=== PATIENT | female | born 1945 | race Caucasian/White ===

== ENCOUNTER 2018-09-12 13:03 | Outpatient (REF) | payer MEDICARE, OTHER, SELFPAY ==
[2018-09-12 14:24] LABS: Iron 21 ug/dL (50-175); Total Iron Binding Capacity 442 ug/dL (250-450); Transferrin Sat 5 % (15-50)
[2018-09-12 14:34] LABS: HCT 27.3 % (36.0-46.0); HGB 8.1 g/dL (12.0-15.5); Mean Corp. HGB Concentration 29.7 g/dL (32.0-36.0); Mean Corpuscular Hemoglobin 23.9 pg (27.0-33.0); Mean Corpuscular Volume 80.5 fL (80-95); Mean Platelet Volume 11.9 fL (8.0-11.0); Platelet Count 363 x1000/uL (130-400); RBC 3.39 m/cumm (4.00-5.20); RBC Distribution Width 16.3 % (11.7-14.6); White Blood Cell Count 7.46 k/cumm (4.4-10.8)
[2018-09-12 14:47] LABS: Ferritin 20 ng/mL (8-388); TSH (W/Ref FT4) 1.66 uIU/mL (0.358-3.74)
[2018-09-13 10:52] LABS: Hepatitis C Ab w Rflx HCV PCR Negative (NEGAT)
== END 2018-09-12 13:23 ==
LOC: NCHCN 13:03
PROVIDERS: PCP Family Medicine; Visit Provider Family Medicine
DX: D50.9 Iron deficiency anemia, unspecified (principal); Z13.818 Encounter for screening for other digestive system disorders; E03.9 Hypothyroidism, unspecified
CPT/HCPCS: 85027; 86803; 82728; 83540; 83550; 84443

== ENCOUNTER → 2018-11-16 11:28 | Outpatient (BNVA) | payer MEDICARE, OTHER, SELFPAY | PROVIDERS: PCP Family Medicine; Referring Provider Family Medicine; Visit Provider Physical Therapy Assistant | DX: R07.89 Other chest pain (principal); R01.1 Cardiac murmur, unspecified; K21.9 Gastro-esophageal reflux disease without esophagitis; K22.70 Barrett's esophagus without dysplasia | CPT/HCPCS: 99212 ==

== ENCOUNTER 2018-11-20 14:06 | Observation (INO) | payer MEDICARE, OTHER, SELFPAY ==
[2018-11-20] VITALS (91 sets, daily range): BP systolic 90–190; BP diastolic 11–80; PULSE 63–92; RESP 13–34; TEMP 36.2–37.2; O2SAT 95–100
--- NOTE | 2018-11-20 14:14 | ED.GENADUL_ITS ---
Discharge Plan Disposition Patient Disposition: [facility] INPATIENT Condition: Serious Discharge Details Chief Complaint: Chest Pain Clinical Impression: Angina pectoris, unstable Reason For Visit: UNSTABLE ANGINA Admit Date/Time: 11/20/18 17:39 Admit Provider: Kayden Damian Attending Provider: Kayden Damian Primary Care Provider: Rafa Aguayo ED Provider: Harvey Wilks Discharge Data Discharge Date/Time-TO BE ENTERED AT DEPARTURE: 11/20/18 19:05 Medical Decision Making 73-year-old female smoker with a history of peripheral vascular occlusive disease and abnormal stress test in the past presents from Dr. ramirez's office with complaints of weeks of intermittent episodes of primarily exertional chest pain is begun to occur at rest over the past 2 days time. She arrives slightly hypertensive, complaining of 3 out of 10 chest pain. Her EKG reveals new ST segment depressions in the lateral leads. Reviewed records including stress test from July 2014: 1) [address] elevation in III and [address] elevation in II and AVF. 2) Peaked T-waves in II, III, aVF 3) 0.[address] depression and T-wave inversion in AVL, V1 and V2 compared to baseline. At that time the recommendation was referral for cardiac catheterization which the patient states she has not had. IV placed, labs obtained, patient placed on a ekg monitor. Given aspirin and placed on NTG & heparin gtt. Patient now pain-free and repeat EKG obtained at 15:29h reveals normal sinus rhythm, no narrow QRS, no ST segment elevation and resolution of previous depressions. She has a microcytic anemia with hematocrit of 24, states to me that she has not been taking her iron supplementation for approximately 1 year. I did perform a rectal exam which showed brown stool that was guaiac negative. Given the drop of her hematocrit I do feel that she is at risk for demand ischemia due to lack of oxygen carrying capacity. Case discussed with on-call cardiology at [facility] who recommend transfusion, hold heparin at this time, re-evaluate in the AM as they are unable to accept. Case also then discussed with [facility], Dr. Mcdaniel who also cannot accept in transfer, but has placed the patient on urgent transfer list to [place] [id number]. They agree with transfusion, holding of heparin, call the service back if the patient should become clinically unstable or for any other acute concerns otherwise discuss transfer in the morning. Discussed with Dr Damian who is to admit to [facility] given lack of available tertiary care bed at this time. Lab Data Lab results reviewed: Yes I reviewed the patient's lab results. Laboratory Results - last 24 hr 11/20/18 11/20/18 11/20/18 15:01 15:01 15:01 WBC 8.12 RBC 3.13 L Hgb 7.4 L Hct 24.9 L MCV 79.6 L MCH 23.6 L MCHC 29.7 L RDW 18.4 H Plt Count 457 H MPV 10.3 Immature Gran % 0.4 Neutrophils % 62.4 Lymphocytes % 24.0 Monocytes % 11.3 Eosinophils % 1.8 Basophils % 0.1 Absolute Neutrophils 5.06 Absolute Lymphocytes 1.95 Absolute Monocytes 0.92 H Absolute Eosinophils 0.15 Absolute Basophils 0.01 Differential Comment Rbc morph reviewed RBC Morphology See below Hypochromasia 2+ Poikilocytosis 2+ Anisocytosis 2+ Microcytosis 1+ PT 9.4 INR 0.9 APTT 21.4 Sodium 141 Potassium 4.8 Chloride 103 Carbon Dioxide 26.4 Anion Gap 11.6 H BUN 20 H Creatinine 1.06 H Estimated GFR/1.73 m2 51.10 Glucose 115 H Calcium 10.5 H Total Bilirubin 0.2 AST 12 L ALT 14 Alkaline Phosphatase 104 Troponin I < 0.02 Total Protein 9.2 H Albumin 4.3 ECG Data Attestation: I personally reviewed and interpreted this ECG (s) as follows: Interpretation: Normal sinus rhythm, rate of 65, the QRS is narrow, there is ST segment depressions present in lateral leads V4 through V6 as well as T wave inversions in leads I and aVL EKG #2 at 1529 hrs. reveals normal sinus rhythm, narrow QRS, no ST segment elevation nor depression HPI General Mode of arrival: ambulatory . Date/Time Provider Initiated Documentation: 11/20/18 14:07 . Limitations to Documentation: no limitations . Information obtained by: patient and family . History of Present Illness 73 year old F presents to the emergency department with the chief complaint of Chest pain over 2 weeks time with exertion, referred from Dr Aguayo, with intensity rated at 3. Quality is described as dull, and is localized to the chest. Patient reports radiation to back. Patient started experiencing this week(s) and it has been intermittent. Rest improves symptom(s), Movement worsens symptoms . Patient notes no other symptoms.. Patient did receive the following treatments prior to arrival, none Related Data Home Medications Medication Instructions Recorded Confirmed clopidogrel [Plavix] 75 mg PO HS 06/21/14 11/20/18 ferrous gluconate 324 mg PO DAILY 08/01/14 11/20/18 aspirin 325 mg PO DAILY tab-cap 01/09/15 11/20/18 cholecalciferol (vitamin D3) 2,000 unit PO DAILY 06/06/17 11/16/18 [Vitamin D3] nitroglycerin 0.4 mg SUBLINGUAL DIRECTED #25 09/03/17 11/20/18 tab.subl valsartan-hydrochlorothiazide 1 ea PO DAILY 09/13/17 11/20/18 isosorbide mononitrate 60 mg PO HS 09/14/17 11/20/18 ranitidine HCl 300 mg PO HS 09/14/17 11/20/18 verapamil 180 mg PO .AFTERNOON 09/14/17 11/20/18 levothyroxine 150 mcg PO QAM 11/20/18 11/20/18 Previous Rx's Medication Instructions Recorded nitroglycerin 0.4 mg SUBLINGUAL DIRECTED #25 09/03/17 tab.subl Allergies Allergy/AdvReac Type Severity Reaction Status Date / Time cilostazol Allergy Severe Unverified 11/20/18 14:16 Kuyqexf-Pia-Bto Reductase AdvReac Intermediate Headache Unverified 11/20/18 14:16 Inhibitor atenolol AdvReac Mild palpitation Unverified 11/20/18 14:16 s losartan potassium AdvReac Mild palpitation Unverified 11/20/18 14:16 [From Cozaar] s rosuvastatin [From Crestor] AdvReac Mild Unverified 11/20/18 14:16 levothyroxine sodium AdvReac Unverified 11/20/18 14:16 Review of Systems Review of Systems Chest pain that worsens with exertion, improves with rest. She denies any rece nt illness. She continues to smoke. 8 systems reviewed and otherwise no [facility] Medical History Hx of Helicobacter infection (Inactive) Tobacco dependence (Acute) Diverticulosis large intestine w/o perforation or abscess w/o bleeding (Chronic) Degenerative disc disease, lumbar (Chronic) Intermittent claudication (Chronic) Depression (Chronic) Carotid stenosis (Chronic) Hyperlipidemia (Chronic) Hypothyroid (Chronic) Peripheral vascular disease (Chronic) Iron deficiency anemia (Chronic) Brittle nails (Chronic) Chronic anxiety (Chronic) Gastric ulcer (Chronic) Hypertension (Chronic) Vitamin D deficiency (Chronic) Obesity (Chronic) Cerebrovascular accident (CVA) (Chronic) Asthma (Chronic) Prediabetes (Chronic) Ischemic optic neuropathy (Chronic) GERD (gastroesophageal reflux disease) (Acute 09/05/16) 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 1/2 pack/day smoker. No active alcohol or substance use. Exam Narrative Exam Narrative: GEN: awake, alert, oriented 3. Pleasant, well groomed, interactive. HEAD: Normocephalic, atraumatic ENT: Mucous membranes moist, oropharynx unremarkable, External ear exam unremarkable EYES: PERRL, EOMI NECK: Full ROM, no MADISON, no menigismus CHEST/RESP: Nontender, clear to auscultation bilateral, no wheeze/rhonchi/rales CARDIOVASCULAR: RRR, no murmur, rub bonnie. 2+ Rad pulse bilateral ABDOMEN: Soft, nontender, no mass. +Bowel sounds EXT: Full ROM, no edema, no rash Neuro: Grossly normal neurologic exam, conversant, interactive. Psych: Speech fluent, thoughts congruent, affect normal
[2018-11-20] MEDS: Aspirin 325 MG TAB PO (14:59)
[2018-11-20 15:10] LABS: Abs Immature Grans 0.03 k/cumm (0.0-0.09); Absolute Basophil Count 0.01 k/cumm (0.0-0.2); Absolute Eosinophil Count 0.15 k/cumm (0.0-0.7); Absolute Lymphocyte Count 1.95 k/cumm (1.2-3.4); Absolute Monocyte Count 0.92 k/cumm (0.11-0.7); Absolute Neutrophil Count 5.06 k/cumm (1.2-6.7); Basophils % 0.1; Eosinophils % 1.8; HCT 24.9 % (36.0-46.0); HGB 7.4 g/dL (12.0-15.5); Immature Grans % 0.4; Mean Corp. HGB Concentration 29.7 g/dL (32.0-36.0); Mean Corpuscular Hemoglobin 23.6 pg (27.0-33.0); Mean Corpuscular Volume 79.6 fL (80-95); Mean Platelet Volume 10.3 fL (8.0-11.0); Monocytes % 11.3; Neutrophils % 62.4; Platelet Count 457 x1000/uL (130-400); RBC 3.13 m/cumm (4.00-5.20); RBC Distribution Width 18.4 % (11.7-14.6); White Blood Cell Count 8.12 k/cumm (4.4-10.8)
[2018-11-20] MEDS: Aspirin 81 MG CHEW (15:23)
[2018-11-20 15:35] LABS: ALT 14 U/L (12-78); AST 12 U/L (15-37); Albumin 4.3 g/dL (3.4-5.0); Alkaline Phosphatase 104 U/L (46-116); Anion Gap 11.6 mmol/L (3-11); Anisocytosis 2+; BUN 20 mg/dL (7-18); Bilirubin, Total 0.2 mg/dL (0.2-1.0); CO2 26.4 mmol/L (21.0-32.0); CREATININE 1.06 mg/dL (0.55-1.02); Calcium 10.5 mg/dL (8.5-10.1); Chloride 103 mmol/L (98-107); Diff Comment RBC Morph Reviewed; Glucose 115 mg/dL (70-100); INR 0.9 (0.9-1.1); Microcytosis 1+; PTT Activated 21.4 sec (21.0-31.4); Potassium 4.8 mmol/L (3.5-5.1); Prothrombin Time 9.4 sec (9.3-11.0); Sodium 141 mmol/L (136-145); Total Protein 9.2 g/dL (6.4-8.2)
[2018-11-20 15:36] LABS: Hypochromasia 2+; Poikilocytes 2+
[2018-11-20 15:37] LABS: Troponin I < 0.02 ng/mL (0.00-0.06)
--- NOTE | 2018-11-20 15:40 | DI.RAD_ITS ---
SYMPTOM/DIAGNOSIS: CHEST PAIN PORTABLE AP CHEST: Comparison is made with 09/01/17. Heart size and pulmonary vasculature are within normal limits. The lungs are free of infiltrates, effusions or pneumothoraces. IMPRESSION: No acute pulmonary process.
[2018-11-20 15:41] LABS: Magnesium 2.3 mg/dL (1.8-2.4); NT-proBNP 318 pg/mL
--- NOTE | 2018-11-20 17:36 | NUR.NOTE ---
PT SITTING UP EATING DINNER AT THIS TIME. PT LUNGS CLEAR AND PT HAS BSWx 4 ON EDEMA Nursing Note:
[2018-11-20 18:09] LABS: Troponin I 0.03 ng/mL (0.00-0.06)
--- NOTE | 2018-11-20 19:58 | W.PM.HP.N ---
Date of service: 11/20/18 Time of Service: 19:58 Assessment and Plan (1) Atypical chest pain: Current visit: Yes Status: Acute Patient presents with intermittent chest pressure that appears to be exercise-induced but also relieved by burping. She has a history of abnormal stress testing in 2013 without apparent follow-up. There is some concern that she did not follow-up for a recommended cardiac catheterization. She is admitted to observation status with plans for tertiary care follow-up for cardiac cath. We are limited in our ability to continue platelet inhibition or use of heparin because of her profound anemia. She does not display evidence of acute GI bleeding and is indeed guaiac negative from below. Plan at this point is to continue a nitro infusion currently at 40 mcg/min, titrate to keep her pain-free. Limit her activity. Transfer to tertiary care when next bed available. Discussions with [facility] [place] have taken place. (2) Abnormal EKG: Current visit: Yes Status: Acute Evidence of lateral ischemic changes on initial EKG. These have since resolved with resolution of her chest pressure and with the institution of the nitro drip. (3) Elevated troponin: Current visit: Yes Status: Acute Initial troponins have been low. Previous admission in 2017 peak troponin was 0.07. (4) Tobacco dependence: Current visit: Yes Status: Acute Ongoing tobacco use of 1/2 pack/day. Will provide nicotine replacement (5) Carotid stenosis: Current visit: No Status: Chronic History of carotid endarterectomy. She denies ever having had neurologic deficits. Exam today shows no obvious neurologic deficits. Her problem list/history suggests she has had a CVA in the past. She is usually on aspirin 325 mg daily. We are holding that because of the anemia. She has been taking this regularly so there should be adequate antiplatelet activity on board. (6) Hyperlipidemia: Current visit: Yes Status: Chronic She is intolerant of statins. On no treatment at this time. (7) Hypothyroid: Current visit: Yes Status: Chronic Patient states she takes 150 mcg of levothyroxine daily will provide her that in the a.m. (Med list had her at 250 mcg daily, this was corrected) (8) Chronic anxiety: Current visit: Yes Status: Chronic PRN lorazepam 0.5 mg every 6 hours for anxiety (9) Gastric ulcer: Current visit: Yes Status: Chronic History of prior gastric ulcer on maintenance ranitidine. Will switch her to IV Protonix 40 mg daily with a stat dose tonight. No evidence of active GI bleeding, I do not think she warrants a Protonix infusion. (10) Prediabetes: Current visit: Yes Status: Chronic Admission blood sugar in the normal range. She is not actively treated for diabetes. We will keep her on a low carbohydrate diet as a precaution. History of Present Illness Narrative: This is a 73-year-old woman with a history of stable angina diagnosed in 2013 at the time she had an abnormal stress test. There are conflicting stories as to whether she was recommended for cardiac catheter not. She never went on to have a cardiac cath, she has had intermittent chest pain off and on for several years now. 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 During that visit on 11/16/2018 she was having chest pain and was referred back to her PCP. Dr. ramirez referred her to the emergency room today. In the emergency room she was having chest discomfort with EKG changes in the lateral leads. She was started on a nitro drip. She did receive a full dose aspirin. Further labs came back showing a hemoglobin of 7.4 down from 12.0. With the newly discovered anemia no further anticoagulation was given. [facility] cardiology was consulted and felt she needed to be transfused and stabilized and they could see her there in transfer tomorrow. She is admitted to the ICU on a nitro drip and is receiving 1 unit of packed red cells. Review of Systems Constitutional Denies excessive sweating, Denies frequent falls and Denies headache(s) Comments: Denies any prior CVA or neurologic problems. Eyes Reports spots in vision (She described a flash or floater in her right eye vision while in the emerg) ENT Denies dizziness, Denies headache(s) and Denies throat swelling Cardiovascular Reports chest pain (Chest pain or pressure with any movement including moving off the stretcher), Denies edema, Denies dyspnea, Reports dyspnea on exertion and Reports orthopnea Comments: Some of her chest pain gets better after she burps. Respiratory Denies change in phlegm color, Denies cough, Denies excessive phlegm production, Denies dyspnea and Reports dyspnea on exertion Gastrointestinal Denies melena, Denies hematochezia, Denies change in bowel habits, Denies change in stool character, Denies coffee ground emesis, Denies diarrhea, Denies nausea and Denies vomiting Genitourinary Denies urinary frequency and Denies urinary incontinence Musculoskeletal Denies back pain and Denies deformity Integumentary/Breasts Denies rash, Denies sores and Denies wounds Neurologic Denies confusion, Denies dizziness, Denies frequent falls, Denies headache(s), Denies focal weakness and Denies sensory deficit Psychiatric Denies confusion, Denies depression and Denies suicidal ideation Endocrine Denies cold intolerance and Denies excessive sweating Hematologic/Lymphatic Denies easy bleeding and Denies easy bruising Allergic/Immunologic Denies urticaria and Denies throat swelling [facility] Medical History Hx of Helicobacter infection (Inactive) Tobacco dependence (Acute) Diverticulosis large intestine w/o perforation or abscess w/o bleeding (Chronic) Degenerative disc disease, lumbar (Chronic) Intermittent claudication (Chronic) Depression (Chronic) Carotid stenosis (Chronic) Hyperlipidemia (Chronic) Hypothyroid (Chronic) Peripheral vascular disease (Chronic) Iron deficiency anemia (Chronic) Brittle nails (Chronic) Chronic anxiety (Chronic) Gastric ulcer (Chronic) Hypertension (Chronic) Vitamin D deficiency (Chronic) Obesity (Chronic) Cerebrovascular accident (CVA) (Chronic) Asthma (Chronic) Prediabetes (Chronic) Ischemic optic neuropathy (Chronic) GERD (gastroesophageal reflux disease) (Acute 09/05/16) 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 1/2 pack/day smoker. No active alcohol or substance use. Meds Home Medications Medication Instructions Recorded Confirmed Type clopidogrel [Plavix] 75 mg PO HS 06/21/14 11/20/18 History ferrous gluconate 324 mg PO DAILY 08/01/14 11/20/18 History aspirin 325 mg PO DAILY tab-cap 01/09/15 11/20/18 History cholecalciferol (vitamin D3) 2,000 unit PO DAILY 06/06/17 11/16/18 History [Vitamin D3] nitroglycerin 0.4 mg SUBLINGUAL DIRECTED #25 09/03/17 11/20/18 Rx tab.subl valsartan-hydrochlorothiazide 1 ea PO DAILY 09/13/17 11/20/18 History isosorbide mononitrate 60 mg PO HS 09/14/17 11/20/18 History ranitidine HCl 300 mg PO HS 09/14/17 11/20/18 History verapamil 180 mg PO .AFTERNOON 09/14/17 11/20/18 History levothyroxine 150 mcg PO QAM 11/20/18 11/20/18 History Allergies Allergy/AdvReac Type Severity Reaction Status Date / Time cilostazol Allergy Severe Unverified 11/20/18 14:16 [id number]-Mtj Reductase AdvReac Intermediate Headache Unverified 11/20/18 14:16 Inhibitor atenolol AdvReac Mild palpitation Unverified 11/20/18 14:16 s losartan potassium AdvReac Mild palpitation Unverified 11/20/18 14:16 [From Cozaar] s rosuvastatin [From Crestor] AdvReac Mild Unverified 11/20/18 14:16 levothyroxine sodium AdvReac Unverified 11/20/18 14:16 Exam Narrative Exam Narrative: Comfortable no apparent distress. Const General: cooperative, comfortable and no acute distress Orientation: alert, awake and oriented x3 HENMT Head: normal to inspection Ears: hearing grossly normal bilaterally General nose exam: external nose normal Face and sinus: face symmetric Mouth: oropharynx normal Eyes General: appearance normal, both eyes and all related structures Neck Neck: normal visual inspection Thyroid: symmetrical Carotids: normal carotid upstroke (Right-sided carotid endarterectomy scar stable) Lymphatic: no lymphadenopathy noted Chest Chest: normal inspection of the chest Resp Effort & Inspection: normal respiratory effort Auscultation: clear to auscultation bilaterally Cardio Jugular venous pressure: no JVD Rate: regular rate Rhythm: regular rhythm Heart Sounds: S1 normal, S2 normal and murmur (2/6 systolic blowing murmur) GI Inspection: normal to inspection Palpation: soft, no hepatosplenomegaly and nontender External Female Exam: external appearance normal Back/Spine/Pelvis Back: no CVA tenderness Cervical Spine: normal cervical lordosis Thoracic/Lumbar Spine: thoracic and lumbar spine normal to inspection Skin General skin exam: no rashes or lesions noted Wounds: no wounds Neuro General: alert, awake, oriented x3, moves all extremities and no focal motor deficits Cranial Nerves: CN's II-XI intact bilaterally Cognition: normal cognition Speech: speech normal Extrem General: normal to inspection and no clubbing, cyanosis or edema Psych Appearance: grossly normal Mental Status: mental status grossly normal Speech and Movement: speech and movement normal Mood: congruent mood Affect: normal affect Attitude: cooperative Thought Process: normal Thought Content: normal Insight: insight good Results Imaging Chest x-ray: report reviewed (No acute abnormality) EKG: report reviewed (Initial EKG showed T wave inversion in 1 and aVL consistent with lateral ischemia, second EKG showed normalization) Labs : 11/20/18 15:01 11/20/18 15:01 Laboratory Results - last 24 hr 11/20/18 11/20/18 11/20/18 15:01 15:01 15:01 WBC RBC Hgb Hct MCV MCH MCHC RDW Plt Count MPV Immature Gran % Neutrophils % Lymphocytes % Monocytes % Eosinophils % Basophils % Absolute Neutrophils Absolute Lymphocytes Absolute Monocytes Absolute Eosinophils Absolute Basophils Differential Comment RBC Morphology Hypochromasia Poikilocytosis Anisocytosis Microcytosis PT 9.4 INR 0.9 APTT 21.4 Sodium 141 Potassium 4.8 Chloride 103 Carbon Dioxide 26.4 Anion Gap 11.6 H BUN 20 H Creatinine 1.06 H Estimated GFR/1.73 m2 51.10 Glucose 115 H Calcium 10.5 H Magnesium 2.3 Total Bilirubin 0.2 AST 12 L ALT 14 Alkaline Phosphatase 104 Troponin I < 0.02 NT-Pro-B Natriuret Pep 318 H Total Protein 9.2 H Albumin 4.3 Patient ABO/Rh Antibody Screen Crossmatch 11/20/18 11/20/18 11/20/18 15:01 16:05 17:46 WBC 8.12 RBC 3.13 L Hgb 7.4 L Hct 24.9 L MCV 79.6 L MCH 23.6 L MCHC 29.7 L RDW 18.4 H Plt Count 457 H MPV 10.3 Immature Gran % 0.4 Neutrophils % 62.4 Lymphocytes % 24.0 Monocytes % 11.3 Eosinophils % 1.8 Basophils % 0.1 Absolute Neutrophils 5.06 Absolute Lymphocytes 1.95 Absolute Monocytes 0.92 H Absolute Eosinophils 0.15 Absolute Basophils 0.01 Differential Comment Rbc morph reviewed RBC Morphology See below Hypochromasia 2+ Poikilocytosis 2+ Anisocytosis 2+ Microcytosis 1+ PT INR APTT Sodium Potassium Chloride Carbon Dioxide Anion Gap BUN Creatinine Estimated GFR/1.73 m2 Glucose Calcium Magnesium Total Bilirubin AST ALT Alkaline Phosphatase Troponin I 0.03 NT-Pro-B Natriuret Pep Total Protein Albumin Patient ABO/Rh O Negative Antibody Screen Negative Crossmatch See Detail Last Vital Signs Temp 36.6 C 11/20/18 19:00 Pulse 75 11/20/18 19:00 Resp 18 11/20/18 19:00 BP 138/48 L 11/20/18 19:00 Pulse Ox 100 11/20/18 19:00
[2018-11-20] MEDS: Pantoprazole 40 MG VIAL IVP (21:05)
[2018-11-20] MEDS: Normal Saline Flush 10 ML SYR IVP (21:06)
[2018-11-20 22:38] LABS: Troponin I 0.14 ng/mL (0.00-0.06)
[2018-11-21] VITALS (92 sets, daily range): BP systolic 70–168; BP diastolic 25–86; PULSE 56–75; RESP 10–29; TEMP 36.3–37.8; O2SAT 86–100
[2018-11-21] MEDS: Docusate Sodium 100 MG CAP PO (00:23)
[2018-11-21 05:42] LABS: Abs Immature Grans 0.02 k/cumm (0.0-0.09); Absolute Basophil Count 0.02 k/cumm (0.0-0.2); Absolute Eosinophil Count 0.19 k/cumm (0.0-0.7); Absolute Lymphocyte Count 1.99 k/cumm (1.2-3.4); Absolute Monocyte Count 1.27 k/cumm (0.11-0.7); Absolute Neutrophil Count 4.62 k/cumm (1.2-6.7); Basophils % 0.2; Eosinophils % 2.3; Immature Grans % 0.2; Lymphocytes % 24.5; Mean Corp. HGB Concentration 31.1 g/dL (32.0-36.0); Mean Corpuscular Volume 80.4 fL (80-95); Mean Platelet Volume 9.7 fL (8.0-11.0); Monocytes % 15.7; Neutrophils % 57.1; Platelet Count 337 x1000/uL (130-400); RBC Distribution Width 17.5 % (11.7-14.6); White Blood Cell Count 8.11 k/cumm (4.4-10.8)
[2018-11-21 05:55] LABS: ALT 11 U/L (12-78); AST 11 U/L (15-37); Albumin 3.2 g/dL (3.4-5.0); Alkaline Phosphatase 75 U/L (46-116); Anion Gap 8.7 mmol/L (3-11); BUN 16 mg/dL (7-18); Bilirubin, Total 0.3 mg/dL (0.2-1.0); CO2 26.3 mmol/L (21.0-32.0); CREATININE 0.98 mg/dL (0.55-1.02); Calcium 8.7 mg/dL (8.5-10.1); Chloride 104 mmol/L (98-107); Estimated GFR 55.95 (mL/min/1.73m2); Glucose 104 mg/dL (70-100); Potassium 4.3 mmol/L (3.5-5.1); Sodium 139 mmol/L (136-145); Total Protein 6.6 g/dL (6.4-8.2)
[2018-11-21 05:57] LABS: HGB 6.5 g/dL (12.0-15.5)
[2018-11-21 05:58] LABS: HCT 20.9 % (36.0-46.0)
[2018-11-21 06:00] LABS: Troponin I 0.36 ng/mL (0.00-0.06)
[2018-11-21 06:02] LABS: Anisocytosis 1+; Basophilic Stippling Present; Hypochromasia 2+
[2018-11-21 06:03] LABS: Macrocytosis 1+; Polychromasia Present
[2018-11-21] MEDS: PANTOPRAZOLE 80 MG in Normal Saline 100 ML IV (09:38)
[2018-11-21 10:48] LABS: Troponin I 0.33 ng/mL (0.00-0.06)
[2018-11-21] MEDS: PANTOPRAZOLE 80 MG in Normal Saline 100 ML 10 MG IV (12:30)
--- NOTE | 2018-11-21 13:14 | W.PM.DS.N ---
Date of service: 11/21/18 Time of Service: 13:14 DS: Diagnosis Discharge Diagnosis (1) Atypical chest pain: Status: Acute (2) Abnormal EKG: Status: Acute (3) Elevated troponin: Status: Acute (4) Tobacco dependence: Status: Acute (5) Carotid stenosis: Status: Chronic (6) Hyperlipidemia: Status: Chronic (7) Gastric ulcer: Status: Chronic (8) Prediabetes: Status: Chronic Discharge Plan Disposition Patient Disposition: STEPHENIE JOHNSON ([facility]) Condition: Serious Discharge Details Reason For Visit: UNSTABLE ANGINA Admit Date/Time: 11/20/18 17:39 Admit Provider: Kayden Damian Attending Provider: Kayden Damian Primary Care Provider: Rafa Aguayo [facility] Hospital Course: CC: Chest Pain HPI: 73-year-old woman with a past medical history of stable angina, GERD, and apparent peptic ulcer disease, admitted from [facility] emergency department on 11/20 with a diagnosis of anemia, abnormal EKG, and elevated troponin. Mrs. Rick has a prior history noted of GERD and apparent peptic ulcer disease. She and her also verbally report a previous diagnosis of Baker's esophagus. She also has a history of what appeared to be stable angina that was first diagnosed in approximately 2013 based on symptoms as well as an abnormal stress test. There appears to be conflicting stories regarding further recommendation for a left heart catheterization at that time, but certainly she did not have this done at the time. She has had apparent intermittent chest pain since that time. The patient was undergoing a preoperative evaluation for an upper endoscopy and surveillance of her Baker's esophagus. During her visit she was having chest pain, and was referred back to her PCP for further evaluation. At that time she was referred to the ED for further workup and treatment. In the emergency department the patient was found to have chest discomfort, and EKG changes across the lateral leads. She was also noted to have a hemoglobin of 7.4, down from a value of 8.1 in September, and 10.4 in December 2017. In fact, review of her H/H reveals normal values in 2015, with a steady drop since that time. She was also noted to be heme negative by exam in the ED. She was also noted to have a minimal elevated troponin. Discussion with cardiology decision was made to admit the patient and transfuse her, with symptoms likely based on demand ischemia in the setting of worsening anemia. She was admitted and initiated on a nitro drip, and received 1 unit of packed red blood cells. By this morning Mrs. Rick had worsening value of her hemoglobin at 6.5 despite completion of her transfusion. Repeat check of her stool continue to be heme negative. She also continued to have symptoms of chest discomfort intermittently. Her troponin had elevated from an initial value of 0.03 to 0.14, then 0.36 this morning. However on repeat check later in the morning this value was stabilized and started to decrease at 0.33. She is currently in the midst of receiving her second unit of packed red blood cells and has not had a repeat H&H drawn. She is not received antiplatelet therapy or active anticoagulation in the setting of her anemia, and refused high potency statin due to significant intolerance in the past. She was also limited on the use of beta-noy use due to borderline heart rates, ranging in value from 57-67. She has remained on a nitro drip, and a Protonix drip was initiated as well. She is being transferred to a tertiary center for further evaluation to potentially include an EGD in patient with ongoing worsening anemia with a prior history of GERD, Baker's esophagus, and peptic ulcer disease per review of her history, as well as an ischemic workup following. Listed below is the list of her home medications. Currently she is on a protonix and nitro infusion, as well as her home levothyroxine dose. She is currently NPO. Home Meds and New Rx's Prescriptions: Continued ferrous gluconate 324 MG tablet 324 mg PO DAILY RF: 0 aspirin 325 MG tablet 325 mg PO DAILY RF: 0 clopidogrel [Plavix] 75 MG tablet 75 mg PO HS RF: 0 valsartan-hydrochlorothiazide 1 EACH tablet 1 ea PO DAILY RF: 0 verapamil 180 MG tablet extended release 180 mg PO .AFTERNOON RF: 0 ranitidine HCl 300 MG tablet 300 mg PO HS RF: 0 isosorbide mononitrate 60 MG tablet extended release 24 hr 60 mg PO HS RF: 0 cholecalciferol (vitamin D3) [Vitamin D3] 2,000 UNIT capsule 2,000 unit PO DAILY RF: 0 nitroglycerin 0.4 MG tablet, sublingual 0.4 mg Sublingual DIRECTED Qty: 25 RF: 0 levothyroxine 150 mcg Tablet 150 mcg PO QAM RF: 0 Discharge Instructions Activity:: OOB to chair Equipment/Supplies:: No Equipment Needed Diet:: Currently NPO Discharge Orders Discharge Orders: Discharge Order (Routine); Ordered 11/21/18 Ordered By: Geoff Butterfield DS: Data Vitals/I&O Vitals and I&O: Vital Signs Temperature 37.2 C 11/21/18 11:44 Temperature Source Tympanic 11/20/18 19:10 Pulse 67 11/21/18 11:44 Pulse 60 11/21/18 05:10 Respiratory Rate 14 11/21/18 11:44 Respiratory Effort 11/21/18 03:56 Respiratory Depth Normal 11/21/18 03:56 Respiratory Pattern Normal 11/21/18 03:56 Blood Pressure 133/54 L 11/21/18 11:44 Blood Pressure Mean 64 11/21/18 05:01 Blood Pressure Position Supine 11/20/18 19:10 Pulse Oximetry 96 11/21/18 11:44 Oxygen Delivery Method Room Air 11/21/18 11:44 Oxygen Flow Rate 0 11/21/18 11:44 Pain Level 0 11/21/18 03:56 Intake & Output 11/20/18 11/21/18 11/21/18 23:59 11:59 23:59 Intake Total 843.350 / 1198.559 4478.042 / 1134.042 0 / 1134.042 Output Total 1100 / 1100 1350 / 1350 Balance -256.650 / -16.650 -215.958 / -215.958 0 / -215.958 Weight 80.286 kg 83.2 kg Intake: IV 63.350 / 63.350 74.042 / 74.042 0 / 74.042 Oral 480 / 720 760 / 760 Blood Product 300 / 300 250 / 250 Rbc Leuko Reduced Unit 250 / 250 [id number] Rbc Leuko Reduced Unit 300 / 300 [id number] Other 50 / 50 Rbc Leuko Reduced Unit 50 / 50 [id number] Output: Urine 1100 / 1100 1350 / 1350 Other: Urine Color Pale Yellow Yellow Urine Appearance Clear Clear Urine Odor None None Comment mixed with stool in commode Stool Size Moderate Stool Characteristics Formed Voiding Methods Bedside Commode Bedside Commode Labs on day of discharge: Labs from last 24 hours 11/21/18 11/21/18 11/21/18 14:00 10:18 10:00 WBC RBC Hgb Pending Hct Pending MCV MCH MCHC RDW Plt Count MPV Immature Gran % Neutrophils % Lymphocytes % Monocytes % Eosinophils % Basophils % Absolute Neutrophils Absolute Lymphocytes Absolute Monocytes Absolute Eosinophils Absolute Basophils Differential Comment RBC Morphology Polychromasia Hypochromasia Poikilocytosis Basophilic Stippling Anisocytosis Microcytosis Macrocytosis PT INR APTT Sodium Potassium Chloride Carbon Dioxide Anion Gap BUN Creatinine Estimated GFR/1.73 m2 Glucose Calcium Magnesium Total Bilirubin AST ALT Alkaline Phosphatase Troponin I Pending 0.33 H* NT-Pro-B Natriuret Pep Total Protein Albumin Patient ABO/Rh Antibody Screen Crossmatch 11/21/18 11/21/18 11/21/18 05:35 05:35 05:35 WBC 8.11 RBC 2.60 L Hgb 6.5 L* Hct 20.9 L* MCV 80.4 MCH 25.0 L MCHC 31.1 L RDW 17.5 H Plt Count 337 D MPV 9.7 Immature Gran % 0.2 Neutrophils % 57.1 Lymphocytes % 24.5 Monocytes % 15.7 Eosinophils % 2.3 Basophils % 0.2 Absolute Neutrophils 4.62 Absolute Lymphocytes 1.99 Absolute Monocytes 1.27 H Absolute Eosinophils 0.19 Absolute Basophils 0.02 Differential Comment RBC Morphology See below Polychromasia Present Hypochromasia 2+ Poikilocytosis Basophilic Stippling Present Anisocytosis 1+ Microcytosis Macrocytosis 1+ PT INR APTT Sodium 139 Potassium 4.3 Chloride 104 Carbon Dioxide 26.3 Anion Gap 8.7 BUN 16 Creatinine 0.98 Estimated GFR/1.73 m2 55.95 Glucose 104 H Calcium 8.7 Magnesium Total Bilirubin 0.3 AST 11 L ALT 11 L Alkaline Phosphatase 75 Troponin I 0.36 H* NT-Pro-B Natriuret Pep Total Protein 6.6 Albumin 3.2 L Patient ABO/Rh Antibody Screen Crossmatch 11/20/18 11/20/18 11/20/18 22:15 17:46 16:05 WBC RBC Hgb Hct MCV MCH MCHC RDW Plt Count MPV Immature Gran % Neutrophils % Lymphocytes % Monocytes % Eosinophils % Basophils % Absolute Neutrophils Absolute Lymphocytes Absolute Monocytes Absolute Eosinophils Absolute Basophils Differential Comment RBC Morphology Polychromasia Hypochromasia Poikilocytosis Basophilic Stippling Anisocytosis Microcytosis Macrocytosis PT INR APTT Sodium Potassium Chloride Carbon Dioxide Anion Gap BUN Creatinine Estimated GFR/1.73 m2 Glucose Calcium Magnesium Total Bilirubin AST ALT Alkaline Phosphatase Troponin I 0.14 H* 0.03 NT-Pro-B Natriuret Pep Total Protein Albumin Patient ABO/Rh O Negative Antibody Screen Negative Crossmatch See Detail 11/20/18 11/20/18 11/20/18 15:01 15:01 15:01 WBC 8.12 RBC 3.13 L Hgb 7.4 L Hct 24.9 L MCV 79.6 L MCH 23.6 L MCHC 29.7 L RDW 18.4 H Plt Count 457 H MPV 10.3 Immature Gran % 0.4 Neutrophils % 62.4 Lymphocytes % 24.0 Monocytes % 11.3 Eosinophils % 1.8 Basophils % 0.1 Absolute Neutrophils 5.06 Absolute Lymphocytes 1.95 Absolute Monocytes 0.92 H Absolute Eosinophils 0.15 Absolute Basophils 0.01 Differential Comment Rbc morph reviewed RBC Morphology See below Polychromasia Hypochromasia 2+ Poikilocytosis 2+ Basophilic Stippling Anisocytosis 2+ Microcytosis 1+ Macrocytosis PT 9.4 INR 0.9 APTT 21.4 Sodium 141 Potassium 4.8 Chloride 103 Carbon Dioxide 26.4 Anion Gap 11.6 H BUN 20 H Creatinine 1.06 H Estimated GFR/1.73 m2 51.10 Glucose 115 H Calcium 10.5 H Magnesium Total Bilirubin 0.2 AST 12 L ALT 14 Alkaline Phosphatase 104 Troponin I < 0.02 NT-Pro-B Natriuret Pep Total Protein 9.2 H Albumin 4.3 Patient ABO/Rh Antibody Screen Crossmatch 11/20/18 15:01 WBC RBC Hgb Hct MCV MCH MCHC RDW Plt Count MPV Immature Gran % Neutrophils % Lymphocytes % Monocytes % Eosinophils % Basophils % Absolute Neutrophils Absolute Lymphocytes Absolute Monocytes Absolute Eosinophils Absolute Basophils Differential Comment RBC Morphology Polychromasia Hypochromasia Poikilocytosis Basophilic Stippling Anisocytosis Microcytosis Macrocytosis PT INR APTT Sodium Potassium Chloride Carbon Dioxide Anion Gap BUN Creatinine Estimated GFR/1.73 m2 Glucose Calcium Magnesium 2.3 Total Bilirubin AST ALT Alkaline Phosphatase Troponin I NT-Pro-B Natriuret Pep 318 H Total Protein Albumin Patient ABO/Rh Antibody Screen Crossmatch [facility] Medical History Hx of Helicobacter infection (Inactive) Tobacco dependence (Acute) Diverticulosis large intestine w/o perforation or abscess w/o bleeding (Chronic) Degenerative disc disease, lumbar (Chronic) Intermittent claudication (Chronic) Depression (Chronic) Carotid stenosis (Chronic) Hyperlipidemia (Chronic) Hypothyroid (Chronic) Peripheral vascular disease (Chronic) Iron deficiency anemia (Chronic) Brittle nails (Chronic) Chronic anxiety (Chronic) Gastric ulcer (Chronic) Hypertension (Chronic) Vitamin D deficiency (Chronic) Obesity (Chronic) Cerebrovascular accident (CVA) (Chronic) Asthma (Chronic) Prediabetes (Chronic) Ischemic optic neuropathy (Chronic) GERD (gastroesophageal reflux disease) (Acute 09/05/16) 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 1/2 pack/day smoker. No active alcohol or substance use.
[2018-11-21 14:49] LABS: Troponin I 0.28 ng/mL (0.00-0.06)
--- NOTE | 2018-11-21 16:41 | CHAPLAIN ---
Julee was in her bed when I visited. Jessika, RN, was working on getting an IV placed. Julee shared some personal history, telling me about her kids (who live in [facility], [place], [place] and [place]). She was waiting for a bed to open up at [facility] would be transferred there. Julee has been in [facility] before and she said a nephew spent 88 days there, so she and her family are familiar with the hospital. She expected her to travel down to visit her. Her son in [place] was already at [facility] with his girlfriend's mother. As the nurse had difficult finding a good vein for Julee's IV, Julee said that's what I get for smoking. She appreciated the prayer shawl I gave her.
== END 2018-11-21 14:50 | disposition short-term general hospital (02) ==
LOC: ER 18:18 → ICU 18:38
PROVIDERS: Admitting Provider Family Medicine; Emergency Provider Emergency Medicine; PCP Family Medicine; Visit Provider Internal Medicine
DX: D64.9 Anemia, unspecified (principal); I20.0 Unstable angina; R94.31 Abnormal electrocardiogram [ECG] [EKG]; R77.8 Other specified abnormalities of plasma proteins; K21.9 Gastro-esophageal reflux disease without esophagitis; E03.9 Hypothyroidism, unspecified; E78.5 Hyperlipidemia, unspecified; R73.03 Prediabetes; K22.70 Barrett's esophagus without dysplasia; I65.21 Occlusion and stenosis of right carotid artery; Z98.62 Peripheral vascular angioplasty status; K57.90 Diverticulosis of intestine, part unspecified, without perforation or abscess without bleeding; K25.7 Chronic gastric ulcer without hemorrhage or perforation; F17.210 Nicotine dependence, cigarettes, uncomplicated; F41.9 Anxiety disorder, unspecified; Z75.1 Person awaiting admission to adequate facility elsewhere
CPT/HCPCS: 36415; 36430; 80053; 86850; 86900; 86901; 86920; 93005; 96365; 96366; 99220; 99239; 99285; 71045; 83735; 83880; 84484; 85014; 85018; 85025; 85610; 85730; 93010; 99217; P9016

== ENCOUNTER 2018-12-25 13:39 | Outpatient (REF) | payer MEDICARE, OTHER, SELFPAY ==
[2018-12-25 18:45] LABS: HGB 7.3 g/dL (12.0-15.5); Mean Corp. HGB Concentration 30.4 g/dL (32.0-36.0); Mean Corpuscular Hemoglobin 25.8 pg (27.0-33.0); Mean Corpuscular Volume 84.8 fL (80-95); Mean Platelet Volume 11.3 fL (8.0-11.0); Platelet Count 371 x1000/uL (130-400); RBC 2.83 m/cumm (4.00-5.20); RBC Distribution Width 17.1 % (11.7-14.6); White Blood Cell Count 8.13 k/cumm (4.4-10.8)
[2018-12-25 19:07] LABS: Iron 25 ug/dL (50-175); Total Iron Binding Capacity 376 ug/dL (250-450); Transferrin Sat 7 % (15-50)
[2018-12-25 19:13] LABS: Anion Gap 10.4 mmol/L (3-11); BUN 18 mg/dL (7-18); CO2 26.6 mmol/L (21.0-32.0); CREATININE 0.97 mg/dL (0.55-1.02); Calcium 9.5 mg/dL (8.5-10.1); Chloride 103 mmol/L (98-107); Estimated GFR 56.61 (mL/min/1.73m2); Glucose 106 mg/dL (70-100); Magnesium 2.2 mg/dL (1.8-2.4); Potassium 4.9 mmol/L (3.5-5.1); Sodium 140 mmol/L (136-145)
[2018-12-25 20:02] LABS: FREE T4 1.08 ng/dL (0.76-1.46)
== END 2018-12-25 13:59 ==
LOC: NCHCN 13:39
PROVIDERS: PCP Family Medicine; Visit Provider Family Medicine
DX: I25.810 Atherosclerosis of coronary artery bypass graft(s) without angina pectoris (principal); E03.9 Hypothyroidism, unspecified; D50.9 Iron deficiency anemia, unspecified
CPT/HCPCS: 80048; 85027; 83540; 83550; 83735; 84439; 84443

== ENCOUNTER 2019-01-28 09:43 | Outpatient (RCR) | payer MEDICARE, OTHER, SELFPAY | END 2019-02-05 23:59 | disposition home or self-care (01) | LOC: CR 09:43 | PROVIDERS: PCP Family Medicine; Visit Provider Family Medicine | DX: Z51.89 Encounter for other specified aftercare (principal) ==

== ENCOUNTER 2019-02-08 09:20 | Outpatient (CLI) | payer MEDICARE, OTHER, SELFPAY ==
[2019-02-08 11:31] LABS: HCT 26.2 % (36.0-46.0); HGB 7.8 g/dL (12.0-15.5); Mean Corp. HGB Concentration 29.8 g/dL (32.0-36.0); Mean Corpuscular Hemoglobin 26.1 pg (27.0-33.0); Mean Corpuscular Volume 87.6 fL (80-95); Mean Platelet Volume 10.5 fL (8.0-11.0); Platelet Count 337 x1000/uL (130-400); RBC 2.99 m/cumm (4.00-5.20); RBC Distribution Width 16.6 % (11.7-14.6); White Blood Cell Count 6.54 k/cumm (4.4-10.8)
[2019-02-08 12:38] LABS: Anion Gap 8.8 mmol/L (3-11); BUN 19 mg/dL (7-18); CO2 27.2 mmol/L (21.0-32.0); Calcium 9.4 mg/dL (8.5-10.1); Chloride 102 mmol/L (98-107); Estimated GFR 54.66 (mL/min/1.73m2); Glucose 105 mg/dL (70-100); Potassium 4.8 mmol/L (3.5-5.1); Sodium 138 mmol/L (136-145); TSH (W/Ref FT4) 1.55 uIU/mL (0.358-3.74)
== END 2019-02-08 09:40 ==
PROVIDERS: PCP Family Medicine; Visit Provider Family Medicine
DX: E03.9 Hypothyroidism, unspecified (principal); D50.9 Iron deficiency anemia, unspecified; I10 Essential (primary) hypertension
CPT/HCPCS: 36415; 80048; 85027; 84443

== ENCOUNTER 2019-03-01 00:51 | Outpatient (RCR) | payer MEDICARE, OTHER, SELFPAY ==
[2019-02-15] MEDS: Normal Saline Flush 10 ML SYR IVP (10:49)
[2019-03-01] MEDS: Normal Saline Flush 10 ML SYR IVP (11:21)
== END 2019-03-08 23:59 | disposition home or self-care (01) ==
LOC: INF 00:51
PROVIDERS: PCP Family Medicine; Visit Provider Internal Medicine
DX: D50.9 Iron deficiency anemia, unspecified (principal)
CPT/HCPCS: 96365; 96366; J1756

== ENCOUNTER 2019-03-08 11:53 | Outpatient (RCR) | payer MEDICARE, OTHER, SELFPAY | END 2019-03-08 23:59 | disposition home or self-care (01) | LOC: CR 11:53 | PROVIDERS: PCP Family Medicine; Visit Provider Family Medicine | DX: Z51.89 Encounter for other specified aftercare (principal); I25.2 Old myocardial infarction; Z95.1 Presence of aortocoronary bypass graft | CPT/HCPCS: S9472 ==

== ENCOUNTER 2019-03-14 01:40 | Outpatient (RCR) | payer MEDICARE, OTHER, SELFPAY ==
[2019-03-14] MEDS: Normal Saline Flush 10 ML SYR IVP (10:35)
== END 2019-04-07 23:59 | disposition home or self-care (01) ==
LOC: INF 01:40
PROVIDERS: PCP Family Medicine; Visit Provider Internal Medicine
DX: D50.9 Iron deficiency anemia, unspecified (principal)
CPT/HCPCS: 96365; J1756

== ENCOUNTER 2019-03-15 09:17 | Outpatient (CLI) | payer MEDICARE, OTHER, SELFPAY | END 2019-03-15 09:37 | PROVIDERS: PCP Family Medicine; Visit Provider Internal Medicine Cardiovascular Disease | DX: I25.10 Atherosclerotic heart disease of native coronary artery without angina pectoris (principal); E78.2 Mixed hyperlipidemia; I73.9 Peripheral vascular disease, unspecified; I10 Essential (primary) hypertension | CPT/HCPCS: 99204; 99215; 93005; 93010 ==

== ENCOUNTER 2019-04-05 11:22 | Outpatient (RCR) | payer MEDICARE, OTHER, SELFPAY | END 2019-04-07 23:59 | disposition home or self-care (01) | LOC: CR 11:22 | PROVIDERS: PCP Family Medicine; Visit Provider Family Medicine | DX: Z51.89 Encounter for other specified aftercare (principal) | CPT/HCPCS: S9472 ==

== ENCOUNTER 2019-04-17 01:35 | Outpatient (CLI) | payer MEDICARE, OTHER, SELFPAY ==
[2019-04-17 11:16] LABS: HCT 26.7 % (36.0-46.0); HGB 8.6 g/dL (12.0-15.5); Mean Corp. HGB Concentration 32.2 g/dL (32.0-36.0); Mean Corpuscular Hemoglobin 26.2 pg (27.0-33.0); Mean Corpuscular Volume 81.4 fL (80-95); Mean Platelet Volume 10.1 fL (8.0-11.0); Platelet Count 305 x1000/uL (130-400); RBC 3.28 m/cumm (4.00-5.20); RBC Distribution Width 14.5 % (11.7-14.6); White Blood Cell Count 6.76 k/cumm (4.4-10.8)
[2019-04-17 12:12] LABS: Iron 43 ug/dL (50-175); Total Iron Binding Capacity 336 ug/dL (250-450); Transferrin Sat 13 % (15-50)
[2019-04-17 12:26] LABS: Ferritin 69 ng/mL (8-388)
== END 2019-04-17 01:55 ==
PROVIDERS: PCP Family Medicine; Visit Provider Family Medicine
DX: D50.9 Iron deficiency anemia, unspecified (principal)
CPT/HCPCS: 36415; 85027; 82728; 83540; 83550

== ENCOUNTER 2019-05-08 13:40 | Outpatient (RCR) | payer MEDICARE, OTHER, SELFPAY | END 2019-05-08 23:59 | disposition home or self-care (01) | LOC: CR 13:40 | PROVIDERS: PCP Family Medicine; Visit Provider Family Medicine | DX: Z51.89 Encounter for other specified aftercare (principal); Z95.1 Presence of aortocoronary bypass graft; I25.2 Old myocardial infarction | CPT/HCPCS: S9472 ==

== ENCOUNTER → 2019-05-09 13:21 | Outpatient (BNVA) | payer MEDICARE, OTHER, SELFPAY | PROVIDERS: PCP Family Medicine; Referring Provider Family Medicine; Visit Provider Physical Therapy Assistant | DX: D46.9 Myelodysplastic syndrome, unspecified (principal); I10 Essential (primary) hypertension; Z95.1 Presence of aortocoronary bypass graft; Z79.82 Long term (current) use of aspirin | CPT/HCPCS: 99213 ==

== ENCOUNTER → 2019-05-17 10:26 | Outpatient (BNVA) | payer MEDICARE, OTHER, SELFPAY | PROVIDERS: PCP Family Medicine; Visit Provider Internal Medicine Cardiovascular Disease | DX: I25.10 Atherosclerotic heart disease of native coronary artery without angina pectoris (principal); I10 Essential (primary) hypertension; E78.2 Mixed hyperlipidemia; I73.9 Peripheral vascular disease, unspecified | CPT/HCPCS: 99214 ==

== ENCOUNTER 2019-05-21 09:44 | Day surgery (SDC) | payer MEDICARE, OTHER, SELFPAY ==
[2019-05-21 10:04] VITALS: BP 189/77; PULSE 66; RESP 19; TEMP 36.6; O2SAT 100
[2019-05-21] MEDS: Lactated Ringers 1,000 ML 80 ML IV (10:35)
--- NOTE | 2019-05-21 11:48 | W.PM.DSUDISC ---
Discharge Plan Disposition Patient Disposition: HOME Condition: Good Discharge Details Attending Provider: Leann Juarez Primary Care Provider: Rafa Aguayo Home Meds and New Rx's Prescriptions: Continued lisinopril 20 mg tablet 20 mg PO DAILY RF: 0 pantoprazole 20 mg tablet,delayed release (DR/EC) 20 mg PO DAILY RF: 0 aspirin 81 mg tablet,delayed release (DR/EC) 81 mg PO DAILY RF: 0 rosuvastatin 10 mg tablet 10 mg PO DAILY RF: 0 latanoprost 0.005 % drops 1 drp OP QPM RF: 0 multivitamin tablet 1 tab PO DAILY RF: 0 metoprolol succinate 25 mg tablet extended release 24 hr 12.5 mg PO BID RF: 0 hydrochlorothiazide 12.5 mg tablet 25 mg PO DAILY RF: 0 ferrous sulfate [Feosol] 325 mg (65 mg iron) tablet 325 mg PO DAILY RF: 0 furosemide 20 mg tablet 20 mg PO DAILY PRNRF: 0 ranitidine HCl 300 MG tablet 300 mg PO HS RF: 0 cholecalciferol (vitamin D3) [Vitamin D3] 2,000 UNIT capsule 2,000 unit PO DAILY RF: 0 levothyroxine 150 mcg tablet 150 mcg PO QAM RF: 0 Discharge Instructions Additional Instructions: Findings: Your EGD showed mild inflammation of the stomach (gastritis). No Barretts esophagus was found. Your colonoscopy showed diverticulosis. Follow up: No follow up EGD is needed unless new symptoms arise. A colonoscopy can be considered in 10 years depending on your overall health. Please call if you develop: fevers >101.5 Nausea or Vomiting Abdominal pain that is not transient DAY SURGERY UNIT POST COLONOSCOPY INSTRUCTIONS 1. Because there will be medication in your system for the next 24 hours, you may feel a little sleepy. Your coordination will be affected. Therefore: a. Do not drive or operate dangerous equipment for 24 hours. b. Do not drink alcohol beverages for 24 hours (not even beer). c. Plan to go home and rest for the day. 2. Generally there are no restrictions on your activity after a day or so has gone by, but you may feel a bit fatigued for a few days. 3 After you arrive home you may have a light meal and return to a normal diet as you can tolerate it without feeling sick to your stomach. 4. After surgery, you may feel pain or discomfort. This should be only transient, but if it persists please contact your doctor. 5. If there are any questions regarding the findings of your procedure, please feel free to contact your doctor. 6. If you are unable to contact your doctor with a problem, contact the hospital at [phone]. 7. Continue all your regular medications unless directed otherwise. I understand the above instructions and have no questions. Signature of Patient or Responsible Adult Escort Date/Time Name of Responsible Adult Escort Signature of Nurse Date/Time Activity:: Activity as Tolerated Diet:: As Tolerated Discharge Orders Discharge Orders: Discharge Order (Routine); Ordered 05/21/19 Ordered By: Leann Juarez DS: Diagnosis Discharge Diagnosis (1) Diverticulosis large intestine w/o perforation or abscess w/o bleeding: Status: Chronic (2) Mild chronic gastritis: Status: Acute
--- NOTE | 2019-05-21 13:20 | STOM_PTH ---
PATIENT: Julee Rick LOC: [facility] U#:[id number] AGE/SX: 74/F ROOM: RE05/21/[address]: Leann Juarez MD : [id number] BED: DIS: 05/21/2019 SPEC #: [id number] RECD: 05/21/19 17:10 STATUS: DARREL RE #: [id number] LINCOLN: 05/21/19 13:[address]: Leann Juarez DEPT: Surgical Specimen RECD BY: Cathy Gonsalez ENTERED: 05/21/19 17:11 SP TYPE: STOMACH OTHR DR: Rafa Aguayo Tissues: 1 - STOMACH BIOPSY Procedures: GROSS AND MICRO LEVEL 4 Comments: [id number]
[2019-05-21 14:40] VITALS: BP 164/62; PULSE 55; RESP 17; TEMP 36.5; O2SAT 97
--- NOTE | 2019-05-21 15:04 | ENDO_ITS ---
DATE OF PROCEDURE: May 21, 2019 PREOPERATIVE DIAGNOSIS: Anemia. POSTOPERATIVE DIAGNOSIS: 1. Mild gastritis. 2. Mild diverticulosis. PROCEDURE: 1. Esophagogastroduodenoscopy with antral biopsy. 2. Colonoscopy. SURGEON: Leann Juarez M.D. ANESTHESIA: Monitored Anesthesia Care. INDICATIONS: This is a 74-year-old woman with a hemoglobin of 8.6. This is microcytic anemia. She had an EGD in 2017 that also showed gastritis. She has been H. pylori positive in the past. There is a possibility of Baker's esophagus, although I cannot find a pathology report indicating this. Her last colonoscopy was in 2014. PROCEDURE: She was placed in the left Gonzalez position. Propofol was titrated to sedation. The scope was advanced into her esophagus under direct visualization and down into the stomach and duodenum. There is no duodenitis or ulcers noted. There had been a small amount of old-appearing blood in her stomach, although no definitive source of bleeding was identified. She did exhibit mild generalized gastritis. Biopsies were taken from the gastric antrum. Retroflex view of the fundus and lesser curvature showed no abnormalities with the exception of a very small hiatal hernia. The GE junction was carefully inspected and showed a minimal benign stricture, but no evidence of Baker's. The air was suctioned from the stomach and the scope withdrawn with no other esophageal lesions found. Digital rectal examination revealed no abnormalities. The scope was advanced to the cecum without difficulty. The ileocecal valve and appendiceal orifice were clearly identified. Her prep was good. The scope was slowly withdrawn with no abnormalities seen within the ascending, transverse or descending colon. The sigmoid region showed mild scattered diverticulosis. The rectum was normal, including on retroflex view. She tolerated the procedure well and was stable to recovery. I do not think a follow-up EGD is necessary. She can consider a screening colonoscopy again in ten years depending on her overall health. cc: Rafa Aguayo M.D.
== END 2019-05-21 14:59 | disposition home or self-care (01) ==
PROVIDERS: PCP Family Medicine; Visit Provider Surgery
PROC: (CPT 43239; principal; 2019-05-21 11:15)
DX: D50.9 Iron deficiency anemia, unspecified (principal); K29.50 Unspecified chronic gastritis without bleeding; K57.30 Diverticulosis of large intestine without perforation or abscess without bleeding; K21.9 Gastro-esophageal reflux disease without esophagitis; I10 Essential (primary) hypertension; F17.210 Nicotine dependence, cigarettes, uncomplicated
CPT/HCPCS: 43239; 45378; 88305

== ENCOUNTER 2019-06-06 11:00 | Outpatient (RCR) | payer SELFPAY ==
--- NOTE | 2020-05-14 10:00 | PR3E_ITS ---
is a 74 year old female who completed the Phase 2 program s/p NSTEMI w/ subsequent CABG x2. Julee then decided to join our maintenance program and will be coming to exercise on Tuesdays and at 10am. PMH: CAD, asthma, anxiety, degenerative disc disease, depression, diverticulosis, ischemic optic neuropathy, PVD, hypothyroid, reflux, PUD, anemia, multiple carotid endarterectomies and stents, HTN, HLD, cerebral artery occlusion w/ cerebral infarction First day of maintenance program was 05/14/19- Julee exercised and performed her usual regimen that included approximately 30+ minutes of exercise on the traedmill, NuStep, UBE, and stationary bike. Her resting blood pressures are quite varied (systolic measures anywhere from 120-180's) at times and on this day it was 173/61 (asymptomatic) and resting HR was 63 bpm. Her HR range with exercise was 60-70's and BOR RPE ratings were in the appropriate range of 11-13. We will continue to monitor, guide and progress Julee with her exercise regimen as tolerated.
== END 2019-06-08 23:59 | disposition home or self-care (01) ==
LOC: CR 11:00
PROVIDERS: PCP Family Medicine; Visit Provider Family Medicine
DX: Z95.1 Presence of aortocoronary bypass graft (principal); I25.2 Old myocardial infarction; Z51.89 Encounter for other specified aftercare

== ENCOUNTER 2019-06-20 10:51 | Outpatient (CLI) | payer MEDICARE, OTHER, SELFPAY ==
[2019-06-20 11:18] LABS: HCT 30.1 % (36.0-46.0); HGB 9.7 g/dL (12.0-15.5); Mean Corp. HGB Concentration 32.2 g/dL (32.0-36.0); Mean Corpuscular Hemoglobin 26.6 pg (27.0-33.0); Mean Corpuscular Volume 82.7 fL (80-95); Mean Platelet Volume 10.7 fL (8.0-11.0); Platelet Count 310 x1000/uL (130-400); RBC 3.64 m/cumm (4.00-5.20); RBC Distribution Width 15.2 % (11.7-14.6); White Blood Cell Count 7.16 k/cumm (4.4-10.8)
[2019-06-20 12:08] LABS: Iron 37 ug/dL (50-175); Total Iron Binding Capacity 338 ug/dL (250-450); Transferrin Sat 11 % (15-50)
[2019-06-20 12:21] LABS: Anion Gap 7.9 mmol/L (3-11); BUN 23 mg/dL (7-18); CO2 27.1 mmol/L (21.0-32.0); CREATININE 0.98 mg/dL (0.55-1.02); Calcium 9.6 mg/dL (8.5-10.1); Chloride 101 mmol/L (98-107); Estimated GFR 55.79 (mL/min/1.73m2); Ferritin 42 ng/mL (8-388); Glucose 121 mg/dL (70-100); Potassium 4.6 mmol/L (3.5-5.1); Sodium 136 mmol/L (136-145); TSH (W/Ref FT4) 0.03 uIU/mL (0.36-3.74)
== END 2019-06-20 11:11 ==
PROVIDERS: PCP Family Medicine; Visit Provider Family Medicine
DX: E03.9 Hypothyroidism, unspecified (principal); I10 Essential (primary) hypertension; D50.9 Iron deficiency anemia, unspecified
CPT/HCPCS: 36415; 80048; 85027; 82728; 83540; 83550; 84439; 84443

== ENCOUNTER 2019-07-02 01:56 | Outpatient (RCR) | payer MEDICARE, OTHER, SELFPAY ==
[2019-07-02] MEDS: Normal Saline Flush 10 ML SYR IVP (12:59)
== END 2019-07-08 23:59 | disposition home or self-care (01) ==
LOC: INF 01:56
PROVIDERS: PCP Family Medicine; Visit Provider Family Medicine
DX: D50.9 Iron deficiency anemia, unspecified (principal)
CPT/HCPCS: 96365; 96366; J1756

== ENCOUNTER 2019-07-04 11:58 | Outpatient (RCR) | payer SELFPAY | END 2019-07-08 23:59 | disposition home or self-care (01) | LOC: CR 11:58 | PROVIDERS: PCP Family Medicine; Visit Provider Family Medicine | DX: Z95.1 Presence of aortocoronary bypass graft (principal); I25.2 Old myocardial infarction; Z51.89 Encounter for other specified aftercare ==

== ENCOUNTER 2019-07-30 01:50 | Outpatient (RCR) | payer MEDICARE, OTHER, SELFPAY ==
[2019-07-16] MEDS: Normal Saline Flush 10 ML SYR IVP (11:00)
[2019-07-30] MEDS: IRON SUCROSE COMPLEX 300 MG in Normal Saline 250 ML 265 MG IVPB (11:23)
[2019-07-30] MEDS: Normal Saline Flush 10 ML SYR IVP (11:24)
== END 2019-08-08 23:59 | disposition home or self-care (01) ==
LOC: INF 01:50
PROVIDERS: PCP Family Medicine; Visit Provider Family Medicine
DX: D50.9 Iron deficiency anemia, unspecified (principal)
CPT/HCPCS: 96365; 96366; J1756

== ENCOUNTER → 2019-08-02 11:37 | Outpatient (BNVA) | payer MEDICARE, OTHER, SELFPAY | PROVIDERS: PCP Family Medicine; Referring Provider Family Medicine; Visit Provider Internal Medicine Cardiovascular Disease | DX: I25.10 Atherosclerotic heart disease of native coronary artery without angina pectoris (principal); I65.29 Occlusion and stenosis of unspecified carotid artery; I10 Essential (primary) hypertension; Z95.1 Presence of aortocoronary bypass graft | CPT/HCPCS: 99204; 99215 ==

== ENCOUNTER 2019-08-08 12:01 | Outpatient (RCR) | payer SELFPAY | END 2019-08-08 23:59 | disposition home or self-care (01) | LOC: CR 12:01 | PROVIDERS: PCP Family Medicine; Visit Provider Family Medicine | DX: Z95.1 Presence of aortocoronary bypass graft (principal); I25.2 Old myocardial infarction; Z51.89 Encounter for other specified aftercare ==

== ENCOUNTER 2019-08-23 00:54 | Outpatient (CLI) | payer MEDICARE, OTHER, SELFPAY ==
--- NOTE | 2019-08-23 13:15 | DI.US_ITS ---
APPROVED REPORT EXAM: Comprehensive 2D, Doppler, and color-flow Echocardiogram Patient Location: Out-Patient Store Director: UMA Matos (AE) Indications: CAD Conclusion Left Ventricle : The left ventricle is normal. The posterior wall thickness is increased. The septum is normal. Left ventricular systolic function is normal. There is normal LV segmental wall motion. LV EF is 55-59%. The left ventricular diastolic function is normal. Right Ventricle : The right ventricle is normal size. The right ventricular systolic function is norm al. Atria : The left atrium is mildly dilated. The right atrium size is normal. Aortic Valve : Aortic valve is trileaflet. No hemodynamically significant valvular aortic stenosis. N o aortic regurgitation is present. Mitral Valve : The mitral valve is normal in structure. There is no mitral valve regurgitation noted. No evidence of mitral valve stenosis. Tricuspid Valve : The tricuspid valve is normal in structure. Mild tricuspid regurgitation. Great Vessels : IVC is normal in size and collapses >50% with inspiration. RVSP is estimated to be b etween 22-25 mmHg. There is no prior echocardiogram available for comparison. Wall motion Left Ventricle The left ventricle is normal. Left ventricular systolic function is normal. The posterior wall thickn ess is increased. The septum is normal. There is normal LV segmental wall motion. The left ventricula r diastolic function is normal. LVEF is 55-59%. Right Ventricle The right ventricle is normal size. The right ventricular systolic function is normal. Atria The left atrium is mildly dilated. The right atrium size is normal. Aortic Valve Aortic valve is trileaflet. No hemodynamically significant valvular aortic stenosis. No aortic regurg itation is present. Mitral Valve The mitral valve is normal in structure. No evidence of mitral valve stenosis. There is no mitral lana ve regurgitation noted. Tricuspid Valve The tricuspid valve is normal in structure. Mild tricuspid regurgitation. Pulmonic Valve Pulmonic valve is not well visualized. Great Vessels The aortic root size is normal. IVC is normal in size and collapses >50% with inspiration. RVSP is es timated to be between 22-25 mmHg. Pericardium The pericardium appears normal. 2D Dimensions IVSd 0.95 cm F: 0.6-1.0 LV EDV A2C 93.73 mL PWd 0.95 cm F: 0.6 - 1.0 LV EDV A4C 111.41 mL LVDd 4.75 cm F: 3.8 - 5.2 LA Volume Index A2C 40.58 mL/m2 LVDs 3.35 cm F: 2.2 - 3.5 LA Volume Index A4C 42.56 mL/m2 Aortic Root 3.15 cm F: 2.7 - 3.3 LA Volume Index Biplane 42.34 mL/m2 Left Atrium 4.05 cm F: 2.7 - 3.8 LA Area A4C 21.24 cm2 RA Area A4C 17.15 cm2 LA Area A2C 21.14 cm2 LVOT 1.75 cm (M/F) 1.5-2.5 EF AP4 50.86 % LVEF (Teich) 55.77 % EF AP2 60.76 % LVEF (Marmolejo's) 55.28 % F: 54 - 74 EF BP 55.28 % LV Volume 79.18 mL F: 46 - 106 LV Volume Index 43.50 mL/m2 F: 29 - 61 FS 29.05 % LV Diastology E Decel Time 228.00 (160-240 msec) E/A Ratio 1.1 MED E' 0.06 (>0.07 m/s) LV E/e MED 12.00 (<14) LAT E' 0.10 (>0.1 m/s) LV E/e LAT 7.60 (<14) Aortic Valve LVOT Area 2.52 cm2 LVOT Peak Ruslan. 1.30 m/s LVOT Mean Ruslan. 0.80 m/s LVOT Peak Gr. 6.95 mmHg KRISTYN Vmax Index 1.07 cm2/m2 LVOT Mean Gr. 3.10 mmHg LVOT VTI 0.30 m KRISTYN Mean Ruslan. Index 1.01 cm2/m2 AoV Peak Ruslan. 1.69 (0.5-1.3 m/s) AoV Mean Ruslan. 1.10 m/s AO Peak GR. 11.49 mmHg AO Mean GR. 5.58 (<5 mmHg) AO VTI 0.37 (0.18-0.25 m) KRISTYN (VTI) 2.20 (2.5-4.5 cm2) KRISTYN (VTI) Index 1.21 cm/m2 Mitral Valve MV E Max Ruslan. 0.77 (0.4-1.3 m/s) MV A Velocity 0.70 (0.4-1.3 m/s) E/A Ratio 1.03 MV Decel. Time 227.90 (160-240 msec) MV PHT 66.09 msec MVA PHT 3.30 cm2 Tricuspid Valve TR P. Velocity 2.35 m/s TV Regurg Vmax 2.35 m/s RAP Estimate 3.00 mmHg RVSP 25.00 mmHg TR P. Gradient 22.00 mmHg
== END 2019-08-23 01:14 ==
PROVIDERS: PCP Family Medicine; Visit Provider Internal Medicine Cardiovascular Disease
DX: I25.10 Atherosclerotic heart disease of native coronary artery without angina pectoris (principal); I25.2 Old myocardial infarction; Z95.1 Presence of aortocoronary bypass graft; I10 Essential (primary) hypertension
CPT/HCPCS: 93306

== ENCOUNTER 2019-09-03 15:16 | Outpatient (RCR) | payer SELFPAY | END 2019-09-07 23:59 | disposition home or self-care (01) | LOC: CR 15:16 | PROVIDERS: PCP Family Medicine; Visit Provider Family Medicine | DX: Z95.1 Presence of aortocoronary bypass graft (principal); I25.2 Old myocardial infarction; Z51.89 Encounter for other specified aftercare ==

== ENCOUNTER 2019-09-26 11:00 | Outpatient (RCR) | payer SELFPAY | END 2019-10-08 23:59 | disposition home or self-care (01) | LOC: CR 11:00 | PROVIDERS: PCP Family Medicine; Visit Provider Family Medicine | DX: Z95.1 Presence of aortocoronary bypass graft (principal); I25.2 Old myocardial infarction; Z51.89 Encounter for other specified aftercare ==

== ENCOUNTER 2019-11-07 10:00 | Outpatient (RCR) | payer SELFPAY | END 2019-11-08 23:59 | disposition home or self-care (01) | LOC: CR 10:00 | PROVIDERS: PCP Family Medicine; Visit Provider Family Medicine | DX: Z95.1 Presence of aortocoronary bypass graft (principal); I25.2 Old myocardial infarction; Z51.89 Encounter for other specified aftercare ==

== ENCOUNTER → 2019-11-07 11:08 | Outpatient (BNVA) | payer MEDICARE, OTHER, SELFPAY | PROVIDERS: PCP Family Medicine; Referring Provider Family Medicine; Visit Provider Internal Medicine Cardiovascular Disease | DX: I25.10 Atherosclerotic heart disease of native coronary artery without angina pectoris (principal); E78.2 Mixed hyperlipidemia; I10 Essential (primary) hypertension; Z95.1 Presence of aortocoronary bypass graft; F17.210 Nicotine dependence, cigarettes, uncomplicated; I73.9 Peripheral vascular disease, unspecified | CPT/HCPCS: 99214 ==

== ENCOUNTER 2019-11-25 12:52 | Outpatient (REF) | payer MEDICARE, OTHER, SELFPAY ==
[2019-11-25 19:28] LABS: HCT 32.9 % (36.0-46.0); HGB 10.7 g/dL (12.0-15.5); Mean Corp. HGB Concentration 32.5 g/dL (32.0-36.0); Mean Corpuscular Hemoglobin 28.8 pg (27.0-33.0); Mean Corpuscular Volume 88.4 fL (80-95); Mean Platelet Volume 11.8 fL (8.0-11.0); Platelet Count 311 x1000/uL (130-400); RBC 3.72 m/cumm (4.00-5.20); RBC Distribution Width 13.3 % (11.7-14.6); White Blood Cell Count 7.31 k/cumm (4.4-10.8)
[2019-11-25 19:40] LABS: Iron 49 ug/dL (50-170); Total Iron Binding Capacity 346 ug/dL (250-450); Transferrin Sat 14 % (15-50)
[2019-11-25 19:50] LABS: TSH (W/Ref FT4) 0.16 uIU/mL (0.36-3.74)
[2019-11-25 22:19] LABS: FREE T4 1.24 ng/dL (0.76-1.46)
== END 2019-11-25 13:12 ==
LOC: NCHCN 12:52
PROVIDERS: PCP Family Medicine; Visit Provider Family Medicine
DX: E03.9 Hypothyroidism, unspecified (principal); D50.9 Iron deficiency anemia, unspecified
CPT/HCPCS: 85027; 83540; 83550; 84439; 84443

== ENCOUNTER 2019-12-05 09:00 | Outpatient (RCR) | payer SELFPAY | END 2019-12-07 23:59 | disposition home or self-care (01) | LOC: CR 09:00 | PROVIDERS: PCP Family Medicine; Visit Provider Family Medicine | DX: Z95.1 Presence of aortocoronary bypass graft (principal); I25.2 Old myocardial infarction; Z51.89 Encounter for other specified aftercare ==

== ENCOUNTER 2019-12-17 10:00 | Outpatient (RCR) | payer SELFPAY | END 2020-01-07 23:59 | disposition home or self-care (01) | LOC: CR 10:00 | PROVIDERS: PCP Family Medicine; Visit Provider Family Medicine | DX: Z95.1 Presence of aortocoronary bypass graft (principal); I25.2 Old myocardial infarction; Z51.89 Encounter for other specified aftercare ==

== ENCOUNTER 2020-03-05 18:25 | Outpatient (REF) | payer MEDICARE, OTHER, SELFPAY ==
[2020-03-05 19:02] LABS: HCT 31.2 % (36.0-46.0); HGB 10.4 g/dL (12.0-15.5); Mean Corp. HGB Concentration 33.3 g/dL (32.0-36.0); Mean Corpuscular Hemoglobin 29.1 pg (27.0-33.0); Mean Corpuscular Volume 87.4 fL (80-95); Mean Platelet Volume 12.4 fL (8.0-11.0); Platelet Count 287 x1000/uL (130-400); RBC 3.57 m/cumm (4.00-5.20); RBC Distribution Width 13.4 % (11.7-14.6); White Blood Cell Count 6.81 k/cumm (4.4-10.8)
[2020-03-05 19:37] LABS: Hemoglobin A1C 6.8 % (3.8-5.6)
== END 2020-03-05 18:45 ==
LOC: NCHCN 18:25
PROVIDERS: PCP Family Medicine; Visit Provider Family Medicine
DX: R73.03 Prediabetes (principal); E03.9 Hypothyroidism, unspecified; D50.9 Iron deficiency anemia, unspecified
CPT/HCPCS: 85027; 83036; 84439; 84443

== ENCOUNTER 2020-03-24 02:07 | Outpatient (CLI) | payer MEDICARE, OTHER, SELFPAY ==
--- NOTE | 2020-03-24 14:32 | NS.NUTBLAN_ITS ---
Pt referred for Medical Nutrition Therapy for Diabetic Education as with A1C>6.5%(03/05/20). PMH: hyperlipidemia, HTN, obesity, CABG x 2 2017. Julee would like to try lifestyle modification instead of going on metformin. Weight today 192 lbs, BMI 34. Meds include:carvedilol, FeS04,, levothyroxine, lisinopril, MVI. Unable to tolerate rosuvastatin. Pertinent Labs (03/05/20) A1C: 6.8%, Chol: 217, LDL: 156, HDL:30, tri. Diet recall indicates mostly home made meals, high in simple carbohydrates. No formal exercise and with chronic back pain. Stopped smoking last week (1pck daily), using patch with success. Estimated Needs: [id number] kcal, 60-65 g protein. Intervention: Provided education on DM/hyperlipidemia in context of overall health and ways to avoid CAD, Dm with life style changes. Definition and types of CHO with examples, CHO counting, DASH diet materials, DM meal planning and label reading literature. Provided materials to reiterate CHO counting techniques. Reviewed desirable BG levels with patient with food choices and portions for optimal outcomes. Provided contact information for this RD and encouraged her to call with any f/u questions r/t to DM self management. Created meal plan for her to follow from her own meal preferences. Encouraged Julee to walk 10 min daily and to follow up with MD re: back pain. PLAN 1. [id number] kcal diabetic meal plan 2. exercise 150 min weekly 3. lose 5 lbs per month- goal weight: 175 lbs 4. ollow up labs with MD as ordered. 5. follow up on 04/23/@2 pm.
== END 2020-03-24 02:27 ==
PROVIDERS: PCP Family Medicine; Visit Provider Family Medicine
DX: E11.9 Type 2 diabetes mellitus without complications (principal); E78.5 Hyperlipidemia, unspecified; Z71.3 Dietary counseling and surveillance
CPT/HCPCS: 97802

== ENCOUNTER 2020-04-22 10:39 | Outpatient (REF) | payer MEDICARE, OTHER, SELFPAY ==
[2020-04-22 19:29] LABS: HCT 31.6 % (36.0-46.0); HGB 10.4 g/dL (12.0-15.5); Mean Corp. HGB Concentration 32.9 g/dL (32.0-36.0); Mean Corpuscular Hemoglobin 28.5 pg (27.0-33.0); Mean Corpuscular Volume 86.6 fL (80-95); Mean Platelet Volume 12.1 fL (8.0-11.0); Platelet Count 309 x1000/uL (130-400); RBC 3.65 m/cumm (4.00-5.20); RBC Distribution Width 13.3 % (11.7-14.6); White Blood Cell Count 7.29 k/cumm (4.4-10.8)
[2020-04-22 19:47] LABS: Hemoglobin A1C 6.8 % (3.8-5.6); TSH (W/Ref FT4) 1.46 uIU/mL (0.36-3.74)
== END 2020-04-22 10:59 ==
LOC: NCHCN 10:39
PROVIDERS: PCP Family Medicine; Visit Provider Family Medicine
DX: E03.9 Hypothyroidism, unspecified (principal); R73.03 Prediabetes; D50.9 Iron deficiency anemia, unspecified
CPT/HCPCS: 85027; 83036; 84443

== ENCOUNTER 2020-04-23 03:09 | Outpatient (CLI) | payer MEDICARE, OTHER, SELFPAY ==
--- NOTE | 2020-04-23 14:00 | NS.NUTBLAN_ITS ---
Julee returns for follow up visit for Medical Nutrition Therapy for Diabetic Education and weight management. Wt: 196 lbs, up 4 lbs in last 4 weeks. Diet recall indicates she has reduced intake of desserts and simple sugars, eats 3 times daily however includes excessive amounts of simple carbs in form of potatoes, crackers, pasta and corn. Weight gain most likely due to increase intake of starchy foods. She has not smoked for 5 weeks, using patch with success. She report blood sugars wnl, no change in medications since last visit. Intervention: reviewed diet changes and encouraged continued adherence to low sugar intake for diabetes and weight management. Provided a 1500 kcal Weight Loss Diet plan with meal suggestions. Julee is to start gym next weeks, encouraged her to look for facilities with pool access as with back pain other exercises will be painful for her. Reviewed adjustments to typical meal that will help reduce intake of excess excess calories/carbohydrates. Plan: follow lower carb, higher protein 1500 kcal meal plan as outlined start exercise program that provides 150 min exercise weekly follow up scheduled 05/26/20 at 2 pm.
== END 2020-04-23 03:29 ==
PROVIDERS: PCP Family Medicine; Visit Provider Family Medicine
DX: E11.9 Type 2 diabetes mellitus without complications (principal); Z71.3 Dietary counseling and surveillance
CPT/HCPCS: 97803

== ENCOUNTER → 2020-05-28 11:10 | Outpatient (BNVA) | payer MEDICARE, OTHER, SELFPAY | PROVIDERS: PCP Family Medicine; Referring Provider Family Medicine; Visit Provider Internal Medicine Cardiovascular Disease | DX: I25.10 Atherosclerotic heart disease of native coronary artery without angina pectoris (principal); I73.9 Peripheral vascular disease, unspecified; F17.200 Nicotine dependence, unspecified, uncomplicated; F17.210 Nicotine dependence, cigarettes, uncomplicated; I10 Essential (primary) hypertension; Z95.5 Presence of coronary angioplasty implant and graft | CPT/HCPCS: 99214 ==

== ENCOUNTER 2020-07-06 03:07 | Outpatient (CLI) | payer MEDICARE, OTHER, SELFPAY ==
[2020-07-06 09:52] LABS: HCT 29.3 % (36.0-46.0); HGB 9.5 g/dL (11.2-15.7); MCH 28.3 pg (27.0-33.0); MCHC 32.4 % (32.0-36.0); MCV 87.2 fL (80-95); MPV 11.2 fL (8.0-11.0); Platelet Count 261 10^3/uL (130-400); RBC 3.36 10^6/uL (3.93-5.22); RDW 13.4 % (11.7-14.6); RDW-SD 42.8 fL; WBC 6.77 10^3/uL (4.4-10.8)
[2020-07-06 10:17] LABS: Prothrombin Time 10.1 sec (9.3-11.0)
[2020-07-06 11:31] LABS: ALT 19 U/L (14-59); AST 10 U/L (15-37); Albumin 3.8 g/dL (3.4-5.0); Alkaline Phosphatase 79 U/L (46-116); Anion Gap 7.5 mmol/L (3-11); BUN 24 mg/dL (7-18); Bilirubin, Total 0.3 mg/dL (0.2-1.0); CO2 26.5 mmol/L (21.0-32.0); CREATININE 1.24 mg/dL (0.55-1.02); Calcium 9.7 mg/dL (8.5-10.1); Chloride 104 mmol/L (98-107); Glucose 120 mg/dL (74-106); Potassium 4.7 mmol/L (3.5-5.1); Sodium 138 mmol/L (136-145); Total Protein 7.1 g/dL (6.4-8.2)
== END 2020-07-06 03:27 ==
PROVIDERS: PCP Family Medicine; Visit Provider Internal Medicine Cardiovascular Disease
DX: I25.10 Atherosclerotic heart disease of native coronary artery without angina pectoris (principal)
CPT/HCPCS: 36415; 80053; 85027; 85610

== ENCOUNTER 2020-07-06 03:34 | Outpatient (CLI) | payer MEDICARE, OTHER, SELFPAY ==
--- NOTE | 2020-07-06 10:00 | RT.EKG_ITS ---
APPROVED REPORT Exam: Resting ECG Patient Location: O HR:53 bpm ECG Measurements Heart Rate 53 AXIS ID 222 P 23 QRSd 99 QRS 82 QT 455 T 73 QTc 427 Conclusion Sinus bradycardia...rate< 60 Prolonged ID interval...ID >220, V-rate 50- 90
== END 2020-07-06 03:54 ==
PROVIDERS: PCP Family Medicine; Visit Provider Internal Medicine Cardiovascular Disease
DX: I25.10 Atherosclerotic heart disease of native coronary artery without angina pectoris (principal); R00.1 Bradycardia, unspecified
CPT/HCPCS: 36415; 80053; 85027; 85610; 93005; 93010

== ENCOUNTER 2020-08-17 16:07 | Outpatient (REF) | payer MEDICARE, OTHER, SELFPAY ==
[2020-08-17 19:16] LABS: HCT 31.1 % (36.0-46.0); HGB 9.8 g/dL (11.2-15.7); MCH 27.4 pg (27.0-33.0); MCHC 31.5 % (32.0-36.0); MCV 86.9 fL (80-95); MPV 11.7 fL (8.0-11.0); Platelet Count 298 10^3/uL (130-400); RBC 3.58 10^6/uL (3.93-5.22); RDW 13.2 % (11.7-14.6); RDW-SD 41.5 fL; WBC 7.76 10^3/uL (4.4-10.8)
[2020-08-17 19:25] LABS: Anion Gap 9.6 mmol/L (3-11); BUN 34 mg/dL (7-18); CO2 26.4 mmol/L (21.0-32.0); CREATININE 1.33 mg/dL (0.55-1.02); Calcium 9.8 mg/dL (8.5-10.1); Chloride 102 mmol/L (98-107); Estimated GFR 39.11 (mL/min/1.73m2); Glucose 136 mg/dL (74-106); Potassium 4.9 mmol/L (3.5-5.1); Sodium 138 mmol/L (136-145)
== END 2020-08-17 16:27 ==
LOC: NCHCN 16:07
PROVIDERS: PCP Family Medicine; Visit Provider Family Medicine
DX: N28.9 Disorder of kidney and ureter, unspecified (principal); D50.9 Iron deficiency anemia, unspecified
CPT/HCPCS: 80048; 85027

== ENCOUNTER → 2020-11-26 10:35 | Outpatient (BNVA) | payer MEDICARE, OTHER, SELFPAY | PROVIDERS: PCP Family Medicine; Referring Provider Family Medicine; Visit Provider Internal Medicine Cardiovascular Disease | DX: I25.10 Atherosclerotic heart disease of native coronary artery without angina pectoris (principal); E78.2 Mixed hyperlipidemia; F17.210 Nicotine dependence, cigarettes, uncomplicated; I73.9 Peripheral vascular disease, unspecified; I65.21 Occlusion and stenosis of right carotid artery | CPT/HCPCS: 99214; 99213 ==

== ENCOUNTER 2020-12-01 18:11 | Observation (INO) | payer MEDICARE, OTHER, SELFPAY ==
[2020-12-01] VITALS (7 sets, daily range): BP systolic 144–166; BP diastolic 55–74; PULSE 50–56; RESP 14–21; TEMP 36.5–36.8; O2SAT 98–99
--- NOTE | 2020-12-01 18:15 | RT.EKG_ITS ---
APPROVED REPORT Exam: Resting ECG Patient Location: E HR:53 bpm ECG Measurements Heart Rate 53 AXIS AR 213 P 41 QRSd 98 QRS 60 QT 459 T 60 QTc 432 Conclusion Sinus bradycardia...rate< 60 Borderline prolonged AR interval...AR >212, V-rate 50- 90. No STEMI. No acute change from previous. I have reviewed and interpreted ECG and agree with software generated interpretation.
--- NOTE | 2020-12-01 18:20 | ED.GENADUL_ITS ---
Discharge Plan Disposition Patient Disposition: [facility] INPATIENT Condition: Stable Discharge Details Clinical Impression: Chest pain, rule out acute myocardial infarction, Hx of CABG Admit Date/Time: 12/01/20 19:30 Admit Provider: Jeremy Correia Attending Provider: Jeremy Correia Primary Care Provider: Rafa Aguayo ED Provider: Kayden Lnad Discharge Data Discharge Date/Time-TO BE ENTERED AT DEPARTURE: 12/01/20 20:41 Medical Decision Making <Urmila Rizzo DO - Last Filed: 12/02/20 08:18> 1830 -- 75-year-old female with a history of hypertension, hyperlipidemia, CVA, obesity, peripheral vascular disease, coronary artery disease, CABG presents for substernal chest pain with radiation to her back that started while sitting at home today and was improved with 2 nitro. EKG notes a rate of 53, sinus, no STEMI, nondiagnostic. Patient endorsed a mild pain at 6/10 knee. Nitro sublingual ordered but she declined a similar stating that her pain was currently 1/10. Patient declined nitro. Considering patient's age and history, concern for possible ACS or dissection. History and presentation not consistent with PE. Will place an IV, bolus IV fluids, screening labs, CT chest. Considering patient's history, will plan for admission for serial troponins and EKGs. Patient is agreeable with plan. Plan discussed with patient's over the phone. 1930 --labs reviewed. Hemoglobin 9.5, which is close to her baseline recently. Coagulation studies normal. Troponin negative. Case discussed with hospitalist who accepts patient for admission. Case endorsed to Dr. Land to follow-up on CT chest and report to hospitalist regarding results. Medical Records Medical records reviewed: Yes I reviewed the patient's medical records. Lab Data Lab results reviewed: Yes I reviewed the patient's lab results. Labs: Laboratory Tests Range/Units 12/01/20 12/01/20 12/01/20 18:30 18:30 18:30 WBC (4.4-10.8) 10^3/uL 7.58 RBC (3.93-5.22) 10^6/uL 3.37 L Hgb (11.2-15.7) g/dL 9.5 L Hct (36.0-46.0) % 28.8 L MCV (80-95) fL 85.5 MCH (27.0-33.0) pg 28.2 MCHC (32.0-36.0) % 33.0 RDW (11.7-14.6) % 13.5 Plt Count (130-400) 10^3/uL 273 MPV (8.0-11.0) fL 11.2 H Immature Gran % 0.4 Neutrophils % 59.9 Lymphocytes % 21.8 Monocytes % 13.6 Eosinophils % 3.8 Basophils % 0.5 Nucleated RBC % % 0 Absolute Neutrophils (1.2-6.7) 10^3/uL 4.54 Absolute Lymphocytes (1.2-3.4) 10^3/uL 1.65 Absolute Monocytes (0.1-0.8) 10^3/uL 1.03 H Absolute Eosinophils (0.0-0.7) 10^3/uL 0.29 Absolute Basophils (0.0-0.2) 10^3/uL 0.04 PT (9.3-11.0) sec 10.2 INR (0.9-1.1) 1.0 APTT (21.0-27.5) sec 23.4 Sodium (136-145) mmol/L 137 Potassium (3.5-5.1) mmol/L 4.3 Chloride (98-107) mmol/L 103 Carbon Dioxide (21.0-32.0) mmol/L 25.3 Anion Gap (3-11) mmol/L 8.7 BUN (7-18) mg/dL 32 H Creatinine (0.55-1.02) mg/dL 1.2 H Estimated GFR/1.73 m2 (mL/min/1.73m2) 44.04 Glucose (74-106) mg/dL 116 H Calcium (8.5-10.1) mg/dL 9.6 Magnesium (1.8-2.4) mg/dL 2.4 Total Bilirubin (0.2-1.0) mg/dL 0.2 AST (15-37) U/L 8 L ALT (14-59) U/L 18 Alkaline Phosphatase (46-116) U/L 90 Troponin I (<0.06) ng/mL < 0.05 Total Protein (6.4-8.2) g/dL 8.1 Albumin (3.4-5.0) g/dL 3.9 ECG Data Attestation: I personally reviewed and interpreted this ECG (s) as follows: Interpretation: Rate of 53, sinus, no acute ST elevation or depression. DE 213. QRS 90. QTc 432. No acute change from previous EKG. <Kayden Land MD - Last Filed: 12/01/20 20:20> cta negative for acute pathology, relayed to Dr. Correia pt to be admitted for further monitoring Imaging Data Radiologic Study: Attestation: I personally reviewed and interpreted this imaging study as follows: Imaging: CT Scan Radiologist's impression: IMPRESSION: 1. Atherosclerotic aortic calcium. No aneurysm. No dissection. 2. Cardiomegaly. Coronary artery atherosclerosis. Previous open-heart surgery. 3. Small to moderate hiatal hernia. 4. No pulmonary arterial embolism evident. 5. Nonspecific subpleural 5 mm nodule in the apical right lower lobe. For patients at low risk (minimal or absent history of smoking and of other known risk factors), no routine follow-up is indicated. For patients at high risk (history of smoking or of other known risk factors), consider optional CT Chest at 12 months. (Reference: Radha) 6. Suggestion of right renal hydronephrosis. Benign-appearing left renal cyst. Further imaging evaluation of the kidneys may be warranted. HPI <Urmila Rizzo DO - Last Filed: 12/02/20 08:18> General Mode of arrival: wheelchair . Date/Time Provider Initiated Documentation: 12/01/20 18:17 . Limitations to Documentation: no limitations . Information obtained by: patient . HPI Narrative: Patient is a 75-year-old female with a history of hypertension, hyperlipidemia, obesity, peripheral vascular disease, coronary artery disease, CABG who presents to the ED with a complaint of chest pain that started while sitting at home today. Patient describes the pain as constant, pressure-like, substernal with radiation to the right side of her back. She denies any aggravating factors. Patient states she took 2 nitro at home with relief of her pain from an 8 down to a 6. She stated to the nurse that her pain today is currently 3/10. She described to me that pa in is currently 6/10. She denies fever, cough, shortness of breath, nausea, vomiting, dizziness, recent travel or recent injury. Related Data Home Medications Medication Instructions Recorded Confirmed cholecalciferol (vitamin D3) 2,000 unit PO DAILY 06/06/17 12/01/20 [Vitamin D3] aspirin 81 mg tablet,delayed 81 mg PO DAILY 03/15/19 12/01/20 release latanoprost 0.005 % eye drops 1 drp OP QPM 03/15/19 12/01/20 multivitamin 1 tab PO DAILY 03/15/19 12/01/20 rosuvastatin 10 mg tablet 10 mg PO DAILY 03/15/19 12/01/20 famotidine 20 mg tablet 20 mg PO DAILY 08/02/19 12/01/20 lisinopril 20 1 tab PO DAILY 08/02/19 12/01/20 mg-hydrochlorothiazide 25 mg tablet furosemide 20 mg tablet 20 mg PO DAILY PRN #60 tab 05/28/20 12/01/20 carvedilol 12.5 mg tablet 12.5 mg PO BID #180 tab 10/01/20 12/01/20 amlodipine 10 mg tablet 10 mg PO DAILY #90 tab 11/27/20 12/01/20 clopidogrel 75 mg PO DAILY 12/01/20 12/01/20 ferrous gluconate 324 mg PO DAILY 12/01/20 12/01/20 levothyroxine 137 mcg PO DAILY 12/01/20 12/01/20 Previous Rx's Medication Instructions Recorded furosemide 20 mg tablet 20 mg PO DAILY PRN #60 tab 05/28/20 carvedilol 12.5 mg tablet 12.5 mg PO BID #180 tab 10/01/20 amlodipine 10 mg tablet 10 mg PO DAILY #90 tab 11/27/20 Allergies Allergy/AdvReac Type Severity Reaction Status Date / Time cilostazol Allergy Severe Verified 12/01/20 18:26 Ishfjyg-Qhx-Sau Reductase AdvReac Intermediate Headache Verified 12/01/20 18:26 Inhibitor atenolol AdvReac Mild palpitation Verified 12/01/20 18:26 s losartan potassium AdvReac Mild palpitation Verified 12/01/20 18:26 [From Cozaar] s rosuvastatin [From Crestor] AdvReac Mild Verified 12/01/20 18:26 levothyroxine sodium AdvReac Verified 12/01/20 18:26 General KEVIN: 2 Review of Systems <Urmila J Bugbee, DO - Last Filed: 12/02/20 08:18> All systems reviewed & are unremarkable except as noted in HPI and below Constitutional Constitutional: Reports as per HPI, Denies chills and Denies fever(s) Eyes Eyes: Denies blurry vision ENT Ears, Nose, Mouth, and Throat: Denies dizziness, Denies sore throat and Denies throat swelling Cardiovascular Cardiovascular: Reports chest pain and Denies dyspnea Respiratory Respiratory: Denies cough and Denies dyspnea Gastrointestinal Gastrointestinal: Denies abdominal pain, Denies diarrhea and Denies vomiting Genitourinary Genitourinary: Denies hematuria and Denies dysuria Musculoskeletal Musculoskeletal: Reports back pain and Denies numbness Integumentary/Breasts Skin/Breast: Denies lesions and Denies rash Neurologic Neurologic: Denies dizziness, Denies localized weakness and Denies numbness Allergic/Immunologic Allergic/Immunologic: Denies throat swelling PFSH <Urmila Rizzo, DO - Last Filed: 12/02/20 08:18> Medical History (Updated 12/02/20 @ 04:29 by Jeremy Correia) Abnormal EKG Asthma Pt denies Asthma Atypical chest pain Brittle nails Carotid stenosis Cerebrovascular accident (CVA) Chronic anxiety Degenerative disc disease, lumbar Depression Diverticulosis large intestine w/o perforation or abscess w/o bleeding Elevated troponin Gastric ulcer 2013 GERD (gastroesophageal reflux disease) (09/05/16) Hx of Helicobacter infection 2014 Hyperlipidemia Hypertension Hypothyroid Impaired glucose regulation Intermittent claudication Iron deficiency anemia 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) Obesity Optic neuritis Peripheral vascular disease Prediabetes Tobacco dependence Vitamin D deficiency Surgical History Biopsy, Temporal Artery (09/15/17) right Colonoscopy - MAC 2014 EGD - IV Sedation 2013 EGD - MAC (06/13/17) Ligation of fallopian tube right carotid endarterectomy x2 S/P CABG x 2 Family History Other Heart disease Social History Smoking/Tobacco Use Status: Current every day Tobacco Type: cigarettes Tobacco: How many years used: 46 Counseling given: patient declined Smoking risk assessment performed?: Yes Alcohol Intake: never Drug use: Never Substance use type: does not use Do you feel safe at home: Yes Do you feel safe in your relationship?: Yes Exam <Urmila Rizzo DO - Last Filed: 12/02/20 08:18> Const General: cooperative and no acute distress Orientation: alert, awake and oriented x3 HENMT Head: normal to inspection Face and sinus: normal facial exam Eyes General: appearance normal, both eyes and all related structures EOM: EOM intact bilaterally Neck Neck: normal visual inspection and No submandibular swelling Lymphatic: no lymphadenopathy noted Chest Chest: normal inspection of the chest and no tenderness Chest/axillae images: 1. Well healed incisional scar. No cellulitis or tenderness. Resp Effort & Inspection: normal respiratory effort and able to speak in complete sentences Auscultation: clear to auscultation bilaterally Cardio Rate: regular rate Rhythm: regular rhythm GI Inspection: normal to inspection Palpation: soft, not firm, not rigid and nontender Auscultation: normal bowel sounds Back/Spine/Pelvis Thoracic/Lumbar Spine: thoracic and lumbar spine normal to inspection Skin General skin exam: no rashes or lesions noted Neuro General: patient alert, patient awake and patient oriented x3 Cognition: normal cognition Speech: speech normal Motor: muscle tone normal throughout Sensory Exam: no sensory deficits noted Extrem General: normal to inspection, full ROM, capillary refill normal, no calf tenderness bilaterally and no edema Psych Appearance: grossly normal Mental Status: mental status grossly normal Speech and Movement: speech and movement normal Affect: normal affect Sign Out <Urmila Rizzo DO - Last Filed: 12/02/20 08:18> Sign Out Data: Sign Out Comment: Pt admitted pending CT result. Update hospitalist with CT result. Last updated by Urmila Rizzo DO at 12/01/20 20:00
[2020-12-01 18:41] LABS: Abs Immature Grans 0.03 10^3/uL (0.0-0.06); Absolute Basophil Count 0.04 10^3/uL (0.0-0.2); Absolute Eosinophil Count 0.29 10^3/uL (0.0-0.7); Absolute Lymphocyte Count 1.65 10^3/uL (1.2-3.4); Absolute Monocyte Count 1.03 10^3/uL (0.1-0.8); Absolute Neutrophil Count 4.54 10^3/uL (1.2-6.7); Basophils % 0.5; Eosinophils % 3.8; HCT 28.8 % (36.0-46.0); HGB 9.5 g/dL (11.2-15.7); Immature Grans % 0.4; Lymphocytes % 21.8; MCH 28.2 pg (27.0-33.0); MCV 85.5 fL (80-95); MPV 11.2 fL (8.0-11.0); Monocytes % 13.6; Neutrophils % 59.9; Nucleated RBC 0 %; Platelet Count 273 10^3/uL (130-400); RBC 3.37 10^6/uL (3.93-5.22); RDW 13.5 % (11.7-14.6); RDW-SD 42.4 fL; WBC 7.58 10^3/uL (4.4-10.8)
--- NOTE | 2020-12-01 18:45 | DI.CT_ITS ---
EXAM: CT THORAX CTA CLINICAL HISTORY: chest pain radiating to back. TECHNIQUE: Imaging Protocol: CT angiography of the chest was performed using pulmonary embolus marlon col. Multi planar reconstructions were performed. CONTRAST MATERIAL: Intravenous: Omnipaque 350 Contrast volume: 100 cc COMPARISON: CT CTA BRAIN AND NECK from 10/05/2016 FINDINGS: CHEST: PULMONARY ARTERIES: There are no intraluminal filling defects to suggest acute pulmonary emboli. LUNGS: There is a noncalcified slightly spiculated infiltrate measuring 6 millimeters in the superior segment of the right lower lobe which will require close follow-up. No other significant focal righ t lung findings nor pleural effusion.. In the opposite-left lung there is a 2 millimeters subpleural infiltrate in the anterior aspect of the left upper lobe. Mild benign-appearing increased markings are noted towards the lung base. No pleural effusions there are no pleural effusions. MEDIASTINUM: There is no hilar nor mediastinal adenopathy. CARDIAC: There are sternotomy wires. Mild cardiomegaly.The thoracic aorta is atherosclerotic but not enlarged. No evidence of dissection. Coronary artery calcification is noted. There is no evidence of shift of the interventricular septum. PARTIALLY VISUALIZED UPPERMOST ABDOMEN: There is a 2 centimeters cyst in the left kidney noted. Ther e is suggestion of hydronephrosis in the partially visualized right kidney. No significant adrenal m asses. OSSEOUS: No significant osseous lesions.. IMPRESSION: 1. No evidence of acute pulmonary emboli. No evidence of pulmonary infarction.No pleural effusions. 2. There is a 6 millimeter nodular infiltrate in the superior segment of the right lower lobe. This requires appropriate follow-up to rule out small neoplasm. Recommend repeat CT scan in a few months time. There is no intrathoracic adenopathy. 3. Suggestion of hydronephrosis in the partially included right kidney. Benign cyst in the partially included left kidney. RADIATION DOSE DELIVERED: LINK-TO-SR Total DLP DATA REPOSITORY: All CT scans at this facility are submitted to the National Radiology Data Registry (NRDR) Dose Index Registry (DIR) with the [employer] (ACR). RADIATION OPTIMIZATION: All CT scans at this facility use at least one of these dose optimization te chniques: automated exposure control; mA and/or kV adjustment per patient size (includes targeted exa ms where dose is matched to clinical indication); or iterative reconstruction.
[2020-12-01 18:59] LABS: PTT Activated 23.4 sec (21.0-27.5); Prothrombin Time 10.2 sec (9.3-11.0)
[2020-12-01] MEDS: Aspirin 325 MG TAB PO (19:06)
[2020-12-01] MEDS: Normal Saline 500 ML IV (19:07)
[2020-12-01 19:09] LABS: ALT 18 U/L (14-59); AST 8 U/L (15-37); Albumin 3.9 g/dL (3.4-5.0); Alkaline Phosphatase 90 U/L (46-116); Anion Gap 8.7 mmol/L (3-11); BUN 32 mg/dL (7-18); Bilirubin, Total 0.2 mg/dL (0.2-1.0); CO2 25.3 mmol/L (21.0-32.0); CREATININE 1.2 mg/dL (0.55-1.02); Calcium 9.6 mg/dL (8.5-10.1); Chloride 103 mmol/L (98-107); Estimated GFR 44.04 (mL/min/1.73m2); Glucose 116 mg/dL (74-106); Magnesium 2.4 mg/dL (1.8-2.4); Potassium 4.3 mmol/L (3.5-5.1); Sodium 137 mmol/L (136-145); Total Protein 8.1 g/dL (6.4-8.2)
[2020-12-01 19:20] LABS: Troponin I < 0.05 ng/mL (<0.06)
[2020-12-01] MEDS: Omnipaque 350 MG/ML 100 ML BTL IV (19:36)
[2020-12-01] MEDS: Normal Saline Flush 10 ML SYR IVP (19:45)
[2020-12-01] MEDS: Normal Saline - Diluent 50 ML VIAL IV (19:45)
--- NOTE | 2020-12-01 20:16 | DI.VRAD_ITS ---
PROCEDURE INFORMATION: Exam: CT Angiography Chest With Contrast Exam date and time: 12/01/2020 6:46 PM Age: 75 years old Clinical indication: Prior surgery; Surgery date: 6+ months; Surgery type: 2 cabg, R carotid endarterectomy; Patient HX: Chest pain radiating to back TECHNIQUE: Imaging protocol: Computed tomographic angiography of the chest with contrast. 3D rendering (Not supervised by radiologist): MIP and/or 3D reconstructed images were created by the technologist. Radiation optimization: All CT scans at this facility use at least one of these dose optimization techniques: automated exposure control; mA and/or kV adjustment per patient size (includes targeted exams where dose is matched to clinical indication); or iterative reconstruction. Contrast material: OMNIPAQUE 350; Contrast volume: 100 ml; Contrast route: INTRAVENOUS (IV); COMPARISON: CR XR PORTABLE CHEST AP 11/20/2018 3:32 PM FINDINGS: Pulmonary arteries: Pulmonary arteries well opacified. No embolism evident. Aorta: Atherosclerotic thoracic aortic calcium. No aneurysm. Lungs: Lungs are clear of infiltrates. No edema. Mild emphysematous changes. There is a nonspecific subpleural nodular focus in the superior segment of the right lower lobe. See series 6, image 23 with lung window. Pleural spaces: Unremarkable. No pneumothorax. No pleural effusion. Heart: [id number] cardiac enlargement. Coronary artery atherosclerosis. Previous open-heart surgery. No pericardial effusion. Mediastinal space: Small to moderate size hiatal hernia. This is nonspecific. Lymph nodes: Unremarkable. No enlarged lymph nodes. Kidneys and ureters: Bilateral renal disease. Posterior left renal cyst with benign appearance measuring 20 mm. Right kidney suggesting moderate hydronephrosis. The kidney is only partially visualized. No previous imaging of this region available for comparison. Bones/joints: Degenerative thoracic spine disease. No compression fracture. No acute fracture. Soft tissues: Unremarkable. IMPRESSION: 1. Atherosclerotic aortic calcium. No aneurysm. No dissection. 2. Cardiomegaly. Coronary artery atherosclerosis. Previous open-heart surgery. 3. Small to moderate hiatal hernia. 4. No pulmonary arterial embolism evident. 5. Nonspecific subpleural 5 mm nodule in the apical right lower lobe. For patients at low risk (minimal or absent history of smoking and of other known risk factors), no routine follow-up is indicated. For patients at high risk (history of smoking or of other known risk factors), consider optional CT Chest at 12 months. (Reference: Radha) 6. Suggestion of right renal hydronephrosis. Benign-appearing left renal cyst. Further imaging evaluation of the kidneys may be warranted. REFERENCES: Radha Mendiola, et al. Guidelines for Management of Incidental Pulmonary Nodules Detected on CT Images: From the Fleischner Society 2017. Radiology. 2017;284(1):228-243. Dictated and Authenticated by: Jayme Bray MD. Ordering:GURMEET Kearns MD
[2020-12-01 21:21] LABS: Influenza A PCR Negative (Negative); Influenza B PCR Negative (Negative); RSV PCR Negative (Negative)
[2020-12-01 21:38] LABS: COVID-19 PCR Negative (Negative)
[2020-12-01 22:06] LABS: Troponin I < 0.05 ng/mL (<0.06)
--- NOTE | 2020-12-01 22:29 | HPE_ITS ---
Date of service: 12/01/20 Time of Service: 22:29 Assessment and Plan Assessment and plan (1) Atypical chest pain: Status: Acute Assessment and plan: Nature of her chest pain was atypical and that it occ urs with rest not with activity it was associated with a feeling of bloating and epigastric discomfort. This very well may have been her hiatal hernia and GERD acting up however the fact it was relieved by couple of nitroglycerin is somewhat concerning. However it is possible that she could have had esophageal spasm relieved by nitroglycerin. Nevertheless given her history of cerebrovascular disease as well as previous coronary bypass surgery she needs to be ruled out for progressive coronary artery disease. At present time she is declined to have a stress test. She will think about it and I told her that if she does not have a stress test tomorrow she can always have this done as an ou tpatient in the the near future. As her CT scan showed hydronephrosis I will get an ultrasound of her kidneys as her right flank pain may have been related to the hydronephrosis although she denies any dysuria or gross hematuria. Furthermore her epigastric discomfort and right flank pain may have been community relations representative of gallbladder disease. Currently she remains pain-free and denies any dyspnea denies any nausea. Second set of troponin I level was less than 0.05. (2) CAD (coronary artery disease): Status: Chronic Assessment and plan: As above. Continue aspirin and Plavix and beta- blockers as well as rosuvastatin. Patient needs to cease further smoking or other tobacco consumption. Qualifiers: Coronary Disease-Associated Artery/Lesion type: solomon artery [place] vs . transplanted heart: solomon heart Associated angina: without angina Qualified Code(s): I25.10 - Atherosclerotic heart disease of solomon coronary artery without angina pectoris (3) GERD (gastroesophageal reflux disease): Status: Acute Assessment and plan: Continue Pepcid 20 mg daily. Cardiac work-up is negative I would recommend outpatient EGD. She seems to be totally unaware that she has a hiatal hernia. Qualifiers: Esophagitis presence: esophagitis presence not specified Qualified Code(s): K21.9 - Gastro-esophageal reflux disease without esophagitis (4) Iron deficiency anemia: Status: Chronic Assessment and plan: No reported melena or hematochezia. Anemia appears to be stable. Qualifiers: Iron deficiency anemia type: unspecified iron deficiency Qualified Code(s): D50.9 - Iron deficiency anemia, unspecified (5) Tobacco dependence: Status: Acute Assessment and plan: Patient reportedly is down to a couple cigarettes per day. She has been using nicotine patch. (6) Hydronephrosis: Status: Acute Assessment and plan: No dysuria or gross hematuria. We will get an ultrasound of her kidneys in the morning. Qualifiers: Hydronephrosis type: unspecified Qualified Code(s): N13.30 - Unspecified hydronephrosis History of Present Illness History of Present Illness Chief Complaint: chest pain Narrative: 75-year-old female smoker with history of hypertension, hyperlipidemia, coronary artery disease status post two-vessel coronary bypass graft in November 2018, status post left carotid revascularization July 2020 with subsequent complication of CVA who now presents to the emergency department with new onset of chest discomfort beginning around 3 PM. Patient states that she was doing jigsaw puzzle and having a snack when she developed a feeling of epigastric abdominal discomfort like bloating and a feeling like she had to belch and the discomfort radiating up into the substernal area of her chest and into the right side of her back. When the pain did not let up she took a couple of her 's nitroglycerin tablets which improved her chest discomfort but did not totally alleviate it. At that point she came to the emergency department couple hours later. Said the pain was almost but not completely gone. Dr. Rizzo, emergency room physician, states that the patient endorsed that she had some continued pain rated a 6 out of 10 however patient told the nurse it was down to a 1 out of 10. In either case she refused any further nitroglycerin and her discomfort resolved on its own. Work-up in the emergency department included CTA of the chest with contrast that showed atherosclerotic aorta with no aneurysm or dissection. Patient has cardiomegaly and coronary artery atherosclerosis as well as evidence of previous bypass surgery. She has a small to moderate hiatal hernia. No pulmonary embolism was seen. There is a nonspecific subpleural 5 mm nodule in the right lower lobe. There is also evidence of right renal hydronephrosis and a benign- appearing left renal cyst. Laboratory studies showed a CBC with stable chronic anemia hemoglobin 9.5 g hematocrit 20%. Normal white count 7500 and normal platelet count 273,000. Coagulation studies were within normal limits. CMP showed elevated BUN and cre atinine of 32 and 1.2. Glucose 116. Troponin I level was less than 0.05 and subsequently repeat level has also come back normal. Urinalysis was clear yellow urine that was negative for protein or ketones or nitrites or bilirubin or crystals or casts but with moderate epithelial cells and rare renal cells. And a few bacteria. Patient was admitted for observation overnight and serial troponin levels. She has remained free of any chest pain or pressure or dyspnea. She denied any dyspnea with her episode this afternoon and had no diaphoresis or nausea or vomiting. Patient has a nasopharyngeal swab that came back negative for SARS-CoV-2. 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 Of note patient recently saw her food and beverage associate Dr. Coltne Villar on November 26, 2020 he felt that her hypertension was well controlled recommend continuation of her current aspirin and rosuvastatin and beta-noy for her coronary artery disease. At that time he recommended that she try to continue to quit smoking. Patient currently is down to just a couple cigarettes a day. Review of Systems All systems reviewed & are unremarkable except as noted in HPI and below PFSH Medical History (Updated 12/01/20 @ 23:41 by Jeremy Correia) Abnormal EKG Asthma Pt denies Asthma Atypical chest pain Brittle nails Carotid stenosis Cerebrovascular accident (CVA) Chronic anxiety Degenerative disc disease, lumbar Depression Diverticulosis large intestine w/o perforation or abscess w/o bleeding Elevated troponin Gastric ulcer 2013 GERD (gastroesophageal reflux disease) (09/05/16) Hx of Helicobacter infection 2014 Hyperlipidemia Hypertension Hypothyroid Impaired glucose regulation Intermittent claudication Iron deficiency anemia 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) Obesity Optic neuritis Peripheral vascular disease Prediabetes Tobacco dependence Vitamin D deficiency Surgical History Biopsy, Temporal Artery (09/15/17) right Colonoscopy - MAC 2014 EGD - IV Sedation 2013 EGD - MAC (06/13/17) Ligation of fallopian tube right carotid endarterectomy x2 S/P CABG x 2 Family History Other Heart disease Social History Smoking/Tobacco Use Status: Current every day Tobacco Type: cigarettes Tobacco: How many years used: 46 Counseling given: patient declined Smoking risk assessment performed?: Yes Alcohol Intake: never Drug use: Never Substance use type: does not use Do you feel safe at home: Yes Do you feel safe in your relationship?: Yes Meds Home Medications and Allergies Home Medications Medication Instructions Recorded Confirmed Type cholecalciferol (vitamin D3) 2,000 unit PO DAILY 06/06/17 12/01/20 History [Vitamin D3] aspirin 81 mg tablet,delayed 81 mg PO DAILY 03/15/19 12/01/20 History release latanoprost 0.005 % eye drops 1 drp OP QPM 03/15/19 12/01/20 History multivitamin 1 tab PO DAILY 03/15/19 12/01/20 History rosuvastatin 10 mg tablet 10 mg PO DAILY 03/15/19 12/01/20 History famotidine 20 mg tablet 20 mg PO DAILY 08/02/19 12/01/20 History lisinopril 20 1 tab PO DAILY 08/02/19 12/01/20 History mg-hydrochlorothiazide 25 mg tablet furosemide 20 mg tablet 20 mg PO DAILY PRN #60 tab 05/28/20 12/01/20 Rx carvedilol 12.5 mg tablet 12.5 mg PO BID #180 tab 10/01/20 12/01/20 Rx amlodipine 10 mg tablet 10 mg PO DAILY #90 tab 11/27/20 12/01/20 Rx clopidogrel 75 mg PO DAILY 12/01/20 12/01/20 History ferrous gluconate 324 mg PO DAILY 12/01/20 12/01/20 History levothyroxine 137 mcg PO DAILY 12/01/20 12/01/20 History Allergies Allergy/AdvReac Type Severity Reaction Status Date / Time cilostazol Allergy Severe Verified 12/01/20 18:26 Mhavtmk-Mch-Hlf Reductase AdvReac Intermediate Headache Verified 12/01/20 18:26 Inhibitor atenolol AdvReac Mild palpitation Verified 12/01/20 18:26 s losartan potassium AdvReac Mild palpitation Verified 12/01/20 18:26 [From Cozaar] s rosuvastatin [From Crestor] AdvReac Mild Verified 12/01/20 18:26 levothyroxine sodium AdvReac Verified 12/01/20 18:26 Exam Narrative Exam Narrative: Obese female sitting up in bed in no distress. She is alert and oriented person place time circumstance. HEENT is unremarkable Neck is supple nontender no JVD she has a well-healed scar over the right carotid area as well as a smaller scar over the left anterior base. She has bilateral carotid bruits but normal carotid pulse. Lungs are clear to auscultation Heart is regular rate and rhythm with a soft systolic murmur along the left upper sternal border. Abdomen is obese soft and nontender no scars no palpable masses no organomegaly. Lower extremities without peripheral cyanosis or edema. Neuro exam grossly intact no focal motor deficits. Results Labs Result diagrams: 12/01/20 18:30 12/01/20 18:30 Labs: Laboratory Results - last 24 hr 12/01/20 12/01/20 12/01/20 18:30 18:30 18:30 WBC 7.58 RBC 3.37 L Hgb 9.5 L Hct 28.8 L MCV 85.5 MCH 28.2 MCHC 33.0 RDW 13.5 Plt Count 273 MPV 11.2 H Immature Gran % 0.4 Neutrophils % 59.9 Lymphocytes % 21.8 Monocytes % 13.6 Eosinophils % 3.8 Basophils % 0.5 Nucleated RBC % 0 Absolute Neutrophils 4.54 Absolute Lymphocytes 1.65 Absolute Monocytes 1.03 H Absolute Eosinophils 0.29 Absolute Basophils 0.04 PT 10.2 INR 1.0 APTT 23.4 Sodium 137 Potassium 4.3 Chloride 103 Carbon Dioxide 25.3 Anion Gap 8.7 BUN 32 H Creatinine 1.2 H Estimated GFR/1.73 m2 44.04 Glucose 116 H Calcium 9.6 Magnesium 2.4 Total Bilirubin 0.2 AST 8 L ALT 18 Alkaline Phosphatase 90 Troponin I < 0.05 Total Protein 8.1 Albumin 3.9 COVID-19 Source SARS-CoV-2 (PCR) Influenza Type A (PCR) Influenza Type B (PCR) RSV (PCR) 12/01/20 12/01/20 12/01/20 19:24 20:20 21:44 WBC RBC Hgb Hct MCV MCH MCHC RDW Plt Count MPV Immature Gran % Neutrophils % Lymphocytes % Monocytes % Eosinophils % Basophils % Nucleated RBC % Absolute Neutrophils Absolute Lymphocytes Absolute Monocytes Absolute Eosinophils Absolute Basophils PT INR APTT Sodium Potassium Chloride Carbon Dioxide Anion Gap BUN Creatinine Estimated GFR/1.73 m2 Glucose Calcium Magnesium Total Bilirubin AST ALT Alkaline Phosphatase Troponin I Cancelled < 0.05 Total Protein Albumin COVID-19 Source Nasopharyx SARS-CoV-2 (PCR) Negative Influenza Type A (PCR) Negative Influenza Type B (PCR) Negative RSV (PCR) Negative Last Vital Signs Temp 36.8 C 12/01/20 20:52 Pulse 51 L 12/01/20 20:52 Resp 18 12/01/20 20:52 BP 156/55 H 12/01/20 20:52 Pulse Ox 98 12/01/20 20:52 COVID-19 Screening Have you, or household traveled for leisure in last 14 days?: No Had IN PERSON contact w/suspected or confirmed C-19 person: No
[2020-12-01] MEDS: Carvedilol 12.5 MG TAB PO (23:32)
[2020-12-01] MEDS: Rosuvastatin 10 MG TAB PO (23:33)
[2020-12-02 03:43] VITALS: BP 135/54; PULSE 48; RESP 17; TEMP 36.3; O2SAT 95
[2020-12-02] MEDS: Levothyroxine 25 MCG TAB PO (05:56)
[2020-12-02] MEDS: Levothyroxine 112 MCG TAB PO (05:56)
[2020-12-02 06:48] LABS: Hemoglobin A1C 7.1 % (<5.7)
[2020-12-02 07:00] LABS: Calculated LDL 75 mg/dL (<100); Cholesterol 139 mg/dL (<200); Ferritin 51 ng/mL (8-252); HDL Cholesterol 35 mg/dL (40-60); Triglyceride 147 mg/dL (<150)
--- NOTE | 2020-12-02 07:00 | DI.US_ITS ---
EXAM: US ABDOMEN RENAL CLINICAL HISTORY: epigastric abdominal pain, right flank pain TECHNIQUE: Ultrasound of complete upper abdomen performed using standard protocol. COMPARISON: US US ECHOCARDIOGRAM from 08/23/[address] THORAX CTA from 12/01/2020 FINDINGS: There is no ascites evident. LIVER: Liver appears hyperechoic indicating steatosis. No discrete focal hepatic lesions identified. GALLBLADDER/BILIARY: There are no gallstones. No gallbladder wall edema nor pericholecystic fluid. The common hepatic duct isnot dilated, measuring 4-5mm at the level of carloz hepatis. PANCREAS: There is no evidence of pancreatic mass nor dilatation of the pancreatic duct. SPLEEN: The spleen is not enlarged and there are no intrasplenic lesions evident. KIDNEYS:Left kidney appears unremarkable on these ultrasound images. There is mild-moderate hydronep hrosis of right kidney noted. ABDOMINAL AORTA: There is no evidence of abdominal aortic aneurysm. IVC: Normal diameter where visualized. IMPRESSION: 1. No evidence of cholelithiasis nor dilatation of the biliary tree. 2. There is mild-moderate hydronephrosis of the right kidney, corresponding to incidental finding on recent chest CT scan. Recommend CT scan of the abdomen pelvis to determine the etiology of this hyd ronephrosis. Although the left kidney appears unremarkable on the ultrasound, please note that the c hest CT scan did reveal a cyst in the left kidney (benign appearance). 3. There is no ascites. DATA REPOSITORY:
[2020-12-02 07:02] LABS: Iron 38 ug/dL (50-170); Total Iron Binding Capacity 302 ug/dL (250-450); Transferrin Sat 13 % (15-50); Troponin I < 0.05 ng/mL (<0.06)
[2020-12-02 07:19] VITALS: BP 154/61; PULSE 48; RESP 18; TEMP 36.7; O2SAT 98
[2020-12-02] MEDS: hydroCHLOROthiazide 25 MG TAB PO (09:37)
[2020-12-02] MEDS: Famotidine 20 MG TAB PO (09:37)
[2020-12-02] MEDS: Lisinopril 20 MG TAB PO (09:37)
[2020-12-02 11:21] VITALS: PULSE 54
--- NOTE | 2020-12-02 11:49 | DSE_ITS ---
Date of service: 12/02/20 Time of Service: 11:49 DS: Diagnosis Discharge Diagnosis (1) Atypical chest pain: Start date: 12/02/20 Start time: 11:50 Status: Ruled-out Asessment and Plan: Resolved, appears to epigastric in nature. Trops flat negative. She does not want a stress test but she is agreeable to an outpatient echo. She Would benefit from surgical referral for epigastric spasm and likely EGD. She has not had one in years she states. Will give her malox and lidocaine for spasms and GERD. 5 mm subpleural lung nodule superior aspect right lower lobe incidentally found on CTA of her chest. Results were discussed with the patient and she is advised to get a close follow-up repeat CT scan of the chest in 6 months time She was also advised to quit smoking Follow up with PCP in 1 week (2) Solitary lung nodule: Start date: 12/02/20 Start time: 12:11 Status: Acute Asessment and Plan: as above (3) CAD (coronary artery disease): Start date: 12/02/20 Start time: 11:52 Status: Chronic Asessment and Plan: Will obtain echo and continue home medications, this appears more epigastric in nature based on symptoms and history (4) GERD (gastroesophageal reflux disease): Start date: 12/02/20 Start time: 11:53 Status: Acute Asessment and Plan: continue medications of pepcid will also add omeprazole daily (5) Iron deficiency anemia: Start date: 12/02/20 Start time: 11:53 Status: Chronic Asessment and Plan: Takes a mulitvitamin (6) Tobacco dependence: Start date: 12/02/20 Start time: 11:54 Status: Acute Asessment and Plan: Patient reportedly is down to a couple cigarettes per day. She has been using nicotine patch (7) Hydronephrosis: Start date: 12/02/20 Start time: 11:55 Status: Acute Asessment and Plan: Found incidentally, U/S revealing IMPRESSION: 1. No evidence of cholelithiasis nor dilatation of the biliary tree. 2. There is mild-moderate hydronephrosis of the right kidney, corresponding to incidental finding on recent chest CT scan. Recommend CT scan of the abdomen pelvis to determine the etiology of this hydronephrosis. Although the left kidney appears unremarkable on the ultrasound, please note that the chest CT scan did reveal a cyst in the left kidney (benign appearance). 3. There is no ascites. Will obtain outpatient CT and follow up with Surgery Discharge Plan Disposition Patient Disposition: HOME Condition: Stable Discharge Details Reason For Visit: CHEST PAIN Admit Date/Time: 12/01/20 19:30 Admit Provider: Jeremy Correia Attending Provider: Jeremy Correia Primary Care Provider: [facility] Hospital Course Hospital Course: 75 y.o female with PMH HTN, HLD, CABG, Hypothyroid, FAINA, Tobacco dependence, GERD, CAD, PVD and CVA, admitted to m/s obs for atypical chest pain. She presented to ED with substernal CP with radiation to her back that started while sitting at home today and was improved iwth 2 nitro. EKG in ED was SR with no STEMI, nondiagnostic. Labs in ED unremarkable and at baseline for patient. She was asked to be admitted for obs. She declined stress test. CT scan revealed hydronephrosis, renal/abd u/s revealed mild-moderate hydronephrosis of right kidney with recommended CT scan. She denies any dysuria or hematuria, urine negative. She is agreeable to an outpatient CT scan with follow to urology. No CP since admission, CP appears to be more epigastric in nature, likely spasm or reflux. Will refer to GI, for possible EGD; patient states last EGD possible 2018. Will order malox with lidocaine for spasm and add omeprazole to daily regimen for reflux. I will also order an outpatient echo as last one was 2019. She denies CP, SOB, N/V/d. We will discharge her home. She will need follow up in 1 week with PCP. She was also found to have a 5 mm nodule on her lung and should have a repeat CT in 6 months. Smoking cessation was encouraged. Home Meds and New Rx's Prescriptions: New hydrochlorothiazide 25 mg Tablet 25 mg PO QAM Qty: 14 RF: 0 alum-mag hydroxide-simeth [Maalox Advanced] 200-200-20 mg/5 mL suspension 10 ml PO Q6H PRNQty: 300 RF: 0 Lidocaine Viscous 2 % solution 1 applic mucous membrane BID PRNQty: 100 RF: 0 omeprazole 40 mg capsule,delayed release(DR/EC) 40 mg PO DAILY Qty: 30 RF: 0 Continued aspirin 81 mg tablet,delayed release (DR/EC) 81 mg PO DAILY RF: 0 rosuvastatin 10 mg tablet 10 mg PO DAILY RF: 0 latanoprost 0.005 % drops 1 drp OP QPM RF: 0 multivitamin tablet 1 tab PO DAILY RF: 0 lisinopril-hydrochlorothiazide 20-25 mg tablet 1 tab PO DAILY RF: 0 famotidine 20 mg tablet 20 mg PO DAILY RF: 0 furosemide 20 mg tablet 20 mg PO DAILY PRN (Reason: edema) Qty: 60 RF: 3 carvedilol 12.5 mg tablet 12.5 mg PO BID Qty: 180 RF: 6 amlodipine 10 mg tablet 10 mg PO DAILY Qty: 90 RF: 6 clopidogrel 75 mg tablet 75 mg PO DAILY RF: 0 ferrous gluconate 324 mg (38 mg iron) tablet 324 mg PO DAILY RF: 0 levothyroxine 137 mcg Tablet 137 mcg PO DAILY RF: 0 No Action cholecalciferol (vitamin D3) [Vitamin D3] 2,000 UNIT capsule 2,000 unit PO DAILY RF: 0 Discharge Instructions Instructions: Chest Pain (DC), GERD (Gastroesophageal Reflux Disease) (DC), Hydronephrosis (DC), Noncardiac Chest Pain (DC) Additional Instructions: Follow up with surgery on 12/10 at 10:30 We will call you for a CT scan to schedule Follow up with Dr. Aguayo on 12/14 at 430 Follow up with urology in 2 weeks You will need an echo as an outpatient we will call you with a time Take omeprazole daily in addition to pepcid Take maalox with lidocaine as needed for epigastric pain QUIT SMOKING !!! Stand Alone Forms: Nursing Discharge Form Referrals: UROLOGY,[facility] [OTHER] - Rafa Aguayo [Primary Care Provider] - 12/14/20 4:30 pm Zelda Cardona DO [OSTEOPATHIC DOCTOR] - 12/10/20 10:30 am Activity:: Activity as Tolerated Equipment/Supplies:: No Equipment Needed Diet:: As Tolerated Discharge Orders Discharge Orders: Discharge Order (Routine); Ordered 12/02/20 Ordered By: Shilpa Du Ambulatory Orders: CT abdomen & pelvis wo (Routine) Location: None Selected Ordered By: Shilpa Ruelas US echocardiogram (Routine) Location: None Selected Ordered By: Shilpa Ruelas DS: Summary Time Spent with Patient providing and/or coordinating discharge services: Greater than 30 minutes (approx discharge time 45 mins) Status at Discharge Functional status at discharge: independent ambulation Overall status at discharge: patient is back to baseline Mental Status: mental status grossly normal Speech and Movement: speech and movement normal Mood: congruent mood Affect: normal affect Exam Narrative Exam Narrative: Obese female sitting up in bed in no distress. She is alert and oriented person place time circumstance. HEENT is unremarkable Neck is supple nontender no JVD she has a well-healed scar over the right carotid area as well as a smaller scar over the left anterior base. She has bilateral carotid bruits but normal carotid pulse. Lungs are clear to auscultation Heart is regular rate and rhythm with a soft systolic murmur along the left upper sternal border. Abdomen is obese soft and nontender no scars no palpable masses no organomegaly. Lower extremities without peripheral cyanosis or edema. Neuro exam grossly intact no focal motor deficits. Psych Mental Status: mental status grossly normal Speech and Movement: speech and movement normal Mood: congruent mood Affect: normal affect DS: Data Vitals/I&O Vitals and I&O: Vital Signs Temperature 36.7 C 12/02/20 07:19 Temperature Source Tympanic 12/02/20 07:19 Pulse 48 L 12/02/20 07:19 Pulse Rhythm Regular 12/02/20 07:57 Pulse 50 L 12/01/20 18:30 Respiratory Rate 18 12/02/20 07:19 Respiratory Effort Non-Labored 12/02/20 07:57 Respiratory Depth Normal 12/02/20 07:57 Respiratory Pattern Normal 12/02/20 07:57 Blood Pressure 154/61 H 12/02/20 07:19 Blood Pressure Mean 85 12/01/20 18:28 Blood Pressure Position Sitting 12/01/20 18:20 Pulse Oximetry 98 12/02/20 07:19 Oxygen Delivery Method Room Air 12/02/20 07:19 Oxygen Flow Rate 0 12/02/20 07:19 Pain Level 0 12/02/20 03:43 Comment 12/02/20 07:19 Intake & Output 12/01/20 12/01/20 12/02/20 11:59 23:59 11:59 Intake Total 740 / 740 Output Total 425 / 425 1200 / 1200 Balance 315 / 315 -1200 / -1200 Weight 87.8 kg 88.4 kg Intake: Oral 740 / 740 Output: Urine 425 / 425 1200 / 1200 Other: Urine Color Pale Pale Yellow Yellow Urine Appearance Clear Clear Urine Odor Normal Normal Voiding Methods Toilet Toilet Data Completed and Pending Pending studies at discharge: Exam(s) a CT:CT thorax CTA EXAM: CT THORAX CTA CLINICAL HISTORY: chest pain radiating to back. TECHNIQUE: Imaging Protocol: CT angiography of the chest was performed using pulmonary embolus protocol. Multi planar reconstructions were performed. CONTRAST MATERIAL: Intravenous: Omnipaque 350 Contrast volume: 100 cc COMPARISON: CT CTA BRAIN AND NECK from 10/05/2016 FINDINGS: CHEST: PULMONARY ARTERIES: There are no intraluminal filling defects to suggest acute pulmonary emboli. LUNGS: There is a noncalcified slightly spiculated infiltrate measuring 6 millimeters in the superior segment of the right lower lobe which will require close follow-up. No other significant focal right lung findings nor pleural effusion.. In the opposite-left lung there is a 2 millimeters subpleural infiltrate in the anterior aspect of the left upper lobe. Mild benign-appearing increased markings are noted towards the lung base. No pleural effusions there are no pleural effusions. MEDIASTINUM: There is no hilar nor mediastinal adenopathy. CARDIAC: There are sternotomy wires. Mild cardiomegaly.The thoracic aorta is atherosclerotic but not enlarged. No evidence of dissection. Coronary artery calcification is noted. There is no evidence of shift of the interventricular septum. PARTIALLY VISUALIZED UPPERMOST ABDOMEN: There is a 2 centimeters cyst in the left kidney noted. There is suggestion of hydronephrosis in the partially visualized right kidney. No significant adrenal masses. OSSEOUS: No significant osseous lesions.. IMPRESSION: 1. No evidence of acute pulmonary emboli. No evidence of pulmonary infarction.No pleural effusions. 2. There is a 6 millimeter nodular infiltrate in the superior segment of the right lower lobe. This requires appropriate follow-up to rule out small neoplasm. Recommend repeat CT scan in a few months time. There is no intrathoracic adenopathy. 3. Suggestion of hydronephrosis in the partially included right kidney. Benign Exam(s) PROCEDURE INFORMATION: Exam: CT Angiography Chest With Contrast Exam date and time: 12/01/2020 6:46 PM Age: 75 years old Clinical indication: Prior surgery; Surgery date: 6+ months; Surgery type: 2 cabg, R carotid endarterectomy; Patient HX: Chest pain radiating to back TECHNIQUE: Imaging protocol: Computed tomographic angiography of the chest with contrast. 3D rendering (Not supervised by radiologist): MIP and/or 3D reconstructed images were created by the technologist. Radiation optimization: All CT scans at this facility use at least one of these dose optimization techniques: automated exposure control; mA and/or kV adjustment per patient size (includes targeted exams where dose is matched to clinical indication); or iterative reconstruction. Contrast material: OMNIPAQUE 350; Contrast volume: 100 ml; Contrast route: INTRAVENOUS (IV); COMPARISON: CR XR PORTABLE CHEST AP 11/20/2018 3:32 PM FINDINGS: Pulmonary arteries: Pulmonary arteries well opacified. No embolism evident. Aorta: Atherosclerotic thoracic aortic calcium. No aneurysm. Lungs: Lungs are clear of infiltrates. No edema. Mild emphysematous changes. There is a nonspecific subpleural nodular focus in the superior segment of the right lower lobe. See series 6, image 23 with lung window. Pleural spaces: Unremarkable. No pneumothorax. No pleural effusion. Heart: [id number] cardiac enlargement. Coronary artery atherosclerosis. Previous open-heart surgery. No pericardial effusion. Mediastinal space: Small to moderate size hiatal hernia. This is nonspecific. Lymph nodes: Unremarkable. No enlarged lymph nodes. Kidneys and ureters: Bilateral renal disease. Posterior left renal cyst with benign appearance measuring 20 mm. Right kidney suggesting moderate hydronephrosis. The kidney is only partially visualized. No previous imaging of this region available for comparison. Bones/joints: Degenerative thoracic spine disease. No compression fracture. No acute fracture. Soft tissues: Unremarkable. IMPRESSION: 1. Atherosclerotic aortic calcium. No aneurysm. No dissection. 2. Cardiomegaly. Coronary artery atherosclerosis. Previous open-heart surgery. 3. Small to moderate hiatal hernia. 4. No pulmonary arterial embolism evident. 5. Nonspecific subpleural 5 mm nodule in the apical right lower lobe. For patients at low risk (minimal or absent history of smoking and of other known risk factors), no routine follow-up is indicated. For patients at high risk (history of smoking or of other known risk factors), consider optional CT Chest at 12 months. (Reference: Radha) 6. Suggestion of right renal hydronephrosis. Benign-appearing left renal cyst. Further imaging evaluation of the kidneys may be warranted. Exam(s) a US:US abdomen & renal EXAM: US ABDOMEN RENAL CLINICAL HISTORY: epigastric abdominal pain, right flank pain TECHNIQUE: Ultrasound of complete upper abdomen performed using standard protocol. COMPARISON: US US ECHOCARDIOGRAM from 08/23/[address] THORAX CTA from 12/01/2020 FINDINGS: There is no ascites evident. LIVER: Liver appears hyperechoic indicating steatosis. No discrete focal hepatic lesions identified. GALLBLADDER/BILIARY: There are no gallstones. No gallbladder wall edema nor pericholecystic fluid. The common hepatic duct isnot dilated, measuring 4-5mm at the level of carloz hepatis. PANCREAS: There is no evidence of pancreatic mass nor dilatation of the pancreatic duct. SPLEEN: The spleen is not enlarged and there are no intrasplenic lesions evident. KIDNEYS:Left kidney appears unremarkable on these ultrasound images. There is mild-moderate hydronephrosis of right kidney noted. ABDOMINAL AORTA: There is no evidence of abdominal aortic aneurysm. IVC: Normal diameter where visualized. IMPRESSION: 1. No evidence of cholelithiasis nor dilatation of the biliary tree. 2. There is mild-moderate hydronephrosis of the right kidney, corresponding to incidental finding on recent chest CT scan. Recommend CT scan of the abdomen pelvis to determine the etiology of this hydronephrosis. Although the left kidney appears unremarkable on the ultrasound, please note that the chest CT scan did reveal a cyst in the left kidney (benign appearance). 3. There is no ascites. DATA REPOSITORY: Labs on day of discharge: Labs from last 24 hours 12/02/20 12/02/20 12/02/20 06:21 06:21 06:21 WBC RBC Hgb Hct MCV MCH MCHC RDW Plt Count MPV Immature Gran % Neutrophils % Lymphocytes % Monocytes % Eosinophils % Basophils % Nucleated RBC % Absolute Neutrophils Absolute Lymphocytes Absolute Monocytes Absolute Eosinophils Absolute Basophils PT INR APTT Sodium Potassium Chloride Carbon Dioxide Anion Gap BUN Creatinine Estimated GFR/1.73 m2 Glucose Hemoglobin A1c 7.1 H Calcium Magnesium Iron 38 L TIBC 302 Transferrin % Sat 13 L Ferritin 51 Total Bilirubin AST ALT Alkaline Phosphatase Troponin I < 0.05 Total Protein Albumin Triglycerides 147 Total Cholesterol 139 LDL Cholesterol, Calc 75 HDL Cholesterol 35 L COVID-19 Source SARS-CoV-2 (PCR) Influenza Type A (PCR) Influenza Type B (PCR) RSV (PCR) 12/01/20 12/01/20 12/01/20 21:44 20:20 19:24 WBC RBC Hgb Hct MCV MCH MCHC RDW Plt Count MPV Immature Gran % Neutrophils % Lymphocytes % Monocytes % Eosinophils % Basophils % Nucleated RBC % Absolute Neutrophils Absolute Lymphocytes Absolute Monocytes Absolute Eosinophils Absolute Basophils PT INR APTT Sodium Potassium Chloride Carbon Dioxide Anion Gap BUN Creatinine Estimated GFR/1.73 m2 Glucose Hemoglobin A1c Calcium Magnesium Iron TIBC Transferrin % Sat Ferritin Total Bilirubin AST ALT Alkaline Phosphatase Troponin I < 0.05 Cancelled Total Protein Albumin Triglycerides Total Cholesterol LDL Cholesterol, Calc HDL Cholesterol COVID-19 Source Nasopharyx SARS-CoV-2 (PCR) Negative Influenza Type A (PCR) Negative Influenza Type B (PCR) Negative RSV (PCR) Negative 12/01/20 12/01/20 12/01/20 18:30 18:30 18:30 WBC 7.58 RBC 3.37 L Hgb 9.5 L Hct 28.8 L MCV 85.5 MCH 28.2 MCHC 33.0 RDW 13.5 Plt Count 273 MPV 11.2 H Immature Gran % 0.4 Neutrophils % 59.9 Lymphocytes % 21.8 Monocytes % 13.6 Eosinophils % 3.8 Basophils % 0.5 Nucleated RBC % 0 Absolute Neutrophils 4.54 Absolute Lymphocytes 1.65 Absolute Monocytes 1.03 H Absolute Eosinophils 0.29 Absolute Basophils 0.04 PT 10.2 INR 1.0 APTT 23.4 Sodium 137 Potassium 4.3 Chloride 103 Carbon Dioxide 25.3 Anion Gap 8.7 BUN 32 H Creatinine 1.2 H Estimated GFR/1.73 m2 44.04 Glucose 116 H Hemoglobin A1c Calcium 9.6 Magnesium 2.4 Iron TIBC Transferrin % Sat Ferritin Total Bilirubin 0.2 AST 8 L ALT 18 Alkaline Phosphatase 90 Troponin I < 0.05 Total Protein 8.1 Albumin 3.9 Triglycerides Total Cholesterol LDL Cholesterol, Calc HDL Cholesterol COVID-19 Source SARS-CoV-2 (PCR) Influenza Type A (PCR) Influenza Type B (PCR) RSV (PCR) [facility] Medical History Abnormal EKG Asthma Pt denies Asthma Atypical chest pain Brittle nails Carotid stenosis Cerebrovascular accident (CVA) Chronic anxiety Degenerative disc disease, lumbar Depression Diverticulosis large intestine w/o perforation or abscess w/o bleeding Elevated troponin Gastric ulcer 2013 GERD (gastroesophageal reflux disease) (09/05/16) Hx of Helicobacter infection 2013 Hyperlipidemia Hypertension Hypothyroid Impaired glucose regulation Intermittent claudication Iron deficiency anemia 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) Obesity Optic neuritis Peripheral vascular disease Prediabetes Tobacco dependence Vitamin D deficiency Surgical History Biopsy, Temporal Artery (09/15/17) right Colonoscopy - MAC 2014 EGD - IV Sedation 2013 EGD - MAC (06/13/17) Ligation of fallopian tube right carotid endarterectomy x2 S/P CABG x 2 Family History Other Heart disease Social History Smoking/Tobacco Use Status: Current every day Tobacco Type: cigarettes Tobacco: How many years used: 46 Counseling given: patient declined Smoking risk assessment performed?: Yes Alcohol Intake: never Drug use: Never Substance use type: does not use Do you feel safe at home: Yes Do you feel safe in your relationship?: Yes
--- NOTE | 2020-12-02 14:05 | NUR.NOTE ---
At 1154 pt walked to the nurses station saying that she is leaving for her 12:00 appointment and will be back to receive her discharge paperwork. Discussed with Shilpa Ruelas APRN that pt insist on leaving and coming back. Will prepare paperwork for pt return. Nursing Note:
--- NOTE | 2020-12-02 14:19 | CHAPLAIN ---
Julee was up and dress and waiting to be discharged when I met her. She was trying to get to an 12 p.m. appointment and was frustrated by having to wait to be discharged. I introduced myself and explained my role.
--- NOTE | 2020-12-02 17:43 | CMPROGNOTE_ITS ---
- If Service Date Differs Date of service: 12/02/20 Time of Service: 17:43 Care Management Progress Note S/O: Julee was admitted as an observation patient on 12/01/20 with chest pain. The pain was felt to be epigastric in nature and resolved shortly after admission. CM met with Julee as she was leaving the hospital around noon., She declined the need for services and will follow up wit her PCP. Julee declined having a stress test and will follow her discharge plan which will likely includ e further workup. P: Juan will be discharged home with no new services. She will follow up with her PCP and discharge plan of care. Julee will transport with her via private vehicle.
== END 2020-12-02 11:57 | disposition home or self-care (01) ==
LOC: ER 20:02 → MS 20:46
PROVIDERS: Physician Assistant; Admitting Provider Internal Medicine; Emergency Provider Emergency Medicine; PCP Family Medicine; Visit Provider Internal Medicine
DX: R07.89 Other chest pain (principal); I25.10 Atherosclerotic heart disease of native coronary artery without angina pectoris; F17.210 Nicotine dependence, cigarettes, uncomplicated; K21.9 Gastro-esophageal reflux disease without esophagitis; R91.1 Solitary pulmonary nodule; D50.9 Iron deficiency anemia, unspecified; N13.30 Unspecified hydronephrosis; I10 Essential (primary) hypertension; E78.5 Hyperlipidemia, unspecified; Z95.1 Presence of aortocoronary bypass graft; E03.9 Hypothyroidism, unspecified; Z86.73 Personal history of transient ischemic attack (TIA), and cerebral infarction without residual deficits; F41.9 Anxiety disorder, unspecified; M51.36 Other intervertebral disc degeneration, lumbar region; R73.03 Prediabetes; E55.9 Vitamin D deficiency, unspecified; E66.9 Obesity, unspecified; I70.219 Atherosclerosis of native arteries of extremities with intermittent claudication, unspecified extremity
CPT/HCPCS: 36415; 71275; 76770; 80053; 80061; 93005; 96360; 96361; 99217; 99220; 99285; 76700; 82728; 83036; 83540; 83550; 83735; 84484; 85025; 85610; 85730; 93010; G0378; J3490

== ENCOUNTER → 2020-12-10 10:14 | Outpatient (BNVA) | payer MEDICARE, OTHER, SELFPAY | PROVIDERS: PCP Family Medicine; Referring Provider Family Medicine; Visit Provider Surgery | DX: K21.9 Gastro-esophageal reflux disease without esophagitis (principal); D64.9 Anemia, unspecified; J44.9 Chronic obstructive pulmonary disease, unspecified; F17.210 Nicotine dependence, cigarettes, uncomplicated | CPT/HCPCS: 99213; 99215 ==

== ENCOUNTER → 2020-12-16 08:46 | Outpatient (BNVA) | payer MEDICARE, OTHER, SELFPAY | PROVIDERS: PCP Family Medicine; Referring Provider Family Medicine; Visit Provider Nurse Practitioner Gerontology | DX: N13.39 Other hydronephrosis (principal); K59.00 Constipation, unspecified; J44.9 Chronic obstructive pulmonary disease, unspecified | CPT/HCPCS: 81003; 99215; G2212 ==

== ENCOUNTER → 2020-12-31 09:52 | Outpatient (BNVA) | payer MEDICARE, OTHER, SELFPAY | PROVIDERS: PCP Family Medicine; Referring Provider Family Medicine; Visit Provider Surgery | DX: K59.00 Constipation, unspecified (principal); F17.210 Nicotine dependence, cigarettes, uncomplicated; Z79.899 Other long term (current) drug therapy; Z91.19 Patient's noncompliance with other medical treatment and regimen | CPT/HCPCS: 99212 ==

== ENCOUNTER 2021-01-07 01:57 | Outpatient (CLI) | payer MEDICARE, OTHER, SELFPAY ==
--- NOTE | 2021-01-07 | DI.US_ITS ---
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 The left ventricular systolic function is normal. The left ventricular ejection fraction is within the normal range. There is normal left ventricular wall thickness. There is normal LV segmental wall motion. The left ventricular diastolic function is normal. LVEF is 59%. Right Ventricle : The right ventricle is normal size. The right ventricular systolic function is norm al. The RVSP is 31.1 mmHg. Atria : Left atrium is mildly dilated. The right atrium size is normal. Mitral Valve : Mild mitral annular calcification. Mild mitral regurgitation. No evidence of mitral va lve stenosis. Great Vessels : The aortic root is normal in size. Ascending aorta is not well visualized. Aortic arc h is normal in caliber. IVC is normal in size and collapses >50% with inspiration. Compared to study from 08/23/2019, there is no significant change. Wall motion Left Ventricle The left ventricle is normal size. The left ventricular systolic function is normal. The left ventric ular ejection fraction is within the normal range. There is normal left ventricular wall thickness. T here is normal LV segmental wall motion. The left ventricular diastolic function is normal. There is no ventricular septal defect visualized. LVEF is 59%. Right Ventricle The right ventricle is normal size. The right ventricular systolic function is normal. The RVSP is 31 .1 mmHg. Atria Left atrium is mildly dilated. The right atrium size is normal. The interatrial septum is intact with no evidence for an atrial septal defect. Aortic Valve The aortic valve is normal in structure. Aortic valve is trileaflet. There is no aortic valvular sten osis. No aortic regurgitation is present. Mitral Valve Mild mitral annular calcification. No evidence of mitral valve stenosis. Mild mitral regurgitation. Tricuspid Valve The tricuspid valve is normal in structure. There is no tricuspid valve stenosis. Trace tricuspid reg urgitation. Pulmonic Valve Pulmonic valve is not well visualized. There is no pulmonic valvular stenosis. Trace pulmonic regurgi tation. Great Vessels The aortic root is normal in size. Ascending aorta is not well visualized. Aortic arch is normal in c aliber. IVC is normal in size and collapses >50% with inspiration. Pericardium There is no pericardial effusion. 2D Dimensions IVSD d PLAX 1.04 cm F: 0.6-1.0 LV Vol A2C d MOD 129.1 mL LVPW d PLAX 1.01 cm F: 0.6 - 1.0 LV Vol A4C d MOD 140.7 mL LVID d PLAX 4.56 cm F: 3.8 - 5.2 LA vol/ BSA A2C s A-L 39.7 mL/m2 LVDs 3.05 cm F: 2.2 - 3.5 LA vol/ BSA A4C s A-L 41.5 mL/m2 Ao Root d 2.97 cm F: 2.7 - 3.3 LA Vol/ BSA Biplane s A-L 43.3 mL/m2 RA Area A4C 18.02 cm2 LA Area A4C s MOD 23.02 cm2 RA Vol/ BSA A4C s A-L 29.2 mL/m2 LA Area A2C s MOD 21.11 cm2 LV EF Teichholz 61.6 % LV EF A4C MOD 59.9 % LVEF (Marmolejo's) 58.76 % F: 54 - 74 LV EF A2C MOD 57.8 % LV Volume 106.05 mL F: 46 - 106 LV EF Biplane MOD 58.8 % LV Volume Index 56.11 mL/m2 F: 29 - 61 SV 81.58 mL LV Vol Biplane MOD 138.8 mL SV Index 43.05 mL/m2 FS 33.00 % M-Mode TAPSE 1.90 cm (M/F) >1.7 LV Diastology MV E' medial 0.073 (>0.07 m/s) E/A Ratio 1.0 LV E/e MED 10.85 (<14) MV E Vmax 0.80 (0.4-1.3 m/s) MV E' lateral 0.097 (>0.1 m/s) MV A Vmax 0.80 (0.4-1.3 m/s) LV E/e LAT 8.20 (<14) MV E/A Ratio 0.95 MV E/E' medial 10.89 MV E/E' lateral 8.25 Aortic Valve LVOT Area 2.88 cm2 AoV Area Vmax 2.00 cm2 LVOT Vmax 1.30 m/s AoV Area/ BSA (Vmax) 1.06 cm2/m2 LVOT Mean Ruslan. 0.97 m/s KRISTYN Mean Ruslan. 1.99 cm2 LVOT Peak Grad 6.8 mmHg KRISTYN Mean Ruslan. Index 1.05 cm2/m2 LVOT Mean Grad 4.1 mmHg LVOT VTI 0.329 m LVOT Diam s 1.90 cm AoV Vmax 1.87 m/s Velocity Ratio 0.69 AoV Mean Ruslan. 1.40 m/s AoV Peak Grad 14.0 mmHg LVOT SV 94.82 mL AoV Mean Grad 8.6 mmHg AoV VTI 0.512 m AoV Area VTI 1.85 cm2 AoV Area/ BSA (VTI) 0.98 cm/m2 Mitral Valve MV DT 265 (160-240 msec) MV PHT 77 msec MV Area PHT 2.86 cm2 MV VTI 0.385 m MV VTI Annulus 0.373 m MV Area VTI 2.39 (4.0-6.0 cm2) Pulmonary Valve PV Vmax 1.15 (0.5-1.5 m/s) RVOT Peak Gr. 2.03 mmHg PV Peak Grad 5.3 mmHg RVOT Mean Gr. 1.05 mmHg PV Mean Grad 3.2 mmHg RVOT VTI 0.140 m PV VTI 0.287 m RVOT Vmax 0.71 m/s Tricuspid Valve TR Peak Grad 28.1 mmHg TR Vmax 2.65 m/s RA Pressure 3.00 mmHg RVSP (TR) 31.1 mmHg
== END 2021-01-07 02:17 ==
LOC: DI 01:58
PROVIDERS: PCP Family Medicine; Visit Provider Family Medicine
DX: R07.9 Chest pain, unspecified (principal); I25.810 Atherosclerosis of coronary artery bypass graft(s) without angina pectoris
CPT/HCPCS: 93306

== ENCOUNTER 2021-01-11 02:25 | Outpatient (CLI) | payer MEDICARE, OTHER, SELFPAY ==
--- NOTE | 2021-01-11 07:00 | DI.US_ITS ---
EXAM: US RENAL CLINICAL HISTORY: monitoring hydroNEPHROSIS,N13.30. TECHNIQUE: Ruiz scale, color and spectral Doppler were used. COMPARISON: US US ABDOMEN RENAL from 12/02/2020 FINDINGS: Renal size in cm: Right: 10.8. Left: 10.3. Echogenicity: Normal. Hydronephrosis: Persistent hydronephrosis of the right kidney. It is mild in degree and appears slig htly improved compared to 12/02/2020. Cyst or mass: No. Nephrolithiasis: No. Other findings: None. Bladder:Normal. Ureteral jets: Right: Visualized and unremarkable. Left: Visualized and unremarkable. Prevoid vol:278 cc Postvoid vol:15 cc Renal color flow: Symmetric and within normal limits. IMPRESSION: Persistent but slight improvement in the right hydronephrosis since 12/02/2020. DATA REPOSITORY:
[2021-01-11 07:50] LABS: HCT 24.6 % (36.0-46.0); MCH 28.3 pg (27.0-33.0); MCHC 32.5 % (32.0-36.0); MCV 86.9 fL (80-95); MPV 11.2 fL (8.0-11.0); Platelet Count 263 10^3/uL (130-400); RBC 2.83 10^6/uL (3.93-5.22); RDW 13.4 % (11.7-14.6); RDW-SD 42.7 fL; WBC 6.74 10^3/uL (4.4-10.8)
[2021-01-11 08:12] LABS: CREATININE 1.4 mg/dL (0.55-1.02); Estimated GFR 36.86 (mL/min/1.73m2); TSH (W/Ref FT4) 2.05 uIU/mL (0.36-3.74)
[2021-01-11 08:23] LABS: Hemoglobin A1C 6.4 % (<5.7)
== END 2021-01-11 02:45 ==
PROVIDERS: PCP Family Medicine; Visit Provider Family Medicine
DX: N13.30 Unspecified hydronephrosis (principal); N25.9 Disorder resulting from impaired renal tubular function, unspecified; E03.9 Hypothyroidism, unspecified; R73.03 Prediabetes; D50.9 Iron deficiency anemia, unspecified
CPT/HCPCS: 76770; 85027; 82565; 83036; 84443

== ENCOUNTER 2021-01-11 02:26 | Outpatient (CLI) | payer MEDICARE, OTHER, SELFPAY ==
--- NOTE | 2021-01-11 | DI.CT_ITS ---
EXAM: CT CHEST W CLINICAL HISTORY: F/U 5 MM NODULE TECHNIQUE: Imaging Protocol: Axial computed tomography images with coronal and sagittal reformatted images were created and reviewed CONTRAST MATERIAL: Intravenous: Omnipaque 350 Contrast volume:70 mL. COMPARISON: CT CT THORAX CTA from 12/01/2020 FINDINGS: The examination is limited due to patient motion artifact. Tracheobronchial tree: Patent where visualized. Mediastinum and Kelly: No dominant adenopathy or fluid collection. Small hiatal hernia. Pulmonary parenchyma: The 6 mm nodule in the superior segment of the right lower lobe is again seen a nd is unchanged. Mild centrilobular emphysematous changes. Pleura: No effusion or pneumothorax. Heart: Mild cardiomegaly. Coronary artery calcification and/or vascular stents. No pericardial effu rosemarie. Aorta: Thoracic aorta non-dilated. Moderate atherosclerosis. Upper abdomen: There is a again seen a 2.6 cm cyst in the left kidney. It is slightly of higher den sity than the renal pelvis. A small partially solid mass cannot be excluded. Lymph nodes: Within normal limits. Bones: Status post sternotomy. Degenerative changes in the thoracic spine which are within normal li mits given the patient's age. Soft tissues: Unremarkable. IMPRESSION: 1. Stable 6 mm nodule in the superior segment of the right lower lobe. A follow-up CT examination in 6-12 months is recommended for re-evaluation. 2. 2.6 cm complex left renal cyst.Further evaluation with renal ultrasound and or MRI of the kidney i s recommended to exclude neoplasm. 3. Mild centrilobular emphysema. RADIATION DOSE DELIVERED: 632.25mGy.cm Total DLP DATA REPOSITORY: All CT scans at this facility are submitted to the National Radiology Data Registry (NRDR) Dose Index Registry (DIR) with the [employer] (ACR). RADIATION OPTIMIZATION: All CT scans at this facility use at least one of these dose optimization te chniques: automated exposure control; mA and/or kV adjustment per patient size (includes targeted exa ms where dose is matched to clinical indication); or iterative reconstruction.
[2021-01-11] MEDS: Omnipaque 350 MG/ML 100 ML BTL IV (09:07)
== END 2021-01-11 02:46 ==
PROVIDERS: PCP Family Medicine; Visit Provider Family Medicine
DX: R91.1 Solitary pulmonary nodule (principal); N28.1 Cyst of kidney, acquired; J43.2 Centrilobular emphysema; N13.30 Unspecified hydronephrosis; N25.9 Disorder resulting from impaired renal tubular function, unspecified; E03.9 Hypothyroidism, unspecified; R73.03 Prediabetes; D50.9 Iron deficiency anemia, unspecified
CPT/HCPCS: 76770; 85027; 71260; 82565; 83036; 84443; J3490

== ENCOUNTER → 2021-02-03 15:24 | Outpatient (BNVA) | payer MEDICARE, OTHER, SELFPAY | PROVIDERS: PCP Family Medicine; Referring Provider Family Medicine; Visit Provider Nurse Practitioner Gerontology | DX: N13.30 Unspecified hydronephrosis (principal) | CPT/HCPCS: 99214 ==

== ENCOUNTER 2021-03-01 02:17 | Outpatient (CLI) | payer MEDICARE, OTHER, SELFPAY ==
[2021-03-01 11:45] LABS: Iron 37 ug/dL (50-170); Total Iron Binding Capacity 321 ug/dL (250-450); Transferrin Sat 12 % (15-50)
[2021-03-01 12:10] LABS: ALT 20 U/L (14-59); AST 11 U/L (15-37); Abs Immature Grans 0.03 10^3/uL (0.0-0.06); Absolute Basophil Count 0.02 10^3/uL (0.0-0.2); Absolute Eosinophil Count 0.17 10^3/uL (0.0-0.7); Absolute Lymphocyte Count 1.17 10^3/uL (1.2-3.4); Absolute Neutrophil Count 4.34 10^3/uL (1.2-6.7); Albumin 3.7 g/dL (3.4-5.0); Alkaline Phosphatase 84 U/L (46-116); Anion Gap 9.8 mmol/L (3-11); BUN 29 mg/dL (7-18); Basophils % 0.3; Bilirubin, Total 0.2 mg/dL (0.2-1.0); CO2 26.2 mmol/L (21.0-32.0); CREATININE 1.3 mg/dL (0.55-1.02); Calcium 9.2 mg/dL (8.5-10.1); Chloride 105 mmol/L (98-107); Eosinophils % 2.6; Estimated GFR 40.15 (mL/min/1.73m2); Ferritin 34 ng/mL (8-252); Glucose 132 mg/dL (74-106); HCT 26.9 % (36.0-46.0); HGB 8.8 g/dL (11.2-15.7); Immature Grans % 0.5; Lymphocytes % 17.9; MCHC 32.7 % (32.0-36.0); MCV 85.7 fL (80-95); MPV 11.9 fL (8.0-11.0); Monocytes % 12.3; Neutrophils % 66.4; Nucleated RBC 0 %; Platelet Count 267 10^3/uL (130-400); RBC 3.14 10^6/uL (3.93-5.22); RDW 13.5 % (11.7-14.6); RDW-SD 42.5 fL; Reticulocyte 1.3 % (0.5-2.4); Sodium 141 mmol/L (136-145); Total Protein 7.2 g/dL (6.4-8.2); Vitamin B12 919 pg/mL (193-986); WBC 6.53 10^3/uL (4.4-10.8)
[2021-03-02 10:17] LABS: Lambda Free Light Chain 3.33 mg/dL (0.57-2.63)
[2021-03-02 13:31] LABS: Albumin 57.5 % (55.8-66.1); Total Protein 6.9 g/dL (6.3-8.2)
[2021-03-02 15:08] LABS: Erythropoietin 17.6 mIU/mL (2.6 - 18.5)
== END 2021-03-01 02:18 | disposition home or self-care (01) ==
LOC: LBO 02:17
PROVIDERS: PCP Family Medicine; Visit Provider Internal Medicine Hematology & Oncology
DX: N18.31 Chronic kidney disease, stage 3a (principal); D63.1 Anemia in chronic kidney disease
CPT/HCPCS: 36415; 80053; 82668; 82607; 82728; 83540; 83550; 83883; 84165; 85025; 85045

== ENCOUNTER 2021-03-26 07:54 | Outpatient (CLI) | payer MEDICARE, OTHER, SELFPAY ==
[2021-03-26 08:08] LABS: Abs Immature Grans 0.02 10^3/uL (0.0-0.06); Absolute Basophil Count 0.02 10^3/uL (0.0-0.2); Absolute Eosinophil Count 0.17 10^3/uL (0.0-0.7); Absolute Lymphocyte Count 1.07 10^3/uL (1.2-3.4); Absolute Monocyte Count 0.86 10^3/uL (0.1-0.8); Absolute Neutrophil Count 3.71 10^3/uL (1.2-6.7); Basophils % 0.3; Eosinophils % 2.9; Immature Grans % 0.3; Lymphocytes % 18.3; MCH 27.4 pg (27.0-33.0); MCV 88.1 fL (80-95); MPV 10.5 fL (8.0-11.0); Monocytes % 14.7; Neutrophils % 63.5; Nucleated RBC 0 %; Platelet Count 285 10^3/uL (130-400); RBC 3.29 10^6/uL (3.93-5.22); RDW 14.6 % (11.7-14.6); RDW-SD 46.5 fL; WBC 5.85 10^3/uL (4.4-10.8)
== END 2021-03-26 07:55 | disposition home or self-care (01) ==
LOC: LBO 07:55
PROVIDERS: PCP Family Medicine; Visit Provider Internal Medicine Hematology & Oncology
DX: N18.31 Chronic kidney disease, stage 3a (principal); D63.1 Anemia in chronic kidney disease
CPT/HCPCS: 36415; 85025

== ENCOUNTER 2021-04-09 01:33 | Outpatient (CLI) | payer MEDICARE, OTHER, SELFPAY ==
[2021-04-09 08:14] LABS: Abs Immature Grans 0.03 10^3/uL (0.0-0.06); Absolute Basophil Count 0.02 10^3/uL (0.0-0.2); Absolute Eosinophil Count 0.21 10^3/uL (0.0-0.7); Absolute Lymphocyte Count 1.36 10^3/uL (1.2-3.4); Absolute Monocyte Count 0.78 10^3/uL (0.1-0.8); Absolute Neutrophil Count 3.75 10^3/uL (1.2-6.7); Basophils % 0.3; Eosinophils % 3.4; HCT 32.1 % (36.0-46.0); HGB 10.1 g/dL (11.2-15.7); Immature Grans % 0.5; Lymphocytes % 22.1; MCH 27.8 pg (27.0-33.0); MCHC 31.5 % (32.0-36.0); MCV 88.4 fL (80-95); MPV 10.9 fL (8.0-11.0); Monocytes % 12.7; Nucleated RBC 0 %; Platelet Count 264 10^3/uL (130-400); RBC 3.63 10^6/uL (3.93-5.22); RDW 14.6 % (11.7-14.6); RDW-SD 46.9 fL; Reticulocyte 1.6 % (0.5-2.4); WBC 6.15 10^3/uL (4.4-10.8)
[2021-04-09 08:38] LABS: Iron 41 ug/dL (50-170); Total Iron Binding Capacity 313 ug/dL (250-450); Transferrin Sat 13 % (15-50)
[2021-04-09 08:48] LABS: ALT 17 U/L (14-59); AST 8 U/L (15-37); Albumin 3.9 g/dL (3.4-5.0); Alkaline Phosphatase 85 U/L (46-116); Anion Gap 10.1 mmol/L (3-11); BUN 31 mg/dL (7-18); Bilirubin, Total 0.3 mg/dL (0.2-1.0); CO2 27.9 mmol/L (21.0-32.0); CREATININE 1.3 mg/dL (0.55-1.02); Calcium 9.6 mg/dL (8.5-10.1); Chloride 101 mmol/L (98-107); Estimated GFR 40.04 (mL/min/1.73m2); Ferritin 154 ng/mL (8-252); Glucose 150 mg/dL (74-106); Potassium 4.4 mmol/L (3.5-5.1); Sodium 139 mmol/L (136-145); Vitamin B12 730 pg/mL (193-986)
[2021-04-13 08:55] LABS: Lambda Free Light Chain 3.39 mg/dL (0.57-2.63)
[2021-04-13 14:29] LABS: Albumin 57.7 % (55.8-66.1); Total Protein 7.3 g/dL (6.3-8.2)
[2021-04-13 14:37] LABS: Erythropoietin 13.1 mIU/mL (2.6 - 18.5)
== END 2021-04-09 01:34 | disposition home or self-care (01) ==
LOC: LBO 01:33
PROVIDERS: PCP Family Medicine; Visit Provider Internal Medicine Hematology & Oncology
DX: N18.31 Chronic kidney disease, stage 3a (principal); D63.1 Anemia in chronic kidney disease; Z79.899 Other long term (current) drug therapy
CPT/HCPCS: 36415; 80053; 82668; 82607; 82728; 83540; 83550; 83883; 84165; 85025; 85045

== ENCOUNTER 2021-05-06 04:13 | Outpatient (CLI) | payer MEDICARE, OTHER, SELFPAY ==
[2021-05-06 09:21] LABS: Abs Immature Grans 0.03 10^3/uL (0.0-0.06); Absolute Basophil Count 0.03 10^3/uL (0.0-0.2); Absolute Eosinophil Count 0.22 10^3/uL (0.0-0.7); Absolute Lymphocyte Count 1.26 10^3/uL (1.2-3.4); Absolute Monocyte Count 0.81 10^3/uL (0.1-0.8); Basophils % 0.5; Eosinophils % 3.6; HCT 31.9 % (36.0-46.0); HGB 10.2 g/dL (11.2-15.7); Immature Grans % 0.5; Lymphocytes % 20.5; MCH 27.3 pg (27.0-33.0); MCV 85.3 fL (80-95); MPV 11.3 fL (8.0-11.0); Monocytes % 13.2; Neutrophils % 61.7; Nucleated RBC 0 %; Platelet Count 248 10^3/uL (130-400); RBC 3.74 10^6/uL (3.93-5.22); RDW 14.4 % (11.7-14.6); RDW-SD 45.3 fL; WBC 6.15 10^3/uL (4.4-10.8)
[2021-05-06 09:56] LABS: Ferritin 144 ng/mL (8-252)
== END 2021-05-06 04:14 | disposition home or self-care (01) ==
LOC: LBO 04:13
PROVIDERS: PCP Family Medicine; Visit Provider Internal Medicine Hematology & Oncology
DX: D50.9 Iron deficiency anemia, unspecified (principal); N18.31 Chronic kidney disease, stage 3a; D63.1 Anemia in chronic kidney disease
CPT/HCPCS: 36415; 82728; 85025

== ENCOUNTER 2021-05-20 04:25 | Outpatient (CLI) | payer MEDICARE, OTHER, SELFPAY ==
[2021-05-20 09:18] LABS: Abs Immature Grans 0.02 10^3/uL (0.0-0.06); Absolute Basophil Count 0.02 10^3/uL (0.0-0.2); Absolute Eosinophil Count 0.19 10^3/uL (0.0-0.7); Absolute Lymphocyte Count 1.08 10^3/uL (1.2-3.4); Absolute Monocyte Count 0.73 10^3/uL (0.1-0.8); Absolute Neutrophil Count 3.99 10^3/uL (1.2-6.7); Basophils % 0.3; Eosinophils % 3.2; HCT 32.1 % (36.0-46.0); HGB 10.5 g/dL (11.2-15.7); Immature Grans % 0.3; Lymphocytes % 17.9; MCH 27.9 pg (27.0-33.0); MCHC 32.7 % (32.0-36.0); MCV 85.1 fL (80-95); MPV 10.8 fL (8.0-11.0); Monocytes % 12.1; Neutrophils % 66.2; Nucleated RBC 0 %; Platelet Count 265 10^3/uL (130-400); RBC 3.77 10^6/uL (3.93-5.22); RDW 14.6 % (11.7-14.6); WBC 6.03 10^3/uL (4.4-10.8)
[2021-05-20 09:56] LABS: Ferritin 93 ng/mL (8-252)
== END 2021-05-20 04:26 | disposition home or self-care (01) ==
LOC: LBO 04:25
PROVIDERS: PCP Family Medicine; Visit Provider Internal Medicine Hematology & Oncology
DX: N18.31 Chronic kidney disease, stage 3a (principal); D63.1 Anemia in chronic kidney disease; D50.9 Iron deficiency anemia, unspecified
CPT/HCPCS: 36415; 82728; 85025

== ENCOUNTER 2021-06-03 03:40 | Outpatient (CLI) | payer MEDICARE, OTHER, SELFPAY ==
[2021-06-03 09:32] LABS: Abs Immature Grans 0.03 10^3/uL (0.0-0.06); Absolute Basophil Count 0.02 10^3/uL (0.0-0.2); Absolute Eosinophil Count 0.17 10^3/uL (0.0-0.7); Absolute Lymphocyte Count 1.11 10^3/uL (1.2-3.4); Absolute Neutrophil Count 4.45 10^3/uL (1.2-6.7); Basophils % 0.3; Eosinophils % 2.5; HCT 32.9 % (36.0-46.0); HGB 10.5 g/dL (11.2-15.7); Immature Grans % 0.4; Lymphocytes % 16.6; MCH 26.9 pg (27.0-33.0); MCHC 31.9 % (32.0-36.0); MCV 84.4 fL (80-95); MPV 11.1 fL (8.0-11.0); Monocytes % 13.5; Neutrophils % 66.7; Nucleated RBC 0 %; Platelet Count 264 10^3/uL (130-400); RDW 14.5 % (11.7-14.6); RDW-SD 44.4 fL; WBC 6.68 10^3/uL (4.4-10.8)
== END 2021-06-03 03:41 | disposition home or self-care (01) ==
LOC: LBO 03:40
PROVIDERS: PCP Family Medicine; Visit Provider Internal Medicine Hematology & Oncology
DX: N18.31 Chronic kidney disease, stage 3a (principal); D63.1 Anemia in chronic kidney disease
CPT/HCPCS: 36415; 85025

== ENCOUNTER 2021-06-17 02:49 | Outpatient (CLI) | payer MEDICARE, OTHER, SELFPAY ==
[2021-06-17 09:17] LABS: Abs Immature Grans 0.02 10^3/uL (0.0-0.06); Absolute Basophil Count 0.02 10^3/uL (0.0-0.2); Absolute Eosinophil Count 0.22 10^3/uL (0.0-0.7); Absolute Lymphocyte Count 1.15 10^3/uL (1.2-3.4); Absolute Monocyte Count 0.76 10^3/uL (0.1-0.8); Absolute Neutrophil Count 4.24 10^3/uL (1.2-6.7); Basophils % 0.3; Eosinophils % 3.4; HCT 33.1 % (36.0-46.0); HGB 10.7 g/dL (11.2-15.7); Immature Grans % 0.3; Lymphocytes % 17.9; MCH 27.6 pg (27.0-33.0); MCHC 32.3 % (32.0-36.0); MCV 85.5 fL (80-95); MPV 10.5 fL (8.0-11.0); Monocytes % 11.9; Neutrophils % 66.2; Nucleated RBC 0 %; Platelet Count 278 10^3/uL (130-400); RBC 3.87 10^6/uL (3.93-5.22); RDW 14.5 % (11.7-14.6); RDW-SD 45.3 fL; WBC 6.41 10^3/uL (4.4-10.8)
[2021-06-17 09:43] LABS: Ferritin 62 ng/mL (8-252)
== END 2021-06-17 02:50 | disposition home or self-care (01) ==
LOC: LBO 02:50
PROVIDERS: PCP Family Medicine; Visit Provider Internal Medicine Hematology & Oncology
DX: D50.9 Iron deficiency anemia, unspecified (principal); N18.31 Chronic kidney disease, stage 3a; D63.1 Anemia in chronic kidney disease
CPT/HCPCS: 36415; 82728; 85025

== ENCOUNTER 2021-07-01 01:52 | Outpatient (CLI) | payer MEDICARE, OTHER, SELFPAY ==
[2021-07-01 09:19] LABS: Abs Immature Grans 0.03 10^3/uL (0.0-0.06); Absolute Basophil Count 0.01 10^3/uL (0.0-0.2); Absolute Eosinophil Count 0.18 10^3/uL (0.0-0.7); Absolute Monocyte Count 0.85 10^3/uL (0.1-0.8); Absolute Neutrophil Count 4.58 10^3/uL (1.2-6.7); Basophils % 0.1; Eosinophils % 2.6; HCT 33.6 % (36.0-46.0); HGB 10.8 g/dL (11.2-15.7); Immature Grans % 0.4; Lymphocytes % 17.5; MCH 27.3 pg (27.0-33.0); MCHC 32.1 % (32.0-36.0); MCV 84.8 fL (80-95); MPV 10.7 fL (8.0-11.0); Monocytes % 12.4; Nucleated RBC 0 %; Platelet Count 272 10^3/uL (130-400); RBC 3.96 10^6/uL (3.93-5.22); RDW 14.4 % (11.7-14.6); RDW-SD 44.6 fL; WBC 6.85 10^3/uL (4.4-10.8)
== END 2021-07-01 01:53 | disposition home or self-care (01) ==
PROVIDERS: PCP Family Medicine; Visit Provider Internal Medicine Hematology & Oncology
DX: N18.31 Chronic kidney disease, stage 3a (principal); D63.1 Anemia in chronic kidney disease
CPT/HCPCS: 36415; 85025

== ENCOUNTER 2021-07-15 11:04 | Outpatient (CLI) | payer MEDICARE, OTHER, SELFPAY ==
[2021-07-15 09:19] LABS: Abs Immature Grans 0.03 10^3/uL (0.0-0.06); Absolute Basophil Count 0.03 10^3/uL (0.0-0.2); Absolute Eosinophil Count 0.18 10^3/uL (0.0-0.7); Absolute Monocyte Count 0.71 10^3/uL (0.1-0.8); Basophils % 0.5; HCT 35.8 % (36.0-46.0); HGB 11.3 g/dL (11.2-15.7); Immature Grans % 0.5; Lymphocytes % 18.5; MCH 27.4 pg (27.0-33.0); MCHC 31.6 % (32.0-36.0); MCV 86.9 fL (80-95); MPV 10.3 fL (8.0-11.0); Monocytes % 11.9; Neutrophils % 65.6; Nucleated RBC 0 %; Platelet Count 262 10^3/uL (130-400); RBC 4.12 10^6/uL (3.93-5.22); RDW 14.6 % (11.7-14.6); RDW-SD 46.7 fL; WBC 5.95 10^3/uL (4.4-10.8)
[2021-07-15 09:43] LABS: Ferritin 67 ng/mL (8-252)
== END 2021-07-15 11:05 | disposition home or self-care (01) ==
LOC: LBO 11:06
PROVIDERS: PCP Family Medicine; Visit Provider Internal Medicine Hematology & Oncology
DX: N18.31 Chronic kidney disease, stage 3a (principal); D63.1 Anemia in chronic kidney disease; D50.9 Iron deficiency anemia, unspecified
CPT/HCPCS: 36415; 82728; 85025

== ENCOUNTER 2021-07-29 02:37 | Outpatient (CLI) | payer MEDICARE, OTHER, SELFPAY ==
[2021-07-29 09:10] LABS: Abs Immature Grans 0.03 10^3/uL (0.0-0.06); Absolute Basophil Count 0.02 10^3/uL (0.0-0.2); Absolute Eosinophil Count 0.25 10^3/uL (0.0-0.7); Absolute Lymphocyte Count 1.27 10^3/uL (1.2-3.4); Absolute Monocyte Count 0.85 10^3/uL (0.1-0.8); Absolute Neutrophil Count 4.46 10^3/uL (1.2-6.7); Basophils % 0.3; Eosinophils % 3.6; HCT 36.1 % (36.0-46.0); HGB 11.6 g/dL (11.2-15.7); Immature Grans % 0.4; Lymphocytes % 18.5; MCH 27.6 pg (27.0-33.0); MCHC 32.1 % (32.0-36.0); MCV 85.7 fL (80-95); MPV 10.7 fL (8.0-11.0); Monocytes % 12.4; Neutrophils % 64.8; Nucleated RBC 0 %; Platelet Count 272 10^3/uL (130-400); RBC 4.21 10^6/uL (3.93-5.22); RDW 14.8 % (11.7-14.6); RDW-SD 46.4 fL; WBC 6.88 10^3/uL (4.4-10.8)
[2021-07-29 09:36] LABS: Ferritin 62 ng/mL (8-252)
== END 2021-07-29 02:38 | disposition home or self-care (01) ==
PROVIDERS: PCP Family Medicine; Visit Provider Internal Medicine Hematology & Oncology
DX: D63.1 Anemia in chronic kidney disease (principal); N18.31 Chronic kidney disease, stage 3a
CPT/HCPCS: 36415; 82728; 85025

== ENCOUNTER 2021-08-09 14:13 | Outpatient (CLI) | payer MEDICARE, OTHER, SELFPAY ==
--- NOTE | 2021-08-09 14:30 | RT.EKG_ITS ---
APPROVED REPORT Exam: Resting ECG Reason for Exam: chest pain Patient Location: O HR:49 bpm ECG Measurements Heart Rate 49 AXIS MT 220 P 28 QRSd 109 QRS 73 QT 445 T 50 QTc 402 Conclusion Sinus bradycardia...rate< 50 Low voltage, precordial leads...precordial leads <1.0mV
== END 2021-08-09 14:14 | disposition home or self-care (01) ==
LOC: DI.CARD 14:33
PROVIDERS: PCP Family Medicine; Referring Provider Family Medicine; Visit Provider Internal Medicine Cardiovascular Disease
DX: Z95.1 Presence of aortocoronary bypass graft (principal)
CPT/HCPCS: 93010

== ENCOUNTER → 2021-08-09 14:13 | Outpatient (BNVA) | payer MEDICARE, OTHER, SELFPAY | PROVIDERS: PCP Family Medicine; Referring Provider Family Medicine; Visit Provider Internal Medicine Cardiovascular Disease | DX: I25.10 Atherosclerotic heart disease of native coronary artery without angina pectoris (principal); Z95.1 Presence of aortocoronary bypass graft; I65.29 Occlusion and stenosis of unspecified carotid artery; R07.89 Other chest pain | CPT/HCPCS: 93005; 99214; 99213 ==

== ENCOUNTER 2021-08-19 01:20 | Outpatient (CLI) | payer MEDICARE, OTHER, SELFPAY ==
--- NOTE | 2021-08-19 07:45 | DI.US_ITS ---
Exam(s) US RENAL EXAM: US RENAL CLINICAL HISTORY: monitoring right hydronephrosis,N13.30. TECHNIQUE: Ruiz scale, color and spectral Doppler were used. COMPARISON: CT CT THORAX CTA from 12/01/[address] THORAX CTA from 12/01/[address] CHEST W from 01/11/2021 US US RENAL from 01/11/[address] CHEST W from 01/11/2021 FINDINGS: Renal size in cm: Right: 10.9 left: 10.4 Echogenicity: Normal Hydronephrosis: Stable mild right hydronephrosis. Cyst or mass: 2.6 centimeter cyst lower pole left kidney. Nephrolithiasis: No Bladder:Normal Prevoid vol:133 cc Postvoid vol:30 cc Both ureteral jets were seen. IMPRESSION: Stable mild right hydronephrosis. 2.6 centimeters cyst lower pole left kidney. DATA REPOSITORY:
== END 2021-08-19 01:40 ==
PROVIDERS: PCP Family Medicine; Visit Provider Nurse Practitioner Gerontology
DX: N13.30 Unspecified hydronephrosis (principal); N28.1 Cyst of kidney, acquired
CPT/HCPCS: 76770

== ENCOUNTER 2021-08-19 09:28 | Outpatient (CLI) | payer MEDICARE, OTHER, SELFPAY ==
[2021-08-19 09:14] LABS: Abs Immature Grans 0.03 10^3/uL (0.0-0.06); Absolute Basophil Count 0.03 10^3/uL (0.0-0.2); Absolute Eosinophil Count 0.32 10^3/uL (0.0-0.7); Absolute Lymphocyte Count 1.31 10^3/uL (1.2-3.4); Absolute Monocyte Count 0.84 10^3/uL (0.1-0.8); Basophils % 0.5; Eosinophils % 5.1; HCT 34.7 % (36.0-46.0); HGB 11.1 g/dL (11.2-15.7); Immature Grans % 0.5; Lymphocytes % 20.7; MCH 27.5 pg (27.0-33.0); MCV 86.1 fL (80-95); Monocytes % 13.3; Neutrophils % 59.9; Nucleated RBC 0 %; Platelet Count 257 10^3/uL (130-400); RBC 4.03 10^6/uL (3.93-5.22); RDW 14.2 % (11.7-14.6); WBC 6.33 10^3/uL (4.4-10.8)
[2021-08-19 09:33] LABS: Ferritin 99 ng/mL (8-252)
== END 2021-08-19 09:29 | disposition home or self-care (01) ==
LOC: LBO 09:29
PROVIDERS: PCP Family Medicine; Visit Provider Internal Medicine Hematology & Oncology
DX: N18.31 Chronic kidney disease, stage 3a (principal); D63.1 Anemia in chronic kidney disease; D50.9 Iron deficiency anemia, unspecified
CPT/HCPCS: 36415; 76770; 82728; 85025

== ENCOUNTER → 2021-08-24 10:29 | Outpatient (BNVA) | payer MEDICARE, OTHER, SELFPAY | PROVIDERS: PCP Family Medicine; Referring Provider Family Medicine; Visit Provider Nurse Practitioner Gerontology | DX: N13.39 Other hydronephrosis (principal); R91.1 Solitary pulmonary nodule | CPT/HCPCS: 99213 ==

== ENCOUNTER 2021-09-09 02:07 | Outpatient (CLI) | payer MEDICARE, OTHER, SELFPAY ==
[2021-09-09 10:18] LABS: Abs Immature Grans 0.02 10^3/uL (0.0-0.06); Absolute Basophil Count 0.02 10^3/uL (0.0-0.2); Absolute Eosinophil Count 0.22 10^3/uL (0.0-0.7); Absolute Lymphocyte Count 1.31 10^3/uL (1.2-3.4); Absolute Monocyte Count 0.76 10^3/uL (0.1-0.8); Absolute Neutrophil Count 4.08 10^3/uL (1.2-6.7); Basophils % 0.3; Eosinophils % 3.4; HCT 35.4 % (36.0-46.0); HGB 11.3 g/dL (11.2-15.7); Immature Grans % 0.3; Lymphocytes % 20.4; MCH 27.6 pg (27.0-33.0); MCHC 31.9 % (32.0-36.0); MCV 86.6 fL (80-95); MPV 11.3 fL (8.0-11.0); Monocytes % 11.9; Neutrophils % 63.7; Nucleated RBC 0 %; Platelet Count 247 10^3/uL (130-400); RBC 4.09 10^6/uL (3.93-5.22); RDW-SD 47.6 fL; WBC 6.41 10^3/uL (4.4-10.8)
[2021-09-09 10:46] LABS: Ferritin 86 ng/mL (8-252)
== END 2021-09-09 02:08 | disposition home or self-care (01) ==
LOC: LBO 02:08
PROVIDERS: PCP Family Medicine; Visit Provider Internal Medicine Hematology & Oncology
DX: D50.9 Iron deficiency anemia, unspecified (principal); N18.31 Chronic kidney disease, stage 3a; D63.1 Anemia in chronic kidney disease
CPT/HCPCS: 36415; 82728; 85025

== ENCOUNTER 2021-09-30 03:28 | Outpatient (CLI) | payer MEDICARE, OTHER, SELFPAY ==
[2021-09-30 10:14] LABS: Abs Immature Grans 0.02 10^3/uL (0.0-0.06); Absolute Basophil Count 0.02 10^3/uL (0.0-0.2); Absolute Eosinophil Count 0.19 10^3/uL (0.0-0.7); Absolute Lymphocyte Count 1.19 10^3/uL (1.2-3.4); Absolute Monocyte Count 0.78 10^3/uL (0.1-0.8); Absolute Neutrophil Count 4.59 10^3/uL (1.2-6.7); Basophils % 0.3; Eosinophils % 2.8; HCT 36.4 % (36.0-46.0); HGB 11.6 g/dL (11.2-15.7); Immature Grans % 0.3; Lymphocytes % 17.5; MCH 27.8 pg (27.0-33.0); MCHC 31.9 % (32.0-36.0); MCV 87.1 fL (80-95); MPV 10.8 fL (8.0-11.0); Monocytes % 11.5; Neutrophils % 67.6; Nucleated RBC 0 %; Platelet Count 253 10^3/uL (130-400); RBC 4.18 10^6/uL (3.93-5.22); RDW 15.1 % (11.7-14.6); RDW-SD 48.6 fL; WBC 6.79 10^3/uL (4.4-10.8)
[2021-09-30 10:38] LABS: Ferritin 82 ng/mL (8-252)
== END 2021-09-30 03:29 | disposition home or self-care (01) ==
LOC: LBO 03:28
PROVIDERS: PCP Family Medicine; Visit Provider Internal Medicine Hematology & Oncology
DX: D50.9 Iron deficiency anemia, unspecified (principal); N18.31 Chronic kidney disease, stage 3a; D63.1 Anemia in chronic kidney disease
CPT/HCPCS: 36415; 82728; 85025

== ENCOUNTER 2021-10-21 04:10 | Outpatient (CLI) | payer MEDICARE, OTHER, SELFPAY ==
[2021-10-21 10:01] LABS: Abs Immature Grans 0.02 10^3/uL (0.0-0.06); Absolute Basophil Count 0.02 10^3/uL (0.0-0.2); Absolute Lymphocyte Count 1.45 10^3/uL (1.2-3.4); Absolute Monocyte Count 0.86 10^3/uL (0.1-0.8); Absolute Neutrophil Count 4.33 10^3/uL (1.2-6.7); Basophils % 0.3; Eosinophils % 2.9; HCT 34.2 % (36.0-46.0); Immature Grans % 0.3; Lymphocytes % 21.1; MCH 27.6 pg (27.0-33.0); MCHC 32.2 % (32.0-36.0); MCV 85.9 fL (80-95); Monocytes % 12.5; Neutrophils % 62.9; Nucleated RBC 0 %; Platelet Count 252 10^3/uL (130-400); RBC 3.98 10^6/uL (3.93-5.22); RDW 14.1 % (11.7-14.6); RDW-SD 44.7 fL; WBC 6.88 10^3/uL (4.4-10.8)
[2021-10-21 10:25] LABS: Ferritin 104 ng/mL (8-252)
== END 2021-10-21 04:11 | disposition home or self-care (01) ==
LOC: LBO 04:10
PROVIDERS: PCP Family Medicine; Visit Provider Internal Medicine Hematology & Oncology
DX: D50.9 Iron deficiency anemia, unspecified (principal); N18.31 Chronic kidney disease, stage 3a; D63.1 Anemia in chronic kidney disease
CPT/HCPCS: 36415; 82728; 85025

== ENCOUNTER 2021-12-02 01:32 | Outpatient (CLI) | payer MEDICARE, OTHER, SELFPAY ==
[2021-12-02 14:51] LABS: Abs Immature Grans 0.03 10^3/uL (0.0-0.06); Absolute Basophil Count 0.02 10^3/uL (0.0-0.2); Absolute Eosinophil Count 0.19 10^3/uL (0.0-0.7); Absolute Lymphocyte Count 1.51 10^3/uL (1.2-3.4); Absolute Neutrophil Count 4.81 10^3/uL (1.2-6.7); Basophils % 0.3; Eosinophils % 2.5; HCT 34.4 % (36.0-46.0); HGB 11.2 g/dL (11.2-15.7); Immature Grans % 0.4; MCH 27.9 pg (27.0-33.0); MCHC 32.6 % (32.0-36.0); MCV 85.8 fL (80-95); MPV 11.4 fL (8.0-11.0); Monocytes % 13.2; Neutrophils % 63.6; Nucleated RBC 0 %; Platelet Count 256 10^3/uL (130-400); RBC 4.01 10^6/uL (3.93-5.22); RDW 13.1 % (11.7-14.6); RDW-SD 41.8 fL; WBC 7.56 10^3/uL (4.4-10.8)
[2021-12-02 15:20] LABS: Ferritin 124 ng/mL (8-252)
== END 2021-12-02 01:33 | disposition home or self-care (01) ==
LOC: LBO 01:32
PROVIDERS: PCP Family Medicine; Visit Provider Internal Medicine Hematology & Oncology
DX: D50.9 Iron deficiency anemia, unspecified (principal); N18.31 Chronic kidney disease, stage 3a; D63.1 Anemia in chronic kidney disease
CPT/HCPCS: 36415; 82728; 85025

== ENCOUNTER 2021-12-09 03:43 | Outpatient (CLI) | payer MEDICARE, OTHER, SELFPAY ==
--- NOTE | 2021-12-09 | DI.MAMMO_ITS ---
Exam(s) MAMMO SCREENING EXAM: MAMMO SCREENING CLINICAL HISTORY: SCREENING FOR BREAST CANCER Z12.89 TECHNIQUE: Mammograms were interpreted according to the usual protocol including computer analysis w [employer] CAD system, tomosynthesis and C-view imaging. COMPARISON: 2011 through 2014 FINDINGS: The breasts are composed of mainly fatty density , Breast Density category A. No suspicious masses or suspicious microcalcifications are seen. No skin thickening or abnormal axillary lymph nodes are seen. There has been no significant change from prior exams. IMPRESSION: BI-RADS Category 1, Negative mammogram Yearly screening mammography is recommended. Breast Density - Category A, fatty density. A negative radiographic report should not delay biopsy if a dominant or clinically suspicious mass is present. Up to ten percent of cancers are not identified on mammography. A negative report may reinforce clinical impression. Adenosis and dense breasts may obscure an underlying neoplasm. False positive reports average 6 to 10%. Patient will receive a letter notifying them of these results.
--- NOTE | 2021-12-09 10:00 | DI.CT_ITS ---
Exam(s) CT CHEST WO EXAM: CT CHEST WO CLINICAL HISTORY: LUNG NODULE R91.8. TECHNIQUE: Imaging protocol: Axial computed tomography images were obtained and coronal and sagittal reformatted images were created and reviewed. COMPARISON: CT CTA BRAIN AND NECK from 10/05/2016 CR XR PORTABLE CHEST AP from 11/20/[address] THORAX CTA from 12/01/[address] CHEST W from 01/11/2021 FINDINGS: Tracheobronchial tree: Patent where visualized. Mediastinum and Kelly: No dominant adenopathy or fluid collection. Pulmonary parenchyma: No consolidation . Mild emphysematous changes. No change 6 millimeter nodule s uperior segment right lower lobe. This could represent an area of scarring. Pleura: No effusion or pneumothorax. Heart: The heart is dilated, left ventricular prominence.. Severe coronary artery calcifications are seen. Aorta: Thoracic aorta non-dilated. Atherosclerotic changes Upper abdomen: Unremarkable. Lymph nodes: Within normal limits. Bones:Sternal wires. Degenerative disc changes. No compression fractures. IMPRESSION: Stable 6 millimeter nodule versus scarring in the superior segment right lower lobe.. The patient is at increased risk for lung cancer, a screening low-dose chest CT could be performed for further eval uation in 1 year. RADIATION DOSE DELIVERED: 684.32mGy.cm Total DLP 684.32mGy.cm Total DLP DATA REPOSITORY: All CT scans at this facility are submitted to the National Radiology Data Registry (NRDR) Dose Index Registry (DIR) with the [employer] (ACR). RADIATION OPTIMIZATION: All CT scans at this facility use at least one of these dose optimization te chniques: automated exposure control; mA and/or kV adjustment per patient size (includes targeted exa ms where dose is matched to clinical indication); or iterative reconstruction.
== END 2021-12-09 04:03 ==
PROVIDERS: PCP Family Medicine; Visit Provider Family Medicine
DX: Z12.31 Encounter for screening mammogram for malignant neoplasm of breast (principal); R91.8 Other nonspecific abnormal finding of lung field
CPT/HCPCS: 71250; 77063; 77067

== ENCOUNTER 2022-01-04 11:00 | Outpatient (RCR) | payer SELFPAY ==
[2021-12-07 11:34] VITALS: BP 153/58; PULSE 49
[2021-12-09 10:55] VITALS: BP 128/46; PULSE 55
[2021-12-14 10:58] VITALS: BP 151/56; PULSE 48; O2SAT 97
[2021-12-16 11:04] VITALS: BP 136/53; PULSE 57
[2021-12-21 11:47] VITALS: BP 144/52; PULSE 49; O2SAT 97
[2021-12-23 11:00] VITALS: BP 134/58; PULSE 48
[2021-12-28 10:56] VITALS: BP 133/49; PULSE 46; O2SAT 97
[2021-12-30 11:50] VITALS: BP 154/59; PULSE 49
[2022-01-04 13:07] VITALS: BP 139/52; PULSE 48
[2022-01-06 11:52] VITALS: BP 135/48; PULSE 48
== END 2022-01-06 23:59 | disposition home or self-care (01) ==
LOC: CR 11:00
PROVIDERS: PCP Family Medicine; Visit Provider Family Medicine
DX: R69 Illness, unspecified (principal)

== ENCOUNTER 2022-01-13 02:17 | Outpatient (CLI) | payer MEDICARE, OTHER, SELFPAY ==
[2022-01-13 11:20] LABS: Abs Immature Grans 0.03 10^3/uL (0.0-0.06); Absolute Basophil Count 0.03 10^3/uL (0.0-0.2); Absolute Eosinophil Count 0.28 10^3/uL (0.0-0.7); Absolute Lymphocyte Count 1.32 10^3/uL (1.2-3.4); Absolute Monocyte Count 0.91 10^3/uL (0.1-0.8); Absolute Neutrophil Count 5.16 10^3/uL (1.2-6.7); Basophils % 0.4; Eosinophils % 3.6; HCT 33.1 % (36.0-46.0); Immature Grans % 0.4; Lymphocytes % 17.1; MCH 28.9 pg (27.0-33.0); MCHC 33.2 % (32.0-36.0); MCV 86.9 fL (80-95); MPV 11.4 fL (8.0-11.0); Monocytes % 11.8; Neutrophils % 66.7; Nucleated RBC 0 %; Platelet Count 245 10^3/uL (130-400); RBC 3.81 10^6/uL (3.93-5.22); RDW 13.2 % (11.7-14.6); WBC 7.73 10^3/uL (4.4-10.8)
[2022-01-13 12:52] LABS: Ferritin 152 ng/mL (8-252)
== END 2022-01-13 02:18 | disposition home or self-care (01) ==
PROVIDERS: PCP Family Medicine; Visit Provider Internal Medicine Hematology & Oncology
DX: D63.1 Anemia in chronic kidney disease (principal); N18.31 Chronic kidney disease, stage 3a; D50.9 Iron deficiency anemia, unspecified
CPT/HCPCS: 36415; 82728; 85025

== ENCOUNTER 2022-02-03 11:00 | Outpatient (RCR) | payer SELFPAY ==
[2022-01-07 00:17] VITALS: BP 135/48; PULSE 48
[2022-01-11 10:58] VITALS: BP 135/50; PULSE 49
[2022-01-13 11:24] VITALS: BP 107/37; PULSE 53
[2022-01-18 11:15] VITALS: BP 131/47; PULSE 50
[2022-01-20 11:38] VITALS: BP 127/49; PULSE 49
[2022-01-25 13:15] VITALS: BP 147/48; PULSE 47
[2022-01-27 13:45] VITALS: BP 144/52; PULSE 50; O2SAT 98
[2022-02-01 11:18] VITALS: BP 151/59; PULSE 53
[2022-02-03 11:01] VITALS: BP 149/47; PULSE 47
== END 2022-02-05 23:59 | disposition home or self-care (01) ==
LOC: CR 11:00
PROVIDERS: PCP Family Medicine; Visit Provider Internal Medicine Cardiovascular Disease
DX: R69 Illness, unspecified (principal)

== ENCOUNTER → 2022-02-08 12:53 | Outpatient (BNVA) | payer MEDICARE, OTHER, SELFPAY | PROVIDERS: PCP Family Medicine; Referring Provider Family Medicine; Visit Provider Internal Medicine Cardiovascular Disease | DX: I25.10 Atherosclerotic heart disease of native coronary artery without angina pectoris (principal); I65.29 Occlusion and stenosis of unspecified carotid artery; Z95.1 Presence of aortocoronary bypass graft | CPT/HCPCS: 99214; 99213 ==

== ENCOUNTER 2022-02-10 02:35 | Outpatient (CLI) | payer MEDICARE, OTHER, SELFPAY ==
--- NOTE | 2022-02-10 07:30 | DI.US_ITS ---
Exam(s) US RENAL EXAM: US RENAL CLINICAL HISTORY: monitoring hydronephrosis, n13.30 TECHNIQUE: Ultrasound performed using standard protocol. COMPARISON: CT CT CHEST W from 01/11/2021 US US RENAL from 08/19/[address] CHEST WO from 12/09/2021 FINDINGS: Renal ultrasound was performed according to the usual protocol. The kidneys are normal in size and s hape. There is mild right hydronephrosis, as noted on prior examinations and essentially unchanged f rom most recent prior examination of August 2021. No right renal mass or nephrolithiasis. Left kidney is unremarkable in appearance with no hydronephrosis or nephrolithiasis. Urinary bladder is unremarkable in appearance, containing 163 cc. The patient did not void. Uretera l jets were nonvisualized. IMPRESSION: Stable mild right hydronephrosis since 08/19/2021. DATA REPOSITORY:
== END 2022-02-10 02:55 ==
PROVIDERS: PCP Family Medicine; Visit Provider Nurse Practitioner Gerontology
DX: N13.30 Unspecified hydronephrosis (principal)
CPT/HCPCS: 76770

== ENCOUNTER → 2022-02-17 10:21 | Outpatient (BNVA) | payer MEDICARE, OTHER, SELFPAY | PROVIDERS: PCP Family Medicine; Referring Provider Family Medicine; Visit Provider Nurse Practitioner Gerontology | DX: N13.30 Unspecified hydronephrosis (principal) | CPT/HCPCS: 99214 ==

== ENCOUNTER 2022-02-24 13:55 | Outpatient (CLI) | payer MEDICARE, OTHER, SELFPAY ==
[2022-02-24 11:50] LABS: Abs Immature Grans 0.03 10^3/uL (0.0-0.06); Absolute Basophil Count 0.02 10^3/uL (0.0-0.2); Absolute Lymphocyte Count 1.55 10^3/uL (1.2-3.4); Absolute Neutrophil Count 4.24 10^3/uL (1.2-6.7); Basophils % 0.3; Eosinophils % 2.9; HCT 34.7 % (36.0-46.0); HGB 11.3 g/dL (11.2-15.7); Immature Grans % 0.4; Lymphocytes % 22.3; MCH 28.5 pg (27.0-33.0); MCHC 32.6 % (32.0-36.0); MCV 88 fL (80-95); MPV 10.9 fL (8.0-11.0); Neutrophils % 61.1; Platelet Count 259 10^3/uL (130-400); RBC 3.96 10^6/uL (3.93-5.22); RDW 13.1 % (11.7-14.6); RDW-SD 41.7 fL; WBC 6.94 10^3/uL (4.4-10.8)
[2022-02-24 12:14] LABS: Ferritin 164 ng/mL (8-252)
== END 2022-02-24 13:56 | disposition home or self-care (01) ==
LOC: LBO 14:02
PROVIDERS: PCP Family Medicine; Visit Provider Internal Medicine Hematology & Oncology
DX: D50.9 Iron deficiency anemia, unspecified (principal); N18.31 Chronic kidney disease, stage 3a; D63.1 Anemia in chronic kidney disease
CPT/HCPCS: 36415; 82728; 85025

== ENCOUNTER 2022-03-08 10:58 | Outpatient (RCR) | payer SELFPAY ==
[2022-02-06 00:16] VITALS: BP 149/47; PULSE 47
[2022-02-08 13:19] VITALS: BP 132/59; PULSE 53
[2022-02-10 11:01] VITALS: BP 162/53; PULSE 53
[2022-02-15 10:56] VITALS: BP 136/49; PULSE 49
[2022-02-17 11:00] VITALS: BP 101/36; PULSE 49
[2022-02-22 11:27] VITALS: BP 114/42; PULSE 53
[2022-03-03 10:54] VITALS: BP 133/51; PULSE 46
[2022-03-08 10:58] VITALS: BP 134/43; PULSE 45
== END 2022-03-08 23:59 | disposition home or self-care (01) ==
LOC: CR 10:58
PROVIDERS: PCP Family Medicine; Visit Provider Internal Medicine Cardiovascular Disease
DX: R69 Illness, unspecified (principal)

== ENCOUNTER 2022-03-29 11:00 | Outpatient (RCR) | payer SELFPAY ==
[2022-03-09 00:15] VITALS: BP 134/43; PULSE 45
[2022-03-10 11:07] VITALS: BP 109/35; PULSE 49
[2022-03-15 11:16] VITALS: BP 140/51; PULSE 46
[2022-03-17 11:56] VITALS: BP 122/46; PULSE 47
[2022-03-22 11:01] VITALS: BP 103/36; PULSE 52
[2022-03-24 11:17] VITALS: BP 102/35; PULSE 47
[2022-03-29 10:58] VITALS: BP 120/38; PULSE 49; O2SAT 97
== END 2022-04-07 23:59 | disposition home or self-care (01) ==
LOC: CR 11:00
PROVIDERS: PCP Family Medicine; Visit Provider Internal Medicine Cardiovascular Disease
DX: R69 Illness, unspecified (principal)

== ENCOUNTER 2022-04-14 03:57 | Outpatient (CLI) | payer MEDICARE, OTHER, SELFPAY ==
[2022-04-14 10:49] LABS: Abs Immature Grans 0.05 10^3/uL (0.0-0.06); Absolute Basophil Count 0.02 10^3/uL (0.0-0.2); Absolute Eosinophil Count 0.19 10^3/uL (0.0-0.7); Absolute Lymphocyte Count 1.04 10^3/uL (1.2-3.4); Absolute Monocyte Count 0.98 10^3/uL (0.1-0.8); Absolute Neutrophil Count 5.45 10^3/uL (1.2-6.7); Basophils % 0.3; Eosinophils % 2.5; HCT 29.9 % (36.0-46.0); HGB 10.3 g/dL (11.2-15.7); Immature Grans % 0.6; Lymphocytes % 13.5; MCH 29.3 pg (27.0-33.0); MCHC 34.4 % (32.0-36.0); MCV 85 fL (80-95); MPV 10.6 fL (8.0-11.0); Monocytes % 12.7; Neutrophils % 70.4; Platelet Count 240 10^3/uL (130-400); RBC 3.52 10^6/uL (3.93-5.22); RDW 12.7 % (11.7-14.6); RDW-SD 38.8 fL; WBC 7.73 10^3/uL (4.4-10.8)
[2022-04-14 11:15] LABS: Ferritin 187 ng/mL (8-252)
== END 2022-04-14 03:58 | disposition home or self-care (01) ==
LOC: LBO 03:57
PROVIDERS: Nurse Practitioner Family; PCP Family Medicine; Visit Provider Internal Medicine Hematology & Oncology
DX: N18.31 Chronic kidney disease, stage 3a (principal); D63.1 Anemia in chronic kidney disease
CPT/HCPCS: 36415; 82728; 85025

== ENCOUNTER 2022-04-21 02:43 | Outpatient (CLI) | payer MEDICARE, OTHER, SELFPAY ==
[2022-04-21 11:10] LABS: Abs Immature Grans 0.04 10^3/uL (0.0-0.06); Absolute Basophil Count 0.01 10^3/uL (0.0-0.2); Absolute Eosinophil Count 0.26 10^3/uL (0.0-0.7); Absolute Lymphocyte Count 1.07 10^3/uL (1.2-3.4); Absolute Monocyte Count 0.98 10^3/uL (0.1-0.8); Basophils % 0.1; HCT 28.6 % (36.0-46.0); HGB 9.8 g/dL (11.2-15.7); Immature Grans % 0.5; Lymphocytes % 12.4; MCH 29.3 pg (27.0-33.0); MCHC 34.3 % (32.0-36.0); MCV 86 fL (80-95); MPV 10.8 fL (8.0-11.0); Monocytes % 11.3; Neutrophils % 72.7; Platelet Count 275 10^3/uL (130-400); RBC 3.34 10^6/uL (3.93-5.22); RDW 13.2 % (11.7-14.6); RDW-SD 39.8 fL; WBC 8.66 10^3/uL (4.4-10.8)
[2022-04-21 11:38] LABS: Ferritin 125 ng/mL (8-252)
== END 2022-04-21 02:44 | disposition home or self-care (01) ==
PROVIDERS: Internal Medicine Hematology & Oncology; PCP Family Medicine; Visit Provider Nurse Practitioner Family
DX: D63.1 Anemia in chronic kidney disease (principal); N18.31 Chronic kidney disease, stage 3a
CPT/HCPCS: 36415; 82728; 85025

== ENCOUNTER 2022-05-05 11:03 | Outpatient (RCR) | payer SELFPAY ==
[2022-04-12 14:21] VITALS: BP 107/45; PULSE 48
[2022-04-14 11:00] VITALS: BP 117/49; PULSE 47; O2SAT 98
[2022-04-19 11:01] VITALS: BP 95/37; PULSE 49
[2022-04-19 11:25] VITALS: BP 102/42
[2022-04-21 11:14] VITALS: BP 102/41; PULSE 50
[2022-04-26 10:55] VITALS: BP 132/48; PULSE 46; O2SAT 97
[2022-04-28 11:19] VITALS: BP 127/50; PULSE 47
[2022-05-05 10:56] VITALS: BP 133/47; PULSE 51; O2SAT 98
== END 2022-05-08 23:59 | disposition home or self-care (01) ==
LOC: CR 11:03
PROVIDERS: PCP Family Medicine; Visit Provider Internal Medicine Cardiovascular Disease
DX: R69 Illness, unspecified (principal)

== ENCOUNTER 2022-05-10 13:30 | Outpatient (REF) | payer MEDICARE, OTHER, SELFPAY ==
[2022-05-10 17:23] LABS: Anion Gap 9.3 mmol/L (3-11); BUN 23 mg/dL (7-18); CO2 26.7 mmol/L (21.0-32.0); CREATININE 1.3 mg/dL (0.55-1.02); Chloride 96 mmol/L (98-107); Estimated GFR 39.93 (mL/min/1.73m2); Glucose 169 mg/dL (74-106); Potassium 3.8 mmol/L (3.5-5.1); Sodium 132 mmol/L (136-145); TSH (W/Ref FT4) 0.16 uIU/mL (0.36-3.74)
[2022-05-10 17:43] LABS: FREE T4 1.39 ng/dL (0.76-1.46)
== END 2022-05-10 13:31 | disposition home or self-care (01) ==
LOC: NCHCN 13:30
PROVIDERS: PCP Family Medicine; Visit Provider Family Medicine
DX: E03.9 Hypothyroidism, unspecified (principal); N18.32 Chronic kidney disease, stage 3b
CPT/HCPCS: 80048; 84439; 84443

== ENCOUNTER 2022-05-26 09:25 | Outpatient (CLI) | payer MEDICARE, OTHER, SELFPAY ==
[2022-05-26 09:48] LABS: Abs Immature Grans 0.02 10^3/uL (0.0-0.06); Absolute Basophil Count 0.03 10^3/uL (0.0-0.2); Absolute Eosinophil Count 0.16 10^3/uL (0.0-0.7); Absolute Monocyte Count 0.85 10^3/uL (0.1-0.8); Absolute Neutrophil Count 4.68 10^3/uL (1.2-6.7); Basophils % 0.4; Eosinophils % 2.3; HGB 10.7 g/dL (11.2-15.7); Immature Grans % 0.3; Lymphocytes % 17.3; MCH 28.6 pg (27.0-33.0); MCHC 33.4 % (32.0-36.0); MCV 86 fL (80-95); MPV 10.8 fL (8.0-11.0); Monocytes % 12.2; Neutrophils % 67.5; Platelet Count 258 10^3/uL (130-400); RBC 3.74 10^6/uL (3.93-5.22); RDW 13.1 % (11.7-14.6); RDW-SD 40.3 fL; WBC 6.94 10^3/uL (4.4-10.8)
[2022-05-26 10:16] LABS: Ferritin 144 ng/mL (8-252)
== END 2022-05-26 09:26 | disposition home or self-care (01) ==
LOC: LBO 09:25
PROVIDERS: PCP Family Medicine; Visit Provider Internal Medicine Hematology & Oncology
DX: N18.31 Chronic kidney disease, stage 3a (principal); D63.1 Anemia in chronic kidney disease
CPT/HCPCS: 36415; 82728; 85025

== ENCOUNTER 2022-06-07 11:00 | Outpatient (RCR) | payer SELFPAY ==
[2022-05-09 00:16] VITALS: BP 133/47; PULSE 51
[2022-05-12 11:37] VITALS: BP 129/45; PULSE 48
[2022-05-17 11:36] VITALS: BP 108/58; PULSE 43
[2022-05-19 10:56] VITALS: BP 126/68; PULSE 50; O2SAT 98
[2022-05-24 11:05] VITALS: BP 116/37; PULSE 49; O2SAT 98
[2022-05-26 11:10] VITALS: BP 120/42; PULSE 53; O2SAT 97
[2022-05-31 10:59] VITALS: BP 111/41; PULSE 52; O2SAT 97
[2022-06-02 10:58] VITALS: BP 105/42; PULSE 46; O2SAT 96
[2022-06-07 10:59] VITALS: BP 113/44; PULSE 48
== END 2022-06-08 23:59 | disposition home or self-care (01) ==
LOC: CR 11:00
PROVIDERS: PCP Family Medicine; Visit Provider Internal Medicine Cardiovascular Disease
DX: R69 Illness, unspecified (principal)

== ENCOUNTER 2022-07-07 04:26 | Outpatient (CLI) | payer MEDICARE, OTHER, SELFPAY ==
[2022-07-07 08:19] LABS: HCT 33.7 % (36.0-46.0); HGB 11.1 g/dL (11.2-15.7); MCH 28.5 pg (27.0-33.0); MCHC 32.9 % (32.0-36.0); MCV 86 fL (80-95); MPV 10.9 fL (8.0-11.0); Neutrophils % 64.8; Platelet Count 256 10^3/uL (130-400); RDW 13.2 % (11.7-14.6); RDW-SD 41.1 fL; WBC 6.44 10^3/uL (4.4-10.8)
[2022-07-07 08:20] LABS: Abs Immature Grans 0.02 10^3/uL (0.0-0.06); Absolute Basophil Count 0.02 10^3/uL (0.0-0.2); Absolute Lymphocyte Count 1.21 10^3/uL (1.2-3.4); Absolute Monocyte Count 0.82 10^3/uL (0.1-0.8); Absolute Neutrophil Count 4.17 10^3/uL (1.2-6.7); Basophils % 0.3; Eosinophils % 3.1; Immature Grans % 0.3; Lymphocytes % 18.8; Monocytes % 12.7
[2022-07-07 08:48] LABS: Ferritin 126 ng/mL (8-252)
[2022-07-07 09:20] LABS: Anion Gap 7.4 mmol/L (3-11); BUN 20 mg/dL (7-18); CO2 28.6 mmol/L (21.0-32.0); CREATININE 1.1 mg/dL (0.55-1.02); Calcium 9.8 mg/dL (8.5-10.1); Chloride 101 mmol/L (98-107); Glucose 108 mg/dL (74-106); Potassium 4.2 mmol/L (3.5-5.1); Sodium 137 mmol/L (136-145); TSH (W/Ref FT4) 0.42 uIU/mL (0.36-3.74)
== END 2022-07-07 04:27 | disposition home or self-care (01) ==
PROVIDERS: PCP Family Medicine; Visit Provider Internal Medicine Hematology & Oncology
DX: D63.1 Anemia in chronic kidney disease (principal); N18.31 Chronic kidney disease, stage 3a; E03.9 Hypothyroidism, unspecified; R91.1 Solitary pulmonary nodule; R30.0 Dysuria; R32 Unspecified urinary incontinence
CPT/HCPCS: 36415; 80048; 82728; 84443; 85025

== ENCOUNTER 2022-07-07 10:54 | Outpatient (RCR) | payer SELFPAY ==
[2022-06-09 00:07] VITALS: BP 113/44; PULSE 48
[2022-06-09 13:06] VITALS: BP 111/43; PULSE 47; O2SAT 97
[2022-06-16 10:59] VITALS: BP 120/49; PULSE 45
[2022-06-21 10:57] VITALS: BP 135/45; PULSE 45
[2022-06-23 11:01] VITALS: BP 106/59; PULSE 47; O2SAT 97
[2022-06-28 11:03] VITALS: BP 117/55; PULSE 47
[2022-06-30 11:01] VITALS: BP 144/49; PULSE 48
[2022-07-05 11:01] VITALS: BP 130/47; PULSE 50
[2022-07-07 10:56] VITALS: BP 141/47; PULSE 52
== END 2022-07-08 23:59 | disposition home or self-care (01) ==
LOC: CR 10:54
PROVIDERS: PCP Family Medicine; Visit Provider Internal Medicine Cardiovascular Disease
DX: R69 Illness, unspecified (principal)

== ENCOUNTER → 2022-07-21 01:48 | Outpatient (CLI) | payer MEDICARE, OTHER, SELFPAY ==
--- NOTE | 2022-07-21 13:30 | DI.DEXA_ITS ---
Exam(s) XR DEXA BONE DENSITY W/WO BETTE EXAM: XR DEXA BONE DENSITY W/WO BETTE CLINICAL HISTORY: H/O NORMAL MENOPAUSE, Z78.0; PREVENTATIVE HEALTH CARE, Z00.00 TECHNIQUE: COMPARISON: Comparison examination is 07/10/2013. FINDINGS: Lateral Spine Image: Unremarkable. No compression deformities identified. Left hip: Total T-Score: 1.2. This compares to 1.4 on the prior examination. Total Z-Score: 3.0 T- and Z-scores: Within normal limits. Lumbar Spine: Total T-Score: 0.4. This compares to 0.3 on the prior examination. Total Z-Score: 2.9 T- and Z-scores: Within normal limits. IMPRESSION: No evidence of osteoporosis.
== END ==
PROVIDERS: PCP Family Medicine; Visit Provider Family Medicine
DX: Z78.0 Asymptomatic menopausal state (principal); Z13.820 Encounter for screening for osteoporosis
CPT/HCPCS: 77080

== ENCOUNTER → 2022-08-01 12:59 | Outpatient (CLI) | payer MEDICARE, OTHER, SELFPAY ==
--- NOTE | 2022-08-01 09:00 | DI.RAD_ITS ---
Exam(s) XR SHOULDER RT COMPLETE 2+V EXAM: XR SHOULDER RT COMPLETE 2+V CLINICAL HISTORY: fall, right shoulder pain,s49.91xa. TECHNIQUE: 2D digital imaging was performed. Five views. COMPARISON: CR XR CLAVICLE RT from 08/01/2022 FINDINGS: BONES: No acute fracture is present. No bony destructive lesion is seen. Sternal wires noted. JOINTS: No dislocation present. Spurring at AC joint and glenohumeral joint. Glenohumeral joint spa ce is maintained. SOFT TISSUE: Normal. IMPRESSION: Degenerative changes. No acute abnormality. DATA REPOSITORY: RADIATION DOSE DELIVERED:
--- NOTE | 2022-08-01 09:00 | DI.RAD_ITS ---
Exam(s) XR CLAVICLE RT EXAM: XR CLAVICLE RT CLINICAL HISTORY: fall, right clavicle pain,s49.91xa TECHNIQUE: 2D digital imaging was performed. Two views COMPARISON: No exams were available for comparison FINDINGS: BONES: No acute fracture is present. No bony destructive lesion is seen. JOINTS: No dislocation present. There is spurring at the AC joint and glenohumeral joint.. SOFT TISSUE: Normal IMPRESSION: Degenerative changes. DATA REPOSITORY: RADIATION DOSE DELIVERED:
== END ==
PROVIDERS: PCP Family Medicine; Visit Provider Physician Assistant
DX: M25.511 Pain in right shoulder; S49.81XA Other specified injuries of right shoulder and upper arm, initial encounter; M75.81 Other shoulder lesions, right shoulder
CPT/HCPCS: 73000; 73030

== ENCOUNTER 2022-08-04 11:11 | Outpatient (RCR) | payer SELFPAY ==
[2022-07-09 00:18] VITALS: BP 141/47; PULSE 52
[2022-07-12 10:56] VITALS: BP 132/48; PULSE 49; O2SAT 98
[2022-07-14 10:55] VITALS: BP 112/46; PULSE 52; O2SAT 98
[2022-07-19 11:01] VITALS: BP 142/50; PULSE 47
[2022-07-21 10:59] VITALS: BP 111/46; PULSE 47
[2022-08-02 11:00] VITALS: BP 112/43; PULSE 49
[2022-08-04 10:53] VITALS: BP 118/46; PULSE 50
== END 2022-08-08 23:59 | disposition home or self-care (01) ==
LOC: CR 11:11
PROVIDERS: PCP Family Medicine; Visit Provider Internal Medicine Cardiovascular Disease
DX: R69 Illness, unspecified (principal)
CPT/HCPCS: S9472

== ENCOUNTER → 2022-08-18 02:35 | Outpatient (CLI) | payer MEDICARE, OTHER, SELFPAY ==
--- NOTE | 2022-08-18 08:00 | DI.US_ITS ---
Exam(s) US RENAL EXAM: US RENAL CLINICAL HISTORY: monitoring right hydronephrosis, n13.30. TECHNIQUE: Ruiz scale, color and spectral Doppler were used. COMPARISON: US US RENAL from 02/10/2022 FINDINGS: Renal size in cm: Right: 10.8. Left: 10.4. Echogenicity: Normal. Hydronephrosis: There is stable dilatation of the right renal pelvis and calices. Cyst or mass: No. Nephrolithiasis: No. Other findings: None. Bladder:Normal. Ureteral jets: Right: Visualized and unremarkable. Left: Not visualized on this examination. Prevoid vol:73 cc Postvoid vol:10 cc Renal color flow: Symmetric and within normal limits. IMPRESSION: Persistent dilatation of the right renal pelvis and calices. This may represent persistent hydroneph rosis. A nuclear medicine examination may be considered to distinguish between an extrarenal pelvis and hydronephrosis if clinically indicated. DATA REPOSITORY:
== END ==
PROVIDERS: PCP Family Medicine; Visit Provider Nurse Practitioner Gerontology
DX: N13.30 Unspecified hydronephrosis (principal)
CPT/HCPCS: 76770

== ENCOUNTER → 2022-08-25 10:12 | Outpatient (BNVA) | payer MEDICARE, OTHER, SELFPAY | PROVIDERS: PCP Family Medicine; Referring Provider Family Medicine; Visit Provider Nurse Practitioner Gerontology | DX: N13.30 Unspecified hydronephrosis (principal) | CPT/HCPCS: 99214 ==

== ENCOUNTER 2022-09-02 01:15 | Outpatient (CLI) | payer MEDICARE, OTHER, SELFPAY ==
[2022-09-02 12:27] LABS: Abs Immature Grans 0.02 10^3/uL (0.0-0.06); Absolute Basophil Count 0.02 10^3/uL (0.0-0.2); Absolute Eosinophil Count 0.19 10^3/uL (0.0-0.7); Absolute Monocyte Count 0.82 10^3/uL (0.1-0.8); Absolute Neutrophil Count 4.67 10^3/uL (1.2-6.7); Basophils % 0.3; Eosinophils % 2.6; HCT 30.9 % (36.0-46.0); HGB 10.2 g/dL (11.2-15.7); Immature Grans % 0.3; Lymphocytes % 20.8; MCH 28.7 pg (27.0-33.0); MCV 87 fL (80-95); MPV 10.9 fL (8.0-11.0); Monocytes % 11.4; Neutrophils % 64.6; Platelet Count 242 10^3/uL (130-400); RBC 3.56 10^6/uL (3.93-5.22); RDW 13.3 % (11.7-14.6); RDW-SD 42.9 fL; WBC 7.22 10^3/uL (4.4-10.8)
[2022-09-02 12:57] LABS: Ferritin 142 ng/mL (8-252)
== END 2022-09-02 01:16 | disposition home or self-care (01) ==
LOC: LBO 01:15
PROVIDERS: PCP Family Medicine; Visit Provider Internal Medicine Hematology & Oncology
DX: D63.1 Anemia in chronic kidney disease (principal); N18.31 Chronic kidney disease, stage 3a
CPT/HCPCS: 36415; 82728; 85025

== ENCOUNTER 2022-09-06 10:59 | Outpatient (RCR) | payer SELFPAY ==
[2022-08-09 00:07] VITALS: BP 118/46; PULSE 50
[2022-08-09 11:44] VITALS: BP 134/53; PULSE 47
[2022-08-11 11:02] VITALS: BP 151/52; PULSE 45; O2SAT 98
[2022-08-16 11:08] VITALS: BP 150/52; PULSE 44
[2022-08-18 10:53] VITALS: BP 131/49; PULSE 49; O2SAT 97
[2022-08-25 11:09] VITALS: BP 137/53; PULSE 51
[2022-08-30 10:58] VITALS: BP 141/51; PULSE 53
[2022-09-06 11:09] VITALS: BP 139/51; PULSE 51
== END 2022-09-07 23:59 | disposition home or self-care (01) ==
LOC: CR 10:59
PROVIDERS: PCP Family Medicine; Visit Provider Internal Medicine Cardiovascular Disease
DX: R69 Illness, unspecified (principal)

== ENCOUNTER 2022-10-06 10:59 | Outpatient (RCR) | payer SELFPAY ==
[2022-09-08 00:06] VITALS: BP 139/51; PULSE 51
[2022-09-08 11:02] VITALS: BP 141/48; PULSE 46
[2022-09-13 11:16] VITALS: BP 133/51; PULSE 50
[2022-09-15 11:00] VITALS: BP 125/54; PULSE 51
[2022-09-27 10:59] VITALS: BP 144/49; PULSE 48
[2022-09-29 11:21] VITALS: BP 112/39; PULSE 53
[2022-10-04 10:59] VITALS: BP 135/50; PULSE 50
[2022-10-06 11:00] VITALS: BP 132/52; PULSE 49
== END 2022-10-08 23:59 | disposition home or self-care (01) ==
LOC: CR 10:59
PROVIDERS: PCP Family Medicine; Visit Provider Internal Medicine Cardiovascular Disease
DX: R69 Illness, unspecified (principal)

== ENCOUNTER 2022-10-28 01:21 | Outpatient (CLI) | payer MEDICARE, OTHER, SELFPAY ==
[2022-10-28 12:03] LABS: Abs Immature Grans 0.03 10^3/uL (0.0-0.06); Absolute Basophil Count 0.02 10^3/uL (0.0-0.2); Absolute Eosinophil Count 0.24 10^3/uL (0.0-0.7); Absolute Lymphocyte Count 1.54 10^3/uL (1.2-3.4); Absolute Monocyte Count 0.77 10^3/uL (0.1-0.8); Absolute Neutrophil Count 4.77 10^3/uL (1.2-6.7); Basophils % 0.3; Eosinophils % 3.3; HCT 31.8 % (36.0-46.0); HGB 10.5 g/dL (11.2-15.7); Immature Grans % 0.4; Lymphocytes % 20.9; MCH 28.8 pg (27.0-33.0); MCV 87 fL (80-95); MPV 11.2 fL (8.0-11.0); Monocytes % 10.4; Neutrophils % 64.7; Platelet Count 242 10^3/uL (130-400); RBC 3.64 10^6/uL (3.93-5.22); RDW 13.3 % (11.7-14.6); RDW-SD 42.7 fL; WBC 7.37 10^3/uL (4.4-10.8)
[2022-10-28 12:29] LABS: Ferritin 132 ng/mL (8-252)
== END 2022-10-28 01:22 | disposition home or self-care (01) ==
PROVIDERS: PCP Family Medicine; Visit Provider Nurse Practitioner Family
DX: D63.1 Anemia in chronic kidney disease (principal); N18.31 Chronic kidney disease, stage 3a
CPT/HCPCS: 36415; 82728; 85025

== ENCOUNTER 2022-11-08 11:08 | Outpatient (RCR) | payer SELFPAY ==
[2022-10-09 00:17] VITALS: BP 132/52; PULSE 49
[2022-10-11 10:59] VITALS: BP 123/49; PULSE 48
[2022-10-13 11:01] VITALS: BP 103/41; PULSE 48
[2022-10-20 11:01] VITALS: BP 122/43; PULSE 56
[2022-10-25 11:00] VITALS: BP 126/38; PULSE 45
[2022-10-27 11:10] VITALS: BP 115/43; PULSE 62
[2022-11-01 11:10] VITALS: BP 137/47; PULSE 55
[2022-11-08 11:05] VITALS: BP 124/56; PULSE 50
== END 2022-11-08 23:59 | disposition home or self-care (01) ==
LOC: CR 11:08
PROVIDERS: PCP Family Medicine; Visit Provider Internal Medicine Cardiovascular Disease
DX: R69 Illness, unspecified (principal)

== ENCOUNTER 2022-12-13 02:22 | Outpatient (CLI) | payer MEDICARE, OTHER, SELFPAY ==
--- NOTE | 2022-12-13 10:25 | DI.CTLCSR_ITS ---
Exam(s) CT CHEST LUNG CANCER SCREEN EXAM: CT CHEST LUNG CANCER SCREEN CLINICAL HISTORY: SMOKER F17.210, 41 PK/YEAR SCREENING FOR LUNG CANCER. TECHNIQUE: Imaging Protocol: Low Dose Technique CONTRAST MATERIAL: None COMPARISON: CT CT CHEST W from 01/11/[address] CHEST WO from 12/09/2021 FINDINGS: CHEST: LUNGS: The previously described 6 millimeter noncalcified nodule in most superior aspect of superior segment of the right lower lobe is unchanged from 01/11/2021 and 12/13/2022. There is an additional 6-7 millimeter nodular density in the right upper lobe which is also unchanged as well other 3 millimeter nodule in the right lower lobe also unchanged. No new right lung nodules nor pleural effusions. There is also a small millimeter unchanged subpleural nodule in the superior lingular segment of the opposite-left lung. No new left lung findings. No pleural effusions on eit her side. No new findings in the trachea and mainstem bronchi. MEDIASTINUM: There is no obvious hilar nor mediastinal adenopathy. CARDIAC: Heart size upper normal. No pericardial effusion. Coronary artery calcification noted. Ca liber of the thoracic aorta is upper. OTHER: Sternotomy wires. OSSEOUS: No significant osseous lesions.. IMPRESSION: 1. Stable appearing lung nodules. No new nodules. 2. No pleural effusions nor intrathoracic adenopathy. 3. Lung RADS Cat 2 - Benign Appearance / Behavior: Nodules with a very low likelihood of becoming a c linically active cancer due to size or lack of growth Lung-RADS 1.0 CATEGORIES: Category 0 - Prior chest CT exam(s) being located for comparison. Category 1 - Annual screening in 12 months. No nodules or definitely benign nodules. Category 2 - Annual screening in 12 months. Benign appearance. Nodules with low likelihood of becomin g active cancer. Category 3 - 6-month follow-up. Probably benign. Short-term follow-up suggested. Nodules with low lik elihood of becoming active cancer. Category 4A - 3-month follow-up and CT/PET if >8 mm in size. Suspicious finding. Findings which requi re additional testing. Category 4B - Findings which require additional testing and tissue sampling. Category 4X - Category 3 or 4 nodules with additional features or imaging findings that increases the suspicion of malignancy. Modifier S- Potentially clinically significant findings (non lung cancer) RADIATION DOSE DELIVERED: 78.32mGy.cm Total DLP DATA REPOSITORY: All CT scans at this facility are submitted to the National Radiology Data Registry (NRDR) Dose Index Registry (DIR) with the [employer] (ACR). RADIATION OPTIMIZATION: All CT scans at this facility use at least one of these dose optimization te chniques: automated exposure control; mA and/or kV adjustment per patient size (includes targeted exa ms where dose is matched to clinical indication); or iterative reconstruction.
== END 2022-12-13 02:42 ==
PROVIDERS: PCP Family Medicine; Visit Provider Family Medicine
DX: Z12.2 Encounter for screening for malignant neoplasm of respiratory organs (principal); F17.210 Nicotine dependence, cigarettes, uncomplicated; R91.1 Solitary pulmonary nodule; R91.8 Other nonspecific abnormal finding of lung field
CPT/HCPCS: 71271

== ENCOUNTER 2022-12-29 04:20 | Outpatient (CLI) | payer MEDICARE, OTHER, SELFPAY ==
[2022-12-29 10:05] LABS: Abs Immature Grans 0.02 10^3/uL (0.0-0.06); Absolute Basophil Count 0.02 10^3/uL (0.0-0.2); Absolute Eosinophil Count 0.23 10^3/uL (0.0-0.7); Absolute Lymphocyte Count 1.46 10^3/uL (1.2-3.4); Absolute Monocyte Count 0.88 10^3/uL (0.1-0.8); Absolute Neutrophil Count 4.41 10^3/uL (1.2-6.7); Basophils % 0.3; Eosinophils % 3.3; HCT 31.6 % (36.0-46.0); HGB 10.7 g/dL (11.2-15.7); Immature Grans % 0.3; Lymphocytes % 20.8; MCH 29.2 pg (27.0-33.0); MCHC 33.9 % (32.0-36.0); MCV 86 fL (80-95); MPV 10.8 fL (8.0-11.0); Monocytes % 12.5; Neutrophils % 62.8; Platelet Count 263 10^3/uL (130-400); RBC 3.66 10^6/uL (3.93-5.22); RDW 13.2 % (11.7-14.6); RDW-SD 41.2 fL; WBC 7.02 10^3/uL (4.4-10.8)
[2022-12-29 10:33] LABS: Ferritin 111 ng/mL (8-252)
== END 2022-12-29 04:21 | disposition home or self-care (01) ==
PROVIDERS: PCP Family Medicine; Visit Provider Nurse Practitioner Family
DX: N18.31 Chronic kidney disease, stage 3a (principal); D63.1 Anemia in chronic kidney disease
CPT/HCPCS: 36415; 82728; 85025

== ENCOUNTER 2023-01-05 10:50 | Outpatient (RCR) | payer SELFPAY ==
[2022-12-07 00:17] VITALS: BP 147/52; PULSE 50; RESP 16
[2022-12-08 11:12] VITALS: BP 136/49; PULSE 62
[2022-12-13 10:54] VITALS: BP 121/54; PULSE 49
[2022-12-15 11:04] VITALS: BP 107/52; PULSE 51
[2022-12-22 10:59] VITALS: BP 103/46; PULSE 48
[2022-12-27 11:12] VITALS: BP 127/52; PULSE 51
[2023-01-03 10:58] VITALS: BP 174/58; PULSE 53
[2023-01-05 10:53] VITALS: BP 131/47; PULSE 49
[2023-01-10 11:15] VITALS: BP 135/57; PULSE 49
== END 2023-01-06 23:59 | disposition home or self-care (01) ==
LOC: CR 10:50
PROVIDERS: PCP Family Medicine; Visit Provider Internal Medicine Cardiovascular Disease

== ENCOUNTER 2023-02-02 11:15 | Outpatient (RCR) | payer SELFPAY ==
[2023-01-07 00:21] VITALS: BP 131/47; PULSE 49; RESP 16
[2023-01-12 11:30] VITALS: BP 165/57; PULSE 48
[2023-01-17 11:13] VITALS: BP 120/50; PULSE 48
[2023-01-19 10:59] VITALS: BP 110/52; PULSE 48
[2023-01-24 11:01] VITALS: BP 137/46; PULSE 47
[2023-01-26 13:24] VITALS: BP 139/50; PULSE 49
[2023-01-31 11:39] VITALS: BP 115/46; PULSE 47
[2023-02-02 11:19] VITALS: BP 139/51; PULSE 49
== END 2023-02-05 23:59 | disposition home or self-care (01) ==
LOC: CR 11:15
PROVIDERS: PCP Family Medicine; Visit Provider Internal Medicine Cardiovascular Disease
DX: R69 Illness, unspecified (principal)

== ENCOUNTER 2023-02-13 01:36 | Outpatient (CLI) | payer MEDICARE, OTHER, SELFPAY ==
--- NOTE | 2023-02-13 13:00 | DI.US_ITS ---
Exam(s) US RENAL EXAM: US RENAL CLINICAL HISTORY: monitoring right hydronephrosis, n13.30. TECHNIQUE: Ruiz scale, color and spectral Doppler were used. COMPARISON: CT CT THORAX CTA from 12/01/2020 US US RENAL from 02/10/2022 US US RENAL from 08/18/[address] CHEST LUNG CANCER SCREEN from 12/13/2022 FINDINGS: Renal size in cm: Right: 10.6 left: 10.2 Echogenicity: Normal Hydronephrosis: Mildly prominent right renal pelvis with mild caliceal dilatation. This appears to h ave improved since prior exams. Cyst or mass: 1 centimeter simple cyst left kidney Nephrolithiasis: No Uterine fibroid noted. Bladder:Normal , neither ureteral jet was visualized. Prevoid vol: 80 cc Postvoid vol: 3 cc IMPRESSION: Improvement in previously noted right hydronephrosis. DATA REPOSITORY:
== END 2023-02-13 01:56 ==
PROVIDERS: PCP Family Medicine; Visit Provider Nurse Practitioner Gerontology
DX: N13.30 Unspecified hydronephrosis (principal)
CPT/HCPCS: 76770

== ENCOUNTER → 2023-02-22 10:26 | Outpatient (BNVA) | payer MEDICARE, OTHER, SELFPAY | PROVIDERS: PCP Family Medicine; Visit Provider Nurse Practitioner Gerontology | DX: N13.30 Unspecified hydronephrosis (principal) | CPT/HCPCS: 99213 ==

== ENCOUNTER 2023-02-23 02:59 | Outpatient (CLI) | payer MEDICARE, OTHER, SELFPAY ==
[2023-02-23 10:47] LABS: Abs Immature Grans 0.02 10^3/uL (0.0-0.06); Absolute Basophil Count 0.03 10^3/uL (0.0-0.2); Absolute Eosinophil Count 0.22 10^3/uL (0.0-0.7); Absolute Lymphocyte Count 1.31 10^3/uL (1.2-3.4); Absolute Monocyte Count 0.72 10^3/uL (0.1-0.8); Absolute Neutrophil Count 4.21 10^3/uL (1.2-6.7); Basophils % 0.5; Eosinophils % 3.4; HCT 30.1 % (36.0-46.0); HGB 10.1 g/dL (11.2-15.7); Immature Grans % 0.3; Lymphocytes % 20.1; MCH 29.2 pg (27.0-33.0); MCHC 33.6 % (32.0-36.0); MCV 87 fL (80-95); MPV 10.5 fL (8.0-11.0); Monocytes % 11.1; Neutrophils % 64.6; Platelet Count 245 10^3/uL (130-400); RBC 3.46 10^6/uL (3.93-5.22); RDW 13.2 % (11.7-14.6); RDW-SD 42.2 fL; WBC 6.51 10^3/uL (4.4-10.8)
[2023-02-23 11:13] LABS: Ferritin 119 ng/mL (8-252)
== END 2023-02-23 03:00 | disposition home or self-care (01) ==
LOC: LBO 02:59
PROVIDERS: PCP Family Medicine; Visit Provider Internal Medicine Hematology & Oncology
DX: N18.31 Chronic kidney disease, stage 3a (principal); D63.1 Anemia in chronic kidney disease
CPT/HCPCS: 36415; 82728; 85025

== ENCOUNTER 2023-02-27 08:59 | Outpatient (CLI) | payer MEDICARE, OTHER, SELFPAY ==
--- NOTE | 2023-02-27 08:45 | RT.EKG_ITS ---
APPROVED REPORT Exam: Resting ECG Reason for Exam: CAD Patient Location: O HR:48 bpm ECG Measurements Heart Rate 48 AXIS IL 221 P -32 QRSd 114 QRS 42 QT 444 T 37 QTc 397 Conclusion Sinus bradycardia...rate< 50 Incomplete right bundle branch block...QRSd >112, terminal axis(90,270)
== END 2023-02-27 09:00 | disposition home or self-care (01) ==
LOC: DI.CARD 09:00
PROVIDERS: PCP Family Medicine; Visit Provider Internal Medicine Cardiovascular Disease
DX: I25.10 Atherosclerotic heart disease of native coronary artery without angina pectoris (principal); Z95.1 Presence of aortocoronary bypass graft
CPT/HCPCS: 93010

== ENCOUNTER → 2023-02-27 10:38 | Outpatient (BNVA) | payer MEDICARE, OTHER, SELFPAY | PROVIDERS: PCP Family Medicine; Visit Provider Internal Medicine Cardiovascular Disease | DX: I25.810 Atherosclerosis of coronary artery bypass graft(s) without angina pectoris (principal); I65.23 Occlusion and stenosis of bilateral carotid arteries | CPT/HCPCS: 93005; 99213 ==

== ENCOUNTER 2023-03-07 11:02 | Outpatient (RCR) | payer SELFPAY ==
[2023-02-06 00:20] VITALS: BP 139/51; PULSE 49; RESP 16
[2023-02-07 10:57] VITALS: BP 127/49; PULSE 47
[2023-02-09 11:06] VITALS: BP 126/50; PULSE 50
[2023-02-14 10:59] VITALS: BP 129/48; PULSE 47
[2023-02-16 11:06] VITALS: BP 143/51; PULSE 48
[2023-02-21 11:03] VITALS: BP 105/46; PULSE 51
[2023-02-23 11:35] VITALS: BP 111/39; PULSE 54
[2023-02-28 11:01] VITALS: BP 110/41; PULSE 48
[2023-03-02 13:00] VITALS: BP 110/40; PULSE 49
[2023-03-07 11:25] VITALS: BP 131/51; PULSE 49
== END 2023-03-08 23:59 | disposition home or self-care (01) ==
LOC: CR 11:02
PROVIDERS: PCP Family Medicine; Visit Provider Internal Medicine Cardiovascular Disease

== ENCOUNTER 2023-03-28 02:10 | Outpatient (CLI) | payer MEDICARE, OTHER, SELFPAY ==
[2023-03-28 09:21] LABS: Abs Immature Grans 0.03 10^3/uL (0.0-0.06); Absolute Basophil Count 0.02 10^3/uL (0.0-0.2); Absolute Eosinophil Count 0.23 10^3/uL (0.0-0.7); Absolute Lymphocyte Count 1.26 10^3/uL (1.2-3.4); Absolute Monocyte Count 0.76 10^3/uL (0.1-0.8); Absolute Neutrophil Count 3.88 10^3/uL (1.2-6.7); Basophils % 0.3; Eosinophils % 3.7; HCT 29.9 % (36.0-46.0); HGB 10.4 g/dL (11.2-15.7); Immature Grans % 0.5; Lymphocytes % 20.4; MCH 29.7 pg (27.0-33.0); MCHC 34.8 % (32.0-36.0); MCV 85 fL (80-95); MPV 10.5 fL (8.0-11.0); Monocytes % 12.3; Neutrophils % 62.8; Platelet Count 285 10^3/uL (130-400); RDW 13.2 % (11.7-14.6); RDW-SD 41.2 fL; WBC 6.18 10^3/uL (4.4-10.8)
[2023-03-28] MEDS: Barium Sulfate 2% W/V-Creamy Vanilla Smoothie 450 ML BTL PO ×2 (09:26)
[2023-03-28 09:40] LABS: ALT 16 U/L (14-59); AST 11 U/L (15-37); Albumin 3.8 g/dL (3.4-5.0); Alkaline Phosphatase 76 U/L (46-116); Anion Gap 10.4 mmol/L (3-11); BUN 20 mg/dL (7-18); Bilirubin, Total 0.3 mg/dL (0.2-1.0); CO2 26.6 mmol/L (21.0-32.0); CREATININE 1.2 mg/dL (0.55-1.02); Calcium 9.5 mg/dL (8.5-10.1); Chloride 99 mmol/L (98-107); Estimated GFR 47.21 (mL/min/1.73m2); Glucose 112 mg/dL (74-106); Potassium 4.4 mmol/L (3.5-5.1); Sodium 136 mmol/L (136-145); Total Protein 7.6 g/dL (6.4-8.2)
[2023-03-28] MEDS: Normal Saline - Diluent 50 ML VIAL IJ (11:18)
[2023-03-28] MEDS: Omnipaque 350 MG/ML 500 ML BTL-Imaging package IJ (11:19)
--- NOTE | 2023-03-28 11:20 | DI.CT_ITS ---
Exam(s) CT ABDOMEN PELVIS W EXAM: CT ABDOMEN PELVIS W CLINICAL HISTORY: abdominal pain and constipation, K59.0 TECHNIQUE: Imaging Protocol: Axial computed tomography images with coronal and sagittal reformatted images were created and reviewed CONTRAST MATERIAL: Intravenous: Omnipaque 350 Contrast volume:100 mL Oral: Yes COMPARISON: CT CT THORAX CTA from 12/01/2020 FINDINGS: ABDOMEN: Lung Bases: Coronary artery calcifications and/or stents are present. Liver: Normal density. There are few tiny hypodensities which are too small for further characterizat ion. No suspicious masses are seen. Portal, Superior Mesenteric, and Splenic Veins: Unremarkable. Gallbladder and Biliary Tract: No radiodense calculus or dilation. Pancreas: Normal density, no abnormal calcifications or inflammatory process. Spleen: Normal. Adrenals: No masses seen. Kidneys: Normal size, contour and axis. There is bilateral nephrolithiasis. No hydronephrosis or ure terolithiasis. There are tiny hypodensities seen in the kidney. They are too small for further selene acterization but likely reflect small cysts. Abdominal Aorta: Abdominal portion non-dilated. Marked atherosclerosis. Bowel: No obstruction or bowel wall thickening. Appendix is unremarkable. There is a moderate amount of stool throughout the colon suggesting constipation. Peritoneal Cavity: No ascites, collection or mesenteric inflammatory response. No free air. Lymph Nodes: Within normal limits. Bones: Within normal limits for the patient's age. Postsurgical changes are seen in the lumbosacral spine. Soft Tissues: Unremarkable. PELVIS: Bladder: The urinary bladder is not well distended limiting evaluation. Reproductive Organs: Unremarkable as visualized. Lymph Nodes: Within normal limits. Bones: Within normal limits for the patient's age. IMPRESSION: 1. There is a moderate amount of stool throughout the colon suggesting constipation. 2. Bilateral nephrolithiasis. No hydronephrosis. RADIATION DOSE DELIVERED: 1,094.52mGy.cm Total DLP DATA REPOSITORY: All CT scans at this facility are submitted to the National Radiology Data Registry (NRDR) Dose Index Registry (DIR) with the [employer] (ACR). RADIATION OPTIMIZATION: All CT scans at this facility use at least one of these dose optimization te chniques: automated exposure control; mA and/or kV adjustment per patient size (includes targeted exa ms where dose is matched to clinical indication); or iterative reconstruction.
== END 2023-03-28 02:30 ==
LOC: DI 02:10
PROVIDERS: PCP Family Medicine; Visit Provider Physician Assistant
DX: K59.00 Constipation, unspecified (principal); R19.8 Other specified symptoms and signs involving the digestive system and abdomen; N20.0 Calculus of kidney
CPT/HCPCS: 80053; 74177; 85025

== ENCOUNTER 2023-04-06 11:00 | Outpatient (RCR) | payer SELFPAY ==
[2023-03-09 00:08] VITALS: BP 131/51; PULSE 49; RESP 16
[2023-03-09 13:26] VITALS: BP 136/55; PULSE 49
[2023-03-14 10:58] VITALS: BP 129/51; PULSE 48
[2023-03-16 11:15] VITALS: BP 121/51; PULSE 49
[2023-03-21 11:13] VITALS: BP 127/41; PULSE 48
[2023-03-23 11:01] VITALS: BP 120/47; PULSE 53
[2023-03-30 10:58] VITALS: BP 120/42; PULSE 50
[2023-04-04 10:55] VITALS: BP 124/43; PULSE 46
[2023-04-06 11:00] VITALS: BP 134/47; PULSE 44
== END 2023-04-07 23:59 | disposition home or self-care (01) ==
LOC: CR 11:00
PROVIDERS: PCP Family Medicine; Visit Provider Internal Medicine Cardiovascular Disease
DX: R69 Illness, unspecified (principal)

== ENCOUNTER 2023-05-04 11:03 | Outpatient (RCR) | payer SELFPAY ==
[2023-04-08 00:15] VITALS: BP 134/47; PULSE 44; RESP 16
[2023-04-13 11:01] VITALS: BP 108/46; PULSE 43; O2SAT 98
[2023-04-18 11:10] VITALS: BP 118/45; PULSE 41
[2023-04-20 11:41] VITALS: BP 106/42; PULSE 42
[2023-04-25 11:12] VITALS: BP 118/52; PULSE 46
[2023-04-27 11:14] VITALS: BP 125/48; PULSE 43
[2023-05-02 11:02] VITALS: BP 117/41; PULSE 48
[2023-05-04 11:04] VITALS: BP 124/47; PULSE 48
== END 2023-05-08 23:59 | disposition home or self-care (01) ==
LOC: CR 11:03
PROVIDERS: PCP Family Medicine; Visit Provider Internal Medicine Cardiovascular Disease
DX: R69 Illness, unspecified (principal)

== ENCOUNTER 2023-05-29 18:20 | Outpatient (REF) | payer MEDICARE, OTHER, SELFPAY ==
[2023-05-29 18:32] LABS: HCT 24.8 % (36.0-46.0); HGB 8.7 g/dL (11.2-15.7); MCH 29.7 pg (27.0-33.0); MCHC 35.1 % (32.0-36.0); MCV 85 fL (80-95); MPV 11.2 fL (8.0-11.0); Platelet Count 281 10^3/uL (130-400); RBC 2.93 10^6/uL (3.93-5.22); RDW 13.1 % (11.7-14.6); WBC 8.31 10^3/uL (4.4-10.8)
[2023-05-29 18:47] LABS: Anion Gap 9.9 mmol/L (3-11); BUN 24 mg/dL (7-18); CO2 27.1 mmol/L (21.0-32.0); CREATININE 1.3 mg/dL (0.55-1.02); Calcium 9.6 mg/dL (8.5-10.1); Chloride 92 mmol/L (98-107); Estimated GFR 42.62 (mL/min/1.73m2); Glucose 160 mg/dL (74-106); Potassium 3.7 mmol/L (3.5-5.1); Sodium 129 mmol/L (136-145); TSH (W/Ref FT4) 0.45 uIU/mL (0.36-3.74)
== END 2023-05-29 18:21 | disposition home or self-care (01) ==
LOC: NCHCN 18:20
PROVIDERS: PCP Family Medicine; Visit Provider Family Medicine
DX: E03.9 Hypothyroidism, unspecified (principal); I95.1 Orthostatic hypotension
CPT/HCPCS: 80048; 85027; 84443

== ENCOUNTER 2023-06-08 11:02 | Outpatient (RCR) | payer SELFPAY ==
[2023-05-09 00:14] VITALS: BP 124/47; PULSE 48; RESP 16
[2023-05-09 11:00] VITALS: BP 126/45; PULSE 50
[2023-05-11 11:17] VITALS: BP 130/42; PULSE 50
[2023-05-16 11:00] VITALS: BP 111/34; PULSE 52; O2SAT 99
[2023-05-18 11:27] VITALS: BP 112/43; PULSE 49
[2023-05-23 11:46] VITALS: BP 114/40; PULSE 46
[2023-05-25 11:01] VITALS: BP 134/42; PULSE 46
[2023-05-30 10:56] VITALS: BP 109/39; PULSE 51
[2023-06-06 11:00] VITALS: BP 136/51; PULSE 53
[2023-06-08 11:09] VITALS: BP 131/42; PULSE 78
== END 2023-06-08 23:59 | disposition home or self-care (01) ==
LOC: CR 11:02
PROVIDERS: PCP Family Medicine; Visit Provider Internal Medicine Cardiovascular Disease
DX: R69 Illness, unspecified (principal)

== ENCOUNTER 2023-06-09 14:06 | Outpatient (REF) | payer MEDICARE, OTHER, SELFPAY ==
[2023-06-09 15:47] LABS: HCT 25.9 % (36.0-46.0); HGB 8.6 g/dL (11.2-15.7); MCH 29.1 pg (27.0-33.0); MCHC 33.2 % (32.0-36.0); MCV 88 fL (80-95); MPV 11.3 fL (8.0-11.0); Platelet Count 275 10^3/uL (130-400); RBC 2.96 10^6/uL (3.93-5.22); RDW 13.4 % (11.7-14.6); RDW-SD 42.6 fL
[2023-06-09 16:33] LABS: Anion Gap 7.4 mmol/L (3-11); BUN 15 mg/dL (7-18); CO2 26.6 mmol/L (21.0-32.0); CREATININE 1.1 mg/dL (0.55-1.02); Calcium 9.4 mg/dL (8.5-10.1); Chloride 102 mmol/L (98-107); Estimated GFR 52.08 (mL/min/1.73m2); Glucose 150 mg/dL (74-106); Potassium 4.8 mmol/L (3.5-5.1); Sodium 136 mmol/L (136-145)
== END 2023-06-09 14:07 | disposition home or self-care (01) ==
LOC: NCHCN 14:06
PROVIDERS: PCP Family Medicine; Visit Provider Family Medicine
DX: D50.9 Iron deficiency anemia, unspecified (principal); E87.1 Hypo-osmolality and hyponatremia
CPT/HCPCS: 80048; 85027

== ENCOUNTER 2023-06-15 04:28 | Outpatient (CLI) | payer MEDICARE, OTHER, SELFPAY ==
[2023-06-15 12:13] LABS: Abs Immature Grans 0.02 10^3/uL (0.0-0.06); Absolute Basophil Count 0.02 10^3/uL (0.0-0.2); Absolute Eosinophil Count 0.22 10^3/uL (0.0-0.7); Absolute Lymphocyte Count 1.19 10^3/uL (1.2-3.4); Absolute Monocyte Count 0.94 10^3/uL (0.1-0.8); Absolute Neutrophil Count 3.75 10^3/uL (1.2-6.7); Basophils % 0.3; Eosinophils % 3.6; HCT 24.6 % (36.0-46.0); HGB 8.2 g/dL (11.2-15.7); Immature Grans % 0.3; Lymphocytes % 19.4; MCH 28.8 pg (27.0-33.0); MCHC 33.3 % (32.0-36.0); MCV 86 fL (80-95); MPV 10.6 fL (8.0-11.0); Monocytes % 15.3; Neutrophils % 61.1; Platelet Count 237 10^3/uL (130-400); RBC 2.85 10^6/uL (3.93-5.22); RDW 13.3 % (11.7-14.6); WBC 6.14 10^3/uL (4.4-10.8)
[2023-06-15 12:40] LABS: ALT 16 U/L (14-59); AST 9 U/L (15-37); Albumin 3.3 g/dL (3.4-5.0); Alkaline Phosphatase 82 U/L (46-116); Anion Gap 8.1 mmol/L (3-11); BUN 13 mg/dL (7-18); Bilirubin, Total 0.3 mg/dL (0.2-1.0); CO2 25.9 mmol/L (21.0-32.0); CREATININE 1.2 mg/dL (0.55-1.02); Chloride 101 mmol/L (98-107); Estimated GFR 46.91 (mL/min/1.73m2); Ferritin 66 ng/mL (8-252); Glucose 119 mg/dL (74-106); Potassium 4.5 mmol/L (3.5-5.1); Sodium 135 mmol/L (136-145); Total Protein 6.9 g/dL (6.4-8.2)
== END 2023-06-15 04:29 | disposition home or self-care (01) ==
LOC: LBO 04:28
PROVIDERS: PCP Family Medicine; Visit Provider Internal Medicine Hematology & Oncology
DX: D50.9 Iron deficiency anemia, unspecified (principal); N18.31 Chronic kidney disease, stage 3a; D63.1 Anemia in chronic kidney disease
CPT/HCPCS: 36415; 80053; 82728; 85025

== ENCOUNTER 2023-06-27 11:14 | Outpatient (RCR) | payer SELFPAY ==
[2023-06-09 00:20] VITALS: BP 131/42; PULSE 78; RESP 16
[2023-06-13 11:18] VITALS: BP 178/53; PULSE 48
[2023-06-15 11:00] VITALS: BP 181/56; PULSE 50; O2SAT 95
[2023-06-15 11:30] VITALS: BP 143/40
[2023-06-15 11:55] VITALS: BP 127/44; PULSE 50
[2023-06-20 11:16] VITALS: BP 210/70
[2023-06-27 11:13] VITALS: BP 143/49; PULSE 49
== END 2023-07-08 23:59 | disposition home or self-care (01) ==
LOC: CR 11:14
PROVIDERS: PCP Family Medicine; Visit Provider Internal Medicine Cardiovascular Disease
DX: R69 Illness, unspecified (principal)

== ENCOUNTER 2023-07-27 13:15 | Outpatient (CLI) | payer MEDICARE, OTHER, SELFPAY ==
[2023-07-27 12:38] LABS: Abs Immature Grans 0.03 10^3/uL (0.0-0.06); Absolute Basophil Count 0.01 10^3/uL (0.0-0.2); Absolute Eosinophil Count 0.18 10^3/uL (0.0-0.7); Absolute Lymphocyte Count 1.39 10^3/uL (1.2-3.4); Absolute Monocyte Count 0.86 10^3/uL (0.1-0.8); Absolute Neutrophil Count 4.87 10^3/uL (1.2-6.7); Basophils % 0.1; Eosinophils % 2.5; HGB 9.8 g/dL (11.2-15.7); Immature Grans % 0.4; Lymphocytes % 18.9; MCH 28.9 pg (27.0-33.0); MCHC 33.8 % (32.0-36.0); MCV 86 fL (80-95); MPV 10.9 fL (8.0-11.0); Monocytes % 11.7; Neutrophils % 66.4; Platelet Count 280 10^3/uL (130-400); RBC 3.39 10^6/uL (3.93-5.22); RDW 13.4 % (11.7-14.6); RDW-SD 42.2 fL; WBC 7.34 10^3/uL (4.4-10.8)
[2023-07-27 13:25] LABS: Ferritin 87 ng/mL (8-252)
== END 2023-07-27 13:16 | disposition home or self-care (01) ==
LOC: LBO 13:15
PROVIDERS: PCP Family Medicine; Visit Provider Internal Medicine Hematology & Oncology
DX: D50.9 Iron deficiency anemia, unspecified (principal); N18.31 Chronic kidney disease, stage 3a; D63.1 Anemia in chronic kidney disease
CPT/HCPCS: 36415; 82728; 85025

== ENCOUNTER 2023-08-08 11:09 | Outpatient (RCR) | payer SELFPAY ==
[2023-07-09 00:17] VITALS: BP 143/49; PULSE 49; RESP 16
[2023-07-11 11:02] VITALS: BP 183/61; PULSE 47
[2023-07-25 10:54] VITALS: BP 143/50; PULSE 48
[2023-07-27 15:02] VITALS: BP 137/74; PULSE 55
[2023-08-01 11:25] VITALS: BP 127/44; PULSE 53
[2023-08-08 13:12] VITALS: BP 144/53; PULSE 52
== END 2023-08-08 23:59 | disposition home or self-care (01) ==
LOC: CR 11:09
PROVIDERS: PCP Family Medicine; Visit Provider Internal Medicine Cardiovascular Disease
DX: R69 Illness, unspecified (principal)

== ENCOUNTER 2023-08-22 15:29 | Outpatient (REF) | payer MEDICARE, SELFPAY ==
[2023-08-22 19:49] LABS: Anion Gap 9.4 mmol/L (3-11); BUN 16 mg/dL (7-18); CO2 27.6 mmol/L (21.0-32.0); Calcium 9.9 mg/dL (8.5-10.1); Chloride 103 mmol/L (98-107); Estimated GFR 58.39 (mL/min/1.73m2); Glucose 108 mg/dL (74-106); Hemoglobin A1C 5.7 % (<5.7); Magnesium 2.2 mg/dL (1.8-2.4); Potassium 4.4 mmol/L (3.5-5.1); Sodium 140 mmol/L (136-145)
== END 2023-08-22 15:30 | disposition home or self-care (01) ==
LOC: NCHCN 15:29
PROVIDERS: PCP Family Medicine; Visit Provider Family Medicine
DX: R55 Syncope and collapse (principal); R73.09 Other abnormal glucose; D50.9 Iron deficiency anemia, unspecified; E03.9 Hypothyroidism, unspecified
CPT/HCPCS: 80048; 83036; 83735; 85018

== ENCOUNTER 2023-09-07 11:14 | Outpatient (RCR) | payer SELFPAY ==
[2023-08-09 00:21] VITALS: BP 143/49; PULSE 49; RESP 16
[2023-08-10 11:12] VITALS: BP 157/64; PULSE 50
[2023-08-15 10:53] VITALS: BP 180/62; PULSE 49
[2023-08-22 13:58] VITALS: BP 144/50; PULSE 51
[2023-08-24 11:16] VITALS: BP 143/57; PULSE 51
[2023-08-29 11:25] VITALS: BP 168/58; PULSE 49
[2023-09-05 11:00] VITALS: BP 171/53; PULSE 51
[2023-09-05 11:34] VITALS: BP 144/54
[2023-09-07 11:17] VITALS: BP 137/69; PULSE 47
== END 2023-09-07 23:59 | disposition home or self-care (01) ==
LOC: CR 11:14
PROVIDERS: PCP Family Medicine; Visit Provider Internal Medicine Cardiovascular Disease
DX: R69 Illness, unspecified (principal)

== ENCOUNTER 2023-09-07 14:16 | Outpatient (CLI) | payer MEDICARE, OTHER, SELFPAY ==
[2023-09-07 10:59] LABS: Abs Immature Grans 0.03 10^3/uL (0.0-0.06); Absolute Basophil Count 0.03 10^3/uL (0.0-0.2); Absolute Eosinophil Count 0.22 10^3/uL (0.0-0.7); Absolute Lymphocyte Count 1.34 10^3/uL (1.2-3.4); Absolute Monocyte Count 0.84 10^3/uL (0.1-0.8); Basophils % 0.4; HCT 33.6 % (36.0-46.0); HGB 11.2 g/dL (11.2-15.7); Immature Grans % 0.4; Lymphocytes % 18.5; MCH 28.4 pg (27.0-33.0); MCHC 33.3 % (32.0-36.0); MCV 85 fL (80-95); Monocytes % 11.6; Neutrophils % 66.1; Platelet Count 242 10^3/uL (130-400); RBC 3.94 10^6/uL (3.93-5.22); RDW 13.9 % (11.7-14.6); RDW-SD 43.8 fL; WBC 7.26 10^3/uL (4.4-10.8)
== END 2023-09-07 14:17 | disposition home or self-care (01) ==
LOC: LBO 14:19
PROVIDERS: PCP Family Medicine; Visit Provider Internal Medicine Hematology & Oncology
DX: N18.31 Chronic kidney disease, stage 3a (principal); K59.00 Constipation, unspecified
CPT/HCPCS: 36415; 85025

== ENCOUNTER 2023-10-05 09:52 | Outpatient (CLI) | payer MEDICARE, OTHER, SELFPAY | END 2023-10-05 09:53 | disposition home or self-care (01) | LOC: CARDOPNVT 09:52 | PROVIDERS: PCP Family Medicine; Visit Provider Family Medicine | DX: R55 Syncope and collapse (principal) | CPT/HCPCS: 93270 ==

== ENCOUNTER 2023-10-05 10:42 | Outpatient (RCR) | payer SELFPAY ==
[2023-09-08 00:25] VITALS: BP 143/49; PULSE 49; RESP 16
[2023-09-12 11:40] VITALS: BP 140/50; PULSE 50
[2023-09-19 11:13] VITALS: BP 142/57; PULSE 52
[2023-09-21 11:14] VITALS: BP 146/57; PULSE 54
[2023-09-26 11:02] VITALS: BP 156/56; PULSE 56
[2023-10-05 10:35] VITALS: BP 154/56; PULSE 49
== END 2023-10-08 23:59 | disposition home or self-care (01) ==
LOC: CR 10:42
PROVIDERS: PCP Family Medicine; Visit Provider Internal Medicine Cardiovascular Disease
DX: R69 Illness, unspecified (principal)

== ENCOUNTER 2023-10-24 04:59 | Outpatient (CLI) | payer MEDICARE, OTHER, SELFPAY ==
[2023-10-24 13:01] LABS: Abs Immature Grans 0.02 10^3/uL (0.0-0.06); Absolute Basophil Count 0.03 10^3/uL (0.0-0.2); Absolute Eosinophil Count 0.27 10^3/uL (0.0-0.7); Absolute Lymphocyte Count 1.68 10^3/uL (1.2-3.4); Absolute Monocyte Count 0.89 10^3/uL (0.1-0.8); Basophils % 0.3; Eosinophils % 3.1; HCT 31.5 % (36.0-46.0); HGB 10.4 g/dL (11.2-15.7); Immature Grans % 0.2; Lymphocytes % 19.3; MCH 28.3 pg (27.0-33.0); MCV 86 fL (80-95); MPV 10.9 fL (8.0-11.0); Monocytes % 10.2; Neutrophils % 66.9; Platelet Count 263 10^3/uL (130-400); RBC 3.67 10^6/uL (3.93-5.22); RDW-SD 44.3 fL; WBC 8.69 10^3/uL (4.4-10.8)
== END 2023-10-24 05:00 | disposition home or self-care (01) ==
PROVIDERS: PCP Family Medicine; Visit Provider Internal Medicine Hematology & Oncology
DX: N18.31 Chronic kidney disease, stage 3a (principal); D63.1 Anemia in chronic kidney disease; D50.9 Iron deficiency anemia, unspecified
CPT/HCPCS: 36415; 85025

== ENCOUNTER 2023-10-31 11:24 | Outpatient (CLI) | payer MEDICARE, OTHER, SELFPAY ==
--- NOTE | 2023-10-31 13:44 | W.ZIOMONITOR ---
Date of service: 10/31/23 Time of Service: 13:44 14 Day Progress Clerk Referring Provider:: Dede Indications:: Syncope and collapse Note: This was a 14-day monitor for syncope and collapse 1. The underlying rhythm is sinus bradycardia throughout with average heart rate of 47.5 bpm. 2. Probable periods of atrial fibrillation with slow ventricular response of about 50 bpm followed by a wide-complex irregularly irregular tachycardia suspected to be Keshawn's phenomenon at a rate of 166 bpm. 3. Occasional ectopic beats suspected to be supraventricular with aberrant conduction (Keshawn beats). 4. No pauses noted Impression: Probable paroxysmal atrial fibrillation with slow and fast ventricular responses consistent with tachycardia-bradycardia syndrome.
== END 2023-10-31 11:25 | disposition home or self-care (01) ==
LOC: CARDOPNVT 11:24
PROVIDERS: PCP Family Medicine; Visit Provider Internal Medicine Interventional Cardiology
DX: R55 Syncope and collapse (principal); I47.10 Supraventricular tachycardia, unspecified
CPT/HCPCS: 93248

== ENCOUNTER 2023-11-07 10:48 | Outpatient (RCR) | payer SELFPAY ==
[2023-10-09 00:09] VITALS: BP 143/49; PULSE 49; RESP 16
[2023-10-10 11:06] VITALS: BP 146/57; PULSE 51
[2023-10-12 11:18] VITALS: BP 142/57; PULSE 55
[2023-10-17 11:47] VITALS: BP 128/46; PULSE 53
== END 2023-11-08 23:59 | disposition home or self-care (01) ==
LOC: CR 10:48
PROVIDERS: PCP Family Medicine; Visit Provider Internal Medicine Interventional Cardiology
DX: R69 Illness, unspecified (principal)

== ENCOUNTER → 2023-11-14 10:31 | Outpatient (BNVA) | payer MEDICARE, OTHER, SELFPAY | PROVIDERS: PCP Family Medicine; Referring Provider Family Medicine; Visit Provider Internal Medicine Interventional Cardiology | DX: R55 Syncope and collapse (principal); Z95.1 Presence of aortocoronary bypass graft; I48.0 Paroxysmal atrial fibrillation; R00.1 Bradycardia, unspecified | CPT/HCPCS: 99214 ==

== ENCOUNTER 2023-12-05 17:37 | Outpatient (REF) | payer MEDICARE, OTHER, SELFPAY ==
[2023-12-05 15:44] LABS: Anion Gap 9.1 mmol/L (3-11); BUN 54 mg/dL (7-18); CO2 28.9 mmol/L (21.0-32.0); CREATININE 1.3 mg/dL (0.55-1.02); Calcium 9.8 mg/dL (8.5-10.1); Chloride 102 mmol/L (98-107); Estimated GFR 42.62 (mL/min/1.73m2); Glucose 131 mg/dL (74-106); Potassium 4.7 mmol/L (3.5-5.1); Sodium 140 mmol/L (136-145)
[2023-12-05 17:06] LABS: Hemoglobin A1C 6.1 % (<5.7)
== END 2023-12-05 17:38 | disposition home or self-care (01) ==
LOC: NCHCN 17:37
PROVIDERS: PCP Family Medicine; Referring Provider Family Medicine; Visit Provider Family Medicine
DX: E11.9 Type 2 diabetes mellitus without complications (principal); I10 Essential (primary) hypertension
CPT/HCPCS: 80048; 83036

== ENCOUNTER 2023-12-06 14:54 | Emergency (ER) | payer MEDICARE, OTHER, SELFPAY ==
--- NOTE | 2023-12-06 14:45 | RT.EKG_ITS ---
APPROVED REPORT Exam: Resting ECG Reason for Exam: Chest Pain Patient Location: E HR:61 bpm ECG Measurements Heart Rate 61 AXIS IA 206 P -58 QRSd 98 QRS 38 QT 432 T 48 QTc 410 Conclusion Sinus or ectopic atrial bradycardia...P axis (-45,135), rate< 60 Ventricular premature complex...V complex w/ short R-R interval sinus rhythm with PVC, when compared to prior 12/06/23 PVC is new. WD
[2023-12-06 14:58] VITALS: BP 114/42; PULSE 56; RESP 16; TEMP 36.7; O2SAT 99
--- NOTE | 2023-12-06 15:18 | DI.RAD_ITS ---
Exam(s) XR CHEST 1V IN DI DEPT EXAM: XR CHEST 1V IN DI DEPT CLINICAL HISTORY: dyspnea TECHNIQUE: 2D digital imaging was performed. COMPARISON: CT CT CHEST LUNG CANCER SCREEN from 12/13/2022 FINDINGS: Monitoring leads overlie the chest. LUNGS: Clear. No pleural abnormality seen. HEART: Normal size. AORTA: Normal diameter. BONES: Unremarkable for age. Sternal wires. Soft tissues: Unremarkable. IMPRESSION: No acute findings. DATA REPOSITORY: RADIATION DOSE DELIVERED:
[2023-12-06 15:20] VITALS: RESP 16
[2023-12-06 15:27] VITALS: PULSE 52
[2023-12-06 15:30] VITALS: PULSE 55
--- NOTE | 2023-12-06 15:30 | DI.US_ITS ---
Exam(s) US LOWER EXTREMITY VENOUS LT EXAM: US LOWER EXTREMITY VENOUS LT CLINICAL HISTORY: swelling. TECHNIQUE: Lower extremity venous ultrasound performed using grayscale, color-flow, and spectral Do ppler analysis. COMPARISON: No exams were available for comparison FINDINGS: The common femoral, femoral and popliteal veins demonstrate normal compressibility, augmentation, and color Doppler. The posterior tibial veins are patent. No saphenous vein thrombosis or other superfi cial venous thrombosis is seen. No hematoma or Cline's cyst is seen. IMPRESSION: Negative lower extremity ultrasound. No evidence of DVT. DATA REPOSITORY:
--- NOTE | 2023-12-06 16:14 | W.ED.GENAD ---
Discharge Plan Discharge Details Chief Complaint: Chest Pain Clinical Impression: Localized swelling of left lower leg, Chest pain Primary Care Provider: Rafa Aguayo ED Provider: Abiodun Bergman [place] Meds and New Rx's Prescriptions: No Action aspirin 81 mg tablet,delayed release (DR/EC) 81 mg PO DAILY Hold Instructions: Changed by Provider latanoprost 0.005 % drops 1 drp OP QPM multivitamin tablet 1 tab PO DAILY furosemide 20 mg tablet 20 mg PO DAILY PRN (Reason: edema) Qty: 60 3RF Hold Instructions: Changed by Provider rosuvastatin 10 mg tablet 10 mg PO DAILY ascorbate calcium (vitamin C) 500 mg tablet 500 mg PO .COMPLEX Rx Instructions: 500 mg orally Mon, Wed, Fri; levothyroxine 125 mcg capsule 125 mcg PO DAILY amlodipine 10 mg tablet 10 mg PO DAILY Qty: 90 6RF Rx Instructions: Please take in the evening carvedilol 12.5 mg tablet 12.5 mg PO BID Qty: 180 6RF Rx Instructions: must administer with a meal/food lisinopril 20 mg tablet 20 mg PO DAILY Patient Comments: 11/08/23 per PCP med list RH clopidogrel 75 mg tablet 75 mg PO DAILY Patient Comments: TAKE ONE TABLET BY MOUTH EVERY DAY ferrous gluconate 324 mg (38 mg iron) tablet 324 mg PO DAILY Patient Comments: TAKE ONE TABLET BY MOUTH EVERY DAY lisinopril-hydrochlorothiazide 20-12.5 mg tablet cholecalciferol (vitamin D3) [Vitamin D3] 2,000 UNIT capsule 2,000 unit PO DAILY HPI General Date/Time Provider Initiated Documentation: 12/06/23 15:05. HPI Narrative: 78-year-old female with history of significant cardiac disease presents for evaluation of chest pain. Patient states that she was sitting when she developed some pain in the center of her chest. It radiated up to her neck slightly. She was moving around some furniture earlier in the day but did not feel that it was anything heavy. No trauma to her chest. She denies any fevers. No cough or cold. She does have some leg swelling. She noticed some swelling in her left leg greater than her right leg 3 days ago. She denies any history of DVT. She has been taking her blood thinners as prescribed. She is on diuretics as well as blood pressure medication. She also takes medicine for high cholesterol. Denies any sick contacts. Related Data Home Medications Medication Instructions Recorded Confirmed cholecalciferol (vitamin D3) 50 2,000 unit PO DAILY 06/06/17 12/06/23 mcg (2,000 unit) capsule (Vitamin D3) aspirin 81 mg tablet,delayed 81 mg PO DAILY 03/15/19 12/06/23 release latanoprost 0.005 % eye drops 1 drp ophthalmic (eye) QPM 03/15/19 12/06/23 multivitamin 1 tab PO DAILY 03/15/19 12/06/23 furosemide 20 mg tablet 20 mg PO DAILY PRN edema #60 tabs 05/28/20 12/06/23 amlodipine 10 mg tablet 10 mg PO DAILY #90 tabs 11/27/20 12/06/23 clopidogrel 75 mg tablet 75 mg PO DAILY 12/01/20 12/06/23 ferrous gluconate 324 mg (38 mg 324 mg PO DAILY 12/01/20 12/06/23 iron) tablet rosuvastatin 10 mg tablet 10 mg PO DAILY 12/16/20 12/06/23 ascorbate calcium (vitamin C) 500 500 mg PO .COMPLEX 07/29/22 12/06/23 mg tablet levothyroxine 125 mcg capsule 125 mcg PO DAILY 08/25/22 12/06/23 carvedilol 12.5 mg tablet 12.5 mg PO BID #180 tabs 01/02/23 12/06/23 lisinopril 20 mg tablet 20 mg PO DAILY 11/08/23 12/06/23 lisinopril 20 tab 12/06/23 mg-hydrochlorothiazide 12.5 mg tablet Previous Rx's Medication Instructions Recorded furosemide 20 mg tablet 20 mg PO DAILY PRN edema #60 tabs 05/28/20 amlodipine 10 mg tablet 10 mg PO DAILY #90 tabs 11/27/20 carvedilol 12.5 mg tablet 12.5 mg PO BID #180 tabs 01/02/23 Allergies Allergy/AdvReac Type Severity Reaction Status Date / Time cilostazol Allergy Severe Verified 11/14/23 10:46 Tiguult-ZVP-DtA Reductase AdvReac Intermediate Headache Verified 11/14/23 10:46 Inhibitor [Ijhugcb-Thv-Cxu Reductase Inhibitor] atenolol AdvReac Mild palpitation Verified 11/14/23 10:46 s losartan potassium AdvReac Mild palpitation Verified 11/14/23 10:46 [From Cee] s levothyroxine sodium AdvReac pt unsure Verified 11/14/23 10:46 General Stated Complaint: Chest Pain KEVIN: 2 Review of Systems Narrative: Remainder of review of systems otherwise negative except for as noted in the HPI x 10. Exam Narrative Exam Narrative: General: non-toxic, no respiratory distress, comfortable HEENT: normocephalic, atraumatic, lids and lashes normal, PERRL, EOMI, anicteric sclera, no conjunctival injection, moist oral mucosa Card: regular rate and rhythm, S1S2, no murmurs, rubs, or gallops Lungs: good air entry, clear to auscultation bilaterally. no wheezes, rales, rhonchi, or retractions Abd: soft, non-tender, non-distended, normal bowel sounds, no rebound or guarding, no peritoneal signs Musculoskeletal: full range of motion of arms and legs, no tenderness to palpation. no clubbing or cyanosis, 3+ edema left lower extremity, 1+ right lower extremity edema Neurologic: appropriate for age, strength normal Psych: alert and oriented Skin: no petechiae, no lesions, warm and dry Course Vital Signs Vital signs: Vital Signs Temperature 36.7 C 12/06/23 14:58 Pulse 56 L 12/06/23 14:58 Respiratory Rate 16 12/06/23 14:58 Blood Pressure 114/42 L 12/06/23 14:58 Pulse Oximetry 99 12/06/23 14:58 Temperature 36.7 C 12/06/23 14:58 Pulse 56 L 12/06/23 14:58 Respiratory Rate 16 12/06/23 15:20 Respiratory Effort Normal 12/06/23 15:20 Respiratory Depth Normal 12/06/23 15:20 Respiratory Pattern Normal 12/06/23 15:20 Blood Pressure 114/42 L 12/06/23 14:58 Blood Pressure Position Sitting 12/06/23 14:58 Pulse Oximetry 99 12/06/23 14:58 Oxygen Delivery Method Room Air 12/06/23 14:58 Oxygen Flow Rate 0 12/06/23 14:58 Pain Level 3 12/06/23 15:20 Medical Decision Making 78-year-old female with history significant cardiac disease presents for evaluation of chest pain which started earlier today. She also has significant swelling into her lower extremity left much greater than right. She is on Xarelto. EKG showed PVCs without any acute ischemic changes. Ultrasound negative for DVT. Chest x-ray unremarkable. Patient's pain has resolved on its own without intervention. Initial laboratory studies did come back with drop in hemoglobin. Repeat troponin and repeat CBC ordered. Patient signed out to Dr. Bergman with repeat laboratory studies pending. Quality:[facility] Health Related Social Needs: No Data to Display PFSH All Active Problems (Updated 12/06/23 @ 17:06 by Leann Smith MD) Chest pain (Acute) Localized swelling of left lower leg (Acute) Sinus bradycardia (Acute) Paroxysmal atrial fibrillation (Acute) Episode of syncope (Chronic) CKD (chronic kidney disease) stage 3, GFR 30-59 ml/min (Acute) Lumbosacral spondylosis without myelopathy (Acute) Hx of Helicobacter infection (Acute) 2014 COPD (chronic obstructive pulmonary disease) (Chronic) Cerebrovascular accident (CVA) (Acute) Chronic anxiety (Acute) Solitary lung nodule (Acute) Hydronephrosis (Acute) Chest pain, rule out acute myocardial infarction (Acute) Hx of CABG (Chronic) Mild chronic gastritis (Acute) CAD (coronary artery disease) (Chronic) Peripheral vascular disease (Chronic) Tobacco dependence (Acute) Carotid stenosis (Chronic) Hyperlipidemia (Chronic) Hypothyroid (Chronic) Iron deficiency anemia (Chronic) GERD (gastroesophageal reflux disease) (Acute 09/05/16) Medical History Anemia Diabetes mellitus Chronic kidney disease, stage 3b Lung nodule 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 Prediabetes Asthma Pt denies Asthma Obesity Vitamin D deficiency Hypertension Gastric ulcer 2014 Brittle nails Peripheral vascular disease Depression Intermittent claudication Degenerative disc disease, lumbar Diverticulosis large intestine w/o perforation or abscess w/o bleeding Optic neuritis Impaired glucose regulation Elevated troponin Abnormal EKG Surgical History S/P CABG x 2 right carotid endarterectomy x2 Ligation of fallopian tube EGD - MAC (06/13/17) EGD - IV Sedation 2014 Colonoscopy - MAC 2015 Biopsy, Temporal Artery (09/15/17) right Family History Other Heart disease Social History Smoking/Tobacco Use Status: Current every day Tobacco Type: cigarettes Tobacco: How many years used: 46 Counseling given: patient declined Smoking risk assessment performed?: Yes Alcohol Intake: never Drug use: Never Substance use type: does not use Do you feel safe at home: Yes Do you feel safe in your relationship?: Yes Sign Out Sign Out Data: Sign Out Comment: 78-year-old female with significant cardiac past medical history presents for evaluation of pain in the middle of her chest which started this afternoon at rest. It has resolved on its own without intervention. She did some moving Afinitor earlier today. EKG does not show any acute ischemic changes. There is swelling to her left lower extremity greater than her right. Ultrasound was obtained and negative for DVT. She is on Xarelto. Chest x-ray unremarkable. Laboratory studies are currently pending. Last updated by Leann Smith MD at 12/06/23 17:08
[2023-12-06 16:26] LABS: Abs Immature Grans 0.06 10^3/uL (0.0-0.06); Absolute Basophil Count 0.04 10^3/uL (0.0-0.2); Absolute Eosinophil Count 0.22 10^3/uL (0.0-0.7); Absolute Lymphocyte Count 1.73 10^3/uL (1.2-3.4); Absolute Monocyte Count 1.01 10^3/uL (0.1-0.8); Absolute Neutrophil Count 6.32 10^3/uL (1.2-6.7); Basophils % 0.4; Eosinophils % 2.3; HCT 23.2 % (36.0-46.0); HGB 7.7 g/dL (11.2-15.7); Immature Grans % 0.6; Lymphocytes % 18.4; MCH 28.8 pg (27.0-33.0); MCHC 33.2 % (32.0-36.0); MCV 87 fL (80-95); Monocytes % 10.8; Neutrophils % 67.5; Platelet Count 269 10^3/uL (130-400); RBC 2.67 10^6/uL (3.93-5.22); RDW 13.9 % (11.7-14.6); RDW-SD 43.4 fL; WBC 9.38 10^3/uL (4.4-10.8)
[2023-12-06 16:48] LABS: ALT 17 U/L (14-59); AST 11 U/L (15-37); Albumin 3.5 g/dL (3.4-5.0); Alkaline Phosphatase 78 U/L (46-116); Anion Gap 10.5 mmol/L (3-11); BUN 45 mg/dL (7-18); Bilirubin, Total 0.2 mg/dL (0.2-1.0); CO2 27.5 mmol/L (21.0-32.0); CREATININE 1.3 mg/dL (0.55-1.02); Calcium 9.5 mg/dL (8.5-10.1); Chloride 101 mmol/L (98-107); Estimated GFR 42.62 (mL/min/1.73m2); Glucose 108 mg/dL (74-106); Magnesium 2.4 mg/dL (1.8-2.4); NT-proBNP 517 pg/mL (<300); Potassium 4.1 mmol/L (3.5-5.1); Sodium 139 mmol/L (136-145); Total Protein 7.2 g/dL (6.4-8.2); Troponin I < 50 ng/L (< or =60)
--- NOTE | 2023-12-06 17:51 | ED.PROG_ITS ---
Date of service: 12/06/23 Time of Service: 17:51 Medical Decision Making Patient was signed out to me pending a repeat troponin. She had come in because of episode of chest pain this afternoon. Her initial laboratory studies had a negative troponin. Repeat troponin pending at 18:15. Her hemoglobin had dropp ed a fair amount. She denies any bleeding but reports that she goes to the cancer center for infusions for her anemia and may have missed a couple of visits. Was going to repeat H&H with her second troponin to see if it was really that significant of a drop or not. Patient at this point no longer willing to wait. I did discuss her concerns including the need for a second troponin given the onset of chest pain being this afternoon. She understands that we cannot completely say this was not cardiac related chest pain. She understands that and wishes to leave. She reports that she will follow-up with primary care or the cancer center in regards to her anemia. Return precautions provided. Working on Lab Data Lab results reviewed: Yes I reviewed the patient's lab results. Quality:[facility] Health Related Social Needs: No Data to Display Sign Out Sign Out Data: Sign Out Comment: 78-year-old female with significant cardiac past medical history presents for evaluation of pain in the middle of her chest which started this afternoon at rest. It has resolved on its own without intervention. She did some moving Afinitor earlier today. EKG does not show any acute ischemic changes. There is swelling to her left lower extremity greater than her right. Ultrasound was obtained and negative for DVT. She is on Xarelto. Chest x-ray unremarkable. Laboratory studies are currently pending. Last updated by Leann Smith MD at 12/06/23 17:08 Discharge Plan Disposition Patient Disposition: Home Condition: Good Discharge Details Clinical Impression: Localized swelling of left lower leg, Chest pain, Anemia Primary Care Provider: Rafa Aguayo ED Provider: Abiodun Bergman [place] Meds and New Rx's Prescriptions: Continued latanoprost 0.005 % drops 1 drp OP QPM multivitamin tablet 1 tab PO DAILY rosuvastatin 10 mg tablet 10 mg PO DAILY ascorbate calcium (vitamin C) 500 mg tablet 500 mg PO .COMPLEX Rx Instructions: 500 mg orally Mon, Wed, Fri; levothyroxine 125 mcg capsule 125 mcg PO DAILY amlodipine 10 mg tablet 10 mg PO DAILY Qty: 90 6RF Rx Instructions: Please take in the evening carvedilol 12.5 mg tablet 12.5 mg PO BID Qty: 180 6RF Rx Instructions: must administer with a meal/food lisinopril 20 mg tablet 20 mg PO DAILY Patient Comments: 11/08/23 per PCP med list [facility] clopidogrel 75 mg tablet 75 mg PO DAILY Patient Comments: TAKE ONE TABLET BY MOUTH EVERY DAY ferrous gluconate 324 mg (38 mg iron) tablet 324 mg PO DAILY Patient Comments: TAKE ONE TABLET BY MOUTH EVERY DAY cholecalciferol (vitamin D3) [Vitamin D3] 2,000 UNIT capsule 2,000 unit PO DAILY No Action aspirin 81 mg tablet,delayed release (DR/EC) 81 mg PO DAILY Hold Instructions: Changed by Provider furosemide 20 mg tablet 20 mg PO DAILY PRN (Reason: edema) Qty: 60 3RF Hold Instructions: Changed by Provider lisinopril-hydrochlorothiazide 20-12.5 mg tablet Discharge Instructions Instructions: Chest Pain (ED) Additional Instructions: You came to the ED for episode of chest pain this afternoon. Your initial workup is reassuring though your hemoglobin is lower than it typically is. You have left prior to a second troponin so we cannot completely say that your chest pain was not cardiac related. It is important that you follow-up with your primary care in regards to your chest pain. You should follow-up with the cancer center in regards to your anemia and restart infusions if needed. You should return to the ED for any syncope, recurrent chest pain, shortness of breath, abdominal pain, black or bloody stool, other concerns.
[2023-12-06 18:11] VITALS: BP 132/41; PULSE 56; RESP 13; O2SAT 98
== END 2023-12-06 18:13 | disposition home or self-care (01) ==
PROVIDERS: Emergency Medicine Emergency Medical Services; Emergency Provider Emergency Medicine; PCP Family Medicine
DX: R42 Dizziness and giddiness (principal); R22.42 Localized swelling, mass and lump, left lower limb; R07.9 Chest pain, unspecified; I12.9 Hypertensive chronic kidney disease with stage 1 through stage 4 chronic kidney disease, or unspecified chronic kidney disease; E11.22 Type 2 diabetes mellitus with diabetic chronic kidney disease; N18.32 Chronic kidney disease, stage 3b; I48.0 Paroxysmal atrial fibrillation; I25.10 Atherosclerotic heart disease of native coronary artery without angina pectoris; J44.9 Chronic obstructive pulmonary disease, unspecified; F17.210 Nicotine dependence, cigarettes, uncomplicated; Z95.1 Presence of aortocoronary bypass graft; Z79.82 Long term (current) use of aspirin; Z79.01 Long term (current) use of anticoagulants
CPT/HCPCS: 123; 80053; 93005; 99284; 00123; 71045; 83735; 83880; 84484; 85014; 85018; 85025; 93010; 93971

== ENCOUNTER 2023-12-07 12:48 | Outpatient (RCR) | payer SELFPAY ==
[2023-11-09 00:06] VITALS: BP 143/49; PULSE 49; RESP 16
[2023-11-09 10:53] VITALS: BP 130/51; PULSE 52
[2023-11-14 11:20] VITALS: BP 139/50; PULSE 53
[2023-11-23 11:19] VITALS: BP 135/44; PULSE 52; O2SAT 97
[2023-11-28 13:16] VITALS: BP 139/49; PULSE 51
[2023-12-05 13:18] VITALS: BP 110/58; PULSE 59
[2023-12-07 12:50] VITALS: BP 120/46; PULSE 60
== END 2023-12-07 23:59 | disposition home or self-care (01) ==
LOC: CR 12:48
PROVIDERS: PCP Family Medicine; Visit Provider Internal Medicine Cardiovascular Disease
DX: R69 Illness, unspecified (principal)

== ENCOUNTER 2023-12-07 17:56 | Outpatient (CLI) | payer MEDICARE, OTHER, SELFPAY ==
[2023-12-07 14:39] LABS: Abs Immature Grans 0.08 10^3/uL (0.0-0.06); Absolute Basophil Count 0.02 10^3/uL (0.0-0.2); Absolute Eosinophil Count 0.17 10^3/uL (0.0-0.7); Absolute Lymphocyte Count 1.63 10^3/uL (1.2-3.4); Absolute Monocyte Count 0.93 10^3/uL (0.1-0.8); Absolute Neutrophil Count 6.35 10^3/uL (1.2-6.7); Basophils % 0.2; Eosinophils % 1.9; HCT 22.5 % (36.0-46.0); HGB 7.5 g/dL (11.2-15.7); Immature Grans % 0.9; Lymphocytes % 17.8; MCH 29.3 pg (27.0-33.0); MCHC 33.3 % (32.0-36.0); MCV 88 fL (80-95); Monocytes % 10.1; Neutrophils % 69.1; Platelet Count 259 10^3/uL (130-400); RBC 2.56 10^6/uL (3.93-5.22); RDW-SD 44.9 fL; WBC 9.18 10^3/uL (4.4-10.8)
== END 2023-12-07 17:57 | disposition home or self-care (01) ==
LOC: LBO 18:00
PROVIDERS: PCP Family Medicine; Visit Provider Internal Medicine Hematology & Oncology
DX: N18.31 Chronic kidney disease, stage 3a (principal)
CPT/HCPCS: 36415; 85025

== ENCOUNTER 2023-12-10 01:42 | Emergency (ER) | payer MEDICARE, OTHER, SELFPAY ==
[2023-12-10] VITALS (21 sets, daily range): BP systolic 105–168; BP diastolic 16–135; PULSE 45–57; RESP 14–27; TEMP 36.5–36.8; O2SAT 95–99
--- NOTE | 2023-12-10 01:30 | RT.EKG_ITS ---
APPROVED REPORT Exam: Resting ECG Reason for Exam: chest pain Patient Location: E HR:50 bpm ECG Measurements Heart Rate 50 AXIS AL 212 P -42 QRSd 104 QRS 62 QT 444 T 66 QTc 405 Conclusion Sinus bradycardia...rate< 60 Borderline prolonged AL interval...AL >212, V-rate 50- 90 Physician: q wave in 3 appears unchanged. no stmei
--- NOTE | 2023-12-10 02:00 | DI.RAD_ITS ---
Exam(s) XR PORTABLE CHEST AP EXAM: XR PORTABLE CHEST AP CLINICAL HISTORY: chest pain TECHNIQUE: 2D digital imaging was performed. COMPARISON: CR XR CHEST 1V IN DI DEPT from 12/06/2023 FINDINGS: Leads overlie the chest. LUNGS: Clear. No pleural abnormality seen. HEART: Mildly enlarged. Status post CABG. AORTA: Normal diameter. BONES: Unremarkable for age. Soft tissues: Unremarkable. IMPRESSION: No acute findings. DATA REPOSITORY: RADIATION DOSE DELIVERED:
--- NOTE | 2023-12-10 02:10 | W.ED.GENAD ---
Discharge Plan Disposition Patient Disposition: Home Condition: Good Discharge Details Clinical Impression: Lightheadedness, Anemia Primary Care Provider: Rafa Aguayo ED Provider: Javier Duggan Home Meds and New Rx's Prescriptions: No Action multivitamin tablet 1 tab PO DAILY furosemide 20 mg tablet 20 mg PO DAILY PRN (Reason: edema) Qty: 60 3RF Hold Instructions: Changed by Provider rosuvastatin 10 mg tablet 10 mg PO DAILY ascorbate calcium (vitamin C) 500 mg tablet 500 mg PO .COMPLEX Rx Instructions: 500 mg orally Mon, Wed, Fri; levothyroxine 125 mcg capsule 125 mcg PO DAILY clopidogrel 75 mg tablet 75 mg PO DAILY Patient Comments: TAKE ONE TABLET BY MOUTH EVERY DAY ferrous gluconate 324 mg (38 mg iron) tablet 324 mg PO DAILY Patient Comments: TAKE ONE TABLET BY MOUTH EVERY DAY lisinopril-hydrochlorothiazide 20-12.5 mg tablet 1 tab PO DAILY amlodipine 2.5 mg tablet 2.5 mg PO DAILY Patient Comments: TAKE ONE TABLET BY MOUTH EVERY DAY carvedilol 6.25 mg tablet 6.25 mg PO BID Xarelto 20 mg tablet 20 mg PO DAILY Rx Instructions: must administer with evening meal cholecalciferol (vitamin D3) [Vitamin D3] 2,000 UNIT capsule 2,000 unit PO DAILY Discharge Instructions Instructions: Anemia (ED) Additional Instructions: At this time your workup showed a low blood level, but you have been given a unit of blood. This should improve your symptoms to a degree. Please drink plenty of water and stay well-hydrated. Avoid salty foods to prevent any edema of your lower extremities. Please follow-up closely with the surgeons. We have placed a referral for you for a colonoscopy and EGD to further evaluate potential sources of bleeding. Please follow-up closely with your primary care provider for reassessment. Please continue to eat a diet high in iron. If you notice any worsening of your symptoms, or any new symptoms such as vomiting, diarrhea, fever, chills, shortness of breath, chest pain, numbness, weakness, or fainting , please return immediately to the emergency department for reevaluation. Please follow up with your primary care provider as soon as possible for reassessment and reevaluation. As always, it was a pleasure participating in your medical care today. Referrals: Rafa Aguayo [Primary Care Provider] - [facility] General Date/Time Provider Initiated Documentation: 12/10/23 01:45. HPI Narrative: 78-year-old female with a past medical history of chronic kidney disease, Paroxysmal atrial fibrillation just started on Xarelto 7 days ago, history of chronic anemia for which she receives iron infusions, coronary artery disease with 3 stents and CABG, high cholesterol, hypothyroidism, carotid stenosis with subsequent carotid endarterectomy, presents today for evaluation of chest pain and dizziness. Patient states that for the last week and a half she has been dizzy, it usually occurs when she stands up, or goes from a lying to standing position quickly. It has been fairly persistent in these scenarios. She came to the emergency department on 12/06 (just 5 days ago) with an episode of mild chest pain and some dizziness. Workup was benign aside for evidence of anemia, however patient also chose to leave prior to completion of the workup and did not receive a delta troponin. Tonight she also had an episode of mild chest pain and back pain while having a bowel movement. It lasted roughly 15 to 30 minutes. It resolved on its own without any intervention. It resolved prior to arriving here. She denies any syncope. No tearing or ripping sensation. No vomiting or diarrhea. She does admit to her bowel movement today being constipated hard and having some dark stool. She states that she had not been having bowel movements for some time and that is why things were mildly blocked up. Currently the patient is chest pain-free. She does not have any dizziness currently. She otherwise feels well. She states that her goals today are to help better understand her occasional lightheadedness. No other complaints at this time. No other modifying factors. Son is at bedside. Related Data Home Medications Medication Instructions Recorded Confirmed cholecalciferol (vitamin D3) 50 2,000 unit PO DAILY 06/06/17 12/10/23 mcg (2,000 unit) capsule (Vitamin D3) multivitamin 1 tab PO DAILY 03/15/19 12/10/23 furosemide 20 mg tablet 20 mg PO DAILY PRN edema #60 tabs 05/28/20 12/10/23 clopidogrel 75 mg tablet 75 mg PO DAILY 12/01/20 12/10/23 ferrous gluconate 324 mg (38 mg 324 mg PO DAILY 12/01/20 12/10/23 iron) tablet rosuvastatin 10 mg tablet 10 mg PO DAILY 12/16/20 12/10/23 ascorbate calcium (vitamin C) 500 500 mg PO .COMPLEX 07/29/22 12/10/23 mg tablet levothyroxine 125 mcg capsule 125 mcg PO DAILY 08/25/22 12/10/23 lisinopril 20 1 tab PO DAILY 12/06/23 12/10/23 mg-hydrochlorothiazide 12.5 mg tablet amlodipine 2.5 mg tablet 2.5 mg PO DAILY 12/10/23 12/10/23 carvedilol 6.25 mg tablet 6.25 mg PO BID 12/10/23 12/10/23 rivaroxaban 20 mg tablet (Xarelto) 20 mg PO DAILY 12/10/23 12/10/23 Previous Rx's Medication Instructions Recorded furosemide 20 mg tablet 20 mg PO DAILY PRN edema #60 tabs 05/28/20 Allergies Allergy/AdvReac Type Severity Reaction Status Date / Time cilostazol Allergy Severe Headache Verified 12/10/23 01:59 Evlfmsw-IPQ-RnK Reductase AdvReac Intermediate Headache Verified 12/10/23 01:59 Inhibitor [Lloqibg-Esg-Amr Reductase Inhibitor] atenolol AdvReac Mild palpitation Verified 12/10/23 01:59 s losartan potassium AdvReac Mild palpitation Verified 12/10/23 01:59 [From Cozaar] s levothyroxine sodium AdvReac pt unsure Verified 12/10/23 01:59 General Stated Complaint: Chest Pain KEVIN: 3 Review of Systems All systems reviewed & are unremarkable except as noted in HPI and below Exam Narrative Exam Narrative: 1.Const: Well-nourished, Well-developed, appearing stated age 2.Eyes: PERRL, no conjunctival injection, and symmetrical lids. 3.ENT: Atraumatic external nose and ears. Moist MM. Neck: Symmetric, trachea midline, No thyromegaly. 4.CVS: +S1/S2, No murmurs or gallops. Peripheral pulses 2+ and equal in all extremities. Brisk capillary refill in all extremities. 5.RESP: Unlabored respiratory effort. Clear to auscultation bilaterally. No wheezes rales or rhonchi 6.GI: Soft, Nontender/Nondistended, No hepatosplenomegaly. No guarding or rebound. 7.MSK: Normocephalic/Atraumatic, Extremities w/o deformity or ttp No cyanosis or clubbing, Normal movement of all extremities. Mild +1 pitting edema in the left lower extremity. Right lower extremity unremarkable. Left lower extremity demonstrates no significant calf tenderness. Peripheral pulses are normal. Good capillary refill. 8.Skin: Warm, Dry. No rashes or lesions. 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 Sensation grossly intact, no focal neurologic deficits. 10.Psych: (AAO) x3. Appropriate mood and affect Course Vital Signs Vital signs: Vital Signs Temperature 36.5 C 12/10/23 01:44 Pulse 55 L 12/10/23 01:44 Respiratory Rate 16 12/10/23 01:44 Blood Pressure 105/89 12/10/23 01:44 Pulse Oximetry 99 12/10/23 01:44 Temperature 36.5 C 12/10/23 01:44 Temperature Source Temporal Artery Scan 12/10/23 01:44 Pulse 55 L 12/10/23 01:44 Respiratory Rate 16 12/10/23 02:00 Respiratory Effort Normal, Non-Labored 12/10/23 02:00 Respiratory Depth Normal 12/10/23 02:00 Respiratory Pattern Normal 12/10/23 02:00 Blood Pressure 105/89 12/10/23 01:44 Blood Pressure Position Sitting 12/10/23 01:44 Pulse Oximetry 99 12/10/23 01:44 Oxygen Delivery Method Room Air 12/10/23 01:44 Oxygen Flow Rate 0 12/10/23 01:44 Pain Level 0 12/10/23 02:00 Procedures EJ/Peripheral Line Arm R: Time Out Performed: Yes Skin Cleansed in Sterile Fashion: Yes Size (gauge): 20 IV Secured and Dressing Applied: Yes Patient Tolerated Procedure: well and no complications Additional Comments: Candidate vein examined with linear array probe - confirmed collapsibility, lack of pulsatility, and proper anatomic location. Using aseptic technique, IV catheter inserted with flash of blood noted, flow of venous blood confirmed. Flushes easily and without pain. No hematoma or complications noted. IV secured. Patient tolerated well. Stool Hemoccult Procedural Steps Taken: stool placed in appropriate test area, developer placed on stool and control areas and controls appropriately positive and negative Hemoccult result: negative Medical Decision Making 78-year-old female with a past medical history of chronic kidney disease, Paroxysmal atrial fibrillation just started on Xarelto 7 days ago, history of chronic anemia for which she receives iron infusions, coronary artery disease with 3 stents and CABG, high cholesterol, hypothyroidism, carotid stenosis with subsequent carotid endarterectomy, presents today for evaluation of chest pain and dizziness. Patient states that for the last week and a half she has been dizzy, it usually occurs when she stands up, or goes from a lying to standing position quickly. It has been fairly persistent in these scenarios. She came to the emergency department on 12/06 (just 5 days ago) with an episode of mild chest pain and some dizziness. Workup was benign aside for evidence of anemia, however patient also chose to leave prior to completion of the workup and did not receive a delta troponin. Tonight she also had an episode of mild chest pain and back pain while having a bowel movement. It lasted roughly 15 to 30 minutes. It resolved on its own without any intervention. It resolved prior to arriving here. She denies any syncope. No tearing or ripping sensation. No vomiting or diarrhea. She does admit to her bowel movement today being constipated hard and having some dark stool. She states that she had not been having bowel movements for some time and that is why things were mildly blocked up. Currently the patient is chest pain-free. She does not have any dizziness currently. She otherwise feels well. She states that her goals today are to help better understand her occasional lightheadedness. No other complaints at this time. No other modifying factors. Son is at bedside. Exam demonstrates well-appearing female, no complaints currently. Mild left lower extremity pitting edema. No calf tenderness though. EKG shows no evidence of STEMI. No significant nystagmus. No evidence of neurologic deficit. Patient has no chest pain at this time. Patient has been taking her Xarelto. Symptoms appear inconsistent with PE at this time, EKG benign. Differential for the cause of her symptoms include a deviated dehydration for her lightheadedness and dizziness and what appears/historically sounds to be mild positional lightheadedness. Symptoms appear clinically inconsistent with dissection. Radial pulses +2 bilaterally. We will perform a rectal exam to see if there is any evidence of heme positive stool. We will perform bedside POCUS, we will evaluate for concerning etiologies monitor closely and reassess. 2:41 AM Hemoglobin has returned at 6.9, which is about a point lower than she was before. Rectal exam demonstrates no gross blood. Hemoccult was negative. Concerned that her anemia is potentially cause of her symptoms. Potentially a slow upper bleed. No other clear source otherwise. We will give a unit of PRBCs. I discussed the risks and benefits of this, and patient has consented. Will continue to monitor closely. 5:30 AM Laboratory workup has returned and completion, side for anemia, the patient's platelets are stable. Electrolytes stable, renal function at baseline. Initial and delta troponin normal. TSH high but free T4 is normal. After unit of PRBCs patient is feeling well. Patient's vital signs have remained stable during the entirety of her stay. No evidence of reaction or other significant abnormality. Symptoms appear inconsistent with ACS, PE or dissection. Patient stable for discharge. The patient only drinks 4 to 5 cups of fluid per day. Recommend increasing this and avoiding salty foods. Recommending close follow-up with her PCP on an outpatient basis. We have also placed a referral with surgery for EGD and colonoscopy to evaluate for potential sources of mild bleeding. Discussed red flags for which to return. I have extensively reviewed the treatment plan and discharge instructions with the patient and their family. I have addressed all patient concerns at this time. The patient and family was made aware of what symptoms to monitor for that would warrant a return to the emergency department. Discussed the plan with the patient and family, they demonstrate verbal understanding and agreement with our assessment and plan at this time. The documentation in this chart was dictated using [employer] dictation software. Please excuse any dictation errors. FINDINGS: Lungs: Unremarkable. No consolidation. Pleural spaces: Unremarkable. No pleural effusion. No pneumothorax. Heart/Mediastinum: Unremarkable. No cardiomegaly. Bones/joints: Unremarkable. IMPRESSION: No acute findings. Thank you for allowing us to participate in the care of your patient. Dictated and Authenticated by: Jerry Martínez MD 12/10/2023 4:12 AM Eastern Time ([place] & [place]) Quality:SDOH Health Related Social Needs: No Data to Display Critical Care Time Critical Care Time Critical Care Time: Yes Total Critical Care Time: 30 Attestation: Upon my evaluation, this patient had a high probability of imminent or life-threatening deterioration, which required my direct attention, intervention, and personal management. I have personally provided 30 minutes of critical care time exclusive of time spent on separately billable procedures. Time includes review of laboratory data, radiology results, discussion with consultants, and monitoring for potential decompensation. Interventions were performed as documented. PFSH All Active Problems (Updated 12/10/23 @ 04:56 by Javier Duggan DO) Anemia (Chronic) Lightheadedness (Acute) Anemia (Chronic) Chest pain (Acute) Localized swelling of left lower leg (Acute) Sinus bradycardia (Acute) Paroxysmal atrial fibrillation (Acute) Episode of syncope (Chronic) CKD (chronic kidney disease) stage 3, GFR 30-59 ml/min (Acute) Lumbosacral spondylosis without myelopathy (Acute) Hx of Helicobacter infection (Acute) 2014 COPD (chronic obstructive pulmonary disease) (Chronic) Cerebrovascular accident (CVA) (Acute) Chronic anxiety (Acute) Solitary lung nodule (Acute) Hydronephrosis (Acute) Chest pain, rule out acute myocardial infarction (Acute) Hx of CABG (Chronic) Mild chronic gastritis (Acute) CAD (coronary artery disease) (Chronic) Peripheral vascular disease (Chronic) Tobacco dependence (Acute) Carotid stenosis (Chronic) Hyperlipidemia (Chronic) Hypothyroid (Chronic) Iron deficiency anemia (Chronic) GERD (gastroesophageal reflux disease) (Acute 09/05/16) Medical History Anemia Diabetes mellitus Chronic kidney disease, stage 3b Lung nodule 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 Prediabetes Asthma Pt denies Asthma Obesity Vitamin D deficiency Hypertension Gastric ulcer 2013 Brittle nails Peripheral vascular disease Depression Intermittent claudication Degenerative disc disease, lumbar Diverticulosis large intestine w/o perforation or abscess w/o bleeding Optic neuritis Impaired glucose regulation Elevated troponin Abnormal EKG Surgical History S/P CABG x 2 right carotid endarterectomy x2 Ligation of fallopian tube EGD - MAC (06/13/17) EGD - IV Sedation 2014 Colonoscopy - MAC 2015 Biopsy, Temporal Artery (09/15/17) right Family History Other Heart disease Social History Smoking/Tobacco Use Status: Current every day Tobacco Type: cigarettes Tobacco: How many years used: 46 Counseling given: patient declined Smoking risk assessment performed?: Yes Alcohol Intake: never Drug use: Never Substance use type: does not use Do you feel safe at home: Yes Do you feel safe in your relationship?: Yes POCUS Exam (ED) Limited Cardiac Exam DATE OF EXAM: 12/10/23 TIME OF EXAM: 02:44 PROVIDER THAT PERFORMED THE STUDY: Javier Duggan IS THIS A REPEAT EXAM DURING THIS ENCOUNTER: no REASON FOR EXAM: Chest pain VISUALIZED STRUCTURES: Left atrium, Left ventricle, Right ventricle and Interventricular septum VIEW OBTAINED: Parasternal long-axis and Parasternal short-axis PERTINENT FINDINGS/IMPRESSION: No apparent abnormalities Exam complete
[2023-12-10 02:17] LABS: Abs Immature Grans 0.14 10^3/uL (0.0-0.06); Absolute Basophil Count 0.03 10^3/uL (0.0-0.2); Absolute Lymphocyte Count 1.72 10^3/uL (1.2-3.4); Absolute Monocyte Count 1.39 10^3/uL (0.1-0.8); Absolute Neutrophil Count 5.53 10^3/uL (1.2-6.7); Basophils % 0.3; Eosinophils % 2.2; Immature Grans % 1.6; Lymphocytes % 19.1; MCH 29.7 pg (27.0-33.0); MCHC 33.8 % (32.0-36.0); MCV 88 fL (80-95); MPV 11.6 fL (8.0-11.0); Monocytes % 15.4; Neutrophils % 61.4; Platelet Count 240 10^3/uL (130-400); RBC 2.32 10^6/uL (3.93-5.22); RDW 14.3 % (11.7-14.6); RDW-SD 45.1 fL; WBC 9.01 10^3/uL (4.4-10.8)
[2023-12-10 02:22] LABS: HCT 20.4 % (36.0-46.0); HGB 6.9 g/dL (11.2-15.7)
[2023-12-10 02:44] LABS: ALT 16 U/L (14-59); AST 15 U/L (15-37); Albumin 3.3 g/dL (3.4-5.0); Alkaline Phosphatase 77 U/L (46-116); Anion Gap 10.6 mmol/L (3-11); BUN 39 mg/dL (7-18); Bilirubin, Total 0.1 mg/dL (0.2-1.0); CO2 25.4 mmol/L (21.0-32.0); CREATININE 1.4 mg/dL (0.55-1.02); Calcium 9.3 mg/dL (8.5-10.1); Chloride 100 mmol/L (98-107); Estimated GFR 38.99 (mL/min/1.73m2); Glucose 123 mg/dL (74-106); Lipase 56 U/L (16-77); Potassium 4.1 mmol/L (3.5-5.1); Sodium 136 mmol/L (136-145); TSH (W/Ref FT4) 8.96 uIU/mL (0.36-3.74); Total Protein 6.9 g/dL (6.4-8.2); Troponin I < 50 ng/L (< or =60)
[2023-12-10 03:10] LABS: FREE T4 0.87 ng/dL (0.76-1.46)
--- NOTE | 2023-12-10 04:12 | DI.VRAD_ITS ---
PROCEDURE INFORMATION: Exam: XR Chest Exam date and time: 12/10/2023 2:12 AM Age: 78 years old Clinical indication: Other: Chest pain TECHNIQUE: Imaging protocol: Radiologic exam of the chest. Views: 1 view. COMPARISON: CR XR CHEST 1V IN DI DEPT 12/06/2023 3:56 PM FINDINGS: Lungs: Unremarkable. No consolidation. Pleural spaces: Unremarkable. No pleural effusion. No pneumothorax. Heart/Mediastinum: Unremarkable. No cardiomegaly. Bones/joints: Unremarkable. IMPRESSION: No acute findings. Dictated and Authenticated by: Jerry Martínez MD. Ordering:HARINDER Herrera MD
[2023-12-10 05:34] LABS: Troponin I < 50 ng/L (< or =60)
--- NOTE | 2023-12-10 07:40 | NUR.NOTE ---
Referral faxed to [facility] Surgery for suspected GI bleed, in 1 week. Nursing Note:
== END 2023-12-10 05:55 | disposition home or self-care (01) ==
PROVIDERS: Emergency Provider Student in an Organized Health Care Education/Training Program; PCP Family Medicine
DX: R07.9 Chest pain, unspecified (principal); R42 Dizziness and giddiness; D64.9 Anemia, unspecified; I12.9 Hypertensive chronic kidney disease with stage 1 through stage 4 chronic kidney disease, or unspecified chronic kidney disease; E11.22 Type 2 diabetes mellitus with diabetic chronic kidney disease; N18.32 Chronic kidney disease, stage 3b; E78.5 Hyperlipidemia, unspecified; I48.0 Paroxysmal atrial fibrillation; I25.10 Atherosclerotic heart disease of native coronary artery without angina pectoris; J44.9 Chronic obstructive pulmonary disease, unspecified; R94.31 Abnormal electrocardiogram [ECG] [EKG]; F17.210 Nicotine dependence, cigarettes, uncomplicated; Z95.5 Presence of coronary angioplasty implant and graft; Z95.1 Presence of aortocoronary bypass graft; Z79.01 Long term (current) use of anticoagulants; Z86.73 Personal history of transient ischemic attack (TIA), and cerebral infarction without residual deficits; Z79.899 Other long term (current) drug therapy
CPT/HCPCS: 36430; 80053; 83690; 86850; 86900; 86901; 86920; 93005; 93308; 99285; 71045; 84439; 84443; 84484; 85025; 93010; 99284; P9016

== ENCOUNTER 2023-12-14 03:44 | Outpatient (CLI) | payer MEDICARE, OTHER, SELFPAY ==
[2023-12-14 09:43] LABS: Abs Immature Grans 0.05 10^3/uL (0.0-0.06); Absolute Basophil Count 0.02 10^3/uL (0.0-0.2); Absolute Eosinophil Count 0.29 10^3/uL (0.0-0.7); Absolute Lymphocyte Count 1.17 10^3/uL (1.2-3.4); Absolute Neutrophil Count 6.88 10^3/uL (1.2-6.7); Basophils % 0.2; Eosinophils % 3.1; HCT 23.3 % (36.0-46.0); HGB 7.9 g/dL (11.2-15.7); Immature Grans % 0.5; Lymphocytes % 12.4; MCH 30.5 pg (27.0-33.0); MCHC 33.9 % (32.0-36.0); MCV 90 fL (80-95); MPV 10.8 fL (8.0-11.0); Monocytes % 10.6; Neutrophils % 73.2; Platelet Count 272 10^3/uL (130-400); RBC 2.59 10^6/uL (3.93-5.22); RDW 15.7 % (11.7-14.6); RDW-SD 49.9 fL; WBC 9.41 10^3/uL (4.4-10.8)
[2023-12-14 10:16] LABS: Ferritin 59 ng/mL (8-252)
== END 2023-12-14 03:45 | disposition home or self-care (01) ==
PROVIDERS: PCP Family Medicine; Visit Provider Internal Medicine Hematology & Oncology
DX: D50.9 Iron deficiency anemia, unspecified (principal)
CPT/HCPCS: 36415; 82728; 85025

== ENCOUNTER → 2023-12-20 07:46 | Outpatient (BNVA) | payer MEDICARE, OTHER, SELFPAY | PROVIDERS: PCP Family Medicine; Referring Provider Family Medicine; Visit Provider Surgery | DX: D64.9 Anemia, unspecified (principal) | CPT/HCPCS: 99214 ==

== ENCOUNTER 2023-12-22 02:50 | Outpatient (CLI) | payer MEDICARE, OTHER, SELFPAY | END 2023-12-22 02:51 | disposition home or self-care (01) | LOC: LBO 02:51 | PROVIDERS: PCP Family Medicine; Visit Provider Internal Medicine Medical Oncology ==

== ENCOUNTER → 2023-12-22 09:57 | Outpatient (BNVA) | payer MEDICARE, OTHER, SELFPAY | PROVIDERS: PCP Family Medicine; Referring Provider Family Medicine; Visit Provider Internal Medicine Cardiovascular Disease | DX: D64.9 Anemia, unspecified (principal); I65.29 Occlusion and stenosis of unspecified carotid artery; Z95.1 Presence of aortocoronary bypass graft | CPT/HCPCS: 36415; 85027; 99212 ==

== ENCOUNTER 2023-12-29 10:32 | Day surgery (SDC) | payer MEDICARE, OTHER, SELFPAY ==
--- NOTE | 2023-12-28 19:30 | PDOC.DSDIS_ITS ---
Date of service: 12/29/23 Time of Service: 13:50 Discharge Plan Disposition Patient Disposition: Home Condition: Good Discharge Details Reason For Visit: Diagnostic EGD and colonoscopy Attending Provider: Marv Sanchez Primary Care Provider: Rafa Aguayo Home Meds and New Rx's Prescriptions: New pantoprazole 40 mg tablet,delayed release (DR/EC) 40 mg PO DAILY Qty: 90 0RF Rx Instructions: Take 1 pill by mouth in the morning, 1 pill by mouth in the evening. Repeat this every day for 4 weeks. Then switch to 1 pill daily. Continued multivitamin tablet 1 tab PO DAILY furosemide 20 mg tablet 20 mg PO DAILY PRN (Reason: edema) Qty: 60 3RF Hold Instructions: Changed by Provider rosuvastatin 10 mg tablet 10 mg PO DAILY ascorbate calcium (vitamin C) 500 mg tablet 500 mg PO .COMPLEX Rx Instructions: 500 mg orally Mon, Wed, Fri; levothyroxine 125 mcg capsule 125 mcg PO DAILY aspirin 81 mg tablet,delayed release (DR/EC) 81 mg PO DAILY clopidogrel 75 mg tablet 75 mg PO DAILY Patient Comments: TAKE ONE TABLET BY MOUTH EVERY DAY ferrous gluconate 324 mg (38 mg iron) tablet 324 mg PO DAILY Patient Comments: TAKE ONE TABLET BY MOUTH EVERY DAY lisinopril-hydrochlorothiazide 20-12.5 mg tablet 1 tab PO DAILY amlodipine 2.5 mg tablet 2.5 mg PO DAILY Patient Comments: TAKE ONE TABLET BY MOUTH EVERY DAY carvedilol 6.25 mg tablet 6.25 mg PO BID cholecalciferol (vitamin D3) [Vitamin D3] 2,000 UNIT capsule 2,000 unit PO DAILY Discharge Instructions Instructions: Peptic Ulcer (DC), Diet for Stomach Ulcers and Gastritis (GEN) Additional Instructions: Julee, we were able to complete your upper and lower endoscopy today without any difficulty. You have a significant amount of inflammation in your stomach, as well as multiple stomach ulcers. This is almost certainly the source of your bleeding. I did multiple biopsies of the area to make sure they are simple ulcers, and see if there are any explanations as to the cause of them. I also use a few clips to help minimize bleeding from one of the more active ulcers. I have provided a prescription for a new medication. It is a very strong antacid. I would like you to take 1 pill in the morning, 1 pill in the evening. After 4 weeks, we can decrease this to 1 pill daily. During the course of your colonoscopy, I did find 3 polyps. These are not the source of your bleeding, but removal of them is a good way to help minimize the chances of developing colon cancer. In addition to the biopsies mentioned above, these polyps will also be sent off to test further nature. Once I have all of that information, the office will be in touch with any other recommendations. 1. If tolerated, consume a soft, low fiber diet for 1-2 days. 2[address] Do not drive, drink alcohol, operate machinery, make critical decisions, or do activities that require coordination or balance for 24 hours. 3. Because air was put into your colon during the procedure, expelling air from your rectum (passing gas or farting) is normal. 4. You may not have a bowel movement for 1-3 days because of the colonoscopy p rep. This is normal. 5. You may experience a sore throat for 24 to 48 hours. You may use throat lozenges or gargle with warm salt water to relieve the discomfort. 6. Because air was put into your stomach during the procedure, you may experience some belching. 7. Go directly to the emergency room if you notice any of the following: Develop chills (warm to touch), or if you have a thermometer and your temperature is above 101 Difficulty breathing or difficultly swallowing Persistent vomiting Severe abdominal pain, other than gas cramps Severe chest pain Black, tarry stools Any bleeding ? exceeding one tablespoon 8. Call your physician if the site where your intravenous was started becomes red, swollen, painful, and warm to touch. 9. Your physician has reviewed your pre-procedure medications. Please continue to take those medications as previously ordered. You will be given specific information/education regarding any changes to your medications before leaving. Activity:: Activity as Tolerated Diet:: As Tolerated Discharge Orders Discharge Orders: Discharge Order (Routine); Ordered 12/28/23 Ordered By: Marv Sanchez DS: Diagnosis Discharge Diagnosis (1) Anemia: Status: Chronic Asessment and Plan: Peptic ulcer disease; start omeprazole; outpatient office follow-up
--- NOTE | 2023-12-28 19:32 | W.PM.ENDDOP ---
Date of service: 12/29/23 Time of Service: 13:55 Endoscopy Report DATE OF PROCEDURE: 12/29/23 PRE-OP DIAGNOSIS: Anemia POST-OP DIAGNOSIS: other (Peptic ulcer disease, Baker's esophagus; diverticulosis, colon polyps) PROCEDURE: EGD with biopsies and clipping of peptic ulcer and colonoscopy with polypectomy SURGEON: Marv Sanchez ANESTHESIA TYPE: General:No Airway ESTIMATED BLOOD LOSS: 10 PATHOLOGY: other (Pyloric biopsies, gastric antral and body biopsies, gastric ulcer in the body of the stomach, GE junction; 0.25 cm colon polyp at 80 cm, 0.25 cm colon polyp at 75 cm, 0.25 cm polyp at 35 cm) COMPLICATIONS: None DISPOSITION: same day INDICATIONS: Julee is a 78 year old woman with anemia. PREP: Miralax/Dulcolax PROCEDURE START TIME: 12:56 PROCEDURE END TIME: 13:37 COLONOSCOPY RETRACTION TIME: 9 FINDINGS: Peptic ulcer disease with multiple areas of gastric ulceration of varying ages. 1 acute peptic ulcer, Baker's esophagus from 35 to 37 cm, diverticulosis, colon polyps x 3 PROCEDURE DESCRIPTION: After the initiation of anesthesia, and with the assistance of a bite block, I advanced a standard gastroscope through the mouth past the hypopharynx and into the esophagus.? Under the direct vision of the scope, I advanced down the esophagus towards the stomach.? The GE junction was encountered at 37 cm from the incisors, with a short segment of Baker's esophagus extending up to 35 cm of irregularity at the Z-line. Narrowband imaging was used to assist with analysis. The camera was then advanced down into the stomach proper, and the stomach was insufflated until the gastric rugae were obliterated. There was evidence of active bleeding, with some partially digested blood product. There was also an acute ulcer along the greater curvature on the anterior portion of the stomach. The camera was then advanced down towards the pylorus. There were several areas of inflammation and ulceration here. I navigated across the pylorus into the duodenum, which also showed some signs of acute inflammation. There is no active signs of bleeding or recent bleeding within the duodenum down to the third portion. The camera was then brought back up into the stomach, and cold forceps biopsies of some pyloric inflammation, as well as multiple areas of the gastric antrum were performed. There was minimal bleeding from the sites. The more acute area of ulceration in the gastric body was also biopsied with cold forceps. Resolution clips were used on either side of the ulcer to help minimize the likelihood of bleeding afterwards. The camera was then brought back up to the GE junction, biopsies were performed here to assess for the extent of the Baker's esophagus. The stomach was then emptied, and the camera was brought back out along the length of the esophagus with no other abnormalities noted. We then moved Julee into the left lateral decubitus position. I began by performing an external anorectal exam.? Perineum and skin were normal, as was the anal verge.? There was no evidence of external hemorrhoids.? Next, I performed a digital rectal exam.? I did not appreciate any abnormal findings.? Next, I advanced a colonoscope into the rectal vault.? I performed retroflexion.? This was normal.? Using insufflation, I then advanced the colonoscope beyond the rectal folds and into the sigmoid colon before advancing towards the cecum.? There was mostly sigmoid diverticulosis..? The scope was noted to be in the cecum by identification of the ileocecal valve and appendiceal orifice.? I then began withdrawing the colonoscope using repeated irrigation as necessary for full evaluation of the colonic mucosa. Colon polyps were noted at 80 cm, 0.75 cm, and 35 cm from the anal verge. All of these polyps were about 0.25 cm, and all were flat. All of these polyps were removed with cold forceps without any issue. ?Once the scope was withdrawn to the level of the rectum, great care was taken to examine portions of the rectal folds.? Finally, the scope was withdrawn and the patient was brought to the same-day surgery recovery unit as the anesthetic wore off. ?The findings and instructions were shared with the patient prior to discharge. The [place] bowel prep score from right to left was 2, 2, 2
--- NOTE | 2023-12-29 12:19 | ANES.PREOP_ITS ---
General Info Date of Service Date Performed: 12/29/23 Height: 5 ft 2.5 in Weight: 73.1 kg Body Mass Index (BMI): 29.0 Surgical Procedure: Operation Date: 12/29/23 12:50 Proposed Procedure Side Surgeon p Colonoscopy/Gastroscopy Marv Sanchez MD Meds Allergies and Home Medications Allergies Allergy/AdvReac Type Severity Reaction Status Date / Time cilostazol AdvReac Severe Headache Verified 12/29/23 11:12 Axkzzyt-ZNP-DuO Reductase AdvReac Intermediate Headache Verified 12/29/23 11:12 Inhibitor [Vvysxxf-Ghs-Cyu Reductase Inhibitor] atenolol AdvReac Mild palpitation Verified 12/29/23 11:12 s losartan potassium AdvReac Mild palpitation Verified 12/29/23 11:12 [From Cee] s levothyroxine sodium AdvReac pt unsure Verified 12/29/23 11:12 Home Medication Medication Instructions Recorded cholecalciferol (vitamin D3) 50 2,000 unit PO DAILY 06/06/17 mcg (2,000 unit) capsule (Vitamin D3) multivitamin 1 tab PO DAILY 03/15/19 furosemide 20 mg tablet 20 mg PO DAILY PRN edema #60 tabs 05/28/20 clopidogrel 75 mg tablet 75 mg PO DAILY 12/01/20 ferrous gluconate 324 mg (38 mg 324 mg PO DAILY 12/01/20 iron) tablet rosuvastatin 10 mg tablet 10 mg PO DAILY 12/16/20 ascorbate calcium (vitamin C) 500 500 mg PO .COMPLEX 07/29/22 mg tablet levothyroxine 125 mcg capsule 125 mcg PO DAILY 08/25/22 lisinopril 20 1 tab PO DAILY 12/06/23 mg-hydrochlorothiazide 12.5 mg tablet amlodipine 2.5 mg tablet 2.5 mg PO DAILY 12/10/23 carvedilol 6.25 mg tablet 6.25 mg PO BID 12/10/23 aspirin 81 mg tablet,delayed 81 mg PO DAILY 12/20/23 release Current Visit Medications: Current Medications Generic Name Dose Route Start Last Admin Trade Name Freq PRN Reason Stop Dose Admin Hyoscyamine Sulfate 0.125 mg 12/28/23 19:33 Hyoscyamine 0.125 Mg Sl/Oral/Chew SL 01/27/24 19:32 DIRECTED PRN Ringer's Solution 1,000 mls @ 80 mls/hr 12/29/23 06:00 IV 01/27/24 23:59 INFUSION ANOOP IV Miscellaneous Supplies 1 each 12/29/23 06:00 Iv Access IV 01/27/24 23:59 DIRECTED ANOOP Ondansetron HCl 4 mg 12/28/23 19:33 Ondansetron 4 Mg/2 Ml Vial IVP 01/27/24 19:32 Q4H PRN PRN Nausea / Vomiting Sodium Chloride 0 ml 12/29/23 06:00 Normal Saline Flush 10 Ml Syr IV 01/27/24 23:59 PRN PRN Sodium Chloride 0 ml 12/29/23 06:00 Normal Saline 10 Ml Vial IJ 01/27/24 23:59 DIRECTED PRN Sterile Water 0 ml 12/29/23 06:00 Water,Injection,Sterile 10 Ml Vial IJ 01/27/24 23:59 DIRECTED PRN PFSH Active Problems Active Problems: Problem Status Onset Code Anemia D64.9 Lightheadedness R42 Anemia D64.9 Chest pain R07.9 Localized swelling of left lower leg R22.42 Sinus bradycardia R00.1 Episode of syncope R55 CKD (chronic kidney disease) stage 3, GFR 30-59 ml/min N18.30 Lumbosacral spondylosis without myelopathy M47.817 COPD (chronic obstructive pulmonary disease) J44.9 Solitary lung nodule R91.1 Hydronephrosis N13.30 Hx of CABG Z95.1 Chest pain, rule out acute myocardial infarction R07.9 Mild chronic gastritis K29.50 Peripheral vascular disease I73.9 CAD (coronary artery disease) I25.10 GERD (gastroesophageal reflux disease) 09/05/16 K21.9 Cerebrovascular accident (CVA) Chronic anxiety Iron deficiency anemia Hypothyroid Hyperlipidemia Carotid stenosis Tobacco dependence Hx of Helicobacter infection Medical History Medical History Anemia Diabetes mellitus Pt denies Chronic kidney disease, stage 3b Lung nodule 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 Prediabetes Asthma Pt denies Asthma Obesity Vitamin D deficiency Hypertension Gastric ulcer 2014 Brittle nails Peripheral vascular disease Depression Intermittent claudication Degenerative disc disease, lumbar Diverticulosis large intestine w/o perforation or abscess w/o bleeding Optic neuritis Impaired glucose regulation Elevated troponin Abnormal EKG Surgical History Surgical History S/P CABG x 2 right carotid endarterectomy x2 Ligation of fallopian tube EGD - MAC (06/13/17) EGD - IV Sedation 2013 Colonoscopy - MAC 2015 Biopsy, Temporal Artery (09/15/17) right Tobacco Smoking/Tobacco Use Status: Current every day Tobacco Type: cigarettes Smoking cigarettes per day: 10 Counseling given: patient declined Alcohol Alcohol Intake: never Substance Use Substance use: Never Substance use type: does not use Vital Signs and Lab Results Lab Results Blood Type / Crossmatch: Patient ABO/Rh O Negative 12/15/23 Antibody Screen NEGATIVE 12/15/23 Crossmatch See Detail 12/15/23 Complete Blood Count: White Blood Count 6.04 10^3/uL (4.4-10.8) 12/22/23 08:55 Red Blood Count 3.22 10^6/uL (3.93-5.22) L 12/22/23 08:55 Hemoglobin 9.6 g/dL (11.2-15.7) L 12/22/23 08:55 Hematocrit 28.6 % (36.0-46.0) L 12/22/23 08:55 Platelet Count 283 10^3/uL (130-400) 12/22/23 08:55 Complete Metabolic Panel: Sodium 136 mmol/L (136-145) 12/10/23 02:05 Potassium 4.1 mmol/L (3.5-5.1) 12/10/23 02:05 Chloride 100 mmol/L (98-107) 12/10/23 02:05 Carbon Dioxide 25.4 mmol/L (21.0-32.0) 12/10/23 02:05 BUN 39 mg/dL (7-18) H 12/10/23 02:05 Creatinine 1.4 mg/dL (0.55-1.02) H 12/10/23 02:05 Est GFR (CKD-EPI 2020) 38.99 (mL/min/1.73m2) 12/10/23 02:05 Magnesium 2.4 mg/dL (1.8-2.4) 12/06/23 15:19 Calcium 9.3 mg/dL (8.5-10.1) 12/10/23 02:05 Albumin 3.3 g/dL (3.4-5.0) L 12/10/23 02:05 Glucose 123 mg/dL (74-106) H 12/10/23 02:05 Hemoglobin A1c 6.1 % (<5.7) H 12/05/23 10:20 Liver Function Panel: Alanine Aminotransferase (ALT/SGPT) 16 U/L (14-59) 12/10/23 02: 05 Aspartate Amino Transf (AST/SGOT) 15 U/L (15-37) 12/10/23 02:05 Coagulation Panel: No Data to Display Cardiac Panel: Troponin I < 50 ng/L (< or =60) 12/10/23 NT-Pro-B Natriuret Pep 517 pg/mL (<300) H 12/06/23 Arterial Blood Gas: No Data to Display Venous Blood Gas: No Data to Display Pancreas Panel: Lipase 56 U/L (16-77) 12/10/23 02:05 Thyroid Panel: Thyroid Stimulating Hormone (TSH) 8.96 uIU/mL (0.36-3.74) H 12/10/23 02:05 Infectious Disease: No Data to Display Blood Cultures: No Data to Display Toxicology Panel: No Data to Display Imaging and Studies Imaging and Studies Study information below may be from another EMR and interpreted by another provider. Please see original notes in EMR for more complete details. EKG Summary: 12/10/23 Conclusion Sinus bradycardia...rate< 60 Borderline prolonged MA interval...MA >212, V-rate 50- 90 Stress Test Summary: 09/11/17 Impressions: - Normal perfusion by [id number] Sestamibi Imaging. - Abnormal contraction consistent with cardiomyopathy. Summary: 1. Myocardial perfusion imaging: Moderate size and intensity predominantly fixed anterior defect; resolves with AC, dense breast shadow on RI. C/W breast artifact. No myocardial perfusion defects noted. 2. The calculated left ventricular ejection fraction after stress: 47%. No left ventricular regional motion abnormality. Echocardiogram Summary: 01/07/21 Conclusion Left Ventricle : The left ventricle is normal size. The left ventricular systolic function is normal. The left ventricular ejection fraction is within the normal range. There is normal left ventricular wall thickness. There is normal LV segmental wall motion. The left ventricular diastolic function is normal. LVEF is 59%. Right Ventricle : The right ventricle is normal size. The right ventricular systolic function is normal. The RVSP is 31.1 mmHg. Atria : Left atrium is mildly dilated. The right atrium size is normal. Mitral Valve : Mild mitral annular calcification. Mild mitral regurgitation. No evidence of mitral valve stenosis. Great Vessels : The aortic root is normal in size. Ascending aorta is not well visualized. Aortic arch is normal in caliber. IVC is normal in size and collapses >50% with inspiration. Compared to study from 08/23/2019, there is no significant change. Anesthesia Assessment and Plan Anesthesia History Personal History: No History of Anesthesia Complications Family History: No Family History of Anesthesia Complications Exercise Tolerance Exercise Tolerance: Metabolic Equivalents<4 Pertinent Negatives Pertinent Negatives: No Major Cardiovascular Symptoms or Complaints (occ chest diacomfort, cardiac ruled out at 2 recent ER visits) and No Major Pulmonary Symptoms or Complaints Cardiac & Pulmonary Exam Cardiac Exam: Normal S1/S2 Heart Sounds Pulmonary Exam: Clear Bilateral Breath Sounds Cardiac and Pulmonary Comment:: Chronic smokers cough Implantable Cardiac Device Does patient have a Pacemaker or an ICD?: No Airway Exam Known Difficult Airway: No Mallampati Class: 1 Mouth Opening: Normal (> 3cm) Thyromental Distance: Greater than 3 cm Neck Range of Motion: Full ROM Neck Circumference: Normal Teeth Condition: Removable Dentures/Plates Upper and Edentulous ASA Classification ASA Score: ASA 3 Emergency Case?: No NPO Status NPO Status: NPO Clears >2 hours, Solids >8 hours Anesthesia Plan Resuscitation Status: Full Code Anesthesia Technique: General Anesthesia Airway Planned: Natural Airway Monitors Used: Standard Monitors
[2023-12-29] MEDS: Lactated Ringers 1,000 ML 80 ML IV (12:40)
[2023-12-29 12:50] VITALS: BMI 29.0
--- NOTE | 2023-12-29 13:01 | BOWEL_PTH ---
PATIENT: Julee Rick LOC: [facility] U#:[id number] AGE/SX: 78/F ROOM: RE12/29/[address]: Marv Sanchez MD : [id number] BED: DIS: 12/29/2023 SPEC #: [id number] RECD: 12/29/23 17:36 STATUS: DARREL RE #: [id number] [place]: 12/29/23 13:[address]: Marv Sanchez DEPT: Surgical Specimen RECD BY: Cathy Gonsalez ENTERED: 12/29/23 17:38 SP TYPE: Bowel OTHR DR: Rafa Aguyao Tissues: 1 - STOMACH BIOPSY 2 - STOMACH BIOPSY 3 - STOMACH BIOPSY 4 - ESOPHAGUS BIOPSY 5 - BIOPSY BOWEL 6 - BIOPSY BOWEL 7 - BIOPSY BOWEL Procedures: GROSS AND MICRO LEVEL 4 IMMUNOPEROXIDASE STAIN Comments: [id number]
[2023-12-29 13:45] VITALS: BP 120/80; PULSE 48; RESP 16; TEMP 37.1; O2SAT 95
--- NOTE | 2023-12-29 14:05 | W.ANESPOSTOP ---
Postoperative Evaluation Date, Time and Location Date Performed: 12/29/23 Time Performed: 13:52 Patient Location: Day Surgery Unit Vital Signs Most Recent Imported Vital Signs: Most Recent Vital Signs Temp Pulse Resp BP Pulse Ox 37.1 C 48 L 16 120/80 95 12/29/23 13:45 12/29/23 13:45 12/29/23 13:45 12/29/23 13:45 12/29/23 13:45 Pain Score Most Recent Pain Score: Most Recent Pain Score Pain Level 0 12/29/23 13:45 Assessment Mental Status: Awake (Alert & Oriented to Patient Baseline) Airway and Respiratory Function: Patent airway with normal (patient baseline) respiratory exam Cardiovascular Function: Hemodynamically Stable Hydration Status: Adequately Hydrated Nausea & Vomiting: No Nausea or Vomiting Pain: Pt. Denies Any Pain Peripheral Nerve Block: Patient did not receive a nerve block
[2023-12-29 14:11] VITALS: BP 125/83; PULSE 50; RESP 18; TEMP 37; O2SAT 98
== END 2023-12-29 14:36 | disposition home or self-care (01) ==
LOC: SUR 10:32
PROVIDERS: PCP Family Medicine; Visit Provider Surgery
PROC: (CPT 45380; principal; 2023-12-29 12:45)
DX: D64.9 Anemia, unspecified (principal); D12.4 Benign neoplasm of descending colon; K57.30 Diverticulosis of large intestine without perforation or abscess without bleeding; K27.9 Peptic ulcer, site unspecified, unspecified as acute or chronic, without hemorrhage or perforation; K22.719 Barrett's esophagus with dysplasia, unspecified; K29.50 Unspecified chronic gastritis without bleeding; K21.9 Gastro-esophageal reflux disease without esophagitis; K63.89 Other specified diseases of intestine; K31.89 Other diseases of stomach and duodenum
CPT/HCPCS: 45380; 43239; 88305; 88361; J2001; J2704

== ENCOUNTER 2024-01-04 05:00 | Outpatient (RCR) | payer MEDICARE, OTHER, SELFPAY ==
[2023-12-15 10:37] VITALS: BP 148/55; PULSE 48; TEMP 36.6; O2SAT 99
[2023-12-15 10:52] VITALS: BP 113/56; PULSE 48; RESP 18; TEMP 36.6; O2SAT 98
[2023-12-15 11:22] VITALS: BP 143/54; PULSE 56; TEMP 36; O2SAT 99
[2023-12-15 12:16] VITALS: BP 157/55; PULSE 48; RESP 16; TEMP 36.8; O2SAT 98
[2023-12-15 12:45] VITALS: BP 152/52; PULSE 46; RESP 17; TEMP 36.1; O2SAT 99
[2023-12-22 09:22] LABS: HCT 28.6 % (36.0-46.0); HGB 9.6 g/dL (11.2-15.7); MCH 29.8 pg (27.0-33.0); MCHC 33.6 % (32.0-36.0); MCV 89 fL (80-95); MPV 11.1 fL (8.0-11.0); Platelet Count 283 10^3/uL (130-400); RBC 3.22 10^6/uL (3.93-5.22); RDW 14.7 % (11.7-14.6); RDW-SD 47.7 fL; WBC 6.04 10^3/uL (4.4-10.8)
== END 2024-01-07 23:59 | disposition home or self-care (01) ==
LOC: INF 05:00
PROVIDERS: PCP Family Medicine; Visit Provider Internal Medicine
DX: N18.31 Chronic kidney disease, stage 3a (principal); D63.1 Anemia in chronic kidney disease
CPT/HCPCS: 36415; 36430; 85027; 86850; 86900; 86901; 86920; 99024; P9016

== ENCOUNTER 2024-01-04 05:13 | Outpatient (CLI) | payer MEDICARE, OTHER, SELFPAY ==
[2024-01-04 09:11] LABS: Abs Immature Grans 0.04 10^3/uL (0.0-0.06); Absolute Basophil Count 0.01 10^3/uL (0.0-0.2); Absolute Eosinophil Count 0.21 10^3/uL (0.0-0.7); Absolute Lymphocyte Count 1.04 10^3/uL (1.2-3.4); Absolute Monocyte Count 0.94 10^3/uL (0.1-0.8); Absolute Neutrophil Count 4.41 10^3/uL (1.2-6.7); Basophils % 0.2; Eosinophils % 3.2; HCT 31.5 % (36.0-46.0); HGB 10.6 g/dL (11.2-15.7); Immature Grans % 0.6; Lymphocytes % 15.6; MCHC 33.7 % (32.0-36.0); MCV 86 fL (80-95); MPV 9.8 fL (8.0-11.0); Monocytes % 14.1; Neutrophils % 66.3; Platelet Count 272 10^3/uL (130-400); RBC 3.65 10^6/uL (3.93-5.22); RDW 13.5 % (11.7-14.6); RDW-SD 42.5 fL; Reticulocyte 2.6 % (0.5-2.4); WBC 6.65 10^3/uL (4.4-10.8)
[2024-01-04 09:42] LABS: Iron 196 ug/dL (50-170); Total Iron Binding Capacity 375 ug/dL (250-450); Transferrin Sat 52 % (15-50)
[2024-01-04 09:54] LABS: ALT 19 U/L (14-59); AST 12 U/L (15-37); Albumin 3.9 g/dL (3.4-5.0); Alkaline Phosphatase 86 U/L (46-116); Anion Gap 9.6 mmol/L (3-11); BUN 24 mg/dL (7-18); Bilirubin, Total 0.4 mg/dL (0.2-1.0); CO2 29.4 mmol/L (21.0-32.0); CREATININE 1.4 mg/dL (0.55-1.02); Calcium 9.5 mg/dL (8.5-10.1); Chloride 88 mmol/L (98-107); Estimated GFR 38.99 (mL/min/1.73m2); Ferritin 65 ng/mL (8-252); Glucose 125 mg/dL (74-106); Potassium 3.9 mmol/L (3.5-5.1); Sodium 127 mmol/L (136-145); Total Protein 7.7 g/dL (6.4-8.2); Vitamin B12 1580 pg/mL (193-986)
[2024-01-04 09:55] LABS: Folate > 20.0 ng/mL (8.6-20.0)
[2024-01-04 10:06] LABS: LDH 142 U/L (81-234)
[2024-01-05 16:12] LABS: Haptoglobin 280 mg/dL (32-197)
[2024-01-05 18:28] LABS: Erythropoietin 31.4 mIU/mL (2.6 - 18.5)
== END 2024-01-04 05:14 | disposition home or self-care (01) ==
LOC: LBO 05:13
PROVIDERS: PCP Family Medicine; Visit Provider Nurse Practitioner Family
DX: N18.31 Chronic kidney disease, stage 3a (principal)
CPT/HCPCS: 36415; 80053; 82668; 85045; 82607; 82728; 82746; 83010; 83540; 83550; 83615; 85025; 86880

== ENCOUNTER 2024-01-18 13:17 | Outpatient (CLI) | payer MEDICARE, OTHER, SELFPAY ==
[2024-01-18 12:45] LABS: Abs Immature Grans 0.02 10^3/uL (0.0-0.06); Absolute Basophil Count 0.04 10^3/uL (0.0-0.2); Absolute Eosinophil Count 0.22 10^3/uL (0.0-0.7); Absolute Lymphocyte Count 1.17 10^3/uL (1.2-3.4); Absolute Neutrophil Count 3.94 10^3/uL (1.2-6.7); Basophils % 0.6; Eosinophils % 3.6; HCT 30.9 % (36.0-46.0); HGB 10.3 g/dL (11.2-15.7); Immature Grans % 0.3; Lymphocytes % 18.9; MCH 29.3 pg (27.0-33.0); MCHC 33.3 % (32.0-36.0); MCV 88 fL (80-95); MPV 9.8 fL (8.0-11.0); Monocytes % 12.9; Neutrophils % 63.7; Platelet Count 303 10^3/uL (130-400); RBC 3.51 10^6/uL (3.93-5.22); RDW-SD 45.1 fL; Reticulocyte 2.3 % (0.5-2.4); WBC 6.19 10^3/uL (4.4-10.8)
[2024-01-18 13:36] LABS: ALT 19 U/L (14-59); AST 13 U/L (15-37); Albumin 3.7 g/dL (3.4-5.0); Alkaline Phosphatase 77 U/L (46-116); Anion Gap 8.3 mmol/L (3-11); BUN 19 mg/dL (7-18); Bilirubin, Total 0.4 mg/dL (0.2-1.0); CO2 27.7 mmol/L (21.0-32.0); CREATININE 1.3 mg/dL (0.55-1.02); Calcium 9.5 mg/dL (8.5-10.1); Chloride 93 mmol/L (98-107); Estimated GFR 42.62 (mL/min/1.73m2); Ferritin 70 ng/mL (8-252); Glucose 166 mg/dL (74-106); LDH 129 U/L (81-234); Potassium 4.2 mmol/L (3.5-5.1); Sodium 129 mmol/L (136-145); Total Protein 7.4 g/dL (6.4-8.2); Vitamin B12 951 pg/mL (193-986)
[2024-01-18 13:39] LABS: Folate > 20.0 ng/mL (8.6-20.0)
[2024-01-18 13:47] LABS: Iron 55 ug/dL (50-170); Total Iron Binding Capacity 354 ug/dL (250-450); Transferrin Sat 16 % (15-50)
[2024-01-19 10:08] LABS: Haptoglobin 277 mg/dL (32-197)
[2024-01-19 18:33] LABS: Erythropoietin 28.9 mIU/mL (2.6 - 18.5)
== END 2024-01-18 13:18 | disposition home or self-care (01) ==
LOC: LBO 13:18
PROVIDERS: PCP Family Medicine; Visit Provider Nurse Practitioner Family
DX: N18.31 Chronic kidney disease, stage 3a (principal); D63.1 Anemia in chronic kidney disease
CPT/HCPCS: 36415; 80053; 82668; 82607; 82728; 82746; 83010; 83540; 83550; 83615; 85025; 85045; 86880

== ENCOUNTER 2024-02-06 10:49 | Outpatient (RCR) | payer SELFPAY ==
[2024-01-09 11:29] VITALS: BP 123/44; PULSE 50
[2024-01-16 11:59] VITALS: BP 127/40; PULSE 55
[2024-01-23 11:16] VITALS: BP 123/41; PULSE 53
[2024-01-25 11:01] VITALS: BP 148/45; PULSE 55
[2024-01-30 11:00] VITALS: BP 120/40; PULSE 56
[2024-02-01 10:47] VITALS: BP 128/42; PULSE 55
[2024-02-06 11:26] VITALS: BP 120/44; PULSE 57
== END 2024-02-06 23:59 | disposition home or self-care (01) ==
LOC: CR 10:49
PROVIDERS: PCP Family Medicine; Visit Provider Internal Medicine Cardiovascular Disease
DX: R69 Illness, unspecified (principal)

== ENCOUNTER 2024-02-08 05:01 | Outpatient (CLI) | payer MEDICARE, OTHER, SELFPAY ==
[2024-02-08 09:55] LABS: Abs Immature Grans 0.03 10^3/uL (0.0-0.06); Absolute Basophil Count 0.02 10^3/uL (0.0-0.2); Absolute Eosinophil Count 0.17 10^3/uL (0.0-0.7); Absolute Lymphocyte Count 0.92 10^3/uL (1.2-3.4); Absolute Monocyte Count 0.77 10^3/uL (0.1-0.8); Absolute Neutrophil Count 4.16 10^3/uL (1.2-6.7); Basophils % 0.3 %; Eosinophils % 2.8 %; HGB 9.9 g/dL (11.2-15.7); Immature Grans % 0.5 %; Lymphocytes % 15.2 %; MCH 28.4 pg (27.0-33.0); MCV 86 fL (80-95); MPV 10.4 fL (8.0-11.0); Monocytes % 12.7 %; Neutrophils % 68.5 %; Platelet Count 287 10^3/uL (130-400); RBC 3.48 10^6/uL (3.93-5.22); RDW 13.4 % (11.7-14.6); RDW-SD 41.9 fL; WBC 6.07 10^3/uL (4.4-10.8)
[2024-02-08 10:25] LABS: FREE T4 1.55 ng/dL (0.76-1.46); TSH 1.19 uIU/Ml (0.36-3.74)
[2024-02-08 10:28] LABS: Ferritin 74 ng/mL (8-252)
== END 2024-02-08 05:02 | disposition home or self-care (01) ==
LOC: LBO 05:01
PROVIDERS: PCP Family Medicine; Visit Provider Internal Medicine Hematology & Oncology
DX: N18.31 Chronic kidney disease, stage 3a (principal); D63.1 Anemia in chronic kidney disease
CPT/HCPCS: 36415; 82728; 84439; 84443; 85025

== ENCOUNTER → 2024-02-14 03:48 | Outpatient (CLI) | payer MEDICARE, OTHER, SELFPAY ==
[2023-08-03 11:50] VITALS: BP 130/45; PULSE 53
[2023-08-22 10:38] VITALS: BP 144/50; PULSE 51
[2023-09-21 11:35] VITALS: BP 146/57; PULSE 53
--- NOTE | 2024-02-14 07:30 | DI.US_ITS ---
Exam(s) US RENAL EXAM: US RENAL CLINICAL HISTORY: monitoring hydronephrosis,n13.30. TECHNIQUE: Ruiz scale, color and spectral Doppler were used. COMPARISON: US US RENAL from 08/18/[address] CHEST LUNG CANCER SCREEN from 12/13/2022 US US RENAL from 02/13/[address] ABDOMEN PELVIS W from 03/28/2023 US POCUS EXAM from 12/10/2023 FINDINGS: Right kidney: 12.2cm Echogenicity: Normal Hydronephrosis: Mild hydronephrosis, similar to most recent ultrasound. Question of a 5 millimeter s tone in the proximal right ureter versus artifact. Cyst or mass: No Nephrolithiasis: 3 millimeter stone in 6 millimeter stone noted at the lower pole of the right kidney . Left kidney: 11.0cm Echogenicity: Normal Hydronephrosis: No Cyst or mass: No Nephrolithiasis: No Bladder:Not well distended. Ureteral jets were not visualized. Prevoid vol:92 cc Postvoid vol:2 cc IMPRESSION: Stable mild right hydronephrosis. Question of a 5 millimeter stone in the upper right ureter. Right nephrolithiasis. DATA REPOSITORY:
== END ==
PROVIDERS: PCP Family Medicine; Visit Provider Nurse Practitioner Gerontology
DX: N13.30 Unspecified hydronephrosis (principal)
CPT/HCPCS: 76770

== ENCOUNTER → 2024-02-16 10:36 | Outpatient (BNVA) | payer MEDICARE, OTHER, SELFPAY | PROVIDERS: PCP Family Medicine; Visit Provider Internal Medicine Cardiovascular Disease | DX: I25.10 Atherosclerotic heart disease of native coronary artery without angina pectoris (principal); I65.29 Occlusion and stenosis of unspecified carotid artery | CPT/HCPCS: 99213 ==

== ENCOUNTER 2024-02-23 12:41 | Outpatient (CLI) | payer MEDICARE, OTHER, SELFPAY ==
[2024-02-23 13:03] LABS: Abs Immature Grans 0.02 10^3/uL (0.0-0.06); Absolute Basophil Count 0.02 10^3/uL (0.0-0.2); Absolute Eosinophil Count 0.24 10^3/uL (0.0-0.7); Absolute Lymphocyte Count 1.15 10^3/uL (1.2-3.4); Absolute Monocyte Count 0.76 10^3/uL (0.1-0.8); Absolute Neutrophil Count 3.94 10^3/uL (1.2-6.7); Basophils % 0.3 %; Eosinophils % 3.9 %; HCT 23.5 % (36.0-46.0); HGB 7.8 g/dL (11.2-15.7); Immature Grans % 0.3 %; Lymphocytes % 18.8 %; MCH 29.1 pg (27.0-33.0); MCHC 33.2 % (32.0-36.0); MCV 88 fL (80-95); MPV 9.7 fL (8.0-11.0); Monocytes % 12.4 %; Neutrophils % 64.3 %; Platelet Count 267 10^3/uL (130-400); RBC 2.68 10^6/uL (3.93-5.22); RDW 14.4 % (11.7-14.6); RDW-SD 45.5 fL; WBC 6.13 10^3/uL (4.4-10.8)
[2024-02-23 14:08] LABS: Ferritin 38 ng/mL (8-252)
== END 2024-02-23 12:42 | disposition home or self-care (01) ==
LOC: LBO 12:41
PROVIDERS: PCP Student in an Organized Health Care Education/Training Program; Visit Provider Internal Medicine Hematology & Oncology
DX: N18.31 Chronic kidney disease, stage 3a (principal)
CPT/HCPCS: 36415; 82728; 85025

== ENCOUNTER 2024-03-05 11:15 | Outpatient (RCR) | payer SELFPAY ==
[2024-02-07 00:29] VITALS: BP 120/44; PULSE 57
[2024-02-13 11:33] VITALS: BP 129/44; PULSE 51
[2024-02-15 11:40] VITALS: BP 136/41; PULSE 55
[2024-02-22 10:35] VITALS: BP 138/70; PULSE 69
[2024-03-05 11:25] VITALS: BP 115/44; PULSE 49
--- NOTE | 2024-03-05 11:26 | NUR.NOTE ---
Addendum entered by Estefani Patel 03/05/24 12:01: Called and spoke with nurse Hema from [facility]. Reported below findings. Patient left rehab ambulatory in no apparent distress, and denied dizziness or any other symptoms. Post exercise BP via manual cuff noted to be 132/44. Per nurse Hema at [facility] patient has F/U visit with PCP on 03/11/24 and Hema will relay all info to Dr. Botello, patient's PCP. Original Note: Nursing Note: Patient reported to have been dizzy after arriving to [facility] phase 3. States this resolved after sitting and resting outside [facility] gym. Patient noted her PCP is aware of her dizzy episodes and has been working with her on this. Patient stated she had not had much fluid intake today and was given approx 300ml water prior to exercise. Agreeable to stop exercise if dizziness occurs and plans to only doing sitting exercises. States she has F/U with her PCP next week who has been previously ok with her exercising in [facility]. Continue to monitor.
== END 2024-03-08 23:59 | disposition home or self-care (01) ==
LOC: CR 11:15
PROVIDERS: PCP Family Medicine; Visit Provider Internal Medicine Cardiovascular Disease
DX: R69 Illness, unspecified (principal)

== ENCOUNTER 2024-03-07 04:14 | Outpatient (CLI) | payer MEDICARE, OTHER, SELFPAY ==
[2024-03-07 08:48] LABS: Abs Immature Grans 0.02 10^3/uL (0.0-0.06); Absolute Basophil Count 0.03 10^3/uL (0.0-0.2); Absolute Eosinophil Count 0.26 10^3/uL (0.0-0.7); Absolute Lymphocyte Count 0.99 10^3/uL (1.2-3.4); Absolute Monocyte Count 1.02 10^3/uL (0.1-0.8); Absolute Neutrophil Count 4.74 10^3/uL (1.2-6.7); Basophils % 0.4 %; Eosinophils % 3.7 %; HCT 24.2 % (36.0-46.0); HGB 7.9 g/dL (11.2-15.7); Immature Grans % 0.3 %; MCHC 32.6 % (32.0-36.0); MCV 86 fL (80-95); MPV 9.7 fL (8.0-11.0); Monocytes % 14.4 %; Neutrophils % 67.2 %; Platelet Count 289 10^3/uL (130-400); RBC 2.82 10^6/uL (3.93-5.22); RDW 14.4 % (11.7-14.6); RDW-SD 45.4 fL; WBC 7.06 10^3/uL (4.4-10.8)
[2024-03-07 09:24] LABS: Ferritin 65 ng/mL (8-252)
== END 2024-03-07 04:15 | disposition home or self-care (01) ==
LOC: LBO 04:14
PROVIDERS: PCP Student in an Organized Health Care Education/Training Program; Visit Provider Internal Medicine Hematology & Oncology
DX: N18.31 Chronic kidney disease, stage 3a (principal); D63.1 Anemia in chronic kidney disease
CPT/HCPCS: 36415; 82728; 85025

== ENCOUNTER 2024-03-15 05:06 | Outpatient (CLI) | payer MEDICARE, OTHER, SELFPAY ==
[2024-03-15 09:04] LABS: Abs Immature Grans 0.02 10^3/uL (0.0-0.06); Absolute Basophil Count 0.03 10^3/uL (0.0-0.2); Absolute Eosinophil Count 0.24 10^3/uL (0.0-0.7); Absolute Lymphocyte Count 0.91 10^3/uL (1.2-3.4); Absolute Monocyte Count 0.89 10^3/uL (0.1-0.8); Absolute Neutrophil Count 3.54 10^3/uL (1.2-6.7); Basophils % 0.5 %; Eosinophils % 4.3 %; HCT 25.8 % (36.0-46.0); HGB 8.6 g/dL (11.2-15.7); Immature Grans % 0.4 %; Lymphocytes % 16.2 %; MCH 28.1 pg (27.0-33.0); MCHC 33.3 % (32.0-36.0); MCV 84 fL (80-95); MPV 10.1 fL (8.0-11.0); Monocytes % 15.8 %; Neutrophils % 62.8 %; Platelet Count 330 10^3/uL (130-400); RBC 3.06 10^6/uL (3.93-5.22); RDW 14.6 % (11.7-14.6); WBC 5.63 10^3/uL (4.4-10.8)
[2024-03-15 09:32] LABS: Ferritin 68 ng/mL (8-252)
== END 2024-03-15 05:07 | disposition home or self-care (01) ==
LOC: LBO 05:08
PROVIDERS: PCP Student in an Organized Health Care Education/Training Program; Visit Provider Internal Medicine Hematology & Oncology
DX: N18.31 Chronic kidney disease, stage 3a (principal); D63.1 Anemia in chronic kidney disease
CPT/HCPCS: 36415; 82728; 85025

== ENCOUNTER 2024-03-17 16:06 | Emergency (ER) | payer MEDICARE, OTHER, SELFPAY ==
[2024-03-17] VITALS (28 sets, daily range): BP systolic 111–167; BP diastolic 11–59; PULSE 44–56; RESP 11–25; TEMP 36.1; O2SAT 96–100
--- NOTE | 2024-03-17 16:00 | RT.EKG_ITS ---
APPROVED REPORT Exam: Resting ECG Reason for Exam: dizziness Patient Location: E HR:46 bpm ECG Measurements Heart Rate 46 AXIS IA 255 P -14 QRSd 107 QRS 42 QT 484 T 68 QTc 426 Conclusion Sinus bradycardia...rate< 60 Prolonged IA interval...IA >230, V-rate 30- 49
--- NOTE | 2024-03-17 16:28 | ED.GENADUL_ITS ---
Discharge Plan Disposition Patient Disposition: Home Condition: Stable Discharge Details Clinical Impression: Dizziness, Hyponatremia Primary Care Provider: Zafar Botello ED Provider: Kayden Land Home Meds and New Rx's Prescriptions: Continued multivitamin tablet 1 tab PO DAILY rosuvastatin 10 mg tablet 10 mg PO DAILY ascorbate calcium (vitamin C) 500 mg tablet 500 mg PO .COMPLEX Rx Instructions: 500 mg orally Mon, Wed, Fri; levothyroxine 125 mcg capsule 125 mcg PO DAILY furosemide 20 mg tablet 20 mg PO DAILY PRN (Reason: edema) Qty: 60 3RF Hold Instructions: Changed by Provider aspirin 81 mg tablet,delayed release (DR/EC) 81 mg PO DAILY Aranesp (in polysorbate) 200 mcg/0.4 mL syringe 200 mcg subcut Q2W Patient Comments: 03/13/24 per pt she gets an injection Q2w at [facility] due to anemia. this may change. RH clopidogrel 75 mg tablet 75 mg PO DAILY Patient Comments: TAKE ONE TABLET BY MOUTH EVERY DAY ferrous gluconate 324 mg (38 mg iron) tablet 324 mg PO DAILY Patient Comments: TAKE ONE TABLET BY MOUTH EVERY DAY lisinopril-hydrochlorothiazide 20-12.5 mg tablet 1 tab PO DAILY amlodipine 2.5 mg tablet 2.5 mg PO DAILY Patient Comments: TAKE ONE TABLET BY MOUTH EVERY DAY carvedilol 6.25 mg tablet 6.25 mg PO BID cholecalciferol (vitamin D3) [Vitamin D3] 2,000 UNIT capsule 2,000 unit PO DAILY pantoprazole 40 mg tablet,delayed release (DR/EC) 40 mg PO DAILY Qty: 90 0RF Rx Instructions: Take 1 pill by mouth in the morning, 1 pill by mouth in the evening. Repeat this every day for 4 weeks. Then switch to 1 pill daily. Discharge Instructions Additional Instructions: Your sodium level seems to be low chronically. Try to increase your dietary intake of salt can help with this and may improve your symptoms Follow-up with your primary care provider within 1 to 2 weeks If you feel more ill or have new symptoms such as high fevers, chest pain or difficulty breathing return to the emergency department for reevaluation Discharge Data Discharge Date/Time-TO BE ENTERED AT DEPARTURE: 03/17/24 18:32 HPI General Mode of arrival: ambulatory . Date/Time Provider Initiated Documentation: 03/17/24 16:08 . Limitations to Documentation: no limitations . Information obtained by: patient . History of Present Illness 78 year old F presents to the emergency department with the chief complaint of Dizziness , described as mild, Patient started experiencing this hour(s) (10) and it has been intermittent. Rest improves symptom(s), Other factors that worsen symptoms (standing) . Patient notes no other symptoms.; denies chest pain, fever/chills, shortness of breath, syncope and weakness. Patient did receive the following treatments prior to arrival, none Related Data Home Medications Medication Instructions Recorded Confirmed cholecalciferol (vitamin D3) 50 2,000 unit PO DAILY 06/06/17 02/16/24 mcg (2,000 unit) capsule (Vitamin D3) multivitamin 1 tab PO DAILY 03/15/19 02/16/24 clopidogrel 75 mg tablet 75 mg PO DAILY 12/01/20 02/16/24 ferrous gluconate 324 mg (38 mg 324 mg PO DAILY 12/01/20 02/16/24 iron) tablet rosuvastatin 10 mg tablet 10 mg PO DAILY 12/16/20 02/16/24 ascorbate calcium (vitamin C) 500 500 mg PO .COMPLEX 07/29/22 02/16/24 mg tablet levothyroxine 125 mcg capsule 125 mcg PO DAILY 08/25/22 02/16/24 lisinopril 20 1 tab PO DAILY 12/06/23 02/16/24 mg-hydrochlorothiazide 12.5 mg tablet amlodipine 2.5 mg tablet 2.5 mg PO DAILY 12/10/23 02/16/24 carvedilol 6.25 mg tablet 6.25 mg PO BID 12/10/23 02/16/24 aspirin 81 mg tablet,delayed 81 mg PO DAILY 12/20/23 02/16/24 release pantoprazole 40 mg tablet,delayed 40 mg PO DAILY #90 tabs 12/29/23 02/16/24 release furosemide 20 mg tablet 20 mg PO DAILY PRN edema #60 tabs 02/16/24 02/16/24 darbepoetin amber in polysorbat 200 200 mcg subcut Q2W 03/13/24 mcg/0.4 mL in polysorbate injection syringe (Aranesp) Previous Rx's Medication Instructions Recorded pantoprazole 40 mg tablet,delayed 40 mg PO DAILY #90 tabs 12/29/23 release furosemide 20 mg tablet 20 mg PO DAILY PRN edema #60 tabs 02/16/24 Allergies Allergy/AdvReac Type Severity Reaction Status Date / Time cilostazol AdvReac Severe Headache Verified 03/17/24 16:19 Zmnzlwa-[id number]-DoW Reductase AdvReac Intermediate Headache Verified 03/17/24 16:19 Inhibitor [Nfcgnay-Tzy-Jmn Reductase Inhibitor] atenolol AdvReac Mild palpitation Verified 03/17/24 16:19 s losartan potassium AdvReac Mild palpitation Verified 03/17/24 16:19 [From Cozaar] s levothyroxine sodium AdvReac pt unsure Verified 03/17/24 16:19 General Stated Complaint: Dizzy/Sync KEVIN: 3 Review of Systems All systems reviewed & are unremarkable except as noted in HPI and below Constitutional Constitutional: Denies chills and Denies fever(s) Eyes Eyes: Denies loss of vision ENT Ears, Nose, Mouth, and Throat: Denies change in voice Cardiovascular Cardiovascular: Denies chest pain and Denies dyspnea Respiratory Respiratory: Denies cough and Denies dyspnea Gastrointestinal Gastrointestinal: Denies abdominal pain, Denies nausea and Denies vomiting Integumentary/Breasts Skin/Breast: Denies rash Neurologic Neurologic: Denies loss of vision Exam Const General: no acute distress Orientation: alert HENMT Head: normal to inspection Ears: external ears normal General nose exam: external nose normal Mouth: moist mucous membranes Eyes General: appearance normal, both eyes and all related structures Neck Neck: normal visual inspection Resp Effort & Inspection: normal respiratory effort and able to speak in complete sentences Auscultation: clear to auscultation bilaterally Cardio Jugular venous pressure: no JVD Rate: regular rate GI Palpation: soft and nontender Skin General skin exam: no rashes or lesions noted Neuro General: patient alert and patient oriented x3 Extrem General: normal to inspection Psych Mental Status: mental status grossly normal Course Vital Signs Vital signs: Vital Signs Temperature 36.1 C L 03/17/24 16:08 Pulse 52 L 03/17/24 16:08 Respiratory Rate 17 03/17/24 16:08 Blood Pressure 117/12 L 03/17/24 16:08 Pulse Oximetry 98 03/17/24 16:08 Temperature 36.1 C L 03/17/24 16:08 Pulse 47 L 03/17/24 16:18 Respiratory Rate 17 03/17/24 16:08 Blood Pressure 130/52 L 03/17/24 16:21 Pulse Oximetry 100 03/17/24 16:18 Oxygen Delivery Method Room Air 03/17/24 16:18 Oxygen Flow Rate 0 03/17/24 16:18 Pain Level 8 03/17/24 16:08 Comment chronic back pain 03/17/24 16:08 Medical Decision Making 78-year-old female with a history of chronic kidney disease, COPD, prior CABG, GERD, has had anemia in the past requiring blood transfusion, comes in stating that since waking up she has had episodes where she stands or moves too quick she will feel lightheaded and dizzy. Denies loss of consciousness, no weakness, vision changes, speech disturbances. She denies any fevers, chest pain, difficulty breathing. She is alert and oriented on arrival speaking clearly in no distress. She has no deficits on neuroexam, reassuring hints exam. She was transfused in December with similar symptoms, no findings on exam or history to suggest a central stroke. Will obtain CBC, CMP, UA and reassess. Labs unremarkable other than sodium of 125 but seems to be chronically low. UA with leukocytes and bacteria but denies any urinary symptoms, will send culture. Vital signs stable blood pressure currently 120/59. She feels improved and given reassuring workup do not feel admission indicated, she will follow-up with her PCP and return precautions given. Differential Diagnosis Differential Diagnosis: Orthostasis, anemia, electrolyte abnormality Medical Records Medical records reviewed: Yes I reviewed the patient's medical records. Lab Data Lab results reviewed: Yes I reviewed the patient's lab results. ECG Data Attestation: I personally reviewed and interpreted this ECG (s) as follows: Prior ECG tracings: available for review Interpretation: Sinus bradycardia, rate 46, no STEMI Quality:SDOH Health Related Social Needs: No Data to Display PFSH All Active Problems (Updated 03/17/24 @ 18:23 by Kayden Land MD) Hyponatremia (Acute) Dizziness (Acute) Sinus bradycardia (Acute) Episode of syncope (Chronic) CKD (chronic kidney disease) stage 3, GFR 30-59 ml/min (Acute) Lumbosacral spondylosis without myelopathy (Acute) COPD (chronic obstructive pulmonary disease) (Chronic) Solitary lung nodule (Acute) Hydronephrosis (Acute) Hx of CABG (Chronic) Chest pain, rule out acute myocardial infarction (Acute) Mild chronic gastritis (Acute) Peripheral vascular disease (Chronic) CAD (coronary artery disease) (Chronic) GERD (gastroesophageal reflux disease) (Acute 09/05/16) Cerebrovascular accident (CVA) (Acute) Chronic anxiety (Acute) Iron deficiency anemia (Chronic) Hypothyroid (Chronic) Hyperlipidemia (Chronic) Carotid stenosis (Chronic) Tobacco dependence (Acute) Hx of Helicobacter infection (Acute) 2014 Medical History Anemia Diabetes mellitus Pt denies Chronic kidney disease, stage 3b Lung nodule 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 Prediabetes Asthma Pt denies Asthma Obesity Vitamin D deficiency Hypertension Gastric ulcer 2014 Brittle nails Peripheral vascular disease Depression Intermittent claudication Degenerative disc disease, lumbar Diverticulosis large intestine w/o perforation or abscess w/o bleeding Optic neuritis Impaired glucose regulation Elevated troponin Abnormal EKG Surgical History S/P CABG x 2 right carotid endarterectomy x2 Ligation of fallopian tube EGD - MAC (12/2023) path sent EGD - IV Sedation 2014 Colonoscopy - MAC 2015 Biopsy, Temporal Artery (09/15/17) right Family History Other Heart disease Social History Smoking/Tobacco Use Status: Current every day Tobacco Type: cigarettes Tobacco: How many years used: 46 Counseling given: patient declined Smoking risk assessment performed?: Yes Alcohol Intake: never Drug use: Never Substance use type: does not use Housing: house Do you feel safe at home: Yes Do you feel safe in your relationship?: Yes
[2024-03-17] MEDS: Normal Saline 500 ML IV (16:35)
[2024-03-17 16:38] LABS: Abs Immature Grans 0.04 10^3/uL (0.0-0.06); Absolute Basophil Count 0.02 10^3/uL (0.0-0.2); Absolute Eosinophil Count 0.16 10^3/uL (0.0-0.7); Absolute Lymphocyte Count 0.81 10^3/uL (1.2-3.4); Absolute Monocyte Count 0.64 10^3/uL (0.1-0.8); Absolute Neutrophil Count 5.55 10^3/uL (1.2-6.7); Basophils % 0.3 %; Eosinophils % 2.2 %; HCT 24.6 % (36.0-46.0); HGB 8.3 g/dL (11.2-15.7); Immature Grans % 0.6 %; Lymphocytes % 11.2 %; MCH 28.3 pg (27.0-33.0); MCHC 33.7 % (32.0-36.0); MCV 84 fL (80-95); MPV 10.2 fL (8.0-11.0); Monocytes % 8.9 %; Neutrophils % 76.8 %; Platelet Count 321 10^3/uL (130-400); RBC 2.93 10^6/uL (3.93-5.22); RDW 14.5 % (11.7-14.6); RDW-SD 44.4 fL; WBC 7.22 10^3/uL (4.4-10.8)
[2024-03-17 16:51] LABS: PTT Activated 25.6 sec (23.6-32.8)
[2024-03-17 16:56] LABS: Diff Comment RBC Morph Reviewed; Hypochromasia 1+
[2024-03-17 17:02] LABS: ALT 18 U/L (14-59); AST 10 U/L (15-37); Albumin 3.4 g/dL (3.4-5.0); Alkaline Phosphatase 74 U/L (46-116); Anion Gap 9.9 mmol/L (3-11); BUN 27 mg/dL (7-18); Bilirubin, Total 0.2 mg/dL (0.2-1.0); CO2 26.1 mmol/L (21.0-32.0); CREATININE 1.3 mg/dL (0.55-1.02); Calcium 9.1 mg/dL (8.5-10.1); Chloride 89 mmol/L (98-107); Estimated GFR 42.62 (mL/min/1.73m2); Glucose 190 mg/dL (74-106); Sodium 125 mmol/L (136-145); TSH (W/Ref FT4) 3.76 uIU/mL (0.36-3.74); Total Protein 6.7 g/dL (6.4-8.2); Troponin I < 50 ng/L (< or =60)
[2024-03-17 17:19] LABS: FREE T4 1.15 ng/dL (0.76-1.46)
[2024-03-17 17:28] LABS: Procalcitonin < 0.1 ng/mL
[2024-03-17 18:10] LABS: Bilirubin Negative (Negative); Blood Negative (Negative); Clarity Sl Cloudy (Clear); Glucose Negative (Negative); Ketones Negative (Negative); Leukocyte Esterase Small (Negative); Nitrite Negative (Negative); Specific Gravity 1.015 (1.005-1.025); Urobilinogen 0.2 mg/dL (Up to 0.2); pH 5.5 (5-8)
[2024-03-17 18:11] LABS: Bacteria Moderate HPF (Negative); Crystals Negative HPF (Negative); Epithelial Cells Few HPF (Negative); Mucus Moderate (Negative); RBC 0-2 HPF (0-2); WBC >50 HPF (0-5)
[2024-03-17 18:12] LABS: C & S Indicated? Yes; Casts 0-2 Hyaline LPF (Negative)
--- NOTE | 2024-03-20 08:49 | NUR.NOTE ---
Accessed chart to look up whether or not on antibiotic for culture result. Nursing Note:
== END 2024-03-17 18:32 | disposition home or self-care (01) ==
PROVIDERS: Emergency Provider Emergency Medicine; PCP Student in an Organized Health Care Education/Training Program
DX: R42 Dizziness and giddiness (principal); E87.1 Hypo-osmolality and hyponatremia; I12.9 Hypertensive chronic kidney disease with stage 1 through stage 4 chronic kidney disease, or unspecified chronic kidney disease; E11.22 Type 2 diabetes mellitus with diabetic chronic kidney disease; N18.32 Chronic kidney disease, stage 3b; R00.1 Bradycardia, unspecified; J44.9 Chronic obstructive pulmonary disease, unspecified; Z95.1 Presence of aortocoronary bypass graft; Z79.02 Long term (current) use of antithrombotics/antiplatelets; F17.210 Nicotine dependence, cigarettes, uncomplicated; Z79.899 Other long term (current) drug therapy
CPT/HCPCS: 36415; 80053; 84145; 86850; 86900; 86901; 87077; 93005; 96360; 99284; 81003; 81015; 83735; 84439; 84443; 84484; 85025; 85610; 85730; 87086; 87186; 93010

== ENCOUNTER → 2024-03-20 10:33 | Outpatient (BNVA) | payer MEDICARE, OTHER, SELFPAY | PROVIDERS: PCP Student in an Organized Health Care Education/Training Program; Referring Provider Student in an Organized Health Care Education/Training Program; Visit Provider Nurse Practitioner Gerontology | DX: N13.30 Unspecified hydronephrosis (principal); N20.0 Calculus of kidney | CPT/HCPCS: 99443 ==

== ENCOUNTER 2024-03-22 05:10 | Emergency (ER) | payer MEDICARE, OTHER, SELFPAY ==
[2024-03-22] VITALS (39 sets, daily range): BP systolic 108–191; BP diastolic 14–118; PULSE 45–60; RESP 8–18; TEMP 36.1–36.6; O2SAT 93–100
--- NOTE | 2024-03-22 05:15 | DI.CT_ITS ---
Exam(s) CT LUMBAR SPINE WO EXAM: CT LUMBAR SPINE WO CLINICAL HISTORY: acute low back pain, spinal fusion. TECHNIQUE: Imaging Protocol: Axial computed tomography images with coronal and sagittal reformatted images were created and reviewed COMPARISON: No exams were available for comparison FINDINGS: Bones: There is posterior fusion hardware at L3-5 posterior fusion rods and bilateral intrapedicular screws at these levels. Relationship of the screws to the superior endplates is satisfactory at all 3 levels.. There are no lytic osseous lesions evident.No evidence of osteomyelitis. INDIVIDUAL LEVELS: T12-L1:No disc herniation nor canal stenosis. Facet joints unremarkable. No foraminal stenosis. L1-2: Normal disc height. Central calcification within the disc noted at the level the nucleus pulp osis. There is no disc herniation but there is mild central canal stenosis noted which is related to short AP dimensions the pedicles and mild annular bulging. Facet joints appear unremarkable. L2-3: This is 1 level above the fusion and exhibits disc space narrowing with vacuum phenomenon with in the disc space. There is moderate central canal stenosis at this level. Appears to be related to annular bulging, short AP dimensions the pedicles. Minimal facet arthropathy. No prominent facet a rthropathy. L3-4: Bilateral intrapedicular screws. Removal of posterior osseous elements. No obvious disc li iation or central canal stenosis. No significant foraminal stenosis. Facet joints at this level ritesh ear fused. L4-5: Bilateral intrapedicular screws. There is advanced disc space narrowing on the right side of the disc space and normal disc height on the left side of the disc space. Evaluation for disc hernia tion is limited by the amount of artifact from the screws. Osseous canal dimensions are within [place]ia [place] l limits. Mild foraminal stenosis on the right side. No foraminal stenosis on the left side. L5-S1: Fusion hardware also noted at this level. Normal disc height. Mild annular bulging without a dominant disc herniation. Central canal dimensions are lower normal. There is no mild narrowing o f the exiting neural foramina bilaterally. No prominent foraminal stenosis. The visualized sacroiliac joints and sacrum appear unremarkable. PARASPINAL SOFT TISSUES: Bilateral nephrolithiasis noted. Heavily calcified aorta and iliac arteries . IMPRESSION: 1. L3-L5 vertebral fusion hardware and laminectomy defects. No fractures nor significant osseous les ions. 2. There appears to be central spinal canal stenosis at levels above the fusion. RADIATION DOSE DELIVERED: Total DLP DATA REPOSITORY: All CT scans at this facility are submitted to the National Radiology Data Registry (NRDR) Dose Index Registry (DIR) with the [employer] (A[employer]). RADIATION OPTIMIZATION: All CT scans at this facility use at least one of these dose optimization te chniques: automated exposure control; mA and/or kV adjustment per patient size (includes targeted exa ms where dose is matched to clinical indication); or iterative reconstruction.
--- NOTE | 2024-03-22 05:22 | W.ED.GENAD ---
Discharge Plan Discharge Details Chief Complaint: Nk/Back Pain Primary Care Provider: Zafar Botello ED Provider: Abbi Guveara Home Meds and New Rx's Prescriptions: No Action multivitamin tablet 1 tab PO DAILY rosuvastatin 10 mg tablet 10 mg PO DAILY ascorbate calcium (vitamin C) 500 mg tablet 500 mg PO .COMPLEX Rx Instructions: 500 mg orally Mon, Wed, Fri; levothyroxine 125 mcg capsule 125 mcg PO DAILY furosemide 20 mg tablet 20 mg PO DAILY PRN (Reason: edema) Qty: 60 3RF Hold Instructions: Changed by Provider aspirin 81 mg tablet,delayed release (DR/EC) 81 mg PO DAILY lisinopril 20 mg tablet 20 mg PO DAILY Patient Comments: 10 mg only Aranesp (in polysorbate) 200 mcg/0.4 mL syringe 200 mcg subcut Q2W Patient Comments: 03/13/24 per pt she gets an injection Q2w at [facility] due to anemia. this may change. RH clopidogrel 75 mg tablet 75 mg PO DAILY Patient Comments: TAKE ONE TABLET BY MOUTH EVERY DAY ferrous gluconate 324 mg (38 mg iron) tablet 324 mg PO DAILY Patient Comments: TAKE ONE TABLET BY MOUTH EVERY DAY amlodipine 2.5 mg tablet 2.5 mg PO DAILY Patient Comments: TAKE ONE TABLET BY MOUTH EVERY DAY carvedilol 6.25 mg tablet 6.25 mg PO BID cholecalciferol (vitamin D3) [Vitamin D3] 2,000 UNIT capsule 2,000 unit PO DAILY pantoprazole 40 mg tablet,delayed release (DR/EC) 40 mg PO DAILY Qty: 90 0RF Rx Instructions: Take 1 pill by mouth in the morning, 1 pill by mouth in the evening. Repeat this every day for 4 weeks. Then switch to 1 pill daily. HPI General Mode of arrival: EMS. Date/Time Provider Initiated Documentation: 03/22/24 05:18. Limitations to Documentation: no limitations. Information obtained by: patient and EMS. HPI Narrative: 78yo F presenting with acute severe low back pain. Yesterday evening around 10pm she reached down and twisted, suddenly felt pain in her low back. Did not fall. Took tylenol. Pain persisted and worsened overnight to the point where she was unable to get out of bed due to pain. Reports urinating in the bed after she tried to get up and was unable. No numbness or weakness in her legs. No saddle anesthesia. Has never had pain this bad before. Pain is midline, throughout most of the lumbar and high sacral area, and radiates to both hips. No radiation to legs. She is otherwise in her usual state of health with no fevers, chills, rash, abdominal pain, upper back pain, chest pain, neck pain, bowel changes, abdominal pain, or other concerns. Related Data Home Medications Medication Instructions Recorded Confirmed cholecalciferol (vitamin D3) 50 2,000 unit PO DAILY 06/06/17 03/22/24 mcg (2,000 unit) capsule (Vitamin D3) multivitamin 1 tab PO DAILY 03/15/19 03/22/24 clopidogrel 75 mg tablet 75 mg PO DAILY 12/01/20 03/22/24 ferrous gluconate 324 mg (38 mg 324 mg PO DAILY 12/01/20 03/22/24 iron) tablet rosuvastatin 10 mg tablet 10 mg PO DAILY 12/16/20 03/22/24 ascorbate calcium (vitamin C) 500 500 mg PO .COMPLEX 07/29/22 03/22/24 mg tablet levothyroxine 125 mcg capsule 125 mcg PO DAILY 08/25/22 03/22/24 amlodipine 2.5 mg tablet 2.5 mg PO DAILY 12/10/23 03/22/24 carvedilol 6.25 mg tablet 6.25 mg PO BID 12/10/23 03/22/24 aspirin 81 mg tablet,delayed 81 mg PO DAILY 12/20/23 03/22/24 release pantoprazole 40 mg tablet,delayed 40 mg PO DAILY #90 tabs 12/29/23 03/22/24 release furosemide 20 mg tablet 20 mg PO DAILY PRN edema #60 tabs 02/16/24 03/22/24 darbepoetin amber in polysorbat 200 200 mcg subcut Q2W 03/13/24 03/22/24 mcg/0.4 mL in polysorbate injection syringe (Aranesp) lisinopril 20 mg tablet 20 mg PO DAILY 03/20/24 03/22/24 Previous Rx's Medication Instructions Recorded pantoprazole 40 mg tablet,delayed 40 mg PO DAILY #90 tabs 12/29/23 release furosemide 20 mg tablet 20 mg PO DAILY PRN edema #60 tabs 02/16/24 Allergies Allergy/AdvReac Type Severity Reaction Status Date / Time cilostazol AdvReac Severe Headache Verified 03/22/24 05:14 Mwqqwea-YBV-McL Reductase AdvReac Intermediate Headache Verified 03/22/24 05:14 Inhibitor [Aenvxaa-Wdu-Qhn Reductase Inhibitor] atenolol AdvReac Mild palpitation Verified 03/22/24 05:14 s losartan potassium AdvReac Mild palpitation Verified 03/22/24 05:14 [From Cozaar] s levothyroxine sodium AdvReac pt unsure Verified 03/22/24 05:14 General Stated Complaint: Nk/Back Pain KEVIN: 3 Review of Systems Narrative: see HPI Exam Narrative Exam Narrative: General: Alert, well appearing, well nourished, in no acute distress. Head: Normocephalic, atraumatic Neck: Trachea midline, ?Neck supple. Cardiac: ?RRR, no murmurs appreciated Resp: No respiratory distress. CTAB. Abd: ?Soft, non-distended, nontender : ?No suprapubic tenderness. No CVA tenderness. Back: Midline tenderness approximately L2-S3. No palpable paraspinal spasm. Extremities: ?No deformities.? No peripheral edema. Neuro: ? GCS 15.? Fluent speech, no dysarthria. Motor- 5/5 strength symmetric bilateral upper and lower extremities Sensation- ?Intact to light touch throughout bilateral LE. No saddle anesthesia Reflexes- 2/4 achilles & patellar, no clonus Rectal: Slightly diminished tone. No gross blood. Gait/station: ?Deferred Course Vital Signs Vital signs: Vital Signs Temperature 36.5 C 03/22/24 05:00 Pulse 60 03/22/24 05:00 Respiratory Rate 14 03/22/24 05:00 Blood Pressure 142/29 H 03/22/24 05:00 Pulse Oximetry 97 03/22/24 05:00 Temperature 36.5 C 03/22/24 05:00 Temperature Source Temporal Artery Scan 03/22/24 05:00 Pulse 50 L 03/22/24 05:08 Respiratory Rate 14 03/22/24 05:08 Respiratory Effort Normal 03/22/24 05:08 Blood Pressure 187/40 H 03/22/24 05:08 Blood Pressure Position Sitting 03/22/24 05:00 Pulse Oximetry 98 03/22/24 05:08 Oxygen Delivery Method Room Air 03/22/24 05:00 Oxygen Flow Rate 0 03/22/24 05:00 Pain Level 9 03/22/24 05:08 Medical Decision Making 78yo F presenting with acute severe low back pain. Yesterday evening around 10pm she reached down and twisted, suddenly felt pain in her low back; pain persisted and worsened overnight to the point where she was unable to get out of bed due to pain and reports urinating in the bed because she could not get up. Denies numbness, weakness, or saddle anesthesia. Received 1g of tylenol from EMS, will add single low-dose toradol here (cautious use as pt on plavix and asa), 5mg PO cyclobenzaprine, lidocaine patch. Given age and question of urinary incontinence, will get CT imaging and labs. CBC with Hg of 6.3. [facility] records reviewed; seen in December for chest pain and found to have anemia at that time, transfused 1 unit, discharged with plan for colonoscopy and EGD which was done and she reports was seen to have peptic ulcer and started on protonix. Currently denies any bleeding, bruising, or dark or bloody stool. Seen in this ED on 03/17/24 for lightheadedness, Hg 8.3 at that time. This is a 2 pt drop in 5 days with no overt bleeding. Will transfuse 2 units, get CT abd/pelvis. Rectal exam with slightly diminished done, no gross blood, hemooccult positive. Remainder of labs reviewed as below, CMP with Na of 127 (improved from 125 5 days prior), ESR & CRP normal, lactate normal, coags normal. CT independently reviewed, no displaced spinal fracture or large intraabdominal bleed on my view though does have distended urinary bladder. Radiology read pending. Post void residual via bladder scan was 717; straight cathed. With urinary incontinence, urinary retention, and slightly diminished rectal tone concern for cord injury/cauda equina; will get MRI. Signed out to oncoming physician, plan to transfuse, follow up CT read and MRI. Disposition pending results and clinical course. Medical Records Medical records reviewed: Yes I reviewed the patient's medical records. Quality:[facility] Health Related Social Needs: No Data to Display PFSH All Active Problems (Updated 03/20/24 @ 10:28 by Belinda Oliver DNP) Renal calculi (Chronic) Hyponatremia (Acute) Dizziness (Acute) Sinus bradycardia (Acute) Episode of syncope (Chronic) CKD (chronic kidney disease) stage 3, GFR 30-59 ml/min (Acute) Lumbosacral spondylosis without myelopathy (Acute) COPD (chronic obstructive pulmonary disease) (Chronic) Solitary lung nodule (Acute) Hydronephrosis (Acute) Hx of CABG (Chronic) Chest pain, rule out acute myocardial infarction (Acute) Mild chronic gastritis (Acute) Peripheral vascular disease (Chronic) CAD (coronary artery disease) (Chronic) GERD (gastroesophageal reflux disease) (Acute 09/05/16) Cerebrovascular accident (CVA) (Acute) Chronic anxiety (Acute) Iron deficiency anemia (Chronic) Hypothyroid (Chronic) Hyperlipidemia (Chronic) Carotid stenosis (Chronic) Tobacco dependence (Acute) Hx of Helicobacter infection (Acute) 2014 Medical History Anemia Diabetes mellitus Pt denies Chronic kidney disease, stage 3b Lung nodule 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 Prediabetes Asthma Pt denies Asthma Obesity Vitamin D deficiency Hypertension Gastric ulcer 2014 Brittle nails Peripheral vascular disease Depression Intermittent claudication Degenerative disc disease, lumbar Diverticulosis large intestine w/o perforation or abscess w/o bleeding Optic neuritis Impaired glucose regulation Elevated troponin Abnormal EKG Surgical History S/P CABG x 2 right carotid endarterectomy x2 Ligation of fallopian tube EGD - [facility] (12/2023) path sent EGD - IV Sedation 2013 Colonoscopy - [facility] 2015 Biopsy, Temporal Artery (09/15/17) right Family History Other Heart disease Social History Smoking/Tobacco Use Status: Current every day Tobacco Type: cigarettes Tobacco: How many years used: 46 Counseling given: patient declined Smoking risk assessment performed?: Yes Alcohol Intake: never Drug use: Never Substance use type: does not use Housing: house Do you feel safe at home: Yes Do you feel safe in your relationship?: Yes
[2024-03-22] MEDS: Ketorolac 15 MG/ML VIAL IVP (05:34)
[2024-03-22] MEDS: Cyclobenzaprine 10 MG TAB 5 MG PO (05:34)
[2024-03-22] MEDS: Lidocaine 5% Patch 2 PATCH TP (05:35)
[2024-03-22 05:41] LABS: Bilirubin Negative (Negative); Blood Negative (Negative); Clarity Clear (Clear); Glucose Negative (Negative); Ketones Negative (Negative); Leukocyte Esterase Negative (Negative); Nitrite Negative (Negative); Urobilinogen 0.2 mg/dL (Up to 0.2)
--- NOTE | 2024-03-22 05:45 | DI.CT_ITS ---
Exam(s) CT ABDOMEN PELVIS W EXAM: CT ABDOMEN PELVIS W CLINICAL HISTORY: unexplained anemia. TECHNIQUE: Imaging Protocol: Axial computed tomography images with coronal and sagittal reformatted images were created and reviewed CONTRAST MATERIAL: Intravenous: Omnipaque-350 100cc Oral: None COMPARISON: CT CT ABDOMEN PELVIS W from 03/28/2023 FINDINGS: VISUALIZED LUNG BASES: Mild increased markings in the right lung base again noted, slightly increased but still benign appearance. There are no pleural effusions.. Small hiatal hernia noted. ABDOMEN: There is no ascites in the upper abdomen. LIVER: There are no focal hepatic lesions evident. There is mild prominence of intrahepatic ducts ev ident in both lobes. CBD diameter is upper normal. GALLBLADDER/BILIARY: Tiny density on the dependent wall the gallbladder is either a tiny gallstone or polyp. No gallbladder wall edema nor pericholecystic fluid. PANCREAS: No evidence of pancreatic mass nor dilatation of the pancreatic duct. SPLEEN: Spleen is not enlarged. No obvious intrasplenic lesions. Splenic and portal veins are paten t. ADRENALS: There are no significant adrenal masses. KIDNEYS:All benign cysts noted in both kidneys. So tiny calculi in both kidneys. Slight prominence of the right renal pelvis is noted, similar to previous. Ureters are not dilated. No solid renal ma sses. Urinary bladder is distended but without intraluminal masses nor calculi evident. ABDOMINAL AORTA: Calcified but not enlarged. Iliac arteries also calcified but not enlarged. Heavil y calcified plaque at the origin of the celiac and superior mesenteric arteries as well as the renal arteries noted. Inferior mesenteric artery appears patent. There are no ischemic appearing bowel lo ops. No bowel obstruction. LYMPH NODES:There is no retroperitoneal nor paraaortic adenopathy. ABDOMINAL WALL: No evidence of significant anterior abdominal wall nor inguinal hernia. GI: :. there is abundant fecal material noted throughout the colon.. There is some mild streaking in the region of the cecum. There is radiopaque density noted in the cecum. Suspect that this is surg ical clips from colonoscopy biopsy at this site. Some of the streaking is in the region of the appen michael but the appendix itself appears unremarkable. There is no free air in this region. There is no formed abscess. PELVIS: GI: No evidence of sigmoid diverticulitis. LYMPH NODES: There is no intrapelvic nor inguinal adenopathy. REPRODUCTIVE: Uterus is again noted to contain fibroids. Calcifications noted in 1 of the fibroids o n the right. URINARY BLADDER: Distended but otherwise unremarkable. OSSEOUS: Multilevel fusion hardware is noted in the lumbar spine with posterior fusion rods and remov al of posterior osseous structures and bilateral intrapedicular screws at C3-4-5 levels. Advanced di sc space narrowing at L2-3 level noted, this being 1 level above the fusion. No fractures. No osseo us lesions. IMPRESSION: 1. There is inflammatory-like streaking in the right lower quadrant round region of the cecum. The a ppendix itself appears unremarkable. There are clips on the inner wall of the lateral aspect of the cecum noted which are most probably related to a colonoscopy biopsy at this site and correlation with time since biopsy is recommended. There is no obvious formed abscess. No free air. Recommend surg ical consultation. 2. Abundant fecal material noted throughout the colon. Probable constipation. 3. Heavily calcified abdominal aorta and branches including SMA and celiac and renal arteries. No an eurysm evident. 4. Fibroid uterus. RADIATION DOSE DELIVERED: Total DLP DATA REPOSITORY: All CT scans at this facility are submitted to the National Radiology Data Registry (NRDR) Dose Index Registry (DIR) with the [employer] (ACR). RADIATION OPTIMIZATION: All CT scans at this facility use at least one of these dose optimization te chniques: automated exposure control; mA and/or kV adjustment per patient size (includes targeted exa ms where dose is matched to clinical indication); or iterative reconstruction.
[2024-03-22 05:51] LABS: Abs Immature Grans 0.04 10^3/uL (0.0-0.06); Absolute Basophil Count 0.02 10^3/uL (0.0-0.2); Absolute Eosinophil Count 0.22 10^3/uL (0.0-0.7); Absolute Monocyte Count 0.94 10^3/uL (0.1-0.8); Absolute Neutrophil Count 4.29 10^3/uL (1.2-6.7); Basophils % 0.3 %; Eosinophils % 3.3 %; Immature Grans % 0.6 %; Lymphocytes % 16.6 %; MCHC 32.8 % (32.0-36.0); MCV 85 fL (80-95); MPV 10.3 fL (8.0-11.0); Monocytes % 14.2 %; Platelet Count 240 10^3/uL (130-400); RBC 2.25 10^6/uL (3.93-5.22); RDW 15.1 % (11.7-14.6); RDW-SD 46.8 fL; WBC 6.61 10^3/uL (4.4-10.8)
[2024-03-22 05:53] LABS: HCT 19.2 % (36.0-46.0); HGB 6.3 g/dL (11.2-15.7)
[2024-03-22 06:15] LABS: ESR 1 mm/hr (0-30)
[2024-03-22] MEDS: Omnipaque 350 MG/ML 100 ML BTL IJ (06:20)
[2024-03-22] MEDS: Normal Saline - Diluent 50 ML VIAL IJ (06:20)
[2024-03-22 06:25] LABS: Lactate 1.4 mmol/L (0.6-1.4)
--- NOTE | 2024-03-22 06:36 | DI.MRI_ITS ---
Exam(s) MR LUMBAR SPINE WO/W EXAM: MR LUMBAR SPINE WO/W CLINICAL HISTORY: low back pain, urinary retention, diminished R ton. TECHNIQUE: Multiplanar multisequence MRI of the Lumbar spine was performed. COMPARISON: MR MRI - LUMBAR SPINE WO CONTRAST from 12/23/2013 FINDINGS: Posterior fusion hardware now evident at L3-L5 levels secured by bilateral intrapedicular screws at t hese 3 levels and the screws appear to be in satisfactory position relative to the endplates. There is no evidence of discitis nor osteomyelitis. Conus medullaris is at normal level. There is no evidence of conus mass nor subjacent clumping of in trathecal nerve roots to suggest arachnoiditis. The distal thecal sac appears unremarkable.There is no evidence of Tarlov intrasacral cysts nor other significant findings within the sacral canal Bones:There are no fractures nor ominous osseous lesions in the lumbar vertebral bodies and visualize d sacrum. With respect to the individual levels... T12-L1: Unremarkable L1-2: Normal disc height and signal. No disc herniation nor central canal stenosis.No foraminal steno sis L2-3: This is one level above the fusion and exhibits significant change when compared to the pre ope rative MRI of December 2013. There is now significant disc space narrowing at this level and there are M odic type 1 sub endplate marrow edema findings at this level. In addition, posteriorly there is broa d annular bulging at this level and moderate-severe central spinal canal stenosis now evident.There i s also mild-moderate foraminal stenosis bilaterally with the annular bulging extending into the a exi ting neural foramina. L3-4: This is a fused level. Disc space height is preserved. No significant disc herniation no cent ral spinal canal stenosis. No epidural collection. No significant foraminal stenosis. Absence of p osterior osseous elements L4-5: This is a fused level. There is decreased disc height similar to 2014. No listhesis. No disc herniation. No central canal stenosis. No epidural collection. Absence of posterior osseous eleme nts L5-S1: This is a fused level. Normal disc height and signal. No disc herniation or central canal st enosis. No significant foraminal stenosis at this level. Mild facet arthropath IMPRESSION: 1. Tri level L3-L5 fusion comprised of posterior fusion rods secured by tri level intrapedicular scre ws which appear satisfactory and there is also been tri level laminectomies. 2. The main significant finding here is 1 level above the fusion at L2-3 level where there is now sig nificant disc space narrowing and Modic type 1 sub endplate marrow edema changes and there is moderat e-severe central canal stenosis now evident (was not present in 2014) at this level as well as mild-m oderate bilateral foraminal stenosis evident at this level. 3. No evidence of obvious discitis nor osteomyelitis and no evidence of abnormal epidural fluid colle ction. DATA REPOSITORY:
[2024-03-22 06:46] LABS: PTT Activated 25.3 sec (23.6-32.8); Prothrombin Time 10.4 sec (9.1-11.1)
[2024-03-22 06:49] LABS: ALT 17 U/L (14-59); AST 9 U/L (15-37); Albumin 3.4 g/dL (3.4-5.0); Alkaline Phosphatase 64 U/L (46-116); Anion Gap 9.7 mmol/L (3-11); BUN 23 mg/dL (7-18); Bilirubin, Total 0.3 mg/dL (0.2-1.0); CO2 24.3 mmol/L (21.0-32.0); CREATININE 1.2 mg/dL (0.55-1.02); Calcium 8.9 mg/dL (8.5-10.1); Chloride 93 mmol/L (98-107); Estimated GFR 46.91 (mL/min/1.73m2); Glucose 110 mg/dL (74-106); Potassium 4.3 mmol/L (3.5-5.1); Sodium 127 mmol/L (136-145); Total Protein 6.4 g/dL (6.4-8.2)
[2024-03-22 06:50] LABS: C-Reactive Protein < 0.50 mg/dL (<or=0.5)
--- NOTE | 2024-03-22 07:47 | W.EDPROG ---
Date of service: 03/22/24 Time of Service: 07:47 Medical Decision Making Patient care accepted in [facility]. She is a 78-year-old female who presented with acute onset back pain. On arrival patient was noted to have had incontinence at home. There was concern for adult decreased rectal tone and urinary retention. A Mary catheter was placed. She does have a history of lumbar fusion surgery in 2013. Given the patient's risk factors, imaging was ordered. Lab work was concerning for acute anemia. Since the patient's visit to the emergency department last week she has had a significant drop in her hemoglobin. There is no known hematemesis, bright red blood per rectum or melena. She was occult positive on exam by prior provider. She was consented and transfused 2 units of blood. Additionally, the patient was noted to have hyponatremia that has been ongoing since December but has not been addressed. I discussed the imaging results with the radiologist. There is concern for some inflammatory change in the right lower quadrant around the ileocecal junction. The appendix appears normal. There does not appear to be any perforated diverticulum at this site. Patient will likely need colonoscopy for further evaluation. Her MRI is concerning for cord stenosis at L2-L3. Neurosurgery at [facility] consulted and reviewed the imaging and exam findings. They are highly suspicious that this may be an area of concern. Given her other medical problems that require acute attention, the hospitalist service was consulted and the patient has been accepted for direct admission to [facility] medicine by Dr. Cool. Patient and family members updated on the findings and plan for transfer. Will monitor in the emergency department until bed is ready. Medical Records Medical records reviewed: Yes I reviewed the patient's medical records. Lab Data Lab results reviewed: Yes I reviewed the patient's lab results. Quality:[facility] Health Related Social Needs: No Data to Display Sign Out Sign Out Data: Sign Out Comment: 78F, lumbar spinal fusion, presented with acute low back pain. + urinary retention. Also Hg 6.3 (hx peptic ulcer) down from 8 five days ago. Pending transfusion 2U PRBCs, CT read, and MRI. Last updated by Abbi Guevara MD at 03/22/24 07:23 Discharge Plan Disposition Patient Disposition: Transfer-Acute Inpatient Care Specific Acute Inpt Facility: [facility] Condition: Fair Discharge Details Clinical Impression: Anemia, Back pain, Acute urinary retention, Acute hyponatremia Primary Care Provider: Zafar Botello ED Provider: Chintan Fofana Home Meds and New Rx's Prescriptions: No Action multivitamin tablet 1 tab PO DAILY rosuvastatin 10 mg tablet 10 mg PO DAILY ascorbate calcium (vitamin C) 500 mg tablet 500 mg PO .COMPLEX Rx Instructions: 500 mg orally Mon, Wed, Fri; levothyroxine 125 mcg capsule 125 mcg PO DAILY furosemide 20 mg tablet 20 mg PO DAILY PRN (Reason: edema) Qty: 60 3RF Hold Instructions: Changed by Provider aspirin 81 mg tablet,delayed release (DR/EC) 81 mg PO DAILY lisinopril 20 mg tablet 10 mg PO DAILY Patient Comments: 10 mg only Aranesp (in polysorbate) 200 mcg/0.4 mL syringe 200 mcg subcut Q2W Patient Comments: 03/13/24 per pt she gets an injection Q2w at [facility] due to anemia. this may change. RH clopidogrel 75 mg tablet 75 mg PO DAILY Patient Comments: TAKE ONE TABLET BY MOUTH EVERY DAY ferrous gluconate 324 mg (38 mg iron) tablet 324 mg PO DAILY Patient Comments: TAKE ONE TABLET BY MOUTH EVERY DAY amlodipine 2.5 mg tablet 10 mg PO DAILY Patient Comments: TAKE ONE TABLET BY MOUTH EVERY DAY carvedilol 6.25 mg tablet 6.25 mg PO BID cholecalciferol (vitamin D3) [Vitamin D3] 2,000 UNIT capsule 2,000 unit PO DAILY pantoprazole 40 mg tablet,delayed release (DR/EC) 40 mg PO DAILY Qty: 90 0RF Rx Instructions: Take 1 pill by mouth in the morning, 1 pill by mouth in the evening. Repeat this every day for 4 weeks. Then switch to 1 pill daily.
--- NOTE | 2024-03-22 07:58 | DI.VRAD_ITS ---
Addendum created by Jerry Martínez MD on 03/22/2024 8:06:15 AM EDT: Report for L-spine CT inadvertently placed in the CT abdomen/pelvis. On the abdomen/pelvis CT there is inflammation in the right lower quadrant centered on the ileocecal junction where there is equivocal non masslike thickening of the wall of part of the cecum near the junction with the ileum; however, this is more likely due to its relatively under distended state. The nearby appendix is normal. Findings may signify focal enterocolitis due to infection, inflammatory bowel disease, or ischemia are potentially signify cecal diverticulitis with imperceptible culprit inflamed diverticulum. Focal/early bowel ischemia due to transient hypotension is also a potential etiology but is less likely. No pneumoperitoneum or abscess to indicate perforation. Much of the colon is mildly distended with formed stool, potentially signifying constipation. The ascending colon is not affected. Stenosis of the proximal/origin of the SMA due to calcified atherosclerotic plaque. Stenosis of the proximal/origin of the celiac artery due to calcified atherosclerotic plaque. No thrombosis. Fibroid uterus. No intestinal obstruction. Findings discussed with Ct VILLEGAS at time of interpretation. Initial report created on 03/22/2024 7:57:57 AM EDT: PROCEDURE INFORMATION: Exam: CT Abdomen And Pelvis With Contrast Exam date and time: 03/22/2024 6:07 AM Age: 78 years old Clinical indication: Other: Unexplained anemia TECHNIQUE: Imaging protocol: Computed tomography of the abdomen and pelvis with contrast. Contrast material: OMNI 350; Contrast volume: 100 ml; Contrast route: INTRAVENOUS (IV); COMPARISON: CT ABDOMEN PELVIS W 03/28/2023 11:15 AM FINDINGS: Liver: Normal. No mass. Gallbladder and bile ducts: Normal. No calcified stones. No ductal dilation. Pancreas: Unremarkable. Spleen: Normal. Adrenal glands: Normal. No mass. Kidneys and ureters: Normal. No hydronephrosis. Stomach and bowel: Unremarkable. No bowel wall thickening or intestinal obstruction. Appendix: Normal appendix. Intraperitoneal space: Unremarkable. No pneumoperitoneum. No abscess. Vasculature: Unremarkable. Lymph nodes: Unremarkable. Urinary bladder: Unremarkable as visualized. Reproductive: Unremarkable as visualized. Bones/joints: Internal fixation hardware and laminectomy changes of L3-L5. No abscess, soft tissue gas, or hematoma. Limited evaluation of the central canal due to artifact but grossly unremarkable. Soft tissues: See Bones/joints finding. IMPRESSION: Internal fixation hardware and laminectomy changes of L3-L5. No abscess, soft tissue gas, or hematoma. Limited evaluation of the central canal due to artifact but grossly unremarkable. Dictated and Authenticated by: Jerry Martínez MD. Ordering:JOSE G Go MD
--- NOTE | 2024-03-22 08:12 | DI.VRAD_ITS ---
PROCEDURE INFORMATION: Exam: CT Lumbar Spine Without Contrast Exam date and time: 03/22/2024 5:55 AM Age: 78 years old Clinical indication: Low back pain; Additional info: Acute low back pain, spinal fusion TECHNIQUE: Imaging protocol: Computed tomography of the lumbar spine without contrast. COMPARISON: CR LUMBAR SPINE COMPLETE 04/09/2018 9:51 AM FINDINGS: Bones/joints: L3-L5 vertebral fusion hardware and laminectomy defects. Degenerative changes. No fracture or suspicious osseous lesion. Spinal cord: Central canal is grossly unremarkable allowing for artifact. Soft tissues: No hematoma, soft tissue gas, or abscess. IMPRESSION: L3-L5 vertebral fusion hardware and laminectomy defects. Degenerative changes. No fracture or suspicious osseous lesion. Dictated and Authenticated by: Jerry Martínez MD. Ordering:JOSE G Go MD
[2024-03-22] MEDS: Gadoterate meglumine 20 ML VIAL 14 ML IVP (08:30)
[2024-03-22 09:03] LABS: Lactate 0.8 mmol/L (0.6-1.4)
[2024-03-22] MEDS: ACETAMINOPHEN 1,000 MG/100 ML BTL 400 MG IVPB (09:23)
[2024-03-22 09:46] LABS: Procalcitonin < 0.1 ng/mL
[2024-03-22] MEDS: amLODIPine 5 MG TAB 10 MG PO (12:09)
[2024-03-22 13:04] LABS: Abs Immature Grans 0.02 10^3/uL (0.0-0.06); Absolute Basophil Count 0.02 10^3/uL (0.0-0.2); Absolute Eosinophil Count 0.18 10^3/uL (0.0-0.7); Absolute Lymphocyte Count 0.91 10^3/uL (1.2-3.4); Absolute Monocyte Count 1.06 10^3/uL (0.1-0.8); Absolute Neutrophil Count 4.21 10^3/uL (1.2-6.7); Basophils % 0.3 %; Eosinophils % 2.8 %; HCT 27.2 % (36.0-46.0); HGB 9.3 g/dL (11.2-15.7); Immature Grans % 0.3 %; Lymphocytes % 14.2 %; MCH 28.5 pg (27.0-33.0); MCHC 34.2 % (32.0-36.0); MCV 83 fL (80-95); MPV 10.6 fL (8.0-11.0); Monocytes % 16.6 %; Neutrophils % 65.8 %; Platelet Count 234 10^3/uL (130-400); RBC 3.26 10^6/uL (3.93-5.22); RDW 14.4 % (11.7-14.6); RDW-SD 43.9 fL
[2024-03-22] MEDS: Pantoprazole 40 MG VIAL 80 MG IVP (13:04)
--- NOTE | 2024-03-23 09:09 | ED.FU.B_ITS ---
Date of service: 03/23/24 Time of Service: 09:09 Follow Up Plan: This patient was found to have UTI. She had been transferred to [facility]. I have asked health manager community outreach Sienna to fax the results to [facility].
--- NOTE | 2024-03-23 09:09 | W.ED.FU ---
Date of service: 03/23/24 Time of Service: 09:09 Follow Up Plan: This patient was found to have UTI. She had been transferred to [facility]. I have asked health health unit supervisor Sienna to fax the results to [facility].
== END 2024-03-22 13:22 | disposition short-term general hospital (02) ==
PROVIDERS: Student in an Organized Health Care Education/Training Program; Emergency Provider Emergency Medicine; PCP Student in an Organized Health Care Education/Training Program
DX: M54.50 Low back pain, unspecified (principal); R33.8 Other retention of urine; D64.9 Anemia, unspecified; E87.1 Hypo-osmolality and hyponatremia
CPT/HCPCS: 00123; 36430; 72158; 80053; 84145; 85652; 86850; 86900; 86901; 86920; 96365; 96366; 96375; 99285; 72131; 74177; 81003; 82270; 83605; 85025; 85610; 85730; 86140; J0131; J1885; J2470; J3490; P9016

== ENCOUNTER → 2024-03-25 10:47 | Outpatient (BNVA) | payer MEDICARE, OTHER, SELFPAY | PROVIDERS: PCP Student in an Organized Health Care Education/Training Program; Referring Provider Student in an Organized Health Care Education/Training Program; Visit Provider Nurse Practitioner Gerontology | DX: R33.8 Other retention of urine (principal); N18.30 Chronic kidney disease, stage 3 unspecified; N13.30 Unspecified hydronephrosis; N20.0 Calculus of kidney; E87.1 Hypo-osmolality and hyponatremia | CPT/HCPCS: 99443 ==

== ENCOUNTER 2024-03-28 01:03 | Outpatient (CLI) | payer MEDICARE, OTHER, SELFPAY ==
[2024-03-28 11:31] LABS: Abs Immature Grans 0.03 10^3/uL (0.0-0.06); Absolute Basophil Count 0.01 10^3/uL (0.0-0.2); Absolute Eosinophil Count 0.25 10^3/uL (0.0-0.7); Absolute Lymphocyte Count 0.76 10^3/uL (1.2-3.4); Absolute Monocyte Count 0.94 10^3/uL (0.1-0.8); Absolute Neutrophil Count 4.56 10^3/uL (1.2-6.7); Basophils % 0.2 %; Eosinophils % 3.8 %; HCT 26.8 % (36.0-46.0); HGB 8.8 g/dL (11.2-15.7); Immature Grans % 0.5 %; Lymphocytes % 11.6 %; MCH 28.9 pg (27.0-33.0); MCHC 32.8 % (32.0-36.0); MCV 88 fL (80-95); MPV 9.7 fL (8.0-11.0); Monocytes % 14.4 %; Neutrophils % 69.5 %; Platelet Count 259 10^3/uL (130-400); RBC 3.05 10^6/uL (3.93-5.22); RDW 15.1 % (11.7-14.6); RDW-SD 48.9 fL; WBC 6.55 10^3/uL (4.4-10.8)
[2024-03-28 11:46] LABS: ALT 18 U/L (14-59); AST 10 U/L (15-37); Albumin 3.3 g/dL (3.4-5.0); Alkaline Phosphatase 68 U/L (46-116); Anion Gap 7.7 mmol/L (3-11); BUN 18 mg/dL (7-18); Bilirubin, Total 0.27 mg/dL (0.2-1.0); CO2 26.3 mmol/L (21.0-32.0); CREATININE 1.2 mg/dL (0.55-1.02); Calcium 9.2 mg/dL (8.5-10.1); Chloride 99 mmol/L (98-107); Estimated GFR 46.91 (mL/min/1.73m2); Glucose 155 mg/dL (74-106); Potassium 4.4 mmol/L (3.5-5.1); Sodium 133 mmol/L (136-145); Total Protein 6.5 g/dL (6.4-8.2)
[2024-03-28 11:51] VITALS: BP 116/43; PULSE 52
[2024-03-28 12:00] LABS: Ferritin 45 ng/mL (8-252)
== END 2024-03-28 01:04 | disposition home or self-care (01) ==
LOC: LBO 01:03
PROVIDERS: Internal Medicine Hematology & Oncology; PCP Student in an Organized Health Care Education/Training Program; Visit Provider Nurse Practitioner Gerontology
DX: N18.31 Chronic kidney disease, stage 3a
CPT/HCPCS: 80048; 80053; 82728; 85025

== ENCOUNTER → 2024-03-29 07:55 | Outpatient (BNVA) | payer MEDICARE, OTHER, SELFPAY | PROVIDERS: PCP Student in an Organized Health Care Education/Training Program; Referring Provider Student in an Organized Health Care Education/Training Program; Visit Provider Urology | DX: R33.8 Other retention of urine (principal) | CPT/HCPCS: 99213 ==

== ENCOUNTER 2024-04-02 11:30 | Outpatient (RCR) | payer SELFPAY ==
[2024-03-09 00:27] VITALS: BP 120/44; PULSE 57
[2024-03-14 14:21] VITALS: BP 141/40; PULSE 50
[2024-03-19 11:56] VITALS: BP 148/48; PULSE 50
[2024-03-21 12:28] VITALS: BP 121/34; PULSE 49
[2024-03-26 13:20] VITALS: BP 138/40; PULSE 56
[2024-04-02 13:42] VITALS: BP 146/51; PULSE 54
== END 2024-04-07 23:59 | disposition home or self-care (01) ==
LOC: CR 11:30
PROVIDERS: PCP Student in an Organized Health Care Education/Training Program; Visit Provider Internal Medicine Cardiovascular Disease
DX: R69 Illness, unspecified (principal)

== ENCOUNTER 2024-04-04 01:33 | Outpatient (CLI) | payer MEDICARE, OTHER, SELFPAY ==
--- NOTE | 2024-03-20 16:24 | ED.PROG_ITS ---
Date of service: 03/20/24 Time of Service: 16:24 Medical Decision Making Patient's urine cultures have returned and have grown E. coli, with sensitivities. Patient was not started on antibiotics that she was asymptomatic when she was here. We did contact the patient, but she did not parts picker her phone. We contacted her through her telephone contact numbers and left a message. We will reach back out again. Quality:SDOH Health Related Social Needs: No Data to Display Discharge Plan Discharge Details Attending Provider: Jhony Elam Primary Care Provider: Zafar Botello Home Meds and New Rx's Prescriptions: No Action multivitamin tablet 1 tab PO DAILY rosuvastatin 10 mg tablet 10 mg PO DAILY ascorbate calcium (vitamin C) 500 mg tablet 500 mg PO .COMPLEX Rx Instructions: 500 mg orally Mon, Wed, Fri; levothyroxine 125 mcg capsule 125 mcg PO DAILY furosemide 20 mg tablet 20 mg PO DAILY PRN (Reason: edema) Qty: 60 3RF Hold Instructions: Changed by Provider aspirin 81 mg tablet,delayed release (DR/EC) 81 mg PO DAILY lisinopril 20 mg tablet 20 mg PO DAILY Aranesp (in polysorbate) 200 mcg/0.4 mL syringe 200 mcg subcut Q2W Patient Comments: 03/13/24 per pt she gets an injection Q2w at [facility] due to anemia. this may change. RH clopidogrel 75 mg tablet 75 mg PO DAILY Patient Comments: TAKE ONE TABLET BY MOUTH EVERY DAY ferrous gluconate 324 mg (38 mg iron) tablet 324 mg PO DAILY Patient Comments: TAKE ONE TABLET BY MOUTH EVERY DAY amlodipine 2.5 mg tablet 2.5 mg PO DAILY Patient Comments: TAKE ONE TABLET BY MOUTH EVERY DAY carvedilol 6.25 mg tablet 6.25 mg PO BID cholecalciferol (vitamin D3) [Vitamin D3] 2,000 UNIT capsule 2,000 unit PO DAILY pantoprazole 40 mg tablet,delayed release (DR/EC) 40 mg PO DAILY Qty: 90 0RF Rx Instructions: Take 1 pill by mouth in the morning, 1 pill by mouth in the evening. Repeat this every day for 4 weeks. Then switch to 1 pill daily.
[2024-04-04 11:19] LABS: Abs Immature Grans 0.02 10^3/uL (0.0-0.06); Absolute Basophil Count 0.03 10^3/uL (0.0-0.2); Absolute Eosinophil Count 0.16 10^3/uL (0.0-0.7); Absolute Lymphocyte Count 0.82 10^3/uL (1.2-3.4); Absolute Monocyte Count 0.85 10^3/uL (0.1-0.8); Absolute Neutrophil Count 4.62 10^3/uL (1.2-6.7); Basophils % 0.5 %; Eosinophils % 2.5 %; HCT 31.8 % (36.0-46.0); HGB 10.6 g/dL (11.2-15.7); Immature Grans % 0.3 %; Lymphocytes % 12.6 %; MCH 29.5 pg (27.0-33.0); MCHC 33.3 % (32.0-36.0); MCV 89 fL (80-95); MPV 10.1 fL (8.0-11.0); Monocytes % 13.1 %; Platelet Count 314 10^3/uL (130-400); RBC 3.59 10^6/uL (3.93-5.22); RDW 15.3 % (11.7-14.6); RDW-SD 50.1 fL; Reticulocyte 1.4 % (0.5-2.4)
[2024-04-04 11:31] LABS: Anion Gap 7.8 mmol/L (3-11); BUN 22 mg/dL (7-18); CO2 30.2 mmol/L (21.0-32.0); CREATININE 1.3 mg/dL (0.55-1.02); Calcium 9.5 mg/dL (8.5-10.1); Chloride 100 mmol/L (98-107); Estimated GFR 42.35 (mL/min/1.73m2); Glucose 164 mg/dL (74-106); Potassium 4.3 mmol/L (3.5-5.1); Sodium 138 mmol/L (136-145)
[2024-04-04 11:44] LABS: Ferritin 51 ng/mL (8-252)
[2024-04-05 08:31] LABS: Haptoglobin 280 mg/dL (32-197)
[2024-04-05 18:56] LABS: Erythropoietin 24.5 mIU/mL (2.6 - 18.5)
== END 2024-04-04 01:34 | disposition home or self-care (01) ==
LOC: LBO 01:33
PROVIDERS: PCP Student in an Organized Health Care Education/Training Program; Visit Provider Internal Medicine Hematology & Oncology
DX: E87.1 Hypo-osmolality and hyponatremia (principal); R33.8 Other retention of urine; N18.30 Chronic kidney disease, stage 3 unspecified; N13.30 Unspecified hydronephrosis; D50.9 Iron deficiency anemia, unspecified; N18.31 Chronic kidney disease, stage 3a; D63.1 Anemia in chronic kidney disease
CPT/HCPCS: 00123; 36415; 80048; 82668; 82728; 83010; 85025; 85045

== ENCOUNTER → 2024-04-05 10:33 | Outpatient (BNVA) | payer MEDICARE, OTHER, SELFPAY | PROVIDERS: PCP Student in an Organized Health Care Education/Training Program; Referring Provider Student in an Organized Health Care Education/Training Program; Visit Provider Internal Medicine Cardiovascular Disease | DX: Z95.1 Presence of aortocoronary bypass graft (principal) | CPT/HCPCS: 99213 ==

== ENCOUNTER 2024-04-23 10:49 | Outpatient (RCR) | payer SELFPAY ==
[2024-04-09 10:15] VITALS: BP 141/81; PULSE 64
[2024-04-09 11:20] VITALS: BP 153/49; PULSE 51
[2024-04-23 11:24] VITALS: BP 150/48; PULSE 47
== END 2024-05-08 23:59 | disposition home or self-care (01) ==
LOC: CR 10:49
PROVIDERS: PCP Student in an Organized Health Care Education/Training Program; Visit Provider Internal Medicine Cardiovascular Disease
DX: R69 Illness, unspecified (principal)

== ENCOUNTER 2024-05-08 23:41 | Inpatient (IN) | payer MEDICARE, OTHER, SELFPAY ==
[2024-05-08] VITALS (8 sets, daily range): BP systolic 71–88; BP diastolic 15–54; PULSE 44–50; RESP 14–23; O2SAT 97–100
--- NOTE | 2024-05-08 23:45 | RT.EKG_ITS ---
APPROVED REPORT Exam: Resting ECG Reason for Exam: rapid heart rate Patient Location: E HR:48 bpm ECG Measurements Heart Rate 48 AXIS FL 216 P -61 QRSd 100 QRS 78 QT 471 T 60 QTc 422 Conclusion Sinus or ectopic atrial bradycardia...P axis (-45,135), rate< 60 Physician: no stemi, unchanged from prior EKG
--- NOTE | 2024-05-08 23:52 | ED.GENADUL_ITS ---
Discharge Plan Disposition Patient Disposition: Admit to [facility] Condition: Good Discharge Details Chief Complaint: GenMedical Clinical Impression: Anemia, Widened pulse pressure, CHF exacerbation Primary Care Provider: Zafar Botello ED Provider: Javier Duggan Home Meds and New Rx's Prescriptions: No Action multivitamin tablet 1 tab PO DAILY rosuvastatin 10 mg tablet 10 mg PO DAILY ascorbate calcium (vitamin C) 500 mg tablet 500 mg PO .COMPLEX Rx Instructions: 500 mg orally Mon, Wed, Mon; levothyroxine 125 mcg capsule 125 mcg PO DAILY furosemide 20 mg tablet 20 mg PO DAILY PRN (Reason: edema) Qty: 60 3RF aspirin 81 mg tablet,delayed release (DR/EC) 81 mg PO DAILY lisinopril 20 mg tablet 10 mg PO DAILY Patient Comments: 10 mg only Aranesp (in polysorbate) 200 mcg/0.4 mL syringe 200 mcg subcut Q2W Patient Comments: 03/13/24 per pt she gets an injection Q2w at [facility] due to anemia. this may change. RH clopidogrel 75 mg tablet 75 mg PO DAILY Patient Comments: TAKE ONE TABLET BY MOUTH EVERY DAY ferrous gluconate 324 mg (38 mg iron) tablet 324 mg PO DAILY Patient Comments: TAKE ONE TABLET BY MOUTH EVERY DAY amlodipine 2.5 mg tablet 10 mg PO DAILY Patient Comments: TAKE ONE TABLET BY MOUTH EVERY DAY carvedilol 6.25 mg tablet 6.25 mg PO BID cholecalciferol (vitamin D3) [Vitamin D3] 2,000 UNIT capsule 2,000 unit PO DAILY pantoprazole 40 mg tablet,delayed release (DR/EC) 40 mg PO DAILY Qty: 90 0RF Rx Instructions: Take 1 pill by mouth in the morning, 1 pill by mouth in the evening. Repeat this every day for 4 weeks. Then switch to 1 pill daily. HPI General Date/Time Provider Initiated Documentation: 05/08/24 23:42 . HPI Narrative: 79-year-old female with a past medical history of chronic kidney disease, Paroxysmal atrial fibrillation on aspirin and Plavix, history of chronic anemia for which she receives iron infusions, coronary artery disease with 3 stents and CABG, high cholesterol, hypothyroidism, carotid stenosis with subsequent carotid endarterectomy, who is scheduled to have an iron infusion tomorrow, presents today for evaluation of weakness. Son is at bedside, he states that for the last 4 to 5 days she has been more weak and slower in function than normal. She has felt tired and fatigued. She does have chronic dark stools, but she denies any change in color or bright red blood. She denies any hematemesis, or hemoptysis. She denies any abdominal pain or significant persistent chest pain. She denies any syncope. She states that this feels similar to when her blood levels have been very low in the past. She denies any other complaints at this time. She has taken her nightly medications. No other modifying factors. Related Data Home Medications ?Medication ?Instructions ?Recorded ?Confirmed cholecalciferol (vitamin D3) 50 2,000 unit PO DAILY 06/06/17 05/09/24 mcg (2,000 unit) capsule (Vitamin D3) multivitamin 1 tab PO DAILY 03/15/19 05/09/24 clopidogrel 75 mg tablet 75 mg PO DAILY 12/01/20 05/09/24 ferrous gluconate 324 mg (38 mg 324 mg PO DAILY 12/01/20 05/09/24 iron) tablet rosuvastatin 10 mg tablet 10 mg PO DAILY 12/16/20 05/09/24 ascorbate calcium (vitamin C) 500 500 mg PO .COMPLEX 07/29/22 05/09/24 mg tablet levothyroxine 125 mcg capsule 125 mcg PO DAILY 08/25/22 05/09/24 amlodipine 2.5 mg tablet 10 mg PO DAILY 12/10/23 05/09/24 carvedilol 6.25 mg tablet 6.25 mg PO BID 12/10/23 05/09/24 aspirin 81 mg tablet,delayed 81 mg PO DAILY 12/20/23 05/09/24 release pantoprazole 40 mg tablet,delayed 40 mg PO DAILY #90 tabs 12/29/23 05/09/24 release furosemide 20 mg tablet 20 mg PO DAILY PRN edema #60 tabs 02/16/24 05/09/24 darbepoetin amber in polysorbat 200 200 mcg subcut Q2W 03/13/24 05/09/24 mcg/0.4 mL in polysorbate injection syringe (Aranesp) lisinopril 20 mg tablet 10 mg PO DAILY 03/20/24 05/09/24 Previous Rx's ?Medication ?Instructions ?Recorded pantoprazole 40 mg tablet,delayed 40 mg PO DAILY #90 tabs 12/29/23 release furosemide 20 mg tablet 20 mg PO DAILY PRN edema #60 tabs 02/16/24 Allergies Allergy/AdvReac Type Severity Reaction Status Date / Time cilostazol AdvReac Severe Headache Verified 05/08/24 23:57 [id number]-CHE-[id number] Reductase AdvReac Intermediate Headache Verified 05/08/24 23:57 Inhibitor (Lgefurp-Hmy-Kwo Reductase Inhibitor) atenolol AdvReac Mild palpitation Verified 05/08/24 23:57 s losartan potassium (From AdvReac Mild palpitation Verified 05/08/24 23:57 Cozaar) s levothyroxine sodium AdvReac pt unsure Verified 05/08/24 23:57 General Stated Complaint: GenMedical KEVIN: 2 Review of Systems All systems reviewed & are unremarkable except as noted in HPI and below Exam Narrative Exam Narrative: 1.Const: Well-nourished, Well-developed, appearing stated age 2.Eyes: PERRL, no conjunctival injection, and symmetrical lids. Pale conjunctiva 3.ENT: Atraumatic external nose and ears. Moist MM. Neck: Symmetric, trachea midline, No thyromegaly. 4.CVS: +S1/S2, No murmurs or gallops. Peripheral pulses 2+ and equal in all extremities. Brisk capillary refill in all extremities. 5.RESP: Unlabored respiratory effort. Clear to auscultation bilaterally. No wheezes rales or rhonchi 6.GI: Soft, Nontender/Nondistended, No hepatosplenomegaly. No guarding or rebound. 7.MSK: Normocephalic/Atraumatic, Extremities w/o deformity or ttp No cyanosis or clubbing, Normal movement of all extremities 8.Skin: Warm, Dry. No rashes or lesions. 9.Neuro: pharmacy director II-XII grossly intact. Sensation grossly intact, no focal neurologic deficits. 10.Psych: (AAO) x3. Appropriate mood and affect Course Vital Signs Vital signs: Vital Signs Pulse 50 L 05/08/24 23:44 Respiratory Rate 18 05/08/24 23:44 Blood Pressure 72/18 L 05/08/24 23:44 Pulse Oximetry 98 05/08/24 23:44 Pulse 50 L 05/08/24 23:44 Respiratory Rate 18 05/08/24 23:44 Blood Pressure 72/18 L 05/08/24 23:44 Blood Pressure Position Sitting 05/08/24 23:44 Pulse Oximetry 98 05/08/24 23:44 Oxygen Delivery Method Room Air 05/08/24 23:44 Oxygen Flow Rate 0 05/08/24 23:44 Medical Decision Making 79-year-old female with a past medical history of chronic kidney disease, Paroxysmal atrial fibrillation on aspirin and Plavix, history of chronic anemia for which she receives iron infusions, coronary artery disease with 3 stents and CABG, high cholesterol, hypothyroidism, carotid stenosis with subsequent carotid endarterectomy, who is scheduled to have an iron infusion tomorrow, presents today for evaluation of weakness. Son is at bedside, he states that for the last 4 to 5 days she has been more weak and slower in function than normal. She has felt tired and fatigued. She does have chronic dark stools, but she denies any change in color or bright red blood. She denies any hematemesis, or hemoptysis. She denies any abdominal pain or significant persistent chest pain. She denies any syncope. She states that this feels similar to when her blood levels have been very low in the past. She denies any other complaints at this time. She has taken her nightly medications. No other modifying factors. Exam demonstrates hypotensive female, no tachycardia, blood pressure in the 70s. Heart rate 50. Pale conjunctiva. No abdominal tenderness, no gross bright red blood per rectum. Concern for potential chronic anemia and blood loss bring about her symptoms, mild dehydration, less likely hypothyroidism/myxedema coma. Sepsis is on the differential but less likely as she has no fever or chills. Will evaluate for concerning etiologies, monitor closely and reassess, will sta rt with a liter of normal saline for the time being and stabilize. 1:30 AM Bedside limited echo was performed and demonstrates an ejection fraction of around 45 to 50%, heart does appear mildly dilated. Blood pressure notably improved after 1 L of normal saline, systolic is now in the 140s, however diastolic remains low in the mid 20s to 30s. MAP is around 71 at this time. The patient did develop some new onset left-sided chest pain which she describes as achy and it goes to her back. Chest x-ray was transition to CTA. Hemoglobin is notably low at 5.7. We will transfuse with 2 units of PRBCs, repeat EKG was ordered and shows slight depressions in the lateral leads in V5 and V6, no STEMI though. Hemoccult was performed and is positive for melena. Will add Protonix IV. Will monitor closely and reassess. 3:33 AM CTA shows no evidence of dissection or aneurysm. No pulmonary embolus either. There is an 11 mm low irregular nodule but no other abnormalities. Blood pressure remained stable but she does still have a wide pulse pressure. She has become slightly short of breath, however CTA shows no evidence of pulmonary edema. She has been started on 2 L supplemental oxygen. Lowest oxygenation was in the low 90s. 7:34 AM Patient received her 2 units of PRBCs. Her blood pressure is notably improved but she still maintains a notably wide pulse pressure. Last echo was performed a few years ago. I do feel that she may benefit from a new or more up-to-date echo. Patient does feel a bit short of breath after all fluids. Repeat examination does demonstrate crackles in the lower lung rodas bilaterally. We did get her up and ambulate she does desaturate to around 88 to 89%. Suspect mild CHF component that has improved after blood and fluid administration. P atient does not appear to demonstrate symptoms at this time consistent with significant trolley reaction. 20 mg of Lasix has been administered. With the patient's age, comorbidities, I do feel that she would benefit from 12 to 24- hour observation, repeat echocardiogram, mild diuresis and monitoring. I discussed the case with the hospitalist Dr. Correia, he agrees with the assessment and plan. I have extensively reviewed the treatment plan with the patient. I have addressed all patient concerns at this time. I have also discussed the plan with the admitting physician and they agree with the current assessment and plan and have agreed to assume responsibility for the patient. All parties demonstrate verbal understanding and agreement with our assessment and plan at this time. The documentation in this chart was dictated using [employer] dictation software. Please excuse any dictation errors. FINDINGS: Pulmonary arteries: Normal. No pulmonary emboli. Aorta: Aorta demonstrates moderate atherosclerotic calcification. No aortic aneurysm or dissection. Lungs: Enlarging 11 mm irregular nodule superior segment right lower lobe. Pleural spaces: Unremarkable. No pneumothorax. No pleural effusion. Heart: Unremarkable. No cardiomegaly. No pericardial effusion. Coronary arteries: Coronary artery calcifications. Lymph nodes: Prominent mediastinal nodes noted. Bones/joints: Previous median sternotomy. Soft tissues: Unremarkable. IMPRESSION: 1. No pulmonary embolism identified. 2. Enlarging 11 mm irregular nodule superior segment right lower lobe Quality:SDOH Health Related Social Needs: No Data to Display Critical Care Time Critical Care Time Critical Care Time: Yes Total Critical Care Time: 45 Attestation: Upon my evaluation, this patient had a high probability of imminent or life- threatening deterioration, which required my direct attention, intervention, and personal management. I have personally provided 45 minutes of critical care time exclusive of time spent on separately billable procedures. Time includes review of laboratory data, radiology results, discussion with consultants, and monitoring for potential decompensation. Interventions were performed as documented. [facility] All Active Problems (Updated 05/09/24 @ 07:38 by Javier Duggan DO) CHF exacerbation (Acute) Widened pulse pressure (Acute) Anemia (Chronic) Renal calculi (Chronic) Sinus bradycardia (Acute) Episode of syncope (Chronic) CKD (chronic kidney disease) stage 3, GFR 30-59 ml/min (Acute) Lumbosacral spondylosis without myelopathy (Acute) COPD (chronic obstructive pulmonary disease) (Chronic) Solitary lung nodule (Acute) Hydronephrosis (Acute) Hx of CABG (Chronic) Chest pain, rule out acute myocardial infarction (Acute) Mild chronic gastritis (Acute) Peripheral vascular disease (Chronic) CAD (coronary artery disease) (Chronic) GERD (gastroesophageal reflux disease) (Acute 09/05/16) Cerebrovascular accident (CVA) (Acute) Chronic anxiety (Acute) Iron deficiency anemia (Chronic) Hypothyroid (Chronic) Hyperlipidemia (Chronic) Carotid stenosis (Chronic) Tobacco dependence (Acute) Hx of Helicobacter infection (Acute) 2013 Medical History Anemia Diabetes mellitus Pt denies Chronic kidney disease, stage 3b Lung nodule 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 Prediabetes Asthma Pt denies Asthma Obesity Vitamin D deficiency Hypertension Gastric ulcer 2014 Brittle nails Peripheral vascular disease Depression Intermittent claudication Degenerative disc disease, lumbar Diverticulosis large intestine w/o perforation or abscess w/o bleeding Optic neuritis Impaired glucose regulation Elevated troponin Abnormal EKG Surgical History S/P CABG x 2 right carotid endarterectomy x2 Ligation of fallopian tube EGD - MAC (12/2023) path sent EGD - IV Sedation 2013 Colonoscopy - MAC 2014 Biopsy, Temporal Artery (09/15/17) right Family History Other Heart disease Social History Smoking/Tobacco Use Status: Current every day Tobacco Type: cigarettes Tobacco: How many years used: 46 Counseling given: patient declined Smoking risk assessment performed?: Yes Alcohol Intake: never Drug use: Never Substance use type: does not use Housing: house Do you feel safe at home: Yes Do you feel safe in your relationship?: Yes POCUS Exam (ED) Limited Cardiac Exam DATE OF EXAM: 05/09/24 TIME OF EXAM: 00:28 PROVIDER THAT PERFORMED THE STUDY: Javier Duggan IS THIS A REPEAT EXAM DURING THIS ENCOUNTER: no REASON FOR EXAM: Chest pain VISUALIZED STRUCTURES: Left atrium, Left ventricle, Right ventricle and Mitral valve VIEW OBTAINED: Parasternal long-axis PERTINENT FINDINGS/IMPRESSION: No apparent abnormalities Exam complete
[2024-05-09] VITALS (98 sets, daily range): BP systolic 62–182; BP diastolic 13–77; PULSE 42–56; RESP 12–26; TEMP 35.9–37.1; O2SAT 86–99
--- NOTE | 2024-05-09 | DI.US_ITS ---
APPROVED REPORT EXAM: Comprehensive 2D, Doppler, and color-flow Echocardiogram Patient Location: In-Patient Room/Bed: [address] [employer] Instructor: Jennifer Perkins RDCS (AE) Indications: CHF, Evaluate LV and RV function, VAD, CABG, Smoker Other Information Study Quality: Adequate Conclusion Normal left ventricular wall thickness and chamber size. Ejection fraction is 60%. Wall motion is n ormal Normal right ventricular size and function Right atrial size is normal. Left atrium is moderately enlarged Trileaflet aortic valve with trace regurgitation Normal mitral valve with moderate regurgitation Mild to moderate tricuspid regurgitation. Estimated right ventricular systolic pressure is 43 mmHg Wall motion Left Ventricle The left ventricle is normal size. The left ventricular systolic function is normal. The left ventric ular ejection fraction is within the normal range. There is normal left ventricular wall thickness. T here is normal LV segmental wall motion. There is no ventricular septal defect visualized. LVEF is 60 %. Right Ventricle The right ventricle is normal size. The right ventricular systolic function is normal. Atria Left atrium is moderately dilated. The right atrium size is normal. The interatrial septum is intact with no evidence for an atrial septal defect. Aortic Valve The aortic valve is normal in structure. Aortic valve is trileaflet. There is no aortic valvular sten osis. Trace aortic regurgitation. Mitral Valve The mitral valve is normal in structure. No evidence of mitral valve stenosis. Moderate mitral regurg itation. Tricuspid Valve The tricuspid valve is normal in structure. There is no tricuspid valve stenosis. Mild to moderate t ricuspid regurgitation. The RVSP is 43.1 mmHg. Pulmonic Valve The pulmonary valve is normal in structure. There is no pulmonic valvular stenosis. Trace pulmonic re gurgitation. Great Vessels The aortic root is normal in size. Ascending aorta is not well visualized. Aortic arch is not well vi sualized. The IVC collapses <50% with inspiration. Pericardium There is no pericardial effusion. 2D Dimensions IVSD d PLAX 1.04 cm F: 0.6-1.0 Ao Root d 3.05 cm F: 2.7 - 3.3 LVPW d PLAX 1.04 cm F: 0.6 - 1.0 LVID d PLAX 4.85 cm F: 3.8 - 5.2 LVDs 3.31 cm F: 2.2 - 3.5 LV EF Teichholz 59.8 % FS 31.85 % LV EDV (Teich) 110.2 mL LV ESV (Teich) 44.3 mL M-Mode TAPSE 2.77 cm (M/F) >1.7 Auto EF LV EDV A4C 147.4 mL LV EDV A2C 153.1 mL LV EDV BP 150.8 mL LV ESV A4C 58.9 mL LV ESV A2C 56.4 mL LV ESV BP 58.5 mL LVEF(%) A4C 60.1 % LVEF(%) A2C 63.2 % LVEF(%) BP 61.2 % LV SV A4C 88.5 ml LV SV A2C 96.7 ml LV SV BP 92.2 ml LV CO A4C 4.2 L/min LV CO A2C 4.6 L/min LV CO BP 4.4 L/min HR A4C 47.25 BPM HR A2C 47.17 BPM LV EDV Index (BP) LA Volume LA Length A4C 5.5 cm LA Length A2C 5.4 cm LA Area A4C s 23.29 cm2 LA Area A2C s 22.59 cm2 LA Vol A4C A-L 83.00 mL LA Vol A2C A-L 80.46 mL LA Vol Biplane A-L 82.9 mL LA Vol/BSA A4C A-L LA Vol/BSA A2C A-L LA Vol/BSA BP A-L 47.4 mL/m2 LA Vol A4C MOD 75.4 mL LA Vol A2C MOD 75.8 mL LA Vol BP MOD 76.4 mL RA Volume RA Area A4C 20.7 cm2 RA ESV A4C (A-L) 67.5mL RA Vol/BSA A4C A-L RA Length A4C 5.4 cm RA ESV A4C (MOD) 63.2mL LV Diastology MV E' medial 0.077 (>0.07 m/s) MV E Vmax 1.24 (0.4-1.3 m/s) MV E/E' MED 16.00 (<14) MV A Vmax 0.70 (0.4-1.3 m/s) MV E' lateral 0.108 (>0.1 m/s) E/A Ratio 1.8 MV E/E' LAT 11.49 (<14) MV E' Average 0.092 m/s MV E/E'(average) 13.37 Aortic Valve AoV Vmax 1.71 m/s LVOT Vmax 1.05 m/s AoV Peak Grad 11.7 mmHg LVOT Peak Grad 4.4 mmHg AoV Area (Vmax) 1.86 cm2 LVOT VTI 0.325 m AoV VTI 0.474 m LVOT Mean Grad 2.7 mmHg AoV Mean Ruslan. 1.24 m/s LVOT SV 98.72 mL AoV Mean Grad 6.7 mmHg LVOT Diam s 1.95 cm AoV Area (VTI) 2.08 cm2 AV Regurg Peak Gr. 11.70 mmHg Velocity Ratio 0.61 Mitral Valve MV DT 187 (160-240 msec) MR Vmax 1.22 m/s MR VTI 0.434 m MR Peak Grad 5.9 mmHg MR Mean Grad 1.5 mmHg Pulmonary Valve PV Vmax 1.24 (0.5-1.5 m/s) RVOT Vmax 0.96 m/s PV Peak Grad 6.2 mmHg RVOT Peak Gr. 3.7 mmHg PV Mean Ruslan 0.85 m/s RVOT VTI 0.282 m PV Mean Grad 3.4 mmHg RVOT Mean Gr. 2.3 mmHg Tricuspid Valve RA Pressure 8.00 mmHg TR Vmax 2.96 m/s TV S' 0.13 m/s TR Peak Grad 35.1 mmHg RVSP (TR) 43.1 mmHg
[2024-05-09] MEDS: Normal Saline 1,000 ML 1000 ML IV (00:05)
[2024-05-09 00:15] LABS: Lactate 0.8 mmol/L (0.6-1.4)
--- NOTE | 2024-05-09 00:15 | DI.CT_ITS ---
Exam(s) CT THORAX CTA EXAM: CT THORAX CTA CLINICAL HISTORY: chest pain, anemic, r/o dissection. TECHNIQUE: Imaging Protocol: Axial CT angiography was performed with multi-slice acquisition and mu lti-planar reconstructions as well as axial, coronal and sagittal MIP reconstructions. CONTRAST MATERIAL: Intravenous: Omnipaque 350 Contrast volume:100 ml COMPARISON: CT CT CHEST LUNG CANCER SCREEN from 12/13/2022 CR,XR XR PORTABLE CHEST AP from 12/10/[address] ABDOMEN PELVIS W from 03/22/2024 FINDINGS: Pulmonary Arteries: No evidence of filling defect to suggest pulmonary emboli. Tracheobronchial tree: No mucous plugging. Mediastinum and Kelly: No dominant adenopathy or fluid collection. Pulmonary parenchyma: No consolidation. Interval increase in size of previously noted nodule in the superior segment of the right lower lobe, now measuring 9 millimeters in diameter with compared with 6 by 7 millimeter on prior exam. Previously mentioned 6 millimeter nodule upper lobe no longer seen. Pleura: No effusion or pneumothorax. Heart: The heart is moderately dilated. Moderate coronary artery calcifications are seen. Aorta: Thoracic aorta non-dilated. No dissection. Moderate to severe atherosclerotic changes. Upper abdomen: No acute findings. Bones: Sternal wires. Tubes, Catheters, and Lines: None Soft tissues: Unremarkable. IMPRESSION: No evidence of pulmonary embolism or aortic dissection. Increased size of the nodule superior segment right lower lobe, now 9 millimeters. Biopsy could be c onsidered. Unexpected findings RADIATION DOSE DELIVERED: Total DLP DATA REPOSITORY: All CT scans at this facility are submitted to the National Radiology Data Registry (NRDR) Dose Index Registry (DIR) with the [employer] (ACR). RADIATION OPTIMIZATION: All CT scans at this facility use at least one of these dose optimization te chniques: automated exposure control; mA and/or kV adjustment per patient size (includes targeted exa ms where dose is matched to clinical indication); or iterative reconstruction.
--- NOTE | 2024-05-09 00:15 | RT.EKG_ITS ---
APPROVED REPORT Exam: Resting ECG Reason for Exam: chest pain Patient Location: E HR:53 bpm ECG Measurements Heart Rate 53 AXIS GA 252 P 10 QRSd 102 QRS 81 QT 453 T 133 QTc 418 Conclusion Sinus bradycardia...rate< 60 Atrial premature complex...SV complex w/ short R-R interval Prolonged GA interval...GA >220, V-rate 50- 90 Abnormal T, consider ischemia, lateral leads...T <-0.20mV, I aVL V5 V6 Physician: this repeat ekg shows new slight ST depressions in the lateral leads
[2024-05-09 00:24] LABS: Abs Immature Grans 0.04 10^3/uL (0.0-0.06); Absolute Eosinophil Count 0.28 10^3/uL (0.0-0.7); Absolute Lymphocyte Count 1.29 10^3/uL (1.2-3.4); Absolute Monocyte Count 0.99 10^3/uL (0.1-0.8); Absolute Neutrophil Count 4.46 10^3/uL (1.2-6.7); Immature Grans % 0.6 %; Lymphocytes % 18.3 %; MCH 28.8 pg (27.0-33.0); MCHC 32.2 % (32.0-36.0); MCV 89 fL (80-95); MPV 11.7 fL (8.0-11.0); Neutrophils % 63.1 %; Platelet Count 227 10^3/uL (130-400); RBC 2.05 10^6/uL (3.93-5.22); RDW 15.5 % (11.7-14.6); RDW-SD 50.2 fL; WBC 7.06 10^3/uL (4.4-10.8)
[2024-05-09 00:25] LABS: PTT Activated 25.6 sec (23.6-32.8); Prothrombin Time 10.5 sec (9.1-11.1)
[2024-05-09 00:46] LABS: ALT 13 U/L (14-59); AST 11 U/L (15-37); Albumin 3.1 g/dL (3.4-5.0); Alkaline Phosphatase 67 U/L (46-116); BUN 29 mg/dL (7-18); Bilirubin, Total 0.19 mg/dL (0.2-1.0); CREATININE 1.2 mg/dL (0.55-1.02); Calcium 8.9 mg/dL (8.5-10.1); Chloride 101 mmol/L (98-107); Estimated GFR 46.62 (mL/min/1.73m2); Glucose 137 mg/dL (74-106); NT-proBNP 2099 pg/mL (<300); Potassium 4.2 mmol/L (3.5-5.1); Sodium 136 mmol/L (136-145); TSH (W/Ref FT4) 7.33 uIU/mL (0.36-3.74); Total Protein 6.3 g/dL (6.4-8.2); Troponin I < 50 ng/L (< or =60)
[2024-05-09] MEDS: ACETAMINOPHEN 1,000 MG/100 ML BTL 400 MG IVPB (00:49)
[2024-05-09 01:01] LABS: Procalcitonin < 0.1 ng/mL
[2024-05-09] MEDS: Omnipaque 350 MG/ML 100 ML BTL IJ (01:13)
[2024-05-09] MEDS: Normal Saline - Diluent 50 ML VIAL IJ (01:13)
[2024-05-09 01:24] LABS: Diff Comment RBC Morph Reviewed
[2024-05-09 01:25] LABS: Anisocytosis 2+
[2024-05-09] MEDS: MORPHine 4 MG/ML SYR IVP (02:33)
--- NOTE | 2024-05-09 02:51 | DI.VRAD_ITS ---
PROCEDURE INFORMATION: Exam: CTA Chest With Contrast Exam date and time: 05/09/2024 1:09 AM Age: 79 years old Clinical indication: Other: Chest pain, anemic, R/O dissection TECHNIQUE: Imaging protocol: Computed tomographic angiography of the chest with contrast. Exam focused on the arteries. 3D rendering (Not supervised by radiologist): MIP and/or 3D reconstructed images were created by the technologist. Contrast material: OMNI 350; Contrast volume: 100 ml; Contrast route: INTRAVENOUS (IV); COMPARISON: CT THORAX CTA 12/01/2020 7:31 PM FINDINGS: Pulmonary arteries: Normal. No pulmonary emboli. Aorta: Aorta demonstrates moderate atherosclerotic calcification. No aortic aneurysm or dissection. Lungs: Enlarging 11 mm irregular nodule superior segment right lower lobe. Pleural spaces: Unremarkable. No pneumothorax. No pleural effusion. Heart: Unremarkable. No cardiomegaly. No pericardial effusion. Coronary arteries: Coronary artery calcifications. Lymph nodes: Prominent mediastinal nodes noted. Bones/joints: Previous median sternotomy. Soft tissues: Unremarkable. IMPRESSION: 1. No pulmonary embolism identified. 2. Enlarging 11 mm irregular nodule superior segment right lower lobe. Dictated and Authenticated by: Colten Patel MD. Ordering:HARINDER Herrera MD
[2024-05-09] MEDS: Ondansetron 4 MG/2 ML VIAL IVP (02:52)
[2024-05-09 03:34] LABS: HGB 5.9 g/dL (11.2-15.7)
[2024-05-09 03:35] LABS: HCT 18.3 % (36.0-46.0)
[2024-05-09] MEDS: Famotidine 20 MG/2 ML VIAL IVP (03:43)
[2024-05-09] MEDS: Pantoprazole 40 MG VIAL IVP ×3 (03:44→21:13)
--- NOTE | 2024-05-09 03:45 | RT.EKG_ITS ---
APPROVED REPORT Exam: Resting ECG Reason for Exam: chest pain Patient Location: E HR:52 bpm ECG Measurements Heart Rate 52 AXIS AL 239 P 14 QRSd 103 QRS 85 QT 465 T 56 QTc 432 Conclusion Sinus bradycardia...rate< 60 Prolonged AL interval...AL >220, V-rate 50- 90 Physician: no stemi, t wave abnormalitiies resolved
[2024-05-09 04:09] LABS: Troponin I < 50 ng/L (< or =60)
[2024-05-09 06:11] LABS: Bilirubin Negative (Negative); Blood Negative (Negative); Clarity Clear (Clear); Glucose Negative (Negative); Ketones Negative (Negative); Leukocyte Esterase Negative (Negative); Nitrite Negative (Negative); Specific Gravity <= 1.005 (1.005-1.025); Urobilinogen 0.2 mg/dL (Up to 0.2); pH 5.5 (5-8)
[2024-05-09 06:23] LABS: Bacteria Moderate HPF (Negative); C & S Indicated? Yes; Casts Negative LPF (Negative); Crystals Negative HPF (Negative); Epithelial Cells Rare HPF (Negative); Mucus Negative (Negative); Other Cells Negative (Negative); RBC 0-2 HPF (0-2); WBC 0-2 HPF (0-5)
[2024-05-09] MEDS: Furosemide 20 MG/2 ML VIAL IVP (06:37)
--- NOTE | 2024-05-09 08:48 | INITIAL_ITS ---
Date of service: 05/09/24 Time of Service: 08:49 Care Management Initial Assmt Initial Assessment Reason for Hospitalization: Anemia and CHF Functional Status/Living Situation Patient Presentation: Julee was sitting up in a chair when CM met with her. She was polite and agreeable to conversation but not overly talkative at first. As the conversation continued she became fully engaged and interacted well with CM. Juan espoke about her family and the fact that 3 of her 5 sons live out west. Julee commented that [place] are a very close family and keep in regular contact. She and one of hersons who lives locally are planning a visit out west next summer. Julee was admitted with anemia secondary to chronic GI bleeding. Her Hgb was 5.9 on admission and she was transfused with 2 units of RBCs. Julee informed CM that she is waiting to have an EGD and did not seem excited about the prospect. The procedure is planned for later today. Town of Residence: [place] Resides with: Alone Significant Other/Family: Local (Julee has 5 sons. two live locally and 3 live out west in [place] and [place]. 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[place]) Instrumental Activities of Daily Living (ADLs): Independent Medications Medication Management: No Issues/Barriers identified Physical Functioning/Mobility Assistive Device: none Advance Directives Advance Directives: Do you have an Advance Directive: Y 05/09/24 12:53 AD On File at [facility]: Y 05/09/24 12:53 Date Asked 05/09/24 05/09/24 12:53 AD Date Reviewed COLST On File at [facility] COLST Date Scanned Comment: Justine Rick and Diogo Segundo are co-HCAs Code Status Resuscitation Status Full Code Portal Pt does not currently have a portal and education provided: No Insurance Coverage/Financial Issues Insurance: Medicare [employer] Care Team Visit Care Team Role Provider Type Zafar Botello Primary Care Provider NON-[facility] STAFF PHYSICIAN Javier Duggan DO Emergency Provider [facility] STAFF PHYSICIAN Jeremy Correia MD Admit Provider [facility] STAFF PHYSICIAN Attending Provider Discharge Potential Discharge Needs: PCP F/U Appt Anticipated Barriers to Discharge: None Identified Patient/Family Education Needs: Review discharge instructions, discuss Ask Me Three Transportation: Private vehicle Plan: Anticipate Julee will be discharged home with no new services. She will follow up with her community providers and plan of care and transport with family. CM will follow and assess for discharge planning concerns. PFSH All Active Problems (Updated 05/09/24 @ 12:25 by Jeremy Correia MD) Incidental lung nodule, greater than or equal to 8mm (Acute) Widened pulse pressure (Acute) Anemia (Chronic) Renal calculi (Chronic) Sinus bradycardia (Acute) Episode of syncope (Chronic) CKD (chronic kidney disease) stage 3, GFR 30-59 ml/min (Acute) Lumbosacral spondylosis without myelopathy (Acute) COPD (chronic obstructive pulmonary disease) (Chronic) Solitary lung nodule (Acute) Hydronephrosis (Acute) Hx of CABG (Chronic) Chest pain, rule out acute myocardial infarction (Acute) Mild chronic gastritis (Acute) Peripheral vascular disease (Chronic) CAD (coronary artery disease) (Chronic) GERD (gastroesophageal reflux disease) (Acute 09/05/16) Cerebrovascular accident (CVA) (Acute) Chronic anxiety (Acute) Iron deficiency anemia (Chronic) Hypothyroid (Chronic) Hyperlipidemia (Chronic) Carotid stenosis (Chronic) Tobacco dependence (Acute) Hx of Helicobacter infection (Acute) 2014 Medical History Anemia Diabetes mellitus Pt denies Chronic kidney disease, stage 3b Lung nodule 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 Prediabetes Asthma Pt denies Asthma Obesity Vitamin D deficiency Hypertension Gastric ulcer 2014 Brittle nails Peripheral vascular disease Depression Intermittent claudication Degenerative disc disease, lumbar Diverticulosis large intestine w/o perforation or abscess w/o bleeding Optic neuritis Impaired glucose regulation Elevated troponin Abnormal EKG Surgical History S/P CABG x 2 right carotid endarterectomy x2 Ligation of fallopian tube EGD - MAC (12/2023) path sent EGD - IV Sedation 2014 Colonoscopy - MAC 2015 Biopsy, Temporal Artery (09/15/17) right Family History Other Heart disease Social History Smoking/Tobacco Use Status: Current every day Tobacco Type: cigarettes Tobacco: How many years used: 46 Counseling given: patient declined Smoking risk assessment performed?: Yes Alcohol Intake: never Drug use: Never Substance use type: does not use Housing: house Do you feel safe at home: Yes Do you feel safe in your relationship?: Yes SDOH(Care Management) Screening Will the Patient Participate in the Screening?: Unable to obtain
--- NOTE | 2024-05-09 08:53 | W.PC.ACHO ---
Registration Status: Primary Language: Preferred Language: ED Information & Data Chief Complaint [facility] 05/08/24 23:56 Triage Note pt feels unwell and states 05/08/24 23:44 that she is chronically anemic. Denies sob, slight chest pain in the middle of her chest. Ongoing for 1 week. swelling noted in lower leg. pt gets infusions at [facility]. No dizziness reported. 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 Prediabetes Asthma Obesity Vitamin D deficiency Hypertension Gastric ulcer Brittle nails Peripheral vascular disease Depression Intermittent claudication Degenerative disc disease, lumbar Diverticulosis large intestine w/o perforation or abscess w/o bleeding Optic neuritis Impaired glucose regulation Elevated troponin Abnormal EKG (Last Reviewed 05/08/24 @ 23:55 by Javier Duggan DO) S/P CABG x 2 right carotid endarterectomy Ligation of fallopian tube EGD - MAC (12/2023) EGD - IV Sedation Colonoscopy - MAC Biopsy, Temporal Artery (09/15/17) Most Recent Vital Signs Temperature 36.9 C 05/09/24 08:31 Temperature Source Temporal Artery Scan 05/09/24 08:31 Pulse 48 L 05/09/24 08:31 Pulse Rhythm Regular 05/09/24 08:31 Pulse 46 L 05/09/24 08:15 Respiratory Rate 18 05/09/24 08:31 Respiratory Effort Normal 05/09/24 08:31 Respiratory Depth Deep 05/09/24 08:31 Respiratory Pattern Normal 05/09/24 08:31 Blood Pressure 158/54 H 05/09/24 08:31 Blood Pressure Mean 77 05/09/24 08:15 Blood Pressure Position Sitting 05/09/24 00:25 Pulse Oximetry 97 05/09/24 08:31 Oxygen Delivery Method Nasal Cannula 05/09/24 08:31 Oxygen Flow Rate 2.5 05/09/24 08:31 Pain Level 0 05/09/24 08:12 Allergies cilostazol Adverse Reaction (Severe, Verified 05/08/24 23:57) Headache Vezzxdn-RLS-GxP Reductase Inhibitor (Vcuqwqv-Zud-Nym Reductase Inhibitor) Adverse Reaction (Intermediate, Verified 05/08/24 23:57) Headache atenolol Adverse Reaction (Mild, Verified 05/08/24 23:57) palpitations losartan potassium (From Cozaar) Adverse Reaction (Mild, Verified 05/08/24 23:57) palpitations levothyroxine sodium Adverse Reaction (Verified 05/08/24 23:57) pt unsure could not take one brand because of the dye used in the tab Precautions Isolation Standard precaution 05/08/24 23:56 IV IV Catheter Type [Right Saline Lock Antecubital] IV Catheter Type [Left Saline Lock Antecubital] IV Catheter Gauge [Right 18 Antecubital] IV Catheter Gauge [Left 18 Antecubital] Diet Orders Category Date Time Status Heart Healthy Eating [DIET] Nutrition 05/09/24 Breakfast Active Diagnostics 05/09/24 05/09/24 05/09/24 Range/Units 13:34 07:34 04:50 WBC (4.4-10.8) 10^3/uL RBC (3.93-5.22) 10^6/uL Hgb Pending Pending (11.2-15.7) g/dL Hct Pending Pending (36.0-46.0) % MCV (80-95) fL MCH (27.0-33.0) pg MCHC (32.0-36.0) % RDW (11.7-14.6) % Plt Count (130-400) 10^3/uL MPV (8.0-11.0) fL Immature Gran % % Neutrophils % % Lymphocytes % % Monocytes % % Eosinophils % % Basophils % % Nucleated RBC % (0.0-0.3) % Absolute Neutrophils (1.2-6.7) 10^3/uL Absolute Lymphocytes (1.2-3.4) 10^3/uL Absolute Monocytes (0.1-0.8) 10^3/uL Absolute Eosinophils (0.0-0.7) 10^3/uL Absolute Basophils (0.0-0.2) 10^3/uL RBC Morphology Anisocytosis PT (9.1-11.1) sec INR (0.9-1.1) APTT (23.6-32.8) sec VBG Lactate (0.6-1.4) mmol/L Sodium (136-145) mmol/L Potassium (3.5-5.1) mmol/L Chloride (98-107) mmol/L Carbon Dioxide (21.0-32.0) mmol/L Anion Gap (3-11) mmol/L BUN (7-18) mg/dL Creatinine (0.55-1.02) mg/dL Est GFR (CKD-EPI 2020) (mL/min/1.73m2) Glucose (74-106) mg/dL Calcium (8.5-10.1) mg/dL Total Bilirubin (0.2-1.0) mg/dL AST (15-37) U/L ALT (14-59) U/L Alkaline Phosphatase (46-116) U/L Troponin I Pending (< or =60) ng/L NT-Pro-B Natriuret Pep (<300) pg/mL Total Protein (6.4-8.2) g/dL Albumin (3.4-5.0) g/dL Procalcitonin ng/mL TSH (0.36-3.74) uIU/mL Free T4 (0.76-1.46) ng/dL Urine Color (Yellow) Urine Clarity (Clear) Urine pH (5-8) Ur Specific [place] (1.005-1.025) Urine Protein (Neg-Trace) mg/dL Urine Ketones (Negative) mg/dL Urine Blood (Negative) Urine Nitrite (Negative) Urine Bilirubin (Negative) Urine Urobilinogen (Up to 0.2) mg/dL Ur Leukocyte Esterase (Negative) Urine RBC (0-2) HPF Urine WBC (0-5) HPF Ur Epithelial Cells (Negative) HPF Urine Crystals (Negative) HPF Urine Bacteria (Negative) HPF Urine Casts (Negative) LPF Urine Mucus (Negative) Urine Other (Negative) Ur Culture Indicated? Urine Glucose Cancelled (Negative) mg/dL ABO/Rh Antibody Screen Crossmatch 05/09/24 05/09/24 05/09/24 Range/Units 04:50 04:50 04:50 WBC (4.4-10.8) 10^3/uL RBC (3.93-5.22) 10^6/uL Hgb (11.2-15.7) g/dL Hct (36.0-46.0) % MCV (80-95) fL MCH (27.0-33.0) pg MCHC (32.0-36.0) % RDW (11.7-14.6) % Plt Count (130-400) 10^3/uL MPV (8.0-11.0) fL Immature Gran % % Neutrophils % % Lymphocytes % % Monocytes % % Eosinophils % % Basophils % % Nucleated RBC % (0.0-0.3) % Absolute Neutrophils (1.2-6.7) 10^3/uL Absolute Lymphocytes (1.2-3.4) 10^3/uL Absolute Monocytes (0.1-0.8) 10^3/uL Absolute Eosinophils (0.0-0.7) 10^3/uL Absolute Basophils (0.0-0.2) 10^3/uL RBC Morphology Anisocytosis PT (9.1-11.1) sec INR (0.9-1.1) APTT (23.6-32.8) sec VBG Lactate (0.6-1.4) mmol/L Sodium (136-145) mmol/L Potassium (3.5-5.1) mmol/L Chloride (98-107) mmol/L Carbon Dioxide (21.0-32.0) mmol/L Anion Gap (3-11) mmol/L BUN (7-18) mg/dL Creatinine (0.55-1.02) mg/dL Est GFR (CKD-EPI 2020) (mL/min/1.73m2) Glucose (74-106) mg/dL Calcium (8.5-10.1) mg/dL Total Bilirubin (0.2-1.0) mg/dL AST (15-37) U/L ALT (14-59) U/L Alkaline Phosphatase (46-116) U/L Troponin I (< or =60) ng/L NT-Pro-B Natriuret Pep (<300) pg/mL Total Protein (6.4-8.2) g/dL Albumin (3.4-5.0) g/dL Procalcitonin ng/mL TSH (0.36-3.74) uIU/mL Free T4 (0.76-1.46) ng/dL Urine Color (Yellow) Urine Clarity (Clear) Urine pH (5-8) Ur Specific [place] (1.005-1.025) Urine Protein (Neg-Trace) mg/dL Urine Ketones (Negative) mg/dL Urine Blood (Negative) Urine Nitrite (Negative) Urine Bilirubin Cancelled (Negative) Urine Urobilinogen Cancelled 0.2 (Up to 0.2) mg/dL Ur Leukocyte Esterase Cancelled Negative (Negative) Urine RBC 0-2 (0-2) HPF Urine WBC 0-2 (0-5) HPF Ur Epithelial Cells Rare (Negative) HPF Urine Crystals Negative (Negative) HPF Urine Bacteria Moderate (Negative) HPF Urine Casts Negative (Negative) LPF Urine Mucus Negative (Negative) Urine Other Negative (Negative) Ur Culture Indicated? Yes Urine Glucose Negative (Negative) mg/dL ABO/Rh Antibody Screen Crossmatch 05/09/24 05/09/24 05/09/24 Range/Units 04:50 04:50 04:50 WBC (4.4-10.8) 10^3/uL RBC (3.93-5.22) 10^6/uL Hgb (11.2-15.7) g/dL Hct (36.0-46.0) % MCV (80-95) fL MCH (27.0-33.0) pg MCHC (32.0-36.0) % RDW (11.7-14.6) % Plt Count (130-400) 10^3/uL MPV (8.0-11.0) fL Immature Gran % % Neutrophils % % Lymphocytes % % Monocytes % % Eosinophils % % Basophils % % Nucleated RBC % (0.0-0.3) % Absolute Neutrophils (1.2-6.7) 10^3/uL Absolute Lymphocytes (1.2-3.4) 10^3/uL Absolute Monocytes (0.1-0.8) 10^3/uL Absolute Eosinophils (0.0-0.7) 10^3/uL Absolute Basophils (0.0-0.2) 10^3/uL RBC Morphology Anisocytosis PT (9.1-11.1) sec INR (0.9-1.1) APTT (23.6-32.8) sec VBG Lactate (0.6-1.4) mmol/L Sodium (136-145) mmol/L Potassium (3.5-5.1) mmol/L Chloride (98-107) mmol/L Carbon Dioxide (21.0-32.0) mmol/L Anion Gap (3-11) mmol/L BUN (7-18) mg/dL Creatinine (0.55-1.02) mg/dL Est GFR (CKD-EPI 2020) (mL/min/1.73m2) Glucose (74-106) mg/dL Calcium (8.5-10.1) mg/dL Total Bilirubin (0.2-1.0) mg/dL AST (15-37) U/L ALT (14-59) U/L Alkaline Phosphatase (46-116) U/L Troponin I (< or =60) ng/L NT-Pro-B Natriuret Pep (<300) pg/mL Total Protein (6.4-8.2) g/dL Albumin (3.4-5.0) g/dL Procalcitonin ng/mL TSH (0.36-3.74) uIU/mL Free T4 (0.76-1.46) ng/dL Urine Color (Yellow) Urine Clarity (Clear) Urine pH (5-8) Ur Specific [place] (1.005-1.025) Urine Protein (Neg-Trace) mg/dL Urine Ketones Cancelled (Negative) mg/dL Urine Blood Cancelled Negative (Negative) Urine Nitrite Cancelled Negative (Negative) Urine Bilirubin Negative (Negative) Urine Urobilinogen (Up to 0.2) mg/dL Ur Leukocyte Esterase (Negative) Urine RBC (0-2) HPF Urine WBC (0-5) HPF Ur Epithelial Cells (Negative) HPF Urine Crystals (Negative) HPF Urine Bacteria (Negative) HPF Urine Casts (Negative) LPF Urine Mucus (Negative) Urine Other (Negative) Ur Culture Indicated? Urine Glucose (Negative) mg/dL ABO/Rh Antibody Screen Crossmatch 05/09/24 05/09/24 05/09/24 Range/Units 04:50 04:50 04:50 WBC (4.4-10.8) 10^3/uL RBC (3.93-5.22) 10^6/uL Hgb (11.2-15.7) g/dL Hct (36.0-46.0) % MCV (80-95) fL MCH (27.0-33.0) pg MCHC (32.0-36.0) % RDW (11.7-14.6) % Plt Count (130-400) 10^3/uL MPV (8.0-11.0) fL Immature Gran % % Neutrophils % % Lymphocytes % % Monocytes % % Eosinophils % % Basophils % % Nucleated RBC % (0.0-0.3) % Absolute Neutrophils (1.2-6.7) 10^3/uL Absolute Lymphocytes (1.2-3.4) 10^3/uL Absolute Monocytes (0.1-0.8) 10^3/uL Absolute Eosinophils (0.0-0.7) 10^3/uL Absolute Basophils (0.0-0.2) 10^3/uL RBC Morphology Anisocytosis PT (9.1-11.1) sec INR (0.9-1.1) APTT (23.6-32.8) sec VBG Lactate (0.6-1.4) mmol/L Sodium (136-145) mmol/L Potassium (3.5-5.1) mmol/L Chloride (98-107) mmol/L Carbon Dioxide (21.0-32.0) mmol/L Anion Gap (3-11) mmol/L BUN (7-18) mg/dL Creatinine (0.55-1.02) mg/dL Est GFR (CKD-EPI 2020) (mL/min/1.73m2) Glucose (74-106) mg/dL Calcium (8.5-10.1) mg/dL Total Bilirubin (0.2-1.0) mg/dL AST (15-37) U/L ALT (14-59) U/L Alkaline Phosphatase (46-116) U/L Troponin I (< or =60) ng/L NT-Pro-B Natriuret Pep (<300) pg/mL Total Protein (6.4-8.2) g/dL Albumin (3.4-5.0) g/dL Procalcitonin ng/mL TSH (0.36-3.74) uIU/mL Free T4 (0.76-1.46) ng/dL Urine Color (Yellow) Urine Clarity (Clear) Urine pH Cancelled (5-8) Ur Specific [place] Cancelled <= 1.005 (1.005-1.025) Urine Protein Cancelled 30 H (Neg-Trace) mg/dL Urine Ketones Negative (Negative) mg/dL Urine Blood (Negative) Urine Nitrite (Negative) Urine Bilirubin (Negative) Urine Urobilinogen (Up to 0.2) mg/dL Ur Leukocyte Esterase (Negative) Urine RBC (0-2) HPF Urine WBC (0-5) HPF Ur Epithelial Cells (Negative) HPF Urine Crystals (Negative) HPF Urine Bacteria (Negative) HPF Urine Casts (Negative) LPF Urine Mucus (Negative) Urine Other (Negative) Ur Culture Indicated? Urine Glucose (Negative) mg/dL ABO/Rh Antibody Screen Crossmatch 05/09/24 05/09/24 05/09/24 Range/Units 04:50 04:50 04:50 WBC (4.4-10.8) 10^3/uL RBC (3.93-5.22) 10^6/uL Hgb (11.2-15.7) g/dL Hct (36.0-46.0) % MCV (80-95) fL MCH (27.0-33.0) pg MCHC (32.0-36.0) % RDW (11.7-14.6) % Plt Count (130-400) 10^3/uL MPV (8.0-11.0) fL Immature Gran % % Neutrophils % % Lymphocytes % % Monocytes % % Eosinophils % % Basophils % % Nucleated RBC % (0.0-0.3) % Absolute Neutrophils (1.2-6.7) 10^3/uL Absolute Lymphocytes (1.2-3.4) 10^3/uL Absolute Monocytes (0.1-0.8) 10^3/uL Absolute Eosinophils (0.0-0.7) 10^3/uL Absolute Basophils (0.0-0.2) 10^3/uL RBC Morphology Anisocytosis PT (9.1-11.1) sec INR (0.9-1.1) APTT (23.6-32.8) sec VBG Lactate (0.6-1.4) mmol/L Sodium (136-145) mmol/L Potassium (3.5-5.1) mmol/L Chloride (98-107) mmol/L Carbon Dioxide (21.0-32.0) mmol/L Anion Gap (3-11) mmol/L BUN (7-18) mg/dL Creatinine (0.55-1.02) mg/dL Est GFR (CKD-EPI 2020) (mL/min/1.73m2) Glucose (74-106) mg/dL Calcium (8.5-10.1) mg/dL Total Bilirubin (0.2-1.0) mg/dL AST (15-37) U/L ALT (14-59) U/L Alkaline Phosphatase (46-116) U/L Troponin I (< or =60) ng/L NT-Pro-B Natriuret Pep (<300) pg/mL Total Protein (6.4-8.2) g/dL Albumin (3.4-5.0) g/dL Procalcitonin ng/mL TSH (0.36-3.74) uIU/mL Free T4 (0.76-1.46) ng/dL Urine Color Cancelled Yellow (Yellow) Urine Clarity Cancelled Clear (Clear) Urine pH 5.5 (5-8) Ur Specific [place] (1.005-1.025) Urine Protein (Neg-Trace) mg/dL Urine Ketones (Negative) mg/dL Urine Blood (Negative) Urine Nitrite (Negative) Urine Bilirubin (Negative) Urine Urobilinogen (Up to 0.2) mg/dL Ur Leukocyte Esterase (Negative) Urine RBC (0-2) HPF Urine WBC (0-5) HPF Ur Epithelial Cells (Negative) HPF Urine Crystals (Negative) HPF Urine Bacteria (Negative) HPF Urine Casts (Negative) LPF Urine Mucus (Negative) Urine Other (Negative) Ur Culture Indicated? Urine Glucose (Negative) mg/dL ABO/Rh Antibody Screen Crossmatch 05/09/24 05/09/24 Range/Units 03:25 00:05 WBC 7.06 (4.4-10.8) 10^3/uL RBC 2.05 L (3.93-5.22) 10^6/uL Hgb 5.9 L* (11.2-15.7) g/dL Hct 18.3 L* (36.0-46.0) % MCV 89 (80-95) fL MCH 28.8 (27.0-33.0) pg MCHC 32.2 (32.0-36.0) % RDW 15.5 H (11.7-14.6) % Plt Count 227 (130-400) 10^3/uL MPV 11.7 H (8.0-11.0) fL Immature Gran % 0.6 % Neutrophils % 63.1 % Lymphocytes % 18.3 % Monocytes % 14.0 % Eosinophils % 4.0 % Basophils % 0.0 % Nucleated RBC % 0.0 (0.0-0.3) % Absolute Neutrophils 4.46 (1.2-6.7) 10^3/uL Absolute Lymphocytes 1.29 (1.2-3.4) 10^3/uL Absolute Monocytes 0.99 H (0.1-0.8) 10^3/uL Absolute Eosinophils 0.28 (0.0-0.7) 10^3/uL Absolute Basophils 0.00 (0.0-0.2) 10^3/uL RBC Morphology See Below Anisocytosis 2+ PT 10.5 (9.1-11.1) sec INR 1.0 (0.9-1.1) APTT 25.6 (23.6-32.8) sec VBG Lactate 0.8 (0.6-1.4) mmol/L Sodium 136 (136-145) mmol/L Potassium 4.2 (3.5-5.1) mmol/L Chloride 101 (98-107) mmol/L Carbon Dioxide 27.0 (21.0-32.0) mmol/L Anion Gap 8.0 (3-11) mmol/L BUN 29 H (7-18) mg/dL Creatinine 1.2 H (0.55-1.02) mg/dL Est GFR (CKD-EPI 2020) 46.62 (mL/min/1.73m2) Glucose 137 H (74-106) mg/dL Calcium 8.9 (8.5-10.1) mg/dL Total Bilirubin 0.19 L (0.2-1.0) mg/dL AST 11 L (15-37) U/L ALT 13 L (14-59) U/L Alkaline Phosphatase 67 (46-116) U/L Troponin I < 50 < 50 (< or =60) ng/L NT-Pro-B Natriuret Pep 2099 H (<300) pg/mL Total Protein 6.3 L (6.4-8.2) g/dL Albumin 3.1 L (3.4-5.0) g/dL Procalcitonin < 0.1 ng/mL TSH 7.33 H (0.36-3.74) uIU/mL Free T4 1.00 (0.76-1.46) ng/dL Urine Color (Yellow) Urine Clarity (Clear) Urine pH (5-8) Ur Specific [place] (1.005-1.025) Urine Protein (Neg-Trace) mg/dL Urine Ketones (Negative) mg/dL Urine Blood (Negative) Urine Nitrite (Negative) Urine Bilirubin (Negative) Urine Urobilinogen (Up to 0.2) mg/dL Ur Leukocyte Esterase (Negative) Urine RBC (0-2) HPF Urine WBC (0-5) HPF Ur Epithelial Cells (Negative) HPF Urine Crystals (Negative) HPF Urine Bacteria (Negative) HPF Urine Casts (Negative) LPF Urine Mucus (Negative) Urine Other (Negative) Ur Culture Indicated? Urine Glucose (Negative) mg/dL ABO/Rh O Negative Antibody Screen NEGATIVE Crossmatch See Detail Intake and Output - 24 Hour Total 05/08/24 23:41 thru 05/09/24 08:31 Intake Total 1525 Balance 1525 Weight 71.668 kg Intake: IV 1100 Blood Product 425 Rbc Leuko Reduced Unit 175 [id number] Rbc Leuko Reduced Unit 250 [id number] Other: Urine Appearance Clear Falls Risk Assessment History of Falls No History 05/09/24 08:31 Contributing Factors Unstable 05/09/24 08:31 Ambulatory Aids Independent 05/09/24 08:31 Tubes/Lines With any additional score 05/09/24 08:31 Gait Evaluation W/no contributing factors 05/09/24 08:31 Cognition No cognitive impairment 05/09/24 00:16 Fall Total Score 33 05/09/24 08:31 Level of Risk Moderate Risk 05/09/24 08:31 v v v v v v v v v Sending and/or Receiving Nurses: Please use comment section below to note any information pertinent to the patient hand-off not included above. Information / Comments: Report received from: Abbi Campbell RN
[2024-05-09] MEDS: Levothyroxine 125 MCG TAB PO (08:58)
[2024-05-09] MEDS: Normal Saline Flush 10 ML SYR IVP ×2 (08:59→21:01)
[2024-05-09] MEDS: Ferrous Gluconate 324 MG TAB PO (10:02)
[2024-05-09] MEDS: Pantoprazole 40 MG TABCR PO (10:02)
--- NOTE | 2024-05-09 10:18 | HPE_ITS ---
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 She has been on oral iron supplements but also is seen by Dr. Avendaño hematology, [facility] – [place], through [facility] where she periodically gets iron infusions. She has been evaluated in the past by Dr. Marv Sanchez and his former partner, Dr. Crystal Wise who have done EGD's and colonoscopies on her. Her last upper and lower endoscopies were 12/28/[address] Sanchez and she was found to have esophagitis, duodenitis and gastric ulcer but was negative for Baker's changed on the biopsy from her esophagus and her H pylori was negative. She had been on protonix 40 mg bid for a week or two but has been on 40 mg daily since. She has been chronically on ASA and plavix d/t her carotid and coronary artery disease. Surgery has been consulted. (I texted w/ Dr. Cardona this morning who is net front end developer for Dr. Sanchez and she has agreed to see the patient). I have increased her protonix to twice a day and put her on carafate. I have held her aspirin and plavix for now until her endoscopy is completed. I held her BP meds for now as she was hypotensive in the ED but has since stabilized, so if she does not have acute bleeding and hypotension, she should go back on her antihypertensive although w/ her bradycardia and 1st degree AV block, her carvedilol dose probably should be reduced. Given she has some bibasilar rales, she probably got a little fluid overloaded w/ the initial NS bolus and the 2 units of PRBC, she has since diuresed and her oxygen saturation on room air now is 94 to 96%. I will check an updated echo given her hx of CAD. She denies any hx of CHF. Bedside POCUS per the ED provider was mildly impaired LV. she had wide pulse pressure so CTA of chest was done and there was no TAA dissection or P.E. but she does have RLL lung nodule that is 9 mm for which the radiologist recommends bx. Qualifiers: Anemia type: iron deficiency Iron deficiency anemia type: chronic blood loss Qualified Code(s): D50.0 - Iron deficiency anemia secondary to blood loss (chronic) (2) Gastric ulcer: Assessment and plan: protonix 40 mg IV q12h, carafate 1 gm qid; consult surgery for repeat upper endoscopy. Dr. Cardona has been consulted. Hold aspirin and plavix for now. Qualifiers: Gastric ulcer chronicity: chronic Gastric ulcer complication status: u nspecified whether hemorrhage or perforation present Qualified Code(s): K25.7 - Chronic gastric ulcer without hemorrhage or perforation (3) Widened pulse pressure: Status: Acute Assessment and plan: review of her outpatient BP in cardiology clinic demonstrated similar widened pulse pressures w/ her diastolic readings typically in low 40's to 50's and SBP usually 140 to 160. patient has no aortic dissection on her CTA and there is no detectable differenced in her radial pulses nor is there any discrepancy in her BP from one arm to the other. I got 166/43 left arm and 157/46 RA w/ automated cuff while she was sitting, HR 45 to 48 and her SPO2 was 92-94% on room air. Her last echo did not show any aortic stenosis. I will repeat her echo today. (4) CHF exacerbation: Status: Suspected Assessment and plan: suspected based on her hx of CABG and prior CA and now needing oxygen after volume resuscitaiton. Last echo was from 01/07/21 and at that time showed normal LV size and function w/ LVEF of 59%, normal RV size adn function.Patient has diuresed well. I suspect she has some diastolic HF and just received too much volume too quickly. We are cycling her troponis to rule out ACS related to her anemia and underlying CAD. will get updated echo today. Qualifiers: Heart failure type: unspecified Qualified Code(s): I50.9 - Heart failure, unspecified (5) COPD (chronic obstructive pulmonary disease): Status: Chronic Assessment and plan: patient continues to smoke 1/2 ppd and has no intention of quitting even though she knows that her vascular disease and her gastric ulcer are exacerbated by her smoking. She is not aware of the lung nodule as I had not seen the CT report before I interviewed her. I will discuss this with her and the need for pulmonary follow up for further evaluation/bx Qualifiers: COPD type: unspecified COPD Qualified Code(s): J44.9 - Chronic obstructive pulmonary disease, unspecified (6) CKD (chronic kidney disease) stage 3, GFR 30-59 ml/min: Status: Acute Qualifiers: Chronic kidney disease stage 3 subtype: unspecified whether 3a or 3b Q ualified Code(s): N18.30 - Chronic kidney disease, stage 3 unspecified (7) Incidental lung nodule, greater than or equal to 8mm: Status: Acute Assessment and plan: RLL nodule 8 mm, radiologist recommends bx. We will defer this until her GI bleed is stabilized then refer her to pulmonary services for further workup. To be discussed w/ the patient History of Present Illness History of Present Illness Chief Complaint: CP, weak, fatigued, chronic anemia Narrative: 79 yr old female w/ hx of CAD, s/p CABG 2 vessel 2018 ([facility]) and carotid stenosis s/p bilateral carotid endartectomies and stents, HTN, HLD, recurrent anemia, PUD, colon polyps, who presented w/ symptoms of anterior chest pain, fatigue and black stools. She is on both oral iron supplements and gets intermittent iron infusions through [facility]. She has had prior upper and lower endoscopies for evaluation of her chronic anemia. She last had EGD and colonoscopy w/ Dr. Marv Sanchez at [facility] 12/28/23 when she was found to have diverticulosis, no hemorrrhoids but to have multiple colon polyps which were removed. EGD demonstrated Barretts esophagitis and demonstrated recent bleeding from a gastric ulcer along the greater curvature and some duodenitis but no duodenal ulcer. Her pathology for her gastric and esophageal biopsies demonstrated erosive gastritis but negative for H. pylori, esophagus was negative for dysplasia or intestinal metaplasia. the colon polyps were tubular adenomas. On arrival to the ED last night she was hypotensive w/ sbp in the 70's and she was bradycardic HR in low 50's (she is chronically on carvedilol), she was typed and screened and transfued 2 units of PRBC for Hb of 6.8 gm. After she intially was given a bolus of NS for her hypotension prior to the transfusions. Post transfusion she was noted to have some hypoxia w/ SPO2 of 86 to 91%, she was found to have some rales and was given iv lasix. She is now admitted for further monitoring of her anemia, surgical consultation will be obtained w/ Dr. Marv Sanchez regarding repeat upper endoscopy. Review of Systems Constitutional Constitutional: Reports fatigue and Reports lethargy Eyes Eyes: Reports system reviewed and no additional complaints, except as documented ENT Ears, Nose, Mouth, and Throat: Reports system reviewed and no additional complaints, except as documented Cardiovascular Cardiovascular: Reports chest pain, Reports chest pain at rest, Denies pedal edema, Denies edema, Reports claudication, Reports lightheadedness, Reports dyspnea on exertion and Reports slow heart rate (says that her HR is always slow in the 40's to 50's) Respiratory Respiratory: Denies cough, Denies hemoptysis, Denies excessive phlegm production and Reports dyspnea on exertion Gastrointestinal Gastrointestinal: Reports as per HPI, Denies abdominal pain, Reports melena, Denies hematochezia, Denies coffee ground emesis, Reports loose stools, Reports nausea, Denies vomiting and Denies hematemesis Genitourinary Genitourinary: Reports system reviewed and no additional complaints, except as documented Musculoskeletal Musculoskeletal: Reports system reviewed and no additional complaints, except as documented Integumentary/Breasts Skin/Breast: Reports system reviewed and no additional complaints, except as documented Neurologic Neurologic: Reports system reviewed and no additional complaints, except as documented Endocrine Endocrine: Reports system reviewed and no additional complaints, except as documented and Reports fatigue Hematologic/Lymphatic Hematologic/Lymphatic: Reports system reviewed and no additional complaints, except as documented PFSH All Active Problems (Updated 05/09/24 @ 12:25 by Jeremy Correia MD) Incidental lung nodule, greater than or equal to 8mm (Acute) Widened pulse pressure (Acute) Anemia (Chronic) Renal calculi (Chronic) Sinus bradycardia (Acute) Episode of syncope (Chronic) CKD (chronic kidney disease) stage 3, GFR 30-59 ml/min (Acute) Lumbosacral spondylosis without myelopathy (Acute) COPD (chronic obstructive pulmonary disease) (Chronic) Solitary lung nodule (Acute) Hydronephrosis (Acute) Hx of CABG (Chronic) Chest pain, rule out acute myocardial infarction (Acute) Mild chronic gastritis (Acute) Peripheral vascular disease (Chronic) CAD (coronary artery disease) (Chronic) GERD (gastroesophageal reflux disease) (Acute 09/05/16) Cerebrovascular accident (CVA) (Acute) Chronic anxiety (Acute) Iron deficiency anemia (Chronic) Hypothyroid (Chronic) Hyperlipidemia (Chronic) Carotid stenosis (Chronic) Tobacco dependence (Acute) Hx of Helicobacter infection (Acute) 2013 Medical History Anemia Diabetes mellitus Pt denies Chronic kidney disease, stage 3b Lung nodule 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 Prediabetes Asthma Pt denies Asthma Obesity Vitamin D deficiency Hypertension Gastric ulcer 2013 Brittle nails Peripheral vascular disease Depression Intermittent claudication Degenerative disc disease, lumbar Diverticulosis large intestine w/o perforation or abscess w/o bleeding Optic neuritis Impaired glucose regulation Elevated troponin Abnormal EKG Surgical History S/P CABG x 2 right carotid endarterectomy x2 Ligation of fallopian tube EGD - MAC (12/2023) path sent EGD - IV Sedation 2013 Colonoscopy - MAC 2015 Biopsy, Temporal Artery (09/15/17) right Family History Other Heart disease Social History Smoking/Tobacco Use Status: Current every day Tobacco Type: cigarettes Tobacco: How many years used: 46 Counseling given: patient declined Smoking risk assessment performed?: Yes Alcohol Intake: never Drug use: Never Substance use type: does not use Housing: house Do you feel safe at home: Yes Do you feel safe in your relationship?: Yes Meds Allergies and Home Medications Allergies Allergy/AdvReac Type Severity Reaction Status Date / Time cilostazol AdvReac Severe Headache Verified 05/08/24 23:57 [id number] Reductase AdvReac Intermediate Headache Verified 05/08/24 23:57 Inhibitor (Ftbnmge-Gfq-Eqh Reductase Inhibitor) atenolol AdvReac Mild palpitation Verified 05/08/24 23:57 s losartan potassium (From AdvReac Mild palpitation Verified 05/08/24 23:57 Cozaar) s levothyroxine sodium AdvReac pt unsure Verified 05/08/24 23:57 Home Medications ?Medication ?Instructions ?Recorded ?Confirmed ?Type cholecalciferol (vitamin D3) 50 2,000 unit PO DAILY 06/06/17 05/09/24 History mcg (2,000 unit) capsule (Vitamin D3) multivitamin 1 tab PO DAILY 03/15/19 05/09/24 History clopidogrel 75 mg tablet 75 mg PO DAILY 12/01/20 05/09/24 History ferrous gluconate 324 mg (38 mg 324 mg PO DAILY 12/01/20 05/09/24 History iron) tablet rosuvastatin 10 mg tablet 10 mg PO DAILY 12/16/20 05/09/24 History ascorbate calcium (vitamin C) 500 500 mg PO .COMPLEX 07/29/22 05/09/24 History mg tablet carvedilol 6.25 mg tablet 6.25 mg PO BID 12/10/23 05/09/24 History aspirin 81 mg tablet,delayed 81 mg PO DAILY 12/20/23 05/09/24 History release pantoprazole 40 mg tablet,delayed 40 mg PO DAILY #90 tabs 12/29/23 05/09/24 Rx release furosemide 20 mg tablet 20 mg PO DAILY PRN edema #60 tabs 02/16/24 05/09/24 Rx darbepoetin amber in polysorbat 200 200 mcg subcut Q2W 03/13/24 05/09/24 History mcg/0.4 mL in polysorbate injection syringe (Aranesp) amlodipine 10 mg tablet 10 mg PO DAILY 05/09/24 05/09/24 History levothyroxine 125 mcg tablet 125 mcg PO DAILY 05/09/24 05/09/24 History lisinopril 10 mg tablet 10 mg PO DAILY 05/09/24 05/09/24 History Exam Narrative Exam Narrative: Elderly obese white female sitting up in a chair alert and orient x 3 no acute distress denies dyspnea at present. HEENT is remarkable for pale conjunctiva no icterus full extraocular motion intact Neck is supple she has bilateral carotid bruits she has scars from previous carotid endarterectomy, no cervical adenopathy or thyromegaly Lungs are clear anteriorly posterior she has bibasilar rales no rhonchi or wheezing upper lung rodas and midlung rodas are clear Heart is regular no S3-S4 gallop Abdomen she has bruits in the right and left of midline of her abdomen as well as bilateral bruits over her femoral arteries there is no palpable mass no organomegaly Lower extremities without peripheral cyanosis or edema she has diminished pedal pulses bilaterally but no cyanosis she has good capillary refill Neuro exam grossly intact no focal cranial nerve deficits no focal motor deficits Results Imaging Abdomen CT scan report/results: report reviewed EKG: image reviewed (Initial EKG obtained on 05/08/2024 2349 hrs. showed sinus bradycardia rate of 48 bpm with no acute ischemic ST-T wave changes. Repeat EKG obtained on 05/09/20[address]-T wave abnormalities in V4 through V5 with downward sloping ST segment and finally repeat ECG obtained at 4:09 AM ) Labs 05/09/24 10:45 05/09/24 00:05 Labs: Laboratory Results - last 24 hr 05/09/24 05/09/24 05/09/24 00:05 03:25 04:50 WBC 7.06 RBC 2.05 L Hgb 5.9 L* Hct 18.3 L* MCV 89 MCH 28.8 MCHC 32.2 RDW 15.5 H Plt Count 227 MPV 11.7 H Immature Gran % 0.6 Neutrophils % 63.1 Lymphocytes % 18.3 Monocytes % 14.0 Eosinophils % 4.0 Basophils % 0.0 Nucleated RBC % 0.0 Absolute Neutrophils 4.46 Absolute Lymphocytes 1.29 Absolute Monocytes 0.99 H Absolute Eosinophils 0.28 Absolute Basophils 0.00 RBC Morphology See Below Anisocytosis 2+ PT 10.5 INR 1.0 APTT 25.6 VBG Lactate 0.8 Sodium 136 Potassium 4.2 Chloride 101 Carbon Dioxide 27.0 Anion Gap 8.0 BUN 29 H Creatinine 1.2 H Est GFR (CKD-EPI 2020) 46.62 Glucose 137 H Calcium 8.9 Total Bilirubin 0.19 L AST 11 L ALT 13 L Alkaline Phosphatase 67 Troponin I < 50 < 50 NT-Pro-B Natriuret Pep 2099 H Total Protein 6.3 L Albumin 3.1 L Procalcitonin < 0.1 TSH 7.33 H Free T4 1.00 Urine Color Yellow Urine Clarity Urine pH Ur Specific [place] Urine Protein Urine Ketones Urine Blood Urine Nitrite Urine Bilirubin Urine Urobilinogen Ur Leukocyte Esterase Urine RBC Urine WBC Ur Epithelial Cells Urine Crystals Urine Bacteria Urine Casts Urine Mucus Urine Other Ur Culture Indicated? Urine Glucose ABO/Rh O Negative Antibody Screen NEGATIVE Crossmatch See Detail 05/09/24 05/09/24 05/09/24 04:50 04:50 04:50 WBC RBC Hgb Hct MCV MCH MCHC RDW Plt Count MPV Immature Gran % Neutrophils % Lymphocytes % Monocytes % Eosinophils % Basophils % Nucleated RBC % Absolute Neutrophils Absolute Lymphocytes Absolute Monocytes Absolute Eosinophils Absolute Basophils RBC Morphology Anisocytosis PT INR APTT VBG Lactate Sodium Potassium Chloride Carbon Dioxide Anion Gap BUN Creatinine Est GFR (CKD-EPI 2020) Glucose Calcium Total Bilirubin AST ALT Alkaline Phosphatase Troponin I NT-Pro-B Natriuret Pep Total Protein Albumin Procalcitonin TSH Free T4 Urine Color Cancelled Urine Clarity Clear Cancelled Urine pH 5.5 Cancelled Ur Specific [place] <= 1.005 Urine Protein Urine Ketones Urine Blood Urine Nitrite Urine Bilirubin Urine Urobilinogen Ur Leukocyte Esterase Urine RBC Urine WBC Ur Epithelial Cells Urine Crystals Urine Bacteria Urine Casts Urine Mucus Urine Other Ur Culture Indicated? Urine Glucose ABO/Rh Antibody Screen Crossmatch 05/09/24 05/09/24 05/09/24 04:50 04:50 04:50 WBC RBC Hgb Hct MCV MCH MCHC RDW Plt Count MPV Immature Gran % Neutrophils % Lymphocytes % Monocytes % Eosinophils % Basophils % Nucleated RBC % Absolute Neutrophils Absolute Lymphocytes Absolute Monocytes Absolute Eosinophils Absolute Basophils RBC Morphology Anisocytosis PT INR APTT VBG Lactate Sodium Potassium Chloride Carbon Dioxide Anion Gap BUN Creatinine Est GFR (CKD-EPI 2020) Glucose Calcium Total Bilirubin AST ALT Alkaline Phosphatase Troponin I NT-Pro-B Natriuret Pep Total Protein Albumin Procalcitonin TSH Free T4 Urine Color Urine Clarity Urine pH Ur Specific [place] Cancelled Urine Protein 30 H Cancelled Urine Ketones Negative Cancelled Urine Blood Negative Urine Nitrite Urine Bilirubin Urine Urobilinogen Ur Leukocyte Esterase Urine RBC Urine WBC Ur Epithelial Cells Urine Crystals Urine Bacteria Urine Casts Urine Mucus Urine Other Ur Culture Indicated? Urine Glucose ABO/Rh Antibody Screen Crossmatch 05/09/24 05/09/24 05/09/24 04:50 04:50 04:50 WBC RBC Hgb Hct MCV MCH MCHC RDW Plt Count MPV Immature Gran % Neutrophils % Lymphocytes % Monocytes % Eosinophils % Basophils % Nucleated RBC % Absolute Neutrophils Absolute Lymphocytes Absolute Monocytes Absolute Eosinophils Absolute Basophils RBC Morphology Anisocytosis PT INR APTT VBG Lactate Sodium Potassium Chloride Carbon Dioxide Anion Gap BUN Creatinine Est GFR (CKD-EPI 2020) Glucose Calcium Total Bilirubin AST ALT Alkaline Phosphatase Troponin I NT-Pro-B Natriuret Pep Total Protein Albumin Procalcitonin TSH Free T4 Urine Color Urine Clarity Urine pH Ur Specific [place] Urine Protein Urine Ketones Urine Blood Cancelled Urine Nitrite Negative Cancelled Urine Bilirubin Negative Cancelled Urine Urobilinogen 0.2 Ur Leukocyte Esterase Urine RBC Urine WBC Ur Epithelial Cells Urine Crystals Urine Bacteria Urine Casts Urine Mucus Urine Other Ur Culture Indicated? Urine Glucose ABO/Rh Antibody Screen Crossmatch 05/09/24 05/09/24 05/09/24 04:50 04:50 04:50 WBC RBC Hgb Hct MCV MCH MCHC RDW Plt Count MPV Immature Gran % Neutrophils % Lymphocytes % Monocytes % Eosinophils % Basophils % Nucleated RBC % Absolute Neutrophils Absolute Lymphocytes Absolute Monocytes Absolute Eosinophils Absolute Basophils RBC Morphology Anisocytosis PT INR APTT VBG Lactate Sodium Potassium Chloride Carbon Dioxide Anion Gap BUN Creatinine Est GFR (CKD-EPI 2020) Glucose Calcium Total Bilirubin AST ALT Alkaline Phosphatase Troponin I NT-Pro-B Natriuret Pep Total Protein Albumin Procalcitonin TSH Free T4 Urine Color Urine Clarity Urine pH Ur Specific [place] Urine Protein Urine Ketones Urine Blood Urine Nitrite Urine Bilirubin Urine Urobilinogen Cancelled Ur Leukocyte Esterase Negative Cancelled Urine RBC 0-2 Urine WBC 0-2 Ur Epithelial Cells Rare Urine Crystals Negative Urine Bacteria Moderate Urine Casts Negative Urine Mucus Negative Urine Other Negative Ur Culture Indicated? Yes Urine Glucose Negative Cancelled ABO/Rh Antibody Screen Crossmatch Last Vital Signs Temp 36.9 C 05/09/24 08:31 Pulse 48 L 05/09/24 08:31 Resp 18 05/09/24 08:31 BP 158/54 H 05/09/24 08:31 Pulse Ox 97 05/09/24 08:31 Time Spent Time spent with Patient: 55-74 minutes Time was spent: preparing to see the patient(eg.review tests), obtaining and/or reviewing separately otained hiistory, ordering medications,tests, procedures, referring, communicating with other health interior plant caretaker, indepentently interpreting results, counseling the patient and care coordination
--- NOTE | 2024-05-09 10:27 | SCONE_ITS ---
Date of service: 05/09/24 Time of Service: 20:04 Assessment and Plan Assessment and plan (1) Anemia due to blood loss, acute: Status: Acute Assessment and plan: Patient presented to the ER with acute blood loss anemia. Hemoglobin was down to 5.8. She did receive 2 units of blood in the ER. She was started on IV Protonix and Carafate. Her aspirin and Plavix were held. Will plan on repeating EGD in a.m. to ensure that the duodenal ulcer has healed. She has had also had H. pylori in the past so we will be biopsy and make sure that this has been fully treated. She has had no problems with anesthesia in the past. I do recommend that we reach out to cardiology and see if we can just keep her on a single antiplatelet therapy. Aspirin does not appear to agree well with her. She is also going to have to be on both Protonix and Carafate or Cytotec. She will need to follow-up closely with her PCP and monitor for blood counts regularly. Having her come in to the ER with such an acutely low hemoglobin and hypotension can also induce AZ and CVA. EGD in a.m. Informed consent is obtained for the procedural (explained in simple layman's terms that the pt. and/or family could understand) explaining risks vs benefits and alternatives to the procedure and consequences if we do not do the procedure and need/rational for the procedure. Risks include but are not limited to: bleeding, infection, perforation of esophagus, stomach, colon, small intestines, bronchus or trachea, or PTX. This would necessitate emergency surgery to repair the damage w/ possible ostomy; and other associated complications w/ the required surgery. Also complications of anesthesia including aspiration, AZ/CVA/. Patient is in agreement This document was created with voice activated software and may contain errors. 30 mins spent in direct pt care and 45 in non face to face time (2) Anemia due to GI blood loss: Status: Acute (3) Chronic anxiety: Status: Acute (4) Hx of CABG: Status: Chronic (5) CAD (coronary artery disease): Status: Chronic Qualifiers: Coronary Disease-Associated Artery/Lesion type: [place] artery [place] vs. transplanted heart: [place] heart Associated angina: without angina Q ualified Code(s): I25.10 - Atherosclerotic heart disease of [place] coronary artery without angina pectoris (6) Carotid stenosis: Status: Chronic Qualifiers: Laterality: unspecified laterality Qualified Code(s): I65.29 - Occlusion and stenosis of unspecified carotid artery (7) Peripheral vascular disease: Status: Chronic (8) Hyperlipidemia: Status: Chronic Qualifiers: Hyperlipidemia type: mixed hyperlipidemia Qualified Code(s): E78.2 - Mixed hyperlipidemia (9) Hypothyroid: Status: Chronic (10) Hx of Helicobacter infection: Status: Acute (11) GERD (gastroesophageal reflux disease): Status: Acute Qualifiers: Esophagitis presence: esophagitis presence not specified Qualified Code(s): K21.9 - Gastro-esophageal reflux disease without esophagitis (12) CKD (chronic kidney disease) stage 3, GFR 30-59 ml/min: Status: Chronic Qualifiers: Chronic kidney disease stage 3 subtype: unspecified whether 3a or 3b Q ualified Code(s): N18.30 - Chronic kidney disease, stage 3 unspecified (13) Cerebrovascular accident (CVA): Status: Acute (14) COPD (chronic obstructive pulmonary disease): Status: Chronic Qualifiers: COPD type: unspecified COPD Qualified Code(s): J44.9 - Chronic obstructive pulmonary disease, unspecified (15) Atypical chest pain: Status: Ruled-out (16) Tobacco dependence: Status: Acute (17) Prediabetes: (18) Peripheral vascular disease: (19) Hypertension: Qualifiers: Hypertension type: essential hypertension Qualified Code(s): I10 - Essential (primary) hypertension (20) Mild chronic gastritis: Status: Acute History of Present Illness Narrative: Patient is a 79-year-old female with a history of GI bleeds. She is well-known to the surgical service. She is on aspirin and Plavix for severe atherosclerosis. She is a vasculopath. She still smokes. She has a history of hyperlipidemia hyper tension, coronary artery disease and stroke. Please see Dr. Sanchez's prior EGD and colonoscopy below. Please refer to her H&P. Making details. She had a hemoglobin of 5.8. She required 2 units of blood. This was more of a prolonged longstanding blood loss rather than an acute massive GI bleed. She has been resuscitated. I did review her case with Dr. Corea at [facility]. At the time I am seeing her she is feeling good. She has been up walking around. She is moving her bowels. She has had dark tarry stools. She has not had any gross bright red blood. She has not been having any abdominal pain. She has been tolerating a diet. She did have an large ulcer on her left scope. She is still been on aspirin. She has been on Protonix daily. I think it is worthwhile to do another colonoscopy and take a look inside of her stomach and make sure her ulcer has not reoccurred. I did discuss risks and benefits of surgery with the patient. She is in agreement. And we will plan on doing EGD in a.m. She had no problems with anesthesia during her last procedure and tolerated that well. She is having no chest pain or shortness of breath today. Informed consent is obtained for the procedural (explained in simple layman's terms that the pt. and/or family could understand) explaining risks vs benefits and alternatives to the procedure and consequences if we do not do the procedure and need/rational for the procedure. Risks include but are not limited to: bleeding, infection, perforation of esophagus, stomach, colon, small intestines, bronchus or trachea, or PTX. This would necessitate emergency surgery to repair the damage w/ possible ostomy; and other associated complications w/ the required surgery. Also complications of anesthesia including aspiration, AZ/CVA/. ATE OF PROCEDURE: 12/29/23 PRE-OP DIAGNOSIS: Anemia POST-OP DIAGNOSIS: other (Peptic ulcer disease, Baker's esophagus; diverticulosis, colon polyps) PROCEDURE: EGD with biopsies and clipping of peptic ulcer and colonoscopy with polypectomy SURGEON: Marv Sanchez ANESTHESIA TYPE: General:No Airway ESTIMATED BLOOD LOSS: 10 PATHOLOGY: other (Pyloric biopsies, gastric antral and body biopsies, gastric ulcer in the body of the stomach, GE junction; 0.25 cm colon polyp at 80 cm, 0.25 cm colon polyp at 75 cm, 0.25 cm polyp at 35 cm) COMPLICATIONS: None DISPOSITION: same day INDICATIONS: Julee is a 78 year old woman with anemia. PREP: Miralax/Dulcolax PROCEDURE START TIME: 12:56 PROCEDURE END TIME: 13:37 COLONOSCOPY RETRACTION TIME: 9 FINDINGS: Peptic ulcer disease with multiple areas of gastric ulceration of varying ages. 1 acute peptic ulcer, Baker's esophagus from 35 to 37 cm, diverticulosis, colon polyps x 3 PROCEDURE DESCRIPTION: After the initiation of anesthesia, and with the assistance of a bite block, I advanced a standard gastroscope through the mouth past the hypopharynx and into the esophagus.? Under the direct vision of the scope, I advanced down the esophagus towards the stomach.? The GE junction was encountered at 37 cm from the incisors, with a short segment of Baker's esophagus extending up to 35 cm of irregularity at the Z-line. Narrowband imaging was used to assist with analysis. The camera was then advanced down into the stomach proper, and the stomach was insufflated until the gastric rugae were obliterated. There was evidence of active bleeding, with some partially digested blood product. There was also an acute ulcer along the greater curvature on the anterior portion of the stomach. The camera was then advanced down towards the pylorus. There were several areas of inflammation and ulceration here. I navigated across the pylorus into the duodenum, which also showed some signs of acute inflammation. There is no active signs of bleeding or recent bleeding within the duodenum down to the third portion. The camera was then brought back up into the stomach, and cold forceps biopsies of some pyloric inflammation, as well as multiple areas of the gastric antrum were performed. There was minimal bleeding from the sites. The more acute area of ulceration in the gastric body was also biopsied with cold forceps. Resolution clips were used on either side of the ulcer to help minimize the likelihood of bleeding afterwards. The camera was then brought back up to the GE junction, biopsies were performed here to assess for the extent of the Baker's esophagus. The stomach was then emptied, and the camera was brought back out along the length of the esophagus with no other abnormalities noted. We then moved Julee into the left lateral decubitus position. I began by performing an external anorectal exam.? Perineum and skin were normal, as was the anal verge.? There was no evidence of external hemorrhoids.? Next, I performed a digital rectal exam.? I did not appreciate any abnormal findings.? Next, I advanced a colonoscope into the rectal vault.? I performed retroflexion.? This was normal.? Using insufflation, I then advanced the colonoscope beyond the rectal folds and into the sigmoid colon before advancing towards the cecum.? There was mostly sigmoid diverticulosis..? The scope was noted to be in the cecum by identification of the ileocecal valve and appendiceal orifice.? I then began withdrawing the colonoscope using repeated irrigation as necessary for full evaluation of the colonic mucosa. Colon polyps were noted at 80 cm, 0.75 cm, and 35 cm from the anal verge. All of these polyps were about 0.25 cm, and all were flat. All of these polyps were removed with cold forceps without any issue. ?Once the scope was withdrawn to the level of the rectum, great care was taken to examine portions of the rectal folds.? Finally, the scope was withdrawn and the patient was brought to the same-day surgery recovery unit as the anesthetic wore off. ?The findings and instructions were shared with the patient prior to discharge. Review of Systems All systems reviewed & are unremarkable except as noted in HPI and below PFSH All Active Problems (Updated 05/12/24 @ 20:12 by Zelda Cardona DO) Anemia due to blood loss, acute (Acute) Anemia due to GI blood loss (Acute) Incidental lung nodule, greater than or equal to 8mm (Acute) Anemia (Chronic) Renal calculi (Chronic) Sinus bradycardia (Acute) Episode of syncope (Chronic) CKD (chronic kidney disease) stage 3, GFR 30-59 ml/min (Chronic) Lumbosacral spondylosis without myelopathy (Acute) COPD (chronic obstructive pulmonary disease) (Chronic) Solitary lung nodule (Acute) Hydronephrosis (Acute) Hx of CABG (Chronic) Chest pain, rule out acute myocardial infarction (Acute) Mild chronic gastritis (Acute) Peripheral vascular disease (Chronic) CAD (coronary artery disease) (Chronic) GERD (gastroesophageal reflux disease) (Acute 09/05/16) Cerebrovascular accident (CVA) (Acute) Chronic anxiety (Acute) Hypothyroid (Chronic) Hyperlipidemia (Chronic) Carotid stenosis (Chronic) Tobacco dependence (Acute) Hx of Helicobacter infection (Acute) 2013 Medical History (Updated 05/12/24 @ 20:12 by Zelda Cardona DO) Iron deficiency anemia Anemia Diabetes mellitus Pt denies Chronic kidney disease, stage 3b Lung nodule 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 Prediabetes Asthma Pt denies Asthma Obesity Vitamin D deficiency Hypertension Brittle nails Peripheral vascular disease Depression Intermittent claudication Degenerative disc disease, lumbar Diverticulosis large intestine w/o perforation or abscess w/o bleeding Optic neuritis Impaired glucose regulation Elevated troponin Abnormal EKG Surgical History S/P CABG x 2 right carotid endarterectomy x2 Ligation of fallopian tube EGD - [facility] (12/2023) path sent EGD - IV Sedation 2013 Colonoscopy - [facility] 2015 Biopsy, Temporal Artery (09/15/17) right Family History Other Heart disease Social History Smoking/Tobacco Use Status: Current every day Tobacco Type: cigarettes Tobacco: How many years used: 46 Counseling given: patient declined Smoking risk assessment performed?: Yes Alcohol Intake: never Drug use: Never Substance use type: does not use Housing: house Do you feel safe at home: Yes Do you feel safe in your relationship?: Yes Exam Narrative Exam Narrative: PHYSICAL EXAM GENERAL APPEARANCE: Alert, healthy appearance, oriented, x 3,? in no acute distress HYDRATION: Well hydrated HEAD, EYES, EARS, NECK, THROAT: Head is normocephalic, pupils equal, round, reactive to light and accommodation, ocular movement intact, sclera clear and no jaundice. ?Dentition intact. No sore throat.? No JVD LUNGS: normal respiration/normal chest excursion. ?Clear to auscultation bilaterally. ?No wheeze. ?HEART: Regular rate and rhythm. no murmurs ABDOMEN: soft and non-tender to palpation.? Results Last Vital Signs Temp 36.9 C 05/09/24 08:31 Pulse 48 L 05/09/24 08:31 Resp 18 05/09/24 08:31 BP 158/54 H 05/09/24 08:31 Pulse Ox 97 05/09/24 08:31 Labs 05/10/24 16:03 05/10/24 06:28 Labs: Laboratory Results - last 24 hr 05/09/24 05/09/24 05/09/24 00:05 03:25 04:50 WBC 7.06 RBC 2.05 L Hgb 5.9 L* Hct 18.3 L* MCV 89 MCH 28.8 MCHC 32.2 RDW 15.5 H Plt Count 227 MPV 11.7 H Immature Gran % 0.6 Neutrophils % 63.1 Lymphocytes % 18.3 Monocytes % 14.0 Eosinophils % 4.0 Basophils % 0.0 Nucleated RBC % 0.0 Absolute Neutrophils 4.46 Absolute Lymphocytes 1.29 Absolute Monocytes 0.99 H Absolute Eosinophils 0.28 Absolute Basophils 0.00 RBC Morphology See Below Anisocytosis 2+ PT 10.5 INR 1.0 APTT 25.6 VBG Lactate 0.8 Sodium 136 Potassium 4.2 Chloride 101 Carbon Dioxide 27.0 Anion Gap 8.0 BUN 29 H Creatinine 1.2 H Est GFR (CKD-EPI 2020) 46.62 Glucose 137 H Calcium 8.9 Total Bilirubin 0.19 L AST 11 L ALT 13 L Alkaline Phosphatase 67 Troponin I < 50 < 50 NT-Pro-B Natriuret Pep 2099 H Total Protein 6.3 L Albumin 3.1 L Procalcitonin < 0.1 TSH 7.33 H Free T4 1.00 Urine Color Yellow Urine Clarity Urine pH Ur Specific [place] Urine Protein Urine Ketones Urine Blood Urine Nitrite Urine Bilirubin Urine Urobilinogen Ur Leukocyte Esterase Urine RBC Urine WBC Ur Epithelial Cells Urine Crystals Urine Bacteria Urine Casts Urine Mucus Urine Other Ur Culture Indicated? Urine Glucose ABO/Rh O Negative Antibody Screen NEGATIVE Crossmatch See Detail 05/09/24 05/09/24 05/09/24 04:50 04:50 04:50 WBC RBC Hgb Hct MCV MCH MCHC RDW Plt Count MPV Immature Gran % Neutrophils % Lymphocytes % Monocytes % Eosinophils % Basophils % Nucleated RBC % Absolute Neutrophils Absolute Lymphocytes Absolute Monocytes Absolute Eosinophils Absolute Basophils RBC Morphology Anisocytosis PT INR APTT VBG Lactate Sodium Potassium Chloride Carbon Dioxide Anion Gap BUN Creatinine Est GFR (CKD-EPI 2020) Glucose Calcium Total Bilirubin AST ALT Alkaline Phosphatase Troponin I NT-Pro-B Natriuret Pep Total Protein Albumin Procalcitonin TSH Free T4 Urine Color Cancelled Urine Clarity Clear Cancelled Urine pH 5.5 Cancelled Ur Specific [place] <= 1.005 Urine Protein Urine Ketones Urine Blood Urine Nitrite Urine Bilirubin Urine Urobilinogen Ur Leukocyte Esterase Urine RBC Urine WBC Ur Epithelial Cells Urine Crystals Urine Bacteria Urine Casts Urine Mucus Urine Other Ur Culture Indicated? Urine Glucose ABO/Rh Antibody Screen Crossmatch 05/09/24 05/09/24 05/09/24 04:50 04:50 04:50 WBC RBC Hgb Hct MCV MCH MCHC RDW Plt Count MPV Immature Gran % Neutrophils % Lymphocytes % Monocytes % Eosinophils % Basophils % Nucleated RBC % Absolute Neutrophils Absolute Lymphocytes Absolute Monocytes Absolute Eosinophils Absolute Basophils RBC Morphology Anisocytosis PT INR APTT VBG Lactate Sodium Potassium Chloride Carbon Dioxide Anion Gap BUN Creatinine Est GFR (CKD-EPI 2020) Glucose Calcium Total Bilirubin AST ALT Alkaline Phosphatase Troponin I NT-Pro-B Natriuret Pep Total Protein Albumin Procalcitonin TSH Free T4 Urine Color Urine Clarity Urine pH Ur Specific [place] Cancelled Urine Protein 30 H Cancelled Urine Ketones Negative Cancelled Urine Blood Negative Urine Nitrite Urine Bilirubin Urine Urobilinogen Ur Leukocyte Esterase Urine RBC Urine WBC Ur Epithelial Cells Urine Crystals Urine Bacteria Urine Casts Urine Mucus Urine Other Ur Culture Indicated? Urine Glucose ABO/Rh Antibody Screen Crossmatch 05/09/24 05/09/24 05/09/24 04:50 04:50 04:50 WBC RBC Hgb Hct MCV MCH MCHC RDW Plt Count MPV Immature Gran % Neutrophils % Lymphocytes % Monocytes % Eosinophils % Basophils % Nucleated RBC % Absolute Neutrophils Absolute Lymphocytes Absolute Monocytes Absolute Eosinophils Absolute Basophils RBC Morphology Anisocytosis PT INR APTT VBG Lactate Sodium Potassium Chloride Carbon Dioxide Anion Gap BUN Creatinine Est GFR (CKD-EPI 2020) Glucose Calcium Total Bilirubin AST ALT Alkaline Phosphatase Troponin I NT-Pro-B Natriuret Pep Total Protein Albumin Procalcitonin TSH Free T4 Urine Color Urine Clarity Urine pH Ur Specific [place] Urine Protein Urine Ketones Urine Blood Cancelled Urine Nitrite Negative Cancelled Urine Bilirubin Negative Cancelled Urine Urobilinogen 0.2 Ur Leukocyte Esterase Urine RBC Urine WBC Ur Epithelial Cells Urine Crystals Urine Bacteria Urine Casts Urine Mucus Urine Other Ur Culture Indicated? Urine Glucose ABO/Rh Antibody Screen Crossmatch 05/09/24 05/09/24 05/09/24 04:50 04:50 04:50 WBC RBC Hgb Hct MCV MCH MCHC RDW Plt Count MPV Immature Gran % Neutrophils % Lymphocytes % Monocytes % Eosinophils % Basophils % Nucleated RBC % Absolute Neutrophils Absolute Lymphocytes Absolute Monocytes Absolute Eosinophils Absolute Basophils RBC Morphology Anisocytosis PT INR APTT VBG Lactate Sodium Potassium Chloride Carbon Dioxide Anion Gap BUN Creatinine Est GFR (CKD-EPI 2020) Glucose Calcium Total Bilirubin AST ALT Alkaline Phosphatase Troponin I NT-Pro-B Natriuret Pep Total Protein Albumin Procalcitonin TSH Free T4 Urine Color Urine Clarity Urine pH Ur Specific [place] Urine Protein Urine Ketones Urine Blood Urine Nitrite Urine Bilirubin Urine Urobilinogen Cancelled Ur Leukocyte Esterase Negative Cancelled Urine RBC 0-2 Urine WBC 0-2 Ur Epithelial Cells Rare Urine Crystals Negative Urine Bacteria Moderate Urine Casts Negative Urine Mucus Negative Urine Other Negative Ur Culture Indicated? Yes Urine Glucose Negative Cancelled ABO/Rh Antibody Screen Crossmatch
[2024-05-09 11:00] LABS: HCT 27.6 % (36.0-46.0); HGB 9.1 g/dL (11.2-15.7)
[2024-05-09 11:21] LABS: Troponin I < 50 ng/L (< or =60)
[2024-05-09] MEDS: Sucralfate 1 GM TAB PO ×3 (11:35→21:01)
--- NOTE | 2024-05-09 11:38 | W.NUTRFU ---
Date of service: 05/09/24 Time of Service: 11:38 Nutrition Note NOTE: Julee admitted for CHF exacerbation, chronic anemia and widened pulse - has hx of CKD3, GERD/gastritis, HLD, Hypothyroidism, COPD, PVD, hx of CVA. Weight hx shows ~3kg wt loss over the last 4 months (fluid shifts with CHF/CKD possibly influence). Pt ordered for heart healthy diet and will be NPO tomorrow morning for EGD. PT does have a history of diabetes with glucose elevated this stay. No diabetes meds at home. Takes MVI, Vit D, Vit C, levothyroxine at home. Suggest CHO consistent./heart healthy diet as tolerated once PO intake resumes after EGD Suggest A1C lab and/or glucose fingersticks Q 6 hours to better monitor Time Spent in Nutritional Counseling and Treatment: 0
[2024-05-09] MEDS: IRON SUCROSE COMPLEX 200 MG in Normal Saline 100 ML 400 MG IVPB (11:44)
[2024-05-09 12:51] LABS: Lab Add On Test DONE
[2024-05-09 13:03] LABS: Iron 106 ug/dL (50-170); Total Iron Binding Capacity 320 ug/dL (250-450); Transferrin Sat 33 % (15-50)
[2024-05-09 13:31] LABS: Ferritin 43 ng/mL (8-252); Vitamin B12 834 pg/mL (193-986)
[2024-05-09 13:33] LABS: Folate > 20.0 ng/mL (8.6-20.0)
[2024-05-09 14:19] LABS: HCT 27.5 % (36.0-46.0); HGB 9.1 g/dL (11.2-15.7)
--- NOTE | 2024-05-09 14:38 | PHA.REVIEW2 ---
Pharmacy Admission Review Admission Clinical Review Admission Pharmacy Review: Incidental lung nodule, greater than or equal to 8mm (Acute) Widened pulse pressure (Acute) CKD (chronic kidney disease) stage 3, GFR 30-59 ml/min (Acute) cilostazol Adverse Reaction (Severe, Verified 05/08/24 23:57) Headache [id number] Reductase Inhibitor ([place]-Vqz-Tks Reductase Inhibitor) Adverse Reaction (Intermediate, Verified 05/08/24 23:57) Headache atenolol Adverse Reaction (Mild, Verified 05/08/24 23:57) palpitations losartan potassium (From Cozaar) Adverse Reaction (Mild, Verified 05/08/24 23:57) palpitations levothyroxine sodium Adverse Reaction (Verified 05/08/24 23:57) pt unsure Resuscitation Status Full Code Height 5 ft 3 in Weight 71.668 kg Comments Comments/Follow Ups: Chronic anemia, CKD, Afib, followed by [facility], on oral supplement and receives Iron infusions at [facility], rec'd 2 units blood overnight in ED, Hg from 5.9 to 9.1, surgical consult, PE ruled out Watch for restart of home BP meds when hypotension subsides Pharmacy Admission Review Renal Dosing Renal Dosing: BUN 29 mg/dL (7-18) H 05/09/24 00:05 Creatinine 1.2 mg/dL (0.55-1.02) H 05/09/24 00:05 CrCl~37ml/min Anticoagulation Anticoagulation: Hgb 9.1 g/dL (11.2-15.7) L 05/09/24 14:10 Hct 27.5 % (36.0-46.0) L 05/09/24 14:10 Plt Count 227 10^3/uL (130-400) 05/09/24 00:05 INR 1.0 (0.9-1.1) 05/09/24 00:05 Creatinine 1.2 mg/dL (0.55-1.02) H 05/09/24 00:05 RBC low 2.05 DVT Prophylaxis: N/A (GI bleed, Hg on admission 5.9) Opiate Usage Evaluate Pain Scale/Pains Meds: N/A Relevant Labs Relevant Labs: Sodium 136 mmol/L (136-145) 05/09/24 00:05 Potassium 4.2 mmol/L (3.5-5.1) 05/09/24 00:05 Chloride 101 mmol/L (98-107) 05/09/24 00:05 DM Control DM Control: N/A (BG 137) Cardiac Review Cardiac Review: Troponin I < 50 ng/L (< or =60) 05/09/24 10:45 NT-Pro-B Natriuret Pep 2099 pg/mL (<300) H 05/09/24 00:05 Lasix 20mg IVP for slight fluid overload s/p transfusion BP, HR, EF%: Reviewed (BP 166/44, HR 45, EF 60%) Home Meds Home Med List reviewed: Reviewed (Aspirin & Plavix for CAD,A-fib) Relevent Home Meds Not ordered & why?: ASA & Plavix held, anticipate endoscopy Amlodipine, Lisinopril and Carvedilol held for hypotension Current Meds Current Medication Order Review: Intervened (Iron sucrose 200mg x1, Increased Protonix to 40mg IV BID) Comments: Adjusted home meds to align with patient's specific times taken at home Pharmacy Antibiotic Review Relevant Labs: Relevant Labs 05/09/24 00:05 Procalcitonin < 0.1 Urinalysis negative Comments Comments/Follow Ups: Chronic anemia, CKD, Afib, followed by [facility], on oral supplement and receives Iron infusions at [facility], rec'd 2 units blood overnight in ED, Hg from 5.9 to 9.1, surgical consult, PE ruled out Watch for restart of home BP meds when hypotension subsides
[2024-05-09] MEDS: Lisinopril 10 MG TAB PO (15:34)
[2024-05-09] MEDS: amLODIPine 10 MG TAB PO (15:34)
[2024-05-09] MEDS: Multivitamin TAB 1 TAB PO (16:54)
[2024-05-09] MEDS: Rosuvastatin 10 MG TAB PO (20:31)
[2024-05-09] MEDS: Docusate Sodium 100 MG CAP PO (20:31)
[2024-05-09] MEDS: Polyethylene Glycol 3350 17 GM PACKET PO (20:31)
[2024-05-10] VITALS (60 sets, daily range): BP systolic 133–170; BP diastolic 29–55; PULSE 43–54; RESP 14–20; TEMP 36.5–37.2; O2SAT 90–98; BMI 29.2
[2024-05-10 06:49] LABS: HCT 24.5 % (36.0-46.0); MCH 28.4 pg (27.0-33.0); MCHC 32.7 % (32.0-36.0); MCV 87 fL (80-95); MPV 11.5 fL (8.0-11.0); Platelet Count 223 10^3/uL (130-400); RBC 2.82 10^6/uL (3.93-5.22); RDW 15.2 % (11.7-14.6); RDW-SD 48.2 fL; WBC 6.99 10^3/uL (4.4-10.8)
[2024-05-10 07:15] LABS: Anion Gap 7.1 mmol/L (3-11); BUN 23 mg/dL (7-18); CO2 27.9 mmol/L (21.0-32.0); CREATININE 1.3 mg/dL (0.55-1.02); Calcium 9.2 mg/dL (8.5-10.1); Chloride 103 mmol/L (98-107); Estimated GFR 42.35 (mL/min/1.73m2); Glucose 100 mg/dL (74-106); Potassium 4.2 mmol/L (3.5-5.1); Sodium 138 mmol/L (136-145)
[2024-05-10] MEDS: Levothyroxine 125 MCG TAB PO (07:37)
[2024-05-10] MEDS: amLODIPine 10 MG TAB PO (08:39)
[2024-05-10] MEDS: Lisinopril 10 MG TAB PO (08:39)
[2024-05-10] MEDS: Normal Saline Flush 10 ML SYR IVP ×3 (08:40→16:10)
[2024-05-10] MEDS: Pantoprazole 40 MG VIAL IVP (09:46)
--- NOTE | 2024-05-10 12:27 | ANES.PREOP_ITS ---
General Info Date of Service Date Performed: 05/10/24 Height: 5 ft 3 in Weight: 75 kg Body Mass Index (BMI): 29.2 Surgical Procedure: Operation Date: 05/10/24 13:50 Proposed Procedure Side Surgeon p Gastroscopy Zelda Cardona, Meds Allergies and Home Medications Allergies Allergy/AdvReac Type Severity Reaction Status Date / Time cilostazol AdvReac Severe Headache Verified 05/08/24 23:57 [id number]-StF Reductase AdvReac Intermediate Headache Verified 05/08/24 23:57 Inhibitor (Cjhjybf-Qkr-Mqh Reductase Inhibitor) atenolol AdvReac Mild palpitation Verified 05/08/24 23:57 s losartan potassium (From AdvReac Mild palpitation Verified 05/08/24 23:57 Cozaar) s levothyroxine sodium AdvReac pt unsure Verified 05/08/24 23:57 Home Medication ?Medication ?Instructions ?Recorded cholecalciferol (vitamin D3) 50 2,000 unit PO DAILY 06/06/17 mcg (2,000 unit) capsule (Vitamin D3) multivitamin 1 tab PO DAILY 03/15/19 clopidogrel 75 mg tablet 75 mg PO DAILY 12/01/20 ferrous gluconate 324 mg (38 mg 324 mg PO DAILY 12/01/20 iron) tablet rosuvastatin 10 mg tablet 10 mg PO DAILY 12/16/20 ascorbate calcium (vitamin C) 500 500 mg PO .COMPLEX 07/29/22 mg tablet carvedilol 6.25 mg tablet 6.25 mg PO BID 12/10/23 aspirin 81 mg tablet,delayed 81 mg PO DAILY 12/20/23 release pantoprazole 40 mg tablet,delayed 40 mg PO DAILY #90 tabs 12/29/23 release furosemide 20 mg tablet 20 mg PO DAILY PRN edema #60 tabs 02/16/24 darbepoetin amber in polysorbat 200 200 mcg subcut Q2W 03/13/24 mcg/0.4 mL in polysorbate injection syringe (Aranesp) amlodipine 10 mg tablet 10 mg PO DAILY 05/09/24 levothyroxine 125 mcg tablet 125 mcg PO DAILY 05/09/24 lisinopril 10 mg tablet 10 mg PO DAILY 05/09/24 Current Visit Medications: Current Medications Generic Name Dose Route Start Last Admin Trade Name Freq PRN Reason Stop Dose Admin Acetaminophen 0 mg 05/09/24 08:24 Acetaminophen 325 Mg Tab PO Q4H PRN PRN Al Hydrox/Mg Hydrox/Simethicone 15 ml 05/09/24 08:24 Mylanta Double Strength Suspension 30 Ml Cup PO Q2H PRN PRN Amlodipine Besylate 10 mg 05/09/24 15:25 05/10/24 08:39 Amlodipine 10 Mg Tab PO 10 mg DAILY ANOOP Administration Docusate Sodium 100 mg 05/09/24 08:24 05/09/24 20:31 Docusate Sodium 100 Mg Cap PO 100 mg TID PRN PRN Administration Ferrous Gluconate 324 mg 05/10/24 12:00 Ferrous Gluconate 324 Mg Tab PO DAILY@1200 [facility] IV Miscellaneous Supplies 1 each 05/08/24 23:45 Iv Access IV DIRECTED [facility] Levothyroxine Sodium 125 mcg 05/09/24 07:00 05/10/24 07:37 Levothyroxine 125 Mcg Tab PO 125 mcg DAILY@0700 [facility] Administration Lisinopril 10 mg 05/09/24 15:25 05/10/24 08:39 Lisinopril 10 Mg Tab PO 10 mg DAILY [facility] Administration Magnesium Hydroxide 30 ml 05/09/24 08:24 Milk Of Magnesia 30 Ml Cup PO DAILY PRN PRN Multivitamins 1 tab 05/09/24 17:00 05/09/24 16:54 Multivitamin Tab PO 1 tab DAILY@1700 [facility] Administration Pantoprazole Sodium 40 mg 05/09/24 22:00 05/10/24 09:46 Pantoprazole 40 Mg Vial IVP 40 mg Q12H [facility] Administration Polyethylene Glycol 17 gm 05/09/24 08:24 05/09/24 20:31 Polyethylene Glycol 3350 17 Gm Packet PO 17 gm DAILY PRN PRN Administration Constipation Rosuvastatin Calcium 10 mg 05/10/24 22:00 Rosuvastatin 10 Mg Tab PO DAILY@2200 [facility] Sodium Chloride 0 ml 05/08/24 23:58 05/10/24 09:46 Normal Saline Flush 10 Ml Syr IVP 20 ml PRN PRN Administration Sodium Chloride 0 ml 05/09/24 08:30 05/10/24 08:40 Normal Saline Flush 10 Ml Syr IVP 10 ml BID ANOOP Administration Sodium Chloride 0 ml 05/08/24 23:58 Normal Saline 10 Ml Vial IJ DIRECTED PRN Sucralfate 1 gm 05/09/24 11:30 05/10/24 08:41 Sucralfate 1 Gm Tab PO Not Given AC & HS ANOOP PFSH Active Problems Active Problems: Problem Status Onset Code Incidental lung nodule, greater than or equal to 8mm Acute R91.1 Widened pulse pressure Acute R09.89 Anemia Chronic D64.9 Renal calculi Chronic N20.0 Sinus bradycardia Acute R00.1 Episode of syncope Chronic R55 CKD (chronic kidney disease) stage 3, GFR 30-59 ml/min Acute N18.30 Lumbosacral spondylosis without myelopathy Acute M47.817 COPD (chronic obstructive pulmonary disease) Chronic J44.9 Solitary lung nodule Acute R91.1 Hydronephrosis Acute N13.30 Hx of CABG Chronic Z95.1 Chest pain, rule out acute myocardial infarction Acute R07.9 Mild chronic gastritis Acute K29.50 Peripheral vascular disease Chronic I73.9 CAD (coronary artery disease) Chronic I25.10 GERD (gastroesophageal reflux disease) Acute 09/05/16 K21.9 Cerebrovascular accident (CVA) Acute Chronic anxiety Acute Iron deficiency anemia Chronic Hypothyroid Chronic Hyperlipidemia Chronic Carotid stenosis Chronic Tobacco dependence Acute Hx of Helicobacter infection Acute Medical History Medical History Anemia Diabetes mellitus Pt denies Chronic kidney disease, stage 3b Lung nodule 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 Prediabetes Asthma Pt denies Asthma Obesity Vitamin D deficiency Hypertension Gastric ulcer 2013 Brittle nails Peripheral vascular disease Depression Intermittent claudication Degenerative disc disease, lumbar Diverticulosis large intestine w/o perforation or abscess w/o bleeding Optic neuritis Impaired glucose regulation Elevated troponin Abnormal EKG Surgical History Surgical History S/P CABG x 2 right carotid endarterectomy x2 Ligation of fallopian tube EGD - MAC (12/2023) path sent EGD - IV Sedation 2013 Colonoscopy - MAC 2015 Biopsy, Temporal Artery (09/15/17) right Tobacco Smoking/Tobacco Use Status: Current every day Tobacco Type: cigarettes Smoking cigarettes per day: 10 Counseling given: patient declined Alcohol Alcohol Intake: never Substance Use Substance use: Never Substance use type: does not use Vital Signs and Lab Results Vital Signs Most Recent Vital Signs in EMR: Most Recent Vital Signs Temp Pulse Resp BP Pulse Ox 36.5 C 47 L 15 151/41 H 97 05/10/24 11:36 05/10/24 11:36 05/10/24 11:36 05/10/24 11:36 05/10/24 11:36 Lab Results 05/10/24 06:28 05/10/24 06:28 Blood Type / Crossmatch: 2 Antibody Screen NEGATIVE 05/09/24 Crossmatch See Detail 05/09/24 Complete Blood Count: 2 White Blood Count 6.99 10^3/uL (4.4-10.8) 05/10/24 06:28 Red Blood Count 2.82 10^6/uL (3.93-5.22) L 05/10/24 06:28 Hemoglobin 8.0 g/dL (11.2-15.7) L 05/10/24 06:28 Hematocrit 24.5 % (36.0-46.0) L 05/10/24 06:28 Platelet Count 223 10^3/uL (130-400) 05/10/24 06:28 Venous Blood Lactate 0.8 mmol/L (0.6-1.4) 05/09/24 00:05 Complete Metabolic Panel: 2 Sodium 138 mmol/L (136-145) 05/10/24 06:28 Potassium 4.2 mmol/L (3.5-5.1) 05/10/24 06:28 Chloride 103 mmol/L (98-107) 05/10/24 06:28 Carbon Dioxide 27.9 mmol/L (21.0-32.0) 05/10/24 06:28 BUN 23 mg/dL (7-18) H 05/10/24 06:28 Creatinine 1.3 mg/dL (0.55-1.02) H 05/10/24 06:28 Est GFR (CKD-EPI 2020) 42.35 (mL/min/1.73m2) 05/10/24 06:28 Calcium 9.2 mg/dL (8.5-10.1) 05/10/24 06:28 Albumin 3.1 g/dL (3.4-5.0) L 05/09/24 00:05 Glucose 100 mg/dL (74-106) 05/10/24 06:28 Liver Function Panel: 2 Alanine Aminotransferase (ALT/SGPT) 13 U/L (14-59) L 05/09/24 0 0:05 Aspartate Amino Transf (AST/SGOT) 11 U/L (15-37) L 05/09/24 00: 05 Coagulation Panel: 2 INR International Normalized Ratio 1.0 (0.9-1.1) 05/09/24 00:0 5 Prothrombin Time 10.5 sec (9.1-11.1) 05/09/24 00:05 Activated Partial Thromboplast Time 25.6 sec (23.6-32.8) 00:05 Cardiac Panel: 2 Troponin I < 50 ng/L (< or =60) 05/09/24 NT-Pro-B Natriuret Pep 2099 pg/mL (<300) H 05/09/24 Arterial Blood Gas: 2 No Data to Display Venous Blood Gas: 2 No Data to Display Pancreas Panel: 2 No Data to Display Thyroid Panel: 2 Thyroid Stimulating Hormone (TSH) 7.33 uIU/mL (0.36-3.74) H 05/09/24 00:05 Infectious Disease: 2 No Data to Display Blood Cultures: 2 No Data to Display Toxicology Panel: 2 No Data to Display Imaging and Studies Imaging and Studies Study information below may be from another EMR and interpreted by another provider. Please see original notes in EMR for more complete details. EKG Summary: 12/10/23 Conclusion Sinus bradycardia...rate< 60 Borderline prolonged MT interval...MT >212, V-rate 50- 90 Stress Test Summary: 09/11/17 Impressions: - Normal perfusion by [id number] Sestamibi Imaging. - Abnormal contraction consistent with cardiomyopathy. Summary: 1. Myocardial perfusion imaging: Moderate size and intensity predominantly fixed anterior defect; resolves with AC, dense breast shadow on RI. C/W breast artifact. No myocardial perfusion defects noted. 2. The calculated left ventricular ejection fraction after stress: 47%. No left ventricular regional motion abnormality. Echocardiogram Summary: 05/09/24 Indications: CHF, Evaluate LV and RV function, VAD, CABG, Smoker Conclusion Normal left ventricular wall thickness and chamber size. Ejection fraction is 60%. Wall motion is normal Normal right ventricular size and function Right atrial size is normal. Left atrium is moderately enlarged Trileaflet aortic valve with trace regurgitation Normal mitral valve with moderate regurgitation Mild to moderate tricuspid regurgitation. Estimated right ventricular systolic pressure is 43 mmHg 4/1/21 Conclusion Left Ventricle : The left ventricle is normal size. The left ventricular systolic function is normal. The left ventricular ejection fraction is within the normal range. There is normal left ventricular wall thickness. There is normal LV segmental wall motion. The left ventricular diastolic function is normal. LVEF is 59%. Right Ventricle : The right ventricle is normal size. The right ventricular systolic function is normal. The RVSP is 31.1 mmHg. Atria : Left atrium is mildly dilated. The right atrium size is normal. Mitral Valve : Mild mitral annular calcification. Mild mitral regurgitation. No evidence of mitral valve stenosis. Great Vessels : The aortic root is normal in size. Ascending aorta is not well visualized. Aortic arch is normal in caliber. IVC is normal in size and collapses >50% with inspiration. Compared to study from 08/23/2019, there is no significant change. Anesthesia Assessment and Plan Anesthesia History Personal History: No History of Anesthesia Complications Family History: No Family History of Anesthesia Complications Exercise Tolerance Exercise Tolerance: Metabolic Equivalents<4 Pertinent Negatives Pertinent Negatives: No Symptoms of GERD Cardiac & Pulmonary Exam Cardiac Exam: Normal S1/S2 Heart Sounds Pulmonary Exam: Clear Bilateral Breath Sounds Implantable Cardiac Device Does patient have a Pacemaker or an ICD?: No Airway Exam Known Difficult Airway: No Mallampati Class: 1 Mouth Opening: Normal (> 3cm) Thyromental Distance: Greater than 3 cm Neck Range of Motion: Full ROM Neck Circumference: Normal Teeth Condition: Removable Dentures/Plates Upper ASA Classification ASA Score: ASA 3 Emergency Case?: No NPO Status NPO Status: NPO Clears >2 hours, Solids >8 hours Anesthesia Plan Resuscitation Status: Full Code Anesthesia Technique: General Anesthesia Airway Planned: Natural Airway Monitors Used: Standard Monitors
[2024-05-10] MEDS: Lactated Ringers 500 ML 30 ML IV (13:52)
--- NOTE | 2024-05-10 14:05 | W.PM.PROGNOT ---
Date of Service Date of service: 05/10/24 Time of Service: 14:05 Assessment and Plan Assessment and plan (1) Anemia: Status: Chronic Assessment and plan: Acute blood loss anemia. Patient has a chronic anemia with a baseline hemoglobin around 9 or 10 g. She appears now to be back to her baseline. Will give her infusion of Venofer tonight and then discharge her home with follow-up H&H next week. Patient needs to follow-up on a more frequent basis for IV infusion of iron. Per surgeons recommendation patient will be discharged home on Protonix and Carafate. Unfortunately because of her severe vascular disease and continued smoking she is at high risk for stroke and heart attack. She will need to remain on aspirin and Plavix for now with more aggressive GI protection Qualifiers: Anemia type: iron deficiency Iron deficiency anemia type: chronic blood loss Qualified Code(s): D50.0 - Iron deficiency anemia secondary to blood loss (chronic) (2) Gastric ulcer: Assessment and plan: History of gastric ulcer diagnosed in December 2023 by EGD this was seen on the greater curvature of her stomach but no ulcer was seen on today's EGD but she does have bile reflux gastritis. Qualifiers: Gastric ulcer chronicity: chronic Gastric ulcer complication status: unspecified whether hemorrhage or perforation present Qualified Code(s): K25.7 - Chronic gastric ulcer without hemorrhage or perforation (3) COPD (chronic obstructive pulmonary disease): Status: Chronic Assessment and plan: No acute exacerbation of COPD. Patient remains on her home inhalers. Qualifiers: COPD type: unspecified COPD Qualified Code(s): J44.9 - Chronic obstructive pulmonary disease, unspecified (4) CKD (chronic kidney disease) stage 3, GFR 30-59 ml/min: Status: Chronic Assessment and plan: Stable chronic kidney disease BUN 23 and creatinine 1.3 today Qualifiers: Chronic kidney disease stage 3 subtype: unspecified whether 3a or 3b Qualified Code(s): N18.30 - Chronic kidney disease, stage 3 unspecified (5) Incidental lung nodule, greater than or equal to 8mm: Status: Acute Assessment and plan: RLL nodule 8 mm, radiologist recommends bx. We will defer this until her GI bleed is stabilized then refer her to pulmonary services for further workup. To be discussed w/ the patient Subjective Subjective Interval history since last seen: Patient had her EGD today and per Dr. Stoiber patient has a lot of bile reflux gastritis but no active bleeding. She recommended either addition of Cytotec or Carafate to her regimen of Protonix. I discussed this with both the patient and her [id number]. I suggest the patient stay overnight and receive an infusion of Venofer as she has an iron deficiency anemia. Patient is willing to take the Venofer but wants to return home later tonight. Explained that the infusion will probably run until about 630 or 7:00 tonight and she is okay with a late discharge. . Her repeat hemoglobin is stable at 8.7 g and we see no sign of active bleeding Exam Narrative Exam Narrative: Alert and orient x 3 sitting up in her chair talking with her [id number] no acute distress Abdomen soft nontender nondistended Objective Last Vital Signs Temp 36.5 C 05/10/24 11:36 Pulse 47 L 05/10/24 11:36 Resp 15 05/10/24 11:36 BP 151/41 H 05/10/24 11:36 Pulse Ox 97 05/10/24 11:36 Laboratory Results - last 24 hr 05/09/24 05/10/24 14:10 06:28 WBC 6.99 RBC 2.82 L Hgb 9.1 L 8.0 L Hct 27.5 L 24.5 L MCV 87 MCH 28.4 MCHC 32.7 RDW 15.2 H Plt Count 223 MPV 11.5 H Sodium 138 Potassium 4.2 Chloride 103 Carbon Dioxide 27.9 Anion Gap 7.1 BUN 23 H Creatinine 1.3 H Est GFR (CKD-EPI 2020) 42.35 Glucose 100 Calcium 9.2 Time Spent with Patient Time Spent with Patient: 25-34 minutes Time was spent: preparing to see the patient(eg.review tests), referring, communicating with other health physician locums urgent care, indepentently interpreting results, counseling the patient (And patient's [id number]) and care coordination
--- NOTE | 2024-05-10 14:18 | BOWEL_PTH ---
PATIENT: Julee Rick LOC: [id number]#:[id number] AGE/SX: 79/F ROOM: RE05/09/[address]: Jeremy Correia : 1945 BED: A DIS: 05/10/2024 SPEC #: [id number] RECD: 05/10/24 15:19 STATUS: DARREL REBlaze #: [id number] LINCOLN: 05/10/24 14:[address]: Jeremy Correia DEPT: Surgical Specimen RECD BY: Cathy Gonsalez ENTERED: 05/10/24 15:21 SP TYPE: Bowel OTHR DR: Zelda Alfonso Tissues: 1 - BIOPSY BOWEL 2 - BIOPSY BOWEL 3 - STOMACH BIOPSY 4 - STOMACH BIOPSY 5 - ESOPHAGUS BIOPSY 6 - ESOPHAGUS BIOPSY Procedures: GROSS AND MICRO LEVEL 4 IMMUNOPEROXIDASE STAIN Comments: [id number]
--- NOTE | 2024-05-10 14:42 | ENDO_ITS ---
Date of service: 05/10/24 Time of Service: 14:42 Endoscopy Report DATE OF PROCEDURE: 05/10/24 PRE-OP DIAGNOSIS: anemia POST-OP DIAGNOSIS: other (hiatal hernia- small/bile reflux gastritis- mild ) SURGEON: Zelda Cardona ANESTHESIA TYPE: General:No Airway ESTIMATED BLOOD LOSS: 1 PATHOLOGY: other COMPLICATIONS: None DISPOSITION: same day PROCEDURE DESCRIPTION: Informed consent was obtained from the pt; explaining the benefits and Risks: bleeding, infections, perforations {which could require surgery or antibiotics and prolonged hospital stay}, or ostomy, and complications of anaesthesia, agustin aspiration). The patient was take to the procedure room and placed in a supine position. Monitors were applied and a time out was done. The patients name, date of , procedure type, allergies to medications and metal in their body was reviewed. A bite block was placed and the patient was sedated. Once sedated and comfortable an Olympus gastroscope (see RN notes for scope #) was advanced through the oropharynx which was grossly normal, and passed into the esophagus. The proximal and mid-esophagus were normal. The distal esophagus does not show any: dilation/strictures/varices/erosions or ulcers/bleeding noted. She has a small less than 2 cm sliding-type hiatal hernia. The scope was advanced into the stomach and through the pylorus into the proximal jejunum. A bx is taken for celiac Dx. The duodenum was noted to be normal. Biopsies were done of the duodenal bulb.. The scope was retracted back into the stomach and biopsies were taken of the antrum. There were /gastropathy/ ulcers/masses noted. Bile reflux is noted; there is some associated gastric Tritus which is mild. There is no signs of any recurrent ulcer disease. There is no signs of active or old bleeding. The scope was retroflexed. The cardia and fundus were noted to be normal. There a hiatal hernia noted. The scope was retracted back into the esophagus and biopsies were done of the GE junction (in all 4 quadrants) and distal esophagus (2cm above the GE junction) to rule out Baker's. All specimens are retrieved and no bleeding was noted. The Z line was regular. The GE junction was at 38 cm. The scope was removed and the patient was woken up and taken back to [facility] in stable condition.
--- NOTE | 2024-05-10 14:47 | W.ANESPOSTOP ---
Postoperative Evaluation Date, Time and Location Date Performed: 05/10/24 Time Performed: 14:47 Patient Location: Day Surgery Unit Vital Signs Most Recent Imported Vital Signs: Most Recent Vital Signs Temp Pulse Resp BP Pulse Ox 36.7 C 43 L 17 133/41 L 96 05/10/24 14:30 05/10/24 14:37 05/10/24 14:40 05/10/24 14:37 05/10/24 14:40 Pain Score Most Recent Pain Score: Most Recent Pain Score Pain Level 0 05/10/24 11:36 Assessment Mental Status: Awake (Alert & Oriented to Patient Baseline) Airway and Respiratory Function: Patent airway with normal (patient baseline) respiratory exam Cardiovascular Function: Hemodynamically Stable Hydration Status: Adequately Hydrated Nausea & Vomiting: No Nausea or Vomiting Pain: Pt. Denies Any Pain Peripheral Nerve Block: Patient did not receive a nerve block
--- NOTE | 2024-05-10 15:08 | NUR.NOTE ---
Nursing Note: Patient recieved from PACU nurse, ANDRES, RN at this time. Patient's vitals are stable and patient requesting jello which she recieved. Patient currently sitting up in chair with call martinez within reach. Patient had no changes from prior assessment at this time.
[2024-05-10] MEDS: Sucralfate 1 GM TAB PO ×2 (16:09→20:00)
[2024-05-10] MEDS: Multivitamin TAB 1 TAB PO (16:09)
[2024-05-10] MEDS: IRON SUCROSE COMPLEX 400 MG in Normal Saline 250 ML 100 MG IVPB (16:12)
[2024-05-10 16:21] LABS: HCT 26.8 % (36.0-46.0); HGB 8.7 g/dL (11.2-15.7)
--- NOTE | 2024-05-10 19:43 | W.PM.DS.N ---
Date of service: 05/10/24 Time of Service: 19:43 DS: Diagnosis Discharge Diagnosis (1) Anemia: Status: Chronic Asessment and Plan: Chronic blood loss anemia associated with recent melena. Hemoglobin 5.9 g on admission associated with symptoms of weakness dizziness and chest discomfort. Patient was transfused 2 units of packed red cells with a posttransfusion hemoglobin 9.1 g but final hemoglobin of 8.7 g at discharge. No further melena was noted during this hospitalization. EGD was performed by Dr. Cardona see her notes for details. In summary I was told by Dr. Cardona that the patient has bile reflux gastritis but no active bleeding of the upper GI tract. I explained to the patient and her son that we did not find the source of bleeding and suggested that she discuss with Dr. Dulce Sanchez about having a pill camera to look for small bowel bleeding. She has known diverticulosis and known colon polyps and these will need further surveillance with a repeat colonoscopy per Dr. Sanchez's recommendations. Patient was given a dose of Venofer 400 mg IV on the day of discharge. She will resume her home dose of oral iron and follow-up at the [facility] with Dr. Avendaño. (2) Gastric ulcer: Asessment and Plan: Patient has a history of gastric ulcer but none was seen on repeat EGD (3) COPD (chronic obstructive pulmonary disease): Status: Chronic Asessment and Plan: Patient will continue her home inhalers she had no exacerbation of her COPD this admission. (4) CKD (chronic kidney disease) stage 3, GFR 30-59 ml/min: Status: Chronic Asessment and Plan: Patient has chronic kidney disease which is stable at this time. BUN was 23 and creatinine is 1.3. Echocardiogram was done during this admission because after receiving blood transfusions and initially receiving 1 L of saline in the emergency room she was noted to be mildly hypoxemic but responded to diuretics. Of note her echocardiogram showed normal left ventricular size and function with LVEF of 60% normal right ventricular size and function. She has moderate left atrial enlargement and moderate mitral regurgitation. She has mild to moderate tricuspid regurgitation with a mildly elevated RVSP of 43 mm. More than likely she has diastolic heart failure and was over resuscitated with volume but responded well to diuretics. (5) Incidental lung nodule, greater than or equal to 8mm: Status: Acute Asessment and Plan: 9 mm nodule In the superior segment of right lower lobe which is increased in size from her previous chest CT from 12/13/2022, pulmonary referral to Dr. Rika Lynch is recommended. Patient was told if she does not hear from the pulmonary clinic by next Monday she should call the office for a pulmonary referral. (6) Sinus bradycardia: Status: Acute Asessment and Plan: Patient experienced sinus bradycardia but had no symptoms from this. Her carvedilol was withheld but upon discharge she was resumed on her carvedilol at a reduced dose of 3.125 mg twice a day. Please follow-up on her heart rate and determine if carvedilol remains appropriate for her. Discharge Plan Disposition Patient Disposition: Home Condition: Improving Discharge Details Reason For Visit: anemia, chronic GI bleeding, CP Admit Date/Time: 05/09/24 07:26 Admit Provider: Jeremy Correia Attending Provider: Jeremy Correia Primary Care Provider: Zafar Botello Hospital Course Hospital Course: 79-year-old female with history of coronary disease status post CABG two-vessel 2018 and carotid stenosis status post bilateral carotid endarterectomies and stents, hypertension, hyperlipidemia, chronic blood loss anemia, gastric peptic ulcer disease, tubular adenoma colon polyps presented emergency department with anterior chest pain fatigue and melanotic stools. She receives intermittent iron infusions and erythropoietin and also takes oral iron supplements. Her last EGD and colonoscopy were in December 28, 2023 when she was found to have severe diverticulosis multiple tubular adenoma colon polyps that were removed and she was found to have a gastric ulcer and duodenitis with some evidence of recent bleeding. She has been maintained on Protonix. Her H. pylori was negative last time. Evaluation in the emergency room included serial labs which showed her to be severely anemic with a hemoglobin of 5.9 g she was transfused 2 units of packed red cells and came up to 9.1 g and eventually settled at 8.7 g upon discharge. Serum ferritin level was found to be low end of normal at 43 her troponins were negative for ACS. B12 and folate levels were normal. After transfusion consultation with Dr. Zelda Cardona was obtained and she performed an EGD her note is still pending at this time however she verbally told me that there is no acute upper GI bleeding. No ulcers were seen she does have evidence of bile reflux gastritis. Dr. Cardona recommend that the patient be started on Carafate 1 g ACHS and continue her Protonix 40 mg daily. She also inquired whether or not the patient could come off aspirin. I told Dr. Cardona as well as the patient that the patient needs to discuss this with her bank reconciliator and her vascular surgeon because of the severity of her carotid disease and her coronary artery disease I am not recommending that she stop her aspirin or her Plavix at this time. During her hospital stay she was noted to be bradycardic with heart rates in the mid 40s her carvedilol was held during this hospital stay but she will resume her carvedilol at a reduced dose of 3.125 mg twice a day. As part of her workup she underwent a CTA of her chest when she had complained of the chest discomfort no pulmonary embolism was seen and no thoracic aortic aneurysm was seen although she has moderate to severe atherosclerotic changes of her aorta however previously seen right lower lobe lung nodule has increased in size from the previous level of 6 to 7 mm and is now currently at 9 mm and a biopsy is recommended. The patient and her son were made aware of this and they were given a copy of her CT scan and I wrote on the copy that she needs to see a software engineering specialist and that this could possibly represent a lung cancer. Patient has been strongly encouraged to quit smoking as it not only increase her risk for lung cancer but he also increase her risk for heart attack and stroke as well as further ulcers. I also recommended to the family and the patient that she consider getting a pill camera looking for GI bleeding and her small bowel. She is scheduled to have a follow-up CBC next week with results to go to her primary care provider. All questions were answered to the satisfaction of her son and the patient. Home Meds and New Rx's Prescriptions: New sucralfate 1 gram Tablet 1 g PO AC & HS Qty: 120 1RF Continued multivitamin tablet 1 tab PO DAILY Patient Comments: TAKES @ 5PM DAILY rosuvastatin 10 mg tablet 10 mg PO DAILY Patient Comments: TAKES IN THE EVENING ascorbate calcium (vitamin C) 500 mg tablet 500 mg PO .COMPLEX Rx Instructions: 500 mg orally Mon, Wed, Fri; furosemide 20 mg tablet 20 mg PO DAILY PRN (Reason: edema) Qty: 60 3RF aspirin 81 mg tablet,delayed release (DR/EC) 81 mg PO DAILY Aranesp (in polysorbate) 200 mcg/0.4 mL syringe 200 mcg subcut Q2W Patient Comments: 03/13/24 per pt she gets an injection Q2w at [facility] due to anemia. this may change. RH clopidogrel 75 mg tablet 75 mg PO DAILY Patient Comments: TAKE ONE TABLET BY MOUTH EVERY DAY ferrous gluconate 324 mg (38 mg iron) tablet 324 mg PO DAILY Patient Comments: TAKE ONE TABLET BY MOUTH EVERY DAY @ 10AM levothyroxine 125 mcg tablet 125 mcg PO DAILY Patient Comments: TAKE ONE TABLET BY MOUTH EVERY DAY @ 7AM; TAKE AN ADDITIONAL 1/2 TABLET ON SUNDAYS amlodipine 10 mg tablet 10 mg PO DAILY Patient Comments: TAKE ONE TABLET BY MOUTH EVERY DAY lisinopril 10 mg tablet 10 mg PO DAILY Patient Comments: TAKE ONE TABLET BY MOUTH EVERY DAY FOR BLOOD PRESSURE cholecalciferol (vitamin D3) [Vitamin D3] 2,000 UNIT capsule 2,000 unit PO DAILY pantoprazole 40 mg tablet,delayed release (DR/EC) 40 mg PO DAILY Qty: 90 0RF Rx Instructions: Take 1 pill by mouth in the morning, 1 pill by mouth in the evening. Repeat this every day for 4 weeks. Then switch to 1 pill daily. Changed carvedilol 6.25 mg tablet 3.25 mg PO BID Qty: 0 0RF Discharge Instructions Instructions: Anemia caused by low iron, Pulmonary nodule, Sucralfate Additional Instructions: You were treated for chronic anemia, you received transfusion of 2 units of blood for a hemoglobin of 5.9 gm (normal is 12 to 14 gm), your usual baseline hemoglobin is 9 to 10 gm. After transfusions your hemoglobin came up to 9.1 gm but at discharge is 8.7 gm. You were seen by Dr. Cardona, surgeon partner to Dr. Marv Sanchez. She performed an EGD (upper endoscopy) and did not find any bleeding ulcers but found that you have bile reflux gastritis and she recommends adding carafte to your pantoprazole regimen to treat your gastritis. You may have another source for your chronic anemia and may need either a repeat colonoscopy or be referred for a procedure called capsule endoscopy or pill camera. EGD and colonoscopies can look at the upper GI tract from esophagus through the stomach to the duodenum which is the first part of the small bowel and colonoscopy can look at the large intestine from the anus to the cecum but neither can look at the small bowel which lies between. A pill camera that is swallowed can take pictures of the lining of your small bowel and transmit those pictures to be recorded and show the source of chronic blood loss. You are on two medications to prevent strokes and heart attacks which thin your blood including aspirin and clopidogrel. You should discuss with your bank reconciliator or your primary care provider or your neurologist or vascular surgeon whether or not you could come off the aspirin and treat your vascular disease w/ clopidogrel alone. For now you should stay on both. You also need to quit smoking. This increases your risks for stroke, lung cancer, heart attacks and ulcers. You had a CT scan of your chest which shows that you have a growing lung nodule in your the superior segment of your right lower lobe. This measure 9 mm whereas before it was 6 to 7 mm. This needs to be followed up by a software engineering specialist as this may be a lung cancer. Stand Alone Forms: Nursing Discharge Form Referrals: Rika Lynch MD [ [facility] STAFF PHYSICIAN] - (you should hear from the office next week for a referral, if you do not hear from them then call the office and tell them that the hospitalist recommended referral for a lung nodule) Zafar Botello [Primary Care Provider] - (call the office next week for follow up appointment) Activity:: Activity as Tolerated Equipment/Supplies:: No Equipment Needed Diet:: Normal Diet Discharge Orders Discharge Orders: Discharge Order (Routine); Ordered 05/10/24 Ordered By: Jeremy Correia Other Ambulatory Orders: Complete Blood Count w/Diff (Routine) Timeframe: 4 Days Facility: [facility] - Location: Laboratory Outpatient - [facility] Ordered By: Jeremy Correia DS: Summary Time Spent with Patient providing and/or coordinating discharge services: Greater than 30 minutes Specific discharge activities: Interview/exam of patient; review of discharge instructions, completion of prescriptions/discharge instructions; discussion w/ nursing and CM; documentation of hospital visit Status at Discharge Functional status at discharge: independent ambulation Overall status at discharge: patient is progressing back to baseline Mental Status: mental status grossly normal Speech and Movement: speech and movement normal Mood: congruent mood Affect: normal affect Quality:SDOH Health Related Social Needs: No Data to Display Exam Narrative Exam Narrative: Alert and orient x 3 sitting up in her chair talking with her [id number] no acute distress Abdomen soft nontender nondistended Lungs clear to auscultation Heart regular but bradycardic no appreciable murmur rub Psych Mental Status: mental status grossly normal Speech and Movement: speech and movement normal Mood: congruent mood Affect: normal affect DS: Data Vitals/I&O Vitals and I&O: Vital Signs Temperature 37.2 C 05/10/24 18:26 Temperature Source Temporal Artery Scan 05/10/24 18:26 Pulse 45 L 05/10/24 18:26 Pulse Rhythm Regular 05/10/24 07:40 Pulse 44 L 05/10/24 14:40 Respiratory Rate 20 05/10/24 18:26 Respiratory Effort Normal 05/10/24 07:40 Respiratory Depth Normal 05/10/24 07:40 Respiratory Pattern Normal 05/10/24 07:40 Blood Pressure 166/55 H 05/10/24 18:26 Blood Pressure Mean 72 05/10/24 14:37 Blood Pressure Position Sitting 05/09/24 00:25 Pulse Oximetry 96 05/10/24 18:26 Respiratory End-tidal CO2 29 05/10/24 14:40 Oxygen Delivery Method Room Air 05/10/24 18:26 Oxygen Flow Rate 0 05/10/24 18:26 Pain Level 0 05/10/24 11:36 Comment RN notified of bp 05/10/24 11:36 Intake & Output 05/09/24 05/10/24 05/10/24 23:59 11:59 23:59 Intake Total 110 / 1635 570 / 570 Balance 110 / 1035 570 / 570 Weight 75 kg 75 kg Intake: IV 110 / 1210 570 / 570 Other: Urine Color Yellow Urine Appearance Clear Comment Patient up to bathroom and voiding independently, patient denies concerns or complaints patient voids independently in room per patient she voided in toilet. Emesis Description None Voiding Methods Toilet Toilet Toilet Data Completed and Pending Labs on day of discharge: Labs from last 24 hours 05/10/24 05/10/24 05/10/24 16:03 16:03 16:03 WBC RBC Hgb 8.7 L Cancelled Hct 26.8 L Cancelled MCV MCH MCHC RDW Plt Count MPV Sodium Potassium Chloride Carbon Dioxide Anion Gap BUN Creatinine Est GFR (CKD-EPI 2020) Glucose Calcium 05/10/24 06:28 WBC 6.99 RBC 2.82 L Hgb 8.0 L Hct 24.5 L MCV 87 MCH 28.4 MCHC 32.7 RDW 15.2 H Plt Count 223 MPV 11.5 H Sodium 138 Potassium 4.2 Chloride 103 Carbon Dioxide 27.9 Anion Gap 7.1 BUN 23 H Creatinine 1.3 H Est GFR (CKD-EPI 2020) 42.35 Glucose 100 Calcium 9.2 PFSH All Active Problems Incidental lung nodule, greater than or equal to 8mm (Acute) Widened pulse pressure (Acute) Anemia (Chronic) Renal calculi (Chronic) Sinus bradycardia (Acute) Episode of syncope (Chronic) CKD (chronic kidney disease) stage 3, GFR 30-59 ml/min (Chronic) Lumbosacral spondylosis without myelopathy (Acute) COPD (chronic obstructive pulmonary disease) (Chronic) Solitary lung nodule (Acute) Hydronephrosis (Acute) Hx of CABG (Chronic) Chest pain, rule out acute myocardial infarction (Acute) Mild chronic gastritis (Acute) Peripheral vascular disease (Chronic) CAD (coronary artery disease) (Chronic) GERD (gastroesophageal reflux disease) (Acute 09/05/16) Cerebrovascular accident (CVA) (Acute) Chronic anxiety (Acute) Iron deficiency anemia (Chronic) Hypothyroid (Chronic) Hyperlipidemia (Chronic) Carotid stenosis (Chronic) Tobacco dependence (Acute) Hx of Helicobacter infection (Acute) 2014 Medical History Anemia Diabetes mellitus Pt denies Chronic kidney disease, stage 3b Lung nodule 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 Prediabetes Asthma Pt denies Asthma Obesity Vitamin D deficiency Hypertension Gastric ulcer 2014 Brittle nails Peripheral vascular disease Depression Intermittent claudication Degenerative disc disease, lumbar Diverticulosis large intestine w/o perforation or abscess w/o bleeding Optic neuritis Impaired glucose regulation Elevated troponin Abnormal EKG Surgical History S/P CABG x 2 right carotid endarterectomy x2 Ligation of fallopian tube EGD - [facility] (12/2023) path sent EGD - IV Sedation 2014 Colonoscopy - [facility] 2015 Biopsy, Temporal Artery (09/15/17) right Family History Other Heart disease Social History Smoking/Tobacco Use Status: Current every day Tobacco Type: cigarettes Tobacco: How many years used: 46 Counseling given: patient declined Smoking risk assessment performed?: Yes Alcohol Intake: never Drug use: Never Substance use type: does not use Housing: house Do you feel safe at home: Yes Do you feel safe in your relationship?: Yes Time Spent with Patient Time Spent with Patient: 45-69 minutes Time was spent: preparing to see the patient(eg.review tests), ordering medications,tests, procedures, referring, communicating with other health healthcare administration intern, indepentently interpreting results, counseling the patient and care coordination
== END 2024-05-10 20:06 | disposition home or self-care (01) | DRG 377 ==
LOC: ER 05-09 07:38 → MS 05-09 10:32
PROVIDERS: Surgery; Admitting Provider Internal Medicine; Emergency Provider Student in an Organized Health Care Education/Training Program; PCP Student in an Organized Health Care Education/Training Program; Visit Provider Internal Medicine
PROC: 0DJ68ZZ Inspection of Stomach, Via Natural or Artificial Opening Endoscopic (ICD-10-PCS; CPT 43235; principal; 2024-05-10 13:45)
DX: K92.1 Melena (principal); I50.33 Acute on chronic diastolic (congestive) heart failure; D62 Acute posthemorrhagic anemia; J44.9 Chronic obstructive pulmonary disease, unspecified; I11.0 Hypertensive heart disease with heart failure; R91.1 Solitary pulmonary nodule; K44.9 Diaphragmatic hernia without obstruction or gangrene; R00.1 Bradycardia, unspecified; N20.0 Calculus of kidney; M47.817 Spondylosis without myelopathy or radiculopathy, lumbosacral region; Z95.1 Presence of aortocoronary bypass graft; K29.50 Unspecified chronic gastritis without bleeding; I25.10 Atherosclerotic heart disease of native coronary artery without angina pectoris; I73.9 Peripheral vascular disease, unspecified; K21.9 Gastro-esophageal reflux disease without esophagitis; Z86.73 Personal history of transient ischemic attack (TIA), and cerebral infarction without residual deficits; F41.9 Anxiety disorder, unspecified; E03.9 Hypothyroidism, unspecified; E78.5 Hyperlipidemia, unspecified; F17.210 Nicotine dependence, cigarettes, uncomplicated; N18.32 Chronic kidney disease, stage 3b; Z87.11 Personal history of peptic ulcer disease; K57.30 Diverticulosis of large intestine without perforation or abscess without bleeding; I44.0 Atrioventricular block, first degree; Z79.899 Other long term (current) drug therapy; I95.9 Hypotension, unspecified; I25.2 Old myocardial infarction; Z86.010 Personal history of colon polyps; I08.1 Rheumatic disorders of both mitral and tricuspid valves; R07.89 Other chest pain; R53.83 Other fatigue
CPT/HCPCS: 43239; 00123; 36415; 36430; 71275; 80048; 80053; 84145; 85027; 86850; 86900; 86901; 86920; 88305; 93005; 93306; 93308; 96365; 96375; 99222; 99291; 81003; 81015; 82607; 82728; 82746; 83540; 83550; 83605; 83880; 84439; 84443; 84484; 85014; 85018; 85025; 85610; 85730; 87086; 88361; 93010; 99239; J0131; J1756; J1941; J2270; J2405; J2470; J2704; J3490; P9016

== ENCOUNTER 2024-05-23 05:06 | Outpatient (CLI) | payer MEDICARE, OTHER, SELFPAY ==
[2024-05-23 13:01] LABS: Abs Immature Grans 0.02 10^3/uL (0.0-0.06); Absolute Basophil Count 0.02 10^3/uL (0.0-0.2); Absolute Eosinophil Count 0.22 10^3/uL (0.0-0.7); Absolute Lymphocyte Count 0.97 10^3/uL (1.2-3.4); Basophils % 0.3 %; Eosinophils % 3.5 %; HCT 25.1 % (36.0-46.0); Immature Grans % 0.3 %; Lymphocytes % 15.6 %; MCH 29.2 pg (27.0-33.0); MCHC 32.3 % (32.0-36.0); MCV 91 fL (80-95); MPV 10.3 fL (8.0-11.0); Monocytes % 14.4 %; Neutrophils % 65.9 %; Platelet Count 219 10^3/uL (130-400); RBC 2.77 10^6/uL (3.93-5.22); RDW 15.4 % (11.7-14.6); RDW-SD 51.6 fL; WBC 6.23 10^3/uL (4.4-10.8)
[2024-05-23 13:04] LABS: HGB 8.1 g/dL (11.2-15.7)
[2024-05-23 13:13] LABS: Anion Gap 8.5 mmol/L (3-11); BUN 26 mg/dL (7-18); CO2 27.5 mmol/L (21.0-32.0); CREATININE 1.1 mg/dL (0.55-1.02); Calcium 9.4 mg/dL (8.5-10.1); Chloride 100 mmol/L (98-107); Estimated GFR 51.75 (mL/min/1.73m2); Glucose 110 mg/dL (74-106); Potassium 4.2 mmol/L (3.5-5.1); Sodium 136 mmol/L (136-145)
[2024-05-23 17:36] LABS: Ferritin 236 ng/mL (8-252)
== END 2024-05-23 05:07 | disposition home or self-care (01) ==
LOC: LBO 05:06
PROVIDERS: PCP Student in an Organized Health Care Education/Training Program; Visit Provider Internal Medicine Hematology & Oncology
DX: N18.31 Chronic kidney disease, stage 3a (principal); D63.1 Anemia in chronic kidney disease; E87.1 Hypo-osmolality and hyponatremia
CPT/HCPCS: 36415; 80048; 82728; 85025

== ENCOUNTER 2024-05-30 12:58 | Outpatient (RCR) | payer MEDICARE, OTHER, SELFPAY ==
[2024-05-30 11:28] LABS: Abs Immature Grans 0.07 10^3/uL (0.0-0.06); Absolute Basophil Count 0.02 10^3/uL (0.0-0.2); Absolute Lymphocyte Count 0.81 10^3/uL (1.2-3.4); Absolute Monocyte Count 0.87 10^3/uL (0.1-0.8); Absolute Neutrophil Count 5.91 10^3/uL (1.2-6.7); Basophils % 0.3 %; Eosinophils % 2.5 %; HCT 24.8 % (36.0-46.0); HGB 7.9 g/dL (11.2-15.7); Immature Grans % 0.9 %; Lymphocytes % 10.3 %; MCH 29.9 pg (27.0-33.0); MCHC 31.9 % (32.0-36.0); MCV 94 fL (80-95); Nucleated RBC 0.3 % (0.0-0.3); Platelet Count 278 10^3/uL (130-400); RBC 2.64 10^6/uL (3.93-5.22); RDW-SD 56.2 fL; WBC 7.88 10^3/uL (4.4-10.8)
[2024-05-30 11:41] LABS: Diff Comment Diff Reviewed; Hypochromasia 2+
[2024-05-30 11:52] LABS: Ferritin 119 ng/mL (8-252)
[2024-05-30 13:16] VITALS: BP 153/54; PULSE 47; RESP 16; TEMP 36.4; O2SAT 99
[2024-05-30 13:34] VITALS: BP 155/62; PULSE 47; RESP 17; TEMP 35.4; O2SAT 98
[2024-05-30 13:49] VITALS: BP 177/51; PULSE 47; RESP 18; TEMP 36.4; O2SAT 98
[2024-05-30 14:21] VITALS: BP 173/62; PULSE 48; RESP 17; TEMP 36; O2SAT 99
[2024-05-30 15:05] VITALS: BP 163/55; PULSE 47; RESP 16; TEMP 36.6; O2SAT 99
[2024-05-30] MEDS: Normal Saline Flush 10 ML SYR IVP (15:21)
[2024-06-07 16:31] LABS: Haptoglobin 241 mg/dL (32-197)
== END 2024-06-08 23:59 | disposition home or self-care (01) ==
LOC: INF 12:58
PROVIDERS: PCP Student in an Organized Health Care Education/Training Program; Visit Provider Internal Medicine Hematology & Oncology
DX: D50.9 Iron deficiency anemia, unspecified (principal); N18.31 Chronic kidney disease, stage 3a
CPT/HCPCS: 36415; 36430; 86850; 86900; 86901; 86920; 82728; 83010; 85025; P9016

== ENCOUNTER 2024-06-06 04:33 | Outpatient (CLI) | payer MEDICARE, OTHER, SELFPAY ==
[2024-06-06 09:19] LABS: Abs Immature Grans 0.03 10^3/uL (0.0-0.06); Absolute Basophil Count 0.02 10^3/uL (0.0-0.2); Absolute Eosinophil Count 0.23 10^3/uL (0.0-0.7); Absolute Lymphocyte Count 0.71 10^3/uL (1.2-3.4); Absolute Monocyte Count 0.77 10^3/uL (0.1-0.8); Absolute Neutrophil Count 5.24 10^3/uL (1.2-6.7); Basophils % 0.3 %; Eosinophils % 3.3 %; HGB 9.8 g/dL (11.2-15.7); Immature Grans % 0.4 %; Lymphocytes % 10.1 %; MCH 29.9 pg (27.0-33.0); MCHC 32.7 % (32.0-36.0); MCV 92 fL (80-95); MPV 10.7 fL (8.0-11.0); Neutrophils % 74.9 %; Platelet Count 273 10^3/uL (130-400); RBC 3.28 10^6/uL (3.93-5.22); RDW 16.5 % (11.7-14.6); RDW-SD 55.4 fL
[2024-06-06 09:46] LABS: Ferritin 108 ng/mL (8-252)
[2024-06-07 10:28] LABS: Haptoglobin 247 mg/dL (32-197)
== END 2024-06-06 04:34 | disposition home or self-care (01) ==
LOC: LBO 04:34
PROVIDERS: PCP Student in an Organized Health Care Education/Training Program; Visit Provider Internal Medicine Hematology & Oncology
DX: N18.31 Chronic kidney disease, stage 3a (principal); D50.9 Iron deficiency anemia, unspecified; D63.1 Anemia in chronic kidney disease
CPT/HCPCS: 36415; 86850; 86900; 86901; 82728; 83010; 85025

== ENCOUNTER 2024-06-07 12:41 | Outpatient (CLI) | payer MEDICARE, OTHER, SELFPAY ==
--- NOTE | 2024-06-19 19:52 | W.PFT ---
Date of service: 06/07/24 Time of Service: 14:46 Pulmonary Function Test Result Requesting Provider Rika Lynch MD Indications: Current [id number] smoker, no respiratory symptoms, environmental exposure Interpretation Spirometry: Prebronchodilator spirometry was normal. There was no evidence of airway obstruction or restriction. Metallographic Technician comments indicated a good patient effort. Lung Volumes: Lung volume studies by plethysmography showed: 1. No evidence of restriction. The total lung capacity was 113% predicted, which is likely a normal variant. 2. Residual volume was 133% predicted, which may represent either mild hyperinflation or a normal physiologic variant. Diffusion Capacity: DLCO by single breath carbon monoxide technique showed mildly decreased gas exchange (77%) and a DL/VA in the normal range of 109% predicted. Clinical and radiographic correlation is recommended. Impression Normal spirometry and lung volumes, possible gas exchange abnormality Clinical and radiographic correlation therefore is recommended.
== END 2024-06-19 23:59 | disposition home or self-care (01) ==
LOC: RT 12:42
PROVIDERS: PCP Student in an Organized Health Care Education/Training Program; Visit Provider Internal Medicine Critical Care Medicine
DX: R91.1 Solitary pulmonary nodule (principal); F17.210 Nicotine dependence, cigarettes, uncomplicated
CPT/HCPCS: 00123; 94010; 94726; 94729

== ENCOUNTER 2024-06-20 03:39 | Outpatient (CLI) | payer MEDICARE, OTHER, SELFPAY ==
[2024-06-20 12:16] LABS: Abs Immature Grans 0.02 10^3/uL (0.0-0.06); Absolute Basophil Count 0.02 10^3/uL (0.0-0.2); Absolute Eosinophil Count 0.18 10^3/uL (0.0-0.7); Absolute Lymphocyte Count 0.82 10^3/uL (1.2-3.4); Absolute Monocyte Count 0.77 10^3/uL (0.1-0.8); Absolute Neutrophil Count 5.03 10^3/uL (1.2-6.7); Basophils % 0.3 %; Eosinophils % 2.6 %; HCT 34.9 % (36.0-46.0); HGB 11.1 g/dL (11.2-15.7); Immature Grans % 0.3 %; MCH 29.9 pg (27.0-33.0); MCHC 31.8 % (32.0-36.0); MCV 94 fL (80-95); MPV 10.2 fL (8.0-11.0); Monocytes % 11.3 %; Neutrophils % 73.5 %; Platelet Count 238 10^3/uL (130-400); RBC 3.71 10^6/uL (3.93-5.22); RDW 15.8 % (11.7-14.6); RDW-SD 54.8 fL; WBC 6.84 10^3/uL (4.4-10.8)
[2024-06-20 13:11] LABS: ALT 18 U/L (14-59); AST 9 U/L (15-37); Albumin 3.7 g/dL (3.4-5.0); Alkaline Phosphatase 86 U/L (46-116); Anion Gap 6.2 mmol/L (3-11); BUN 18 mg/dL (7-18); Bilirubin, Total 0.35 mg/dL (0.2-1.0); CO2 28.8 mmol/L (21.0-32.0); CREATININE 1.1 mg/dL (0.55-1.02); Calcium 9.1 mg/dL (8.5-10.1); Chloride 104 mmol/L (98-107); Estimated GFR 51.75 (mL/min/1.73m2); Ferritin 77 ng/mL (8-252); Glucose 125 mg/dL (74-106); Potassium 4.4 mmol/L (3.5-5.1); Sodium 139 mmol/L (136-145); Total Protein 6.9 g/dL (6.4-8.2)
== END 2024-06-20 03:40 | disposition home or self-care (01) ==
LOC: LBO 03:40
PROVIDERS: PCP Student in an Organized Health Care Education/Training Program; Visit Provider Internal Medicine Hematology & Oncology
DX: N18.31 Chronic kidney disease, stage 3a (principal); D50.9 Iron deficiency anemia, unspecified
CPT/HCPCS: 36415; 80053; 82728; 85025

== ENCOUNTER → 2024-06-24 10:30 | Outpatient (BNVA) | payer MEDICARE, OTHER, SELFPAY | PROVIDERS: PCP Student in an Organized Health Care Education/Training Program; Visit Provider Internal Medicine Cardiovascular Disease | DX: I25.10 Atherosclerotic heart disease of native coronary artery without angina pectoris (principal) | CPT/HCPCS: 99213 ==

== ENCOUNTER → 2024-06-28 10:17 | Outpatient (BNVA) | payer MEDICARE, OTHER, SELFPAY | PROVIDERS: PCP Student in an Organized Health Care Education/Training Program; Referring Provider Student in an Organized Health Care Education/Training Program; Visit Provider Internal Medicine | DX: R91.1 Solitary pulmonary nodule (principal); F17.210 Nicotine dependence, cigarettes, uncomplicated; Z95.1 Presence of aortocoronary bypass graft | CPT/HCPCS: 99215; 99406 ==

== ENCOUNTER 2024-07-04 02:50 | Outpatient (CLI) | payer MEDICARE, OTHER, SELFPAY ==
[2024-07-04 11:36] LABS: Abs Immature Grans 0.02 10^3/uL (0.0-0.06); Absolute Basophil Count 0.02 10^3/uL (0.0-0.2); Absolute Lymphocyte Count 0.83 10^3/uL (1.2-3.4); Absolute Monocyte Count 0.89 10^3/uL (0.1-0.8); Absolute Neutrophil Count 6.36 10^3/uL (1.2-6.7); Basophils % 0.2 %; Eosinophils % 2.4 %; HCT 38.7 % (36.0-46.0); HGB 12.3 g/dL (11.2-15.7); Immature Grans % 0.2 %; MCH 29.6 pg (27.0-33.0); MCHC 31.8 % (32.0-36.0); MCV 93 fL (80-95); Monocytes % 10.7 %; Neutrophils % 76.5 %; Platelet Count 256 10^3/uL (130-400); RBC 4.16 10^6/uL (3.93-5.22); RDW 14.9 % (11.7-14.6); RDW-SD 51.2 fL; WBC 8.32 10^3/uL (4.4-10.8)
[2024-07-04 12:02] LABS: Ferritin 76 ng/mL (8-252)
== END 2024-07-04 02:51 | disposition home or self-care (01) ==
LOC: LBO 02:50
PROVIDERS: PCP Student in an Organized Health Care Education/Training Program; Visit Provider Internal Medicine Hematology & Oncology
DX: N18.31 Chronic kidney disease, stage 3a (principal)
CPT/HCPCS: 36415; 82728; 85025

== ENCOUNTER 2024-07-04 11:30 | Outpatient (RCR) | payer SELFPAY ==
[2024-05-09 00:33] VITALS: BP 150/48; PULSE 47
[2024-06-13 11:42] VITALS: BP 151/50; PULSE 50
[2024-06-18 11:51] VITALS: BP 181/55; PULSE 49
[2024-06-20 13:28] VITALS: BP 141/49; PULSE 48
[2024-06-27 13:33] VITALS: BP 155/53; PULSE 49
[2024-07-04 11:33] VITALS: BP 177/58; PULSE 50
== END 2024-07-08 23:59 | disposition home or self-care (01) ==
LOC: CR 11:30
PROVIDERS: PCP Student in an Organized Health Care Education/Training Program; Visit Provider Internal Medicine Cardiovascular Disease
DX: R69 Illness, unspecified (principal)

== ENCOUNTER 2024-07-18 02:29 | Outpatient (CLI) | payer MEDICARE, OTHER, SELFPAY ==
[2024-07-18 13:38] LABS: Abs Immature Grans 0.05 10^3/uL (0.0-0.06); Absolute Basophil Count 0.03 10^3/uL (0.0-0.2); Absolute Eosinophil Count 0.18 10^3/uL (0.0-0.7); Absolute Monocyte Count 0.79 10^3/uL (0.1-0.8); Absolute Neutrophil Count 7.65 10^3/uL (1.2-6.7); Basophils % 0.3 %; Eosinophils % 1.9 %; HCT 37.2 % (36.0-46.0); Immature Grans % 0.5 %; Lymphocytes % 10.3 %; MCH 29.2 pg (27.0-33.0); MCHC 32.3 % (32.0-36.0); MCV 91 fL (80-95); MPV 10.4 fL (8.0-11.0); Monocytes % 8.1 %; Neutrophils % 78.9 %; Platelet Count 275 10^3/uL (130-400); RBC 4.11 10^6/uL (3.93-5.22); RDW-SD 46.7 fL
== END 2024-07-18 02:30 | disposition home or self-care (01) ==
LOC: LBO 02:30
PROVIDERS: PCP Student in an Organized Health Care Education/Training Program; Visit Provider Internal Medicine Hematology & Oncology
DX: N18.31 Chronic kidney disease, stage 3a (principal); D63.1 Anemia in chronic kidney disease
CPT/HCPCS: 36415; 85025

== ENCOUNTER 2024-07-19 16:17 | Outpatient (REF) | payer MEDICARE, OTHER, SELFPAY ==
[2024-07-19 17:59] LABS: COMMENT (LAB VIEW ONLY) 77.85 mg/dL
== END 2024-07-19 16:18 | disposition home or self-care (01) ==
LOC: NCHCN 16:17
PROVIDERS: PCP Student in an Organized Health Care Education/Training Program; Visit Provider Student in an Organized Health Care Education/Training Program
DX: D63.1 Anemia in chronic kidney disease; N18.2 Chronic kidney disease, stage 2 (mild)
CPT/HCPCS: 82043; 82570

== ENCOUNTER 2024-07-26 00:34 | Outpatient (CLI) | payer MEDICARE, OTHER, SELFPAY ==
--- NOTE | 2024-07-26 | DI.US_ITS ---
Exam(s) US SOFT TISSUE HEAD OR NECK EXAM: US SOFT TISSUE HEAD OR NECK CLINICAL HISTORY: HARD CALCIFICATION RT UPPER NECK, MASS NECK, R22.1, PRIOR SURGERY. TECHNIQUE: Ultrasound was performed using standard protocol. COMPARISON: No exams were available for comparison FINDINGS: Sonographic assessment utilizing grayscale and color Doppler imaging was performed and targeted to th e area of clinical concern. Sonographic evaluation of the right neck was performed. The area of interest was identified by the cheryl jones. No subcutaneous cystic or solid mass is seen sonographically. There is scar tissue seen in t his region. IMPRESSION: No evidence of a subcutaneous mass or fluid collection. DATA REPOSITORY:
== END 2024-07-26 00:54 ==
LOC: DI 00:34
PROVIDERS: PCP Student in an Organized Health Care Education/Training Program; Visit Provider Student in an Organized Health Care Education/Training Program
DX: R22.1 Localized swelling, mass and lump, neck (principal)
CPT/HCPCS: 76536

== ENCOUNTER 2024-07-30 11:40 | Outpatient (RCR) | payer SELFPAY ==
[2024-07-09 13:49] VITALS: BP 152/49; PULSE 51
[2024-07-30 11:35] VITALS: BP 151/52; PULSE 52
== END 2024-08-08 23:59 | disposition home or self-care (01) ==
LOC: CR 11:40
PROVIDERS: PCP Student in an Organized Health Care Education/Training Program; Visit Provider Internal Medicine Cardiovascular Disease
DX: R69 Illness, unspecified (principal)

== ENCOUNTER 2024-08-09 02:00 | Outpatient (CLI) | payer MEDICARE, OTHER, SELFPAY ==
[2024-08-09 13:21] LABS: Abs Immature Grans 0.03 10^3/uL (0.0-0.06); Absolute Basophil Count 0.02 10^3/uL (0.0-0.2); Absolute Eosinophil Count 0.21 10^3/uL (0.0-0.7); Absolute Lymphocyte Count 1.12 10^3/uL (1.2-3.4); Absolute Monocyte Count 0.93 10^3/uL (0.1-0.8); Basophils % 0.3 %; Eosinophils % 2.7 %; HCT 33.6 % (36.0-46.0); HGB 11.3 g/dL (11.2-15.7); Immature Grans % 0.4 %; Lymphocytes % 14.3 %; MCH 29.2 pg (27.0-33.0); MCHC 33.6 % (32.0-36.0); MCV 87 fL (80-95); MPV 10.8 fL (8.0-11.0); Monocytes % 11.9 %; Neutrophils % 70.4 %; Platelet Count 222 10^3/uL (130-400); RBC 3.87 10^6/uL (3.93-5.22); RDW 14.1 % (11.7-14.6); RDW-SD 44.5 fL; WBC 7.81 10^3/uL (4.4-10.8)
== END 2024-08-09 02:01 | disposition home or self-care (01) ==
LOC: LBO 02:01
PROVIDERS: PCP Student in an Organized Health Care Education/Training Program; Visit Provider Student in an Organized Health Care Education/Training Program
DX: D64.9 Anemia, unspecified (principal)
CPT/HCPCS: 36415; 85025

== ENCOUNTER 2024-08-28 14:57 | Outpatient (CLI) | payer MEDICARE, OTHER, SELFPAY ==
[2024-08-28 14:36] LABS: Abs Immature Grans 0.02 10^3/uL (0.0-0.06); Absolute Basophil Count 0.01 10^3/uL (0.0-0.2); Absolute Eosinophil Count 0.18 10^3/uL (0.0-0.7); Absolute Lymphocyte Count 1.11 10^3/uL (1.2-3.4); Absolute Neutrophil Count 4.04 10^3/uL (1.2-6.7); Basophils % 0.2 %; Eosinophils % 2.9 %; HCT 33.7 % (36.0-46.0); HGB 11.3 g/dL (11.2-15.7); Immature Grans % 0.3 %; MCH 28.8 pg (27.0-33.0); MCHC 33.5 % (32.0-36.0); MCV 86 fL (80-95); MPV 10.6 fL (8.0-11.0); Neutrophils % 65.6 %; Platelet Count 240 10^3/uL (130-400); RBC 3.92 10^6/uL (3.93-5.22); RDW 14.3 % (11.7-14.6); RDW-SD 44.9 fL; WBC 6.16 10^3/uL (4.4-10.8)
[2024-08-28 15:02] LABS: Ferritin 87 ng/mL (8-252)
== END 2024-08-28 14:58 | disposition home or self-care (01) ==
LOC: LBO 14:58
PROVIDERS: PCP Student in an Organized Health Care Education/Training Program; Visit Provider Internal Medicine Hematology & Oncology
DX: N18.31 Chronic kidney disease, stage 3a (principal)
CPT/HCPCS: 36415; 82728; 85025

== ENCOUNTER 2024-09-24 02:54 | Outpatient (CLI) | payer MEDICARE, OTHER, SELFPAY ==
[2024-09-24 13:29] LABS: Abs Immature Grans 0.05 10^3/uL (0.0-0.06); Absolute Basophil Count 0.03 10^3/uL (0.0-0.2); Absolute Eosinophil Count 0.25 10^3/uL (0.0-0.7); Absolute Lymphocyte Count 1.29 10^3/uL (1.2-3.4); Absolute Monocyte Count 0.96 10^3/uL (0.1-0.8); Absolute Neutrophil Count 5.45 10^3/uL (1.2-6.7); Basophils % 0.4 %; Eosinophils % 3.1 %; HGB 9.4 g/dL (11.2-15.7); Immature Grans % 0.6 %; Lymphocytes % 16.1 %; MCH 28.6 pg (27.0-33.0); MCHC 32.4 % (32.0-36.0); MCV 88 fL (80-95); MPV 11.3 fL (8.0-11.0); Neutrophils % 67.8 %; Platelet Count 229 10^3/uL (130-400); RBC 3.29 10^6/uL (3.93-5.22); RDW 15.4 % (11.7-14.6); RDW-SD 49.4 fL; WBC 8.03 10^3/uL (4.4-10.8)
[2024-09-24 13:59] LABS: Ferritin 71 ng/mL (8-252); Vitamin B12 795 pg/mL (193-986)
[2024-09-24 14:01] LABS: Folate > 20.0 ng/mL (8.6-20.0)
[2024-09-24 14:18] LABS: Iron 42 ug/dL (50-170); Total Iron Binding Capacity 297 ug/dL (250-450); Transferrin Sat 14 % (15-50)
== END 2024-09-24 02:55 | disposition home or self-care (01) ==
LOC: LBO 02:55
PROVIDERS: PCP Student in an Organized Health Care Education/Training Program; Visit Provider Student in an Organized Health Care Education/Training Program
DX: D64.9 Anemia, unspecified (principal)
CPT/HCPCS: 36415; 82607; 82728; 82746; 83540; 83550; 85025

== ENCOUNTER 2024-09-27 13:44 | Outpatient (REF) | payer MEDICARE, OTHER, SELFPAY ==
[2024-09-27 15:51] LABS: FREE T4 0.92 ng/dL (0.76-1.46); TSH 4.95 uIU/mL (0.36-3.74)
[2024-09-27 16:15] LABS: Hemoglobin A1C 6.2 % (<5.7)
== END 2024-09-27 13:45 | disposition home or self-care (01) ==
LOC: NCHCN 13:44
PROVIDERS: PCP Student in an Organized Health Care Education/Training Program; Visit Provider Student in an Organized Health Care Education/Training Program
DX: E11.9 Type 2 diabetes mellitus without complications (principal); E03.9 Hypothyroidism, unspecified
CPT/HCPCS: 83036; 84439; 84443

== ENCOUNTER 2024-10-11 01:33 | Outpatient (CLI) | payer MEDICARE, OTHER, SELFPAY ==
[2024-10-11 12:08] LABS: Abs Immature Grans 0.05 10^3/uL (0.0-0.06); Absolute Basophil Count 0.02 10^3/uL (0.0-0.2); Absolute Eosinophil Count 0.24 10^3/uL (0.0-0.7); Absolute Lymphocyte Count 1.08 10^3/uL (1.2-3.4); Absolute Monocyte Count 0.89 10^3/uL (0.1-0.8); Absolute Neutrophil Count 6.06 10^3/uL (1.2-6.7); Basophils % 0.2 %; Eosinophils % 2.9 %; HGB 7.6 g/dL (11.2-15.7); Immature Grans % 0.6 %; Lymphocytes % 12.9 %; MCH 29.6 pg (27.0-33.0); MCV 90 fL (80-95); MPV 11.6 fL (8.0-11.0); Monocytes % 10.7 %; Neutrophils % 72.7 %; Platelet Count 220 10^3/uL (130-400); RBC 2.57 10^6/uL (3.93-5.22); RDW 15.6 % (11.7-14.6); RDW-SD 50.7 fL; WBC 8.34 10^3/uL (4.4-10.8)
[2024-10-11 12:22] LABS: Diff Comment RBC Morph Reviewed
[2024-10-11 12:23] LABS: Poikilocytes 1+
[2024-10-11 12:35] LABS: Ferritin 59 ng/mL (8-252)
== END 2024-10-11 01:34 | disposition home or self-care (01) ==
PROVIDERS: Internal Medicine Hematology & Oncology; PCP Student in an Organized Health Care Education/Training Program; Visit Provider Nurse Practitioner Family
DX: N18.31 Chronic kidney disease, stage 3a (principal)
CPT/HCPCS: 36415; 86850; 86900; 86901; 86920; 82728; 85025

== ENCOUNTER 2024-10-12 09:14 | Emergency (ER) | payer MEDICARE, OTHER, SELFPAY ==
[2024-10-12] VITALS (54 sets, daily range): BP systolic 106–199; BP diastolic 19–128; PULSE 43–54; RESP 11–28; TEMP 36.7–37; O2SAT 91–99
--- NOTE | 2024-10-12 09:38 | ED.GENADUL_ITS ---
Discharge Plan Disposition Patient Disposition: Home Condition: Good Discharge Details Clinical Impression: Anemia Primary Care Provider: Zafar Botello ED Provider: Javier Duggan Home Meds and New Rx's Prescriptions: No Action multivitamin tablet 1 tab PO DAILY Patient Comments: TAKES @ 5PM DAILY rosuvastatin 10 mg tablet 10 mg PO DAILY Patient Comments: TAKES IN THE EVENING ascorbate calcium (vitamin C) 500 mg tablet 500 mg PO .COMPLEX Rx Instructions: 500 mg orally Mon, Wed, Fri; furosemide 20 mg tablet 20 mg PO DAILY PRN (Reason: edema) Qty: 60 3RF aspirin 81 mg tablet,delayed release (DR/EC) 81 mg PO DAILY Aranesp (in polysorbate) 200 mcg/0.4 mL syringe 200 mcg subcut Q2W Patient Comments: 03/13/24 per pt she gets an injection Q2w at [facility] due to anemia. this may change. RH clopidogrel 75 mg tablet 75 mg PO DAILY Patient Comments: TAKE ONE TABLET BY MOUTH EVERY DAY ferrous gluconate 324 mg (38 mg iron) tablet 324 mg PO DAILY Patient Comments: TAKE ONE TABLET BY MOUTH EVERY DAY @ 10AM levothyroxine 125 mcg tablet 125 mcg PO DAILY Patient Comments: TAKE ONE TABLET BY MOUTH EVERY DAY @ 7AM; TAKE AN ADDITIONAL 1/2 TABLET ON SUNDAYS amlodipine 10 mg tablet 10 mg PO DAILY Patient Comments: TAKE ONE TABLET BY MOUTH EVERY DAY lisinopril 10 mg tablet 10 mg PO DAILY Patient Comments: TAKE ONE TABLET BY MOUTH EVERY DAY FOR BLOOD PRESSURE sucralfate 1 gram Tablet 1 g PO AC & HS Qty: 120 1RF carvedilol 6.25 mg tablet 3.25 mg PO BID Qty: 0 0RF olmesartan 5 mg tablet 10 mg PO DAILY Patient Comments: TAKE TWO TABLETS BY MOUTH EVERY DAY cholecalciferol (vitamin D3) [Vitamin D3] 2,000 UNIT capsule 2,000 unit PO DAILY pantoprazole 40 mg tablet,delayed release (DR/EC) 40 mg PO DAILY Qty: 90 0RF Rx Instructions: Take 1 pill by mouth in the morning, 1 pill by mouth in the evening. Repeat this every day for 4 weeks. Then switch to 1 pill daily. Discharge Instructions Additional Instructions: Please follow-up closely with your primary care provider for recheck for your blood in the next few days. If you notice any worsening of your symptoms, or any new symptoms such as vomiting, diarrhea, fever, chills, shortness of breath, chest pain, numbness, weakness, or fainting , please return immediately to the emergency department for reevaluation. Please follow up with your primary care provider as soon as possible for reassessment and reevaluation. As always, it was a pleasure participating in your medical care today. Referrals: Zafar Botello [Primary Care Provider] - Discharge Data Discharge Date/Time-TO BE ENTERED AT DEPARTURE: 10/12/24 14:41 HPI General Date/Time Provider Initiated Documentation: 10/12/24 09:27 . HPI Narrative: 79-year-old female with a past medical history of chronic kidney disease, Paroxysmal atrial fibrillation on aspirin and Plavix, history of chronic anemia for which she receives iron infusions, coronary artery disease with 3 stents and CABG, high cholesterol, hypothyroidism, carotid stenosis with subsequent carotid endarterectomy, who recently had an episode of worsening anemia a few months ago this past summer, and received 2 units then. She had an EGD at that time which showed minimal gastritis but no bleeding ulcers. She still has not been able to complete the capsule endoscopy otherwise. She presents today for falling hemoglobin. Hemoglobin had been stable, hovering around 11-12 for the last few months, however about a month ago she dropped down to 9, and yesterday her hemoglobin was drawn and found to be 7. She does take iron chronically, and admits to chronic tarry stools. She denies any color change otherwise. No hematemesis, no active bright red blood per rectum, no falls or trauma, no abdominal pain or tenderness or headache or neck pain. No other complaints at this time. She has been taking her medications and injections as directed otherwise. Related Data Home Medications ?Medication ?Instructions ?Recorded ?Confirmed cholecalciferol (vitamin D3) 50 2,000 unit PO DAILY 06/06/17 10/12/24 mcg (2,000 unit) capsule (Vitamin D3) multivitamin 1 tab PO DAILY 03/15/19 10/12/24 clopidogrel 75 mg tablet 75 mg PO DAILY 12/01/20 10/12/24 ferrous gluconate 324 mg (38 mg 324 mg PO DAILY 12/01/20 10/12/24 iron) tablet rosuvastatin 10 mg tablet 10 mg PO DAILY 12/16/20 10/12/24 ascorbate calcium (vitamin C) 500 500 mg PO .COMPLEX 07/29/22 10/12/24 mg tablet aspirin 81 mg tablet,delayed 81 mg PO DAILY 12/20/23 10/12/24 release pantoprazole 40 mg tablet,delayed 40 mg PO DAILY #90 tabs 12/29/23 10/12/24 release furosemide 20 mg tablet 20 mg PO DAILY PRN edema #60 tabs 02/16/24 10/12/24 darbepoetin amber in polysorbat 200 200 mcg subcut Q2W 03/13/24 10/12/24 mcg/0.4 mL in polysorbate injection syringe (Aranesp) amlodipine 10 mg tablet 10 mg PO DAILY 05/09/24 10/12/24 levothyroxine 125 mcg tablet 125 mcg PO DAILY 05/09/24 10/12/24 lisinopril 10 mg tablet 10 mg PO DAILY 05/09/24 10/12/24 carvedilol 6.25 mg tablet 3.25 mg (0.52 x 6.25 mg) PO BID #0 05/10/24 10/12/24 tabs sucralfate 1 gram tablet 1 g PO AC & HS #120 tabs 05/10/24 10/12/24 olmesartan 5 mg tablet 10 mg PO DAILY 10/12/24 10/12/24 Previous Rx's ?Medication ?Instructions ?Recorded pantoprazole 40 mg tablet,delayed 40 mg PO DAILY #90 tabs 12/29/23 release furosemide 20 mg tablet 20 mg PO DAILY PRN edema #60 tabs 02/16/24 carvedilol 6.25 mg tablet 3.25 mg (0.52 x 6.25 mg) PO BID #0 05/10/24 tabs sucralfate 1 gram tablet 1 g PO AC & HS #120 tabs 05/10/24 Allergies Allergy/AdvReac Type Severity Reaction Status Date / Time cilostazol AdvReac Severe Headache Verified 10/12/24 09:31 [id number] Reductase AdvReac Intermediate Headache Verified 10/12/24 09:31 Inhibitor (Cijgyax-Yun-Wec Reductase Inhibitor) atenolol AdvReac Mild palpitation Verified 10/12/24 09:31 s losartan potassium (From AdvReac Mild palpitation Verified 10/12/24 09:31 Cozamatias) s levothyroxine sodium AdvReac pt unsure Verified 10/12/24 09:31 General Stated Complaint: GenMedical KEVIN: 3 Exam Narrative Exam Narrative: 1.Const: Well-nourished, Well-developed, appearing stated age 2.Eyes: PERRL, no conjunctival injection, and symmetrical lids. 3.ENT: Atraumatic external nose and ears. Moist MM. Neck: Symmetric, trachea midline, No thyromegaly. 4.CVS: +S1/S2, Peripheral pulses 2+ and equal in all extremities. Brisk capillary refill in all extremities. 5.RESP: Unlabored respiratory effort. Clear to auscultation bilaterally. No wheezes rales or rhonchi 6.GI: Soft, Nontender/Nondistended, No hepatosplenomegaly. No guarding or rebound. 7.MSK: Normocephalic/Atraumatic, Extremities w/o deformity or ttp No cyanosis or clubbing, Normal movement of all extremities 8.Skin: Warm, Dry. No rashes or lesions. 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 Sensation grossly intact, no focal neurologic deficits. 10.Psych: (AAO) x3. Appropriate mood and affect Course Vital Signs Vital signs: Vital Signs Temperature 36.7 C 10/12/24 09:26 Pulse 51 L 10/12/24 09:26 Respiratory Rate 12 10/12/24 09:26 Blood Pressure 148/27 H 10/12/24 09:26 Pulse Oximetry 99 10/12/24 09:26 Temperature 36.7 C 10/12/24 09:26 Temperature Source Oral 10/12/24 09:26 Pulse 51 L 10/12/24 09:26 Respiratory Rate 12 10/12/24 09:26 Blood Pressure 148/27 H 10/12/24 09:26 Blood Pressure Position Sitting 10/12/24 09:26 Pulse Oximetry 99 10/12/24 09:26 Oxygen Delivery Method Room Air 10/12/24 09:26 Oxygen Flow Rate 0 10/12/24 09:26 Lab/Test Results Lab/Test Results: Laboratory Tests Range/Units 10/12/24 09:35 Crossmatch See Detail Medical Decision Making 79-year-old female with a past medical history of chronic kidney disease, Paroxysmal atrial fibrillation on aspirin and Plavix, history of chronic anemia for which she receives iron infusions, coronary artery disease with 3 stents and CABG, high cholesterol, hypothyroidism, carotid stenosis with subsequent carotid endarterectomy, who recently had an episode of worsening anemia a few months ago this past summer, and received 2 units then. She had an EGD at that time which showed minimal gastritis but no bleeding ulcers. She still has not been able to complete the capsule endoscopy otherwise. She presents today for falling hemoglobin. Hemoglobin had been stable, hovering around 11-12 for the last few months, however about a month ago she dropped down to 9, and yesterday her hemoglobin was drawn and found to be 7. She does take iron chronically, and admits to chronic tarry stools. She denies any color change otherwise. No hematemesis, no active bright red blood per rectum, no falls or trauma, no abdominal pain or tenderness or headache or neck pain. No other complaints at this time. She has been taking her medications and injections as directed otherwise. Exam demonstrates a well-appearing female, mild pallor. No abdominal tenderness or splenic tenderness to suggest intra-abdominal bleed. No hypotension or tachycardia to suggest shock. No new bruising to suggest coagulopathy. Patient appears otherwise clinically well. No bright red blood per rectum. Suspect continuation of her chronic anemia. She has been typed and screened already. We will give 2 units PRBCs, recheck hemoglobin status, monitor closely and reassess. 4 PM Patient tolerated transfusion well. Initial repeat hemoglobin here, was 7.9. 2 units have been provided, patient tolerated this well. Patient will be discharged home. Discussed red flags for which to return. I have extensively reviewed the treatment plan and discharge instructions with the patient. I have addressed all patient concerns at this time. The patient was made aware of what symptoms to monitor for that would warrant a return to the emergency department. Discussed the plan with the patient, they demonstrate verbal understanding and agreement with our assessment and plan at this time. The documentation in this chart was dictated using [employer] dictation software. Please excuse any dictation errors. Quality:SDOH Health Related Social Needs: No Data to Display PFSH All Active Problems (Updated 10/12/24 @ 12:29 by Javier Duggan DO) Anemia (Chronic) Current smoker (Acute) Nicotine dependence, cigarettes, uncomplicated (Acute) Anemia due to blood loss, acute (Acute) Anemia due to GI blood loss (Acute) Incidental lung nodule, greater than or equal to 8mm (Acute) Anemia (Chronic) Renal calculi (Chronic) Sinus bradycardia (Acute) Episode of syncope (Chronic) CKD (chronic kidney disease) stage 3, GFR 30-59 ml/min (Chronic) Lumbosacral spondylosis without myelopathy (Acute) COPD (chronic obstructive pulmonary disease) (Chronic) Solitary lung nodule (Acute) Hydronephrosis (Acute) Hx of CABG (Chronic) Chest pain, rule out acute myocardial infarction (Acute) Mild chronic gastritis (Acute) Peripheral vascular disease (Chronic) CAD (coronary artery disease) (Chronic) GERD (gastroesophageal reflux disease) (Acute 09/05/16) Cerebrovascular accident (CVA) (Acute) Chronic anxiety (Acute) Hypothyroid (Chronic) Hyperlipidemia (Chronic) Carotid stenosis (Chronic) Tobacco dependence (Acute) Hx of Helicobacter infection (Acute) 2013 Medical History Iron deficiency anemia Anemia Diabetes mellitus Pt denies Chronic kidney disease, stage 3b Lung nodule 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 Prediabetes Asthma Pt denies Asthma Obesity Vitamin D deficiency Hypertension Brittle nails Peripheral vascular disease Depression Intermittent claudication Degenerative disc disease, lumbar Diverticulosis large intestine w/o perforation or abscess w/o bleeding Optic neuritis Impaired glucose regulation Elevated troponin Abnormal EKG Surgical History S/P CABG x 2 right carotid endarterectomy x2 Ligation of fallopian tube EGD - MAC (05/2024) path sent EGD - IV Sedation 2013 Colonoscopy - MAC 2015 Biopsy, Temporal Artery (09/15/17) right Family History Other Heart disease Social History Smoking/Tobacco Use Status: Current every day Tobacco Type: cigarettes Tobacco: How many years used: 46 Counseling given: patient declined Smoking risk assessment performed?: Yes Alcohol Intake: never Drug use: Never Substance use type: does not use Housing: house Do you feel safe at home: Yes Do you feel safe in your relationship?: Yes
[2024-10-12 10:19] LABS: Abs Immature Grans 0.03 10^3/uL (0.0-0.06); Absolute Basophil Count 0.03 10^3/uL (0.0-0.2); Absolute Eosinophil Count 0.28 10^3/uL (0.0-0.7); Absolute Lymphocyte Count 0.94 10^3/uL (1.2-3.4); Absolute Monocyte Count 0.86 10^3/uL (0.1-0.8); Absolute Neutrophil Count 4.16 10^3/uL (1.2-6.7); Basophils % 0.5 %; Eosinophils % 4.4 %; HCT 23.8 % (36.0-46.0); HGB 7.9 g/dL (11.2-15.7); Immature Grans % 0.5 %; Lymphocytes % 14.9 %; MCH 29.5 pg (27.0-33.0); MCHC 33.2 % (32.0-36.0); MCV 89 fL (80-95); MPV 11.6 fL (8.0-11.0); Monocytes % 13.7 %; Platelet Count 245 10^3/uL (130-400); RBC 2.68 10^6/uL (3.93-5.22); RDW 15.4 % (11.7-14.6); RDW-SD 49.7 fL
[2024-10-12 10:30] LABS: PTT Activated 25.4 sec (23.6-32.8); Prothrombin Time 9.9 sec (9.1-11.1)
[2024-10-12 14:42] LABS: HCT 28.9 % (36.0-46.0); HGB 9.6 g/dL (11.2-15.7)
== END 2024-10-12 14:41 | disposition home or self-care (01) ==
PROVIDERS: Emergency Provider Student in an Organized Health Care Education/Training Program; PCP Student in an Organized Health Care Education/Training Program
DX: D50.9 Iron deficiency anemia, unspecified (principal); I12.9 Hypertensive chronic kidney disease with stage 1 through stage 4 chronic kidney disease, or unspecified chronic kidney disease; N18.32 Chronic kidney disease, stage 3b; I48.0 Paroxysmal atrial fibrillation; I25.10 Atherosclerotic heart disease of native coronary artery without angina pectoris; Z95.5 Presence of coronary angioplasty implant and graft; Z95.1 Presence of aortocoronary bypass graft; F17.210 Nicotine dependence, cigarettes, uncomplicated; Z79.82 Long term (current) use of aspirin; Z79.01 Long term (current) use of anticoagulants; Z79.02 Long term (current) use of antithrombotics/antiplatelets
CPT/HCPCS: 36430; 86850; 86900; 86901; 86920; 99285; 85014; 85018; 85025; 85610; 85730; P9016

== ENCOUNTER → 2024-10-15 10:36 | Outpatient (BNVA) | payer MEDICARE, OTHER, SELFPAY | PROVIDERS: PCP Student in an Organized Health Care Education/Training Program; Visit Provider Internal Medicine Cardiovascular Disease ==

== ENCOUNTER 2024-10-15 16:05 | Outpatient (CLI) | payer MEDICARE, OTHER, SELFPAY ==
[2024-10-15 11:50] LABS: Abs Immature Grans 0.08 10^3/uL (0.0-0.06); Absolute Basophil Count 0.03 10^3/uL (0.0-0.2); Absolute Eosinophil Count 0.26 10^3/uL (0.0-0.7); Absolute Lymphocyte Count 1.13 10^3/uL (1.2-3.4); Absolute Monocyte Count 0.86 10^3/uL (0.1-0.8); Absolute Neutrophil Count 6.89 10^3/uL (1.2-6.7); Basophils % 0.3 %; Eosinophils % 2.8 %; HCT 30.3 % (36.0-46.0); HGB 10.2 g/dL (11.2-15.7); Immature Grans % 0.9 %; Lymphocytes % 12.2 %; MCH 29.6 pg (27.0-33.0); MCHC 33.7 % (32.0-36.0); MCV 88 fL (80-95); MPV 11.2 fL (8.0-11.0); Monocytes % 9.3 %; Neutrophils % 74.5 %; Platelet Count 253 10^3/uL (130-400); RBC 3.45 10^6/uL (3.93-5.22); RDW 15.9 % (11.7-14.6); RDW-SD 50.2 fL; WBC 9.25 10^3/uL (4.4-10.8)
[2024-10-15 12:04] LABS: Ferritin 60 ng/mL (8-252)
== END 2024-10-15 16:06 | disposition home or self-care (01) ==
LOC: LBO 16:07
PROVIDERS: PCP Student in an Organized Health Care Education/Training Program; Visit Provider Nurse Practitioner Family
DX: N18.31 Chronic kidney disease, stage 3a (principal)
CPT/HCPCS: 36415; 86850; 86900; 86901; 82728; 85025; 99213

== ENCOUNTER 2024-10-18 20:26 | Emergency (ER) | payer MEDICARE, OTHER, SELFPAY ==
[2024-10-18] VITALS (27 sets, daily range): BP systolic 181–202; BP diastolic 30–144; PULSE 43–54; RESP 11–21; TEMP 36; O2SAT 93–98
--- NOTE | 2024-10-18 20:15 | RT.EKG_ITS ---
APPROVED REPORT Exam: Resting ECG Reason for Exam: chest discomfort Patient Location: E HR:60 bpm ECG Measurements Heart Rate 60 AXIS AR 212 P -78 QRSd 99 QRS 81 QT 455 T 62 QTc 427 Conclusion Sinus 60 PVC no stemi
--- NOTE | 2024-10-18 20:45 | DI.RAD_ITS ---
Exam(s) XR CHEST 2V PA LATERAL EXAM: XR CHEST 2V PA LATERAL CLINICAL HISTORY: chest pain TECHNIQUE: 2D digital imaging was performed of the chest. Two images were obtained. PA and lateral views were obtained. COMPARISON: CR,XR XR PORTABLE CHEST AP from 12/10/2023 FINDINGS: MEDIASTINUM: Normal. HEART: Status post CABG. Heart size is within normal limits. PULMONARY VASCULATURE: Normal. LUNGS: Clear. PLEURAL SPACE: No pleural effusion or pneumothorax. BONE:Within normal limits for the patient's age. There is posterior spinal surgery seen in the lumba r spine. It. OTHER FINDINGS:Normal. IMPRESSION: No acute pulmonary findings. DATA REPOSITORY: RADIATION DOSE DELIVERED:
[2024-10-18] MEDS: Aspirin 81 MG CHEW 243 MG CH (20:52)
[2024-10-18 20:55] LABS: Abs Immature Grans 0.04 10^3/uL (0.0-0.06); Absolute Basophil Count 0.03 10^3/uL (0.0-0.2); Absolute Lymphocyte Count 1.55 10^3/uL (1.2-3.4); Absolute Monocyte Count 1.12 10^3/uL (0.1-0.8); Absolute Neutrophil Count 6.13 10^3/uL (1.2-6.7); Basophils % 0.3 %; Eosinophils % 3.3 %; HCT 30.1 % (36.0-46.0); HGB 9.8 g/dL (11.2-15.7); Immature Grans % 0.4 %; Lymphocytes % 16.9 %; MCH 29.3 pg (27.0-33.0); MCHC 32.6 % (32.0-36.0); MCV 90 fL (80-95); MPV 11.4 fL (8.0-11.0); Monocytes % 12.2 %; Neutrophils % 66.9 %; Platelet Count 258 10^3/uL (130-400); RBC 3.35 10^6/uL (3.93-5.22); RDW 15.5 % (11.7-14.6); RDW-SD 50.6 fL; WBC 9.17 10^3/uL (4.4-10.8)
[2024-10-18 21:14] LABS: PTT Activated 26.7 sec (20.6-30.2)
[2024-10-18 21:19] LABS: ALT 14 U/L (14-59); AST 11 U/L (15-37); Albumin 3.4 g/dL (3.4-5.0); Alkaline Phosphatase 84 U/L (46-116); Anion Gap 7.5 mmol/L (3-11); BUN 22 mg/dL (7-18); Bilirubin, Total 0.17 mg/dL (0.2-1.0); CO2 28.5 mmol/L (21.0-32.0); CREATININE 1.3 mg/dL (0.55-1.02); Calcium 9.1 mg/dL (8.5-10.1); Chloride 105 mmol/L (98-107); Estimated GFR 42.35 (mL/min/1.73m2); Glucose 136 mg/dL (74-106); Lipase 42 U/L (<78); Magnesium 2.3 mg/dL (1.8-2.4); NT-proBNP 1570 pg/mL (<300); Sodium 141 mmol/L (136-145); Troponin I 9 ng/L (<or=51)
--- NOTE | 2024-10-18 21:24 | W.ED.GENAD ---
Discharge Plan Disposition Patient Disposition: Home Condition: Stable Discharge Details Clinical Impression: Palpitations Primary Care Provider: Zafar Botello ED Provider: Javier Ring Home Meds and New Rx's Prescriptions: Continued multivitamin tablet 1 tab PO DAILY Patient Comments: TAKES @ 5PM DAILY rosuvastatin 10 mg tablet 10 mg PO DAILY Patient Comments: TAKES IN THE EVENING ascorbate calcium (vitamin C) 500 mg tablet 500 mg PO .COMPLEX Rx Instructions: 500 mg orally Mon, Wed, Fri; furosemide 20 mg tablet 20 mg PO DAILY PRN (Reason: edema) Qty: 60 3RF aspirin 81 mg tablet,delayed release (DR/EC) 81 mg PO DAILY Aranesp (in polysorbate) 200 mcg/0.4 mL syringe 200 mcg subcut Q2W Patient Comments: 03/13/24 per pt she gets an injection Q2w at [facility] due to anemia. this may change. RH clopidogrel 75 mg tablet 75 mg PO DAILY Patient Comments: TAKE ONE TABLET BY MOUTH EVERY DAY ferrous gluconate 324 mg (38 mg iron) tablet 324 mg PO DAILY Patient Comments: TAKE ONE TABLET BY MOUTH EVERY DAY @ 10AM levothyroxine 125 mcg tablet 125 mcg PO DAILY Patient Comments: TAKE ONE TABLET BY MOUTH EVERY DAY @ 7AM; TAKE AN ADDITIONAL 1/2 TABLET ON SUNDAYS amlodipine 10 mg tablet 10 mg PO DAILY Patient Comments: TAKE ONE TABLET BY MOUTH EVERY DAY sucralfate 1 gram Tablet 1 g PO AC & HS Qty: 120 1RF carvedilol 6.25 mg tablet 3.25 mg PO BID Qty: 0 0RF olmesartan 5 mg tablet 5 mg PO BID cholecalciferol (vitamin D3) [Vitamin D3] 2,000 UNIT capsule 2,000 unit PO DAILY pantoprazole 40 mg tablet,delayed release (DR/EC) 40 mg PO DAILY Qty: 90 0RF Rx Instructions: Take 1 pill by mouth in the morning, 1 pill by mouth in the evening. Repeat this every day for 4 weeks. Then switch to 1 pill daily. Discharge Instructions Instructions: Palpitations ED Additional Instructions: You were seen in the emergency department for your vague chest discomfort, serial troponin tests are negative indicating no damage to the heart, due to your history of think should follow-up with your primary care provider and seek referral to [facility] within 1 week. I think you should take a dose of your Lasix tomorrow, the findings on your chest x-ray indicate possible atelectasis which can be a chronic complication of your COPD, just means that part of your lung-a very small part less than 1% could be partially collapsed, you have no evidence of infection otherwise and I do not feel this is a pneumonia. There was no evidence of endorgan damage from your high blood pressure please contact your primary care provider for adjustment of your olmesartan soon as possible. I am unsure what is causing her chest discomfort at this time you may need a stress test and echocardiogram but please return for any continued chest pain, shortness of breath, near fainting or other emergent concerns. Referrals: [facility] [Provider Group] Zafar Botello [Primary Care Provider] - Discharge Data Discharge Date/Time-TO BE ENTERED AT DEPARTURE: 10/18/24 22:42 HPI General Date/Time Provider Initiated Documentation: 10/18/24 20:36. HPI Narrative: 79 year-old female presents to ED today by POV/ambulating with a chief complaint of vague palpitation or squeezing in her chest beginning around 7:30 PM, endorses some neck pain with this, history of CABG X2. Quality described as nondescript chest discomfort, no radiation to shortness of breath, dizziness, exertional onset, visual changes, nausea. Severity is described as mild. Palliating factors include nothing specific attempted. Provoking factors include things specific. Patient not anticoagulated. Related Data Home Medications ?Medication ?Instructions ?Recorded ?Confirmed cholecalciferol (vitamin D3) 50 2,000 unit PO DAILY 06/06/17 10/18/24 mcg (2,000 unit) capsule (Vitamin D3) multivitamin 1 tab PO DAILY 03/15/19 10/18/24 clopidogrel 75 mg tablet 75 mg PO DAILY 12/01/20 10/18/24 ferrous gluconate 324 mg (38 mg 324 mg PO DAILY 12/01/20 10/18/24 iron) tablet rosuvastatin 10 mg tablet 10 mg PO DAILY 12/16/20 10/18/24 ascorbate calcium (vitamin C) 500 500 mg PO .COMPLEX 07/29/22 10/18/24 mg tablet aspirin 81 mg tablet,delayed 81 mg PO DAILY 12/20/23 10/18/24 release pantoprazole 40 mg tablet,delayed 40 mg PO DAILY #90 tabs 12/29/23 10/18/24 release furosemide 20 mg tablet 20 mg PO DAILY PRN edema #60 tabs 02/16/24 10/18/24 darbepoetin amber in polysorbat 200 200 mcg subcut Q2W 03/13/24 10/18/24 mcg/0.4 mL in polysorbate injection syringe (Aranesp) amlodipine 10 mg tablet 10 mg PO DAILY 05/09/24 10/18/24 levothyroxine 125 mcg tablet 125 mcg PO DAILY 05/09/24 10/18/24 carvedilol 6.25 mg tablet 3.25 mg (0.52 x 6.25 mg) PO BID #0 05/10/24 10/18/24 tabs sucralfate 1 gram tablet 1 g PO AC & HS #120 tabs 05/10/24 10/18/24 olmesartan 5 mg tablet 5 mg PO BID 10/15/24 10/18/24 Previous Rx's ?Medication ?Instructions ?Recorded pantoprazole 40 mg tablet,delayed 40 mg PO DAILY #90 tabs 12/29/23 release furosemide 20 mg tablet 20 mg PO DAILY PRN edema #60 tabs 02/16/24 carvedilol 6.25 mg tablet 3.25 mg (0.52 x 6.25 mg) PO BID #0 05/10/24 tabs sucralfate 1 gram tablet 1 g PO AC & HS #120 tabs 05/10/24 Allergies Allergy/AdvReac Type Severity Reaction Status Date / Time cilostazol AdvReac Severe Headache Verified 10/18/24 20:33 Fyrtmbn-WHL-LqI Reductase AdvReac Intermediate Headache Verified 10/18/24 20:33 Inhibitor (Dtscnai-Fwk-Gpj Reductase Inhibitor) atenolol AdvReac Mild palpitation Verified 10/18/24 20:33 s losartan potassium (From AdvReac Mild palpitation Verified 10/18/24 20:33 Cozaar) s levothyroxine sodium AdvReac pt unsure Verified 10/18/24 20:33 General Stated Complaint: Chest Pain KEVIN: 3 Review of Systems All systems reviewed & are unremarkable except as noted in HPI and below Exam Narrative Exam Narrative: GENERAL APPEARANCE: Well-nourished, non-toxic, awake and alert, atraumatic, no acute distress. SKIN: Warm, pink, dry, intact, without rashes/lesions/ulcerations. HEAD: Normocephalic, atraumatic, normal hair distribution for gender/age. EYES: Normal conjunctiva, no exudates on lids/lashes. ENT: Nares patent, no circumoral cyanosis, no facial swelling NECK: Supple, trachea midline, painless cervical ROM. LUNGS/CHEST: Lungs CTA bilaterally- no rhonchi/rales/wheezes diffusely, non-labored respirations, normal A/P diameter, symmetrical expansion, no chest wall deformity HEART (CV/PV): Regular rate and rhythm without murmur, 1+ peripheral edema, no JVD, R carotid bruit ABDOMEN: Soft, non-distended, no guarding, no tenderness diffusely. MSK: Normal ROM, no swelling/deformity to bilateral UEs or LEs, moving all extremities without weakness, no cyanosis, spine midline without tenderness, normal curvature. NEURO: Mental Status AAOx4 - alert to person, place, time, events No facial droop, no forehead involvement. Motor: No focal weakness - strength 5/5 in bilateral UEs and LEs, proximal and distal, symmetric. Sensory: sensation intact to light touch globally. Gait normal: patient ambulated without ataxia into ED room. PSYCH: euthymic, cooperative, pleasant, appropriate speech Course Vital Signs Vital signs: Vital Signs Temperature 36 C L 10/18/24 20:29 Pulse 54 L 10/18/24 20:29 Respiratory Rate 20 10/18/24 20:29 Blood Pressure 193/47 H 10/18/24 20:29 Pulse Oximetry 96 10/18/24 20:29 Temperature 36 C L 10/18/24 20:29 Temperature Source Temporal Artery Scan 10/18/24 20:29 Pulse 54 L 10/18/24 20:29 Respiratory Rate 20 10/18/24 20:29 Respiratory Effort Normal 10/18/24 20:43 Respiratory Depth Normal 10/18/24 20:43 Blood Pressure 193/47 H 10/18/24 20:29 Blood Pressure Position Sitting 10/18/24 20:29 Pulse Oximetry 96 10/18/24 20:29 Oxygen Delivery Method Room Air 10/18/24 20:29 Oxygen Flow Rate 0 10/18/24 20:29 Lab/Test Results Lab/Test Results: Laboratory Tests Range/Units 10/18/24 20:35 WBC (4.4-10.8) 10^3/uL 9.17 RBC (3.93-5.22) 10^6/uL 3.35 L Hgb (11.2-15.7) g/dL 9.8 L Hct (36.0-46.0) % 30.1 L MCV (80-95) fL 90 MCH (27.0-33.0) pg 29.3 MCHC (32.0-36.0) % 32.6 RDW (11.7-14.6) % 15.5 H Plt Count (130-400) 10^3/uL 258 MPV (8.0-11.0) fL 11.4 H Immature Gran % % 0.4 Neutrophils % % 66.9 Lymphocytes % % 16.9 Monocytes % % 12.2 Eosinophils % % 3.3 Basophils % % 0.3 Nucleated RBC % (0.0-0.3) % 0.0 Absolute Neutrophils (1.2-6.7) 10^3/uL 6.13 Absolute Lymphocytes (1.2-3.4) 10^3/uL 1.55 Absolute Monocytes (0.1-0.8) 10^3/uL 1.12 H Absolute Eosinophils (0.0-0.7) 10^3/uL 0.30 Absolute Basophils (0.0-0.2) 10^3/uL 0.03 PT (9.1-11.1) sec 10.0 INR (0.9-1.1) 1.0 APTT (20.6-30.2) sec 26.7 Sodium (136-145) mmol/L 141 Potassium (3.5-5.1) mmol/L 4.0 Chloride (98-107) mmol/L 105 Carbon Dioxide (21.0-32.0) mmol/L 28.5 Anion Gap (3-11) mmol/L 7.5 BUN (7-18) mg/dL 22 H Creatinine (0.55-1.02) mg/dL 1.3 H Est GFR (CKD-EPI 2020) (mL/min/1.73m2) 42.35 Glucose (74-106) mg/dL 136 H Calcium (8.5-10.1) mg/dL 9.1 Magnesium (1.8-2.4) mg/dL 2.3 Total Bilirubin (0.2-1.0) mg/dL 0.17 L AST (15-37) U/L 11 L ALT (14-59) U/L 14 Alkaline Phosphatase (46-116) U/L 84 Troponin I (<or=51) ng/L 9 NT-Pro-B Natriuret Pep (<300) pg/mL 1570 H Total Protein (6.4-8.2) g/dL 7.0 Albumin (3.4-5.0) g/dL 3.4 Lipase (<78) U/L 42 Medical Decision Making This dictation utilizes [id number] dictation software and may contain unedited grammatical errors. 79 year-old female presents to ED today by POV/ambulating with a chief complaint of vague palpitation or squeezing in her chest beginning around 7:30 PM, endorses some neck pain with this, history of CABG X2. Quality described as nondescript chest discomfort, no radiation to shortness of breath, dizziness, exertional onset, visual changes, nausea. Severity is described as mild. Palliating factors include nothing specific attempted. Provoking factors include things specific. Patients' medical history: Diabetes mellitus, chronic kidney disease, asthma, obesity, hypertension, intermittent claudication, right carotid endarterectomy, Nema, sinus bradycardia, COPD, CAD, history of CVA. Family and social history: Lives with family, eats normal diet. Pertinent exam findings / vital signs include right carotid bruit, regular rate and rhythm, benign cardiopulmonary exam, benign abdomen, neuro intact. Differential / pathologies of concern include ACS, palpitations, less likely dissection, anxiety. Diagnostic studies of: -CBC, CMP, serial troponins, BNP, EKG, chest x-ray. -CBC benign, chronic anemia -CMP without actionable abnormality -Serial troponins negative -BNP is slightly elevated at 1570 but down from prior value of 3000 -Lipase negative -EKG without ischemic changes, sinus bradycardia, normal intervals, normal axis, no T wave abnormalities or ST change Interventions of: -243mg chewable aspirin. ED Course/Assessment/Plan: 79-year-old female with cardiac history presents with 20 to 30 minutes of chest pain onset at rest around 7-7:45 this evening, has CABG X2 from an CA 2 years ago, sinus bradycardia at baseline, initial 2 troponins are negative, can get close follow-up, patient wants to go home. I asked that they follow-up with PCP by Monday for adjustment of newly started olmesartan, but no evidence of end-organ damage at this time. Recommend they take a dose of Lasix tomorrow. Findings not consistent with ACS, thoracic dissection, syncope. Disposition of palpitations. Patient verbalized understanding of the plan and return to ED criteria and engaged in shared decision making. Medical Records Medical records reviewed: Yes I reviewed the patient's medical records. Imaging Data Radiologic Study: Attestation: I personally reviewed and interpreted this imaging study as follows: Imaging: X-Ray Radiologist's impression: Exam: XR Chest Exam date and time: 10/18/2024 9:22 PM Age: 79 years old Clinical indication: Other: Chest pain TECHNIQUE: Imaging protocol: Radiologic exam of the chest. Views: 2 views. COMPARISON: CT THORAX CTA 05/09/2024 1:09 AM FINDINGS: Lungs: There are mild opacities along the right heart border which could represent atelectasis or infection. Pleural spaces: No pneumothorax. Heart/Mediastinum: The cardiomediastinal contours and hilar shadows are similar to prior examination. Bones/joints: Sternotomy wires remain seen. There are skeletal degenerative changes. Spinal hardware is partially imaged in the lumbar spine. IMPRESSION: 1. Mild opacities along the right heart border which could represent atelectasis or infection. 2. Other findings/details as above. If symptoms remain concerning, CTA could be considered. Dictated and Authenticated by: Abbi Zavaleta MD. Lab Data Lab results reviewed: Yes I reviewed the patient's lab results. Labs: Laboratory Tests Range/Units 10/18/24 10/18/24 20:35 21:41 WBC (4.4-10.8) 10^3/uL 9.17 RBC (3.93-5.22) 10^6/uL 3.35 L Hgb (11.2-15.7) g/dL 9.8 L Hct (36.0-46.0) % 30.1 L MCV (80-95) fL 90 MCH (27.0-33.0) pg 29.3 MCHC (32.0-36.0) % 32.6 RDW (11.7-14.6) % 15.5 H Plt Count (130-400) 10^3/uL 258 MPV (8.0-11.0) fL 11.4 H Immature Gran % % 0.4 Neutrophils % % 66.9 Lymphocytes % % 16.9 Monocytes % % 12.2 Eosinophils % % 3.3 Basophils % % 0.3 Nucleated RBC % (0.0-0.3) % 0.0 Absolute Neutrophils (1.2-6.7) 10^3/uL 6.13 Absolute Lymphocytes (1.2-3.4) 10^3/uL 1.55 Absolute Monocytes (0.1-0.8) 10^3/uL 1.12 H Absolute Eosinophils (0.0-0.7) 10^3/uL 0.30 Absolute Basophils (0.0-0.2) 10^3/uL 0.03 PT (9.1-11.1) sec 10.0 INR (0.9-1.1) 1.0 APTT (20.6-30.2) sec 26.7 Sodium (136-145) mmol/L 141 Potassium (3.5-5.1) mmol/L 4.0 Chloride (98-107) mmol/L 105 Carbon Dioxide (21.0-32.0) mmol/L 28.5 Anion Gap (3-11) mmol/L 7.5 BUN (7-18) mg/dL 22 H Creatinine (0.55-1.02) mg/dL 1.3 H Est GFR (CKD-EPI 2020) (mL/min/1.73m2) 42.35 Glucose (74-106) mg/dL 136 H Calcium (8.5-10.1) mg/dL 9.1 Magnesium (1.8-2.4) mg/dL 2.3 Total Bilirubin (0.2-1.0) mg/dL 0.17 L AST (15-37) U/L 11 L ALT (14-59) U/L 14 Alkaline Phosphatase (46-116) U/L 84 Troponin I (<or=51) ng/L 9 9 NT-Pro-B Natriuret Pep (<300) pg/mL 1570 H Total Protein (6.4-8.2) g/dL 7.0 Albumin (3.4-5.0) g/dL 3.4 Lipase (<78) U/L 42 Quality:[facility] Health Related Social Needs: No Data to Display PFSH All Active Problems (Updated 10/18/24 @ 22:15 by CECY Cunningham) Palpitations (Acute) Anemia (Chronic) Current smoker (Acute) Nicotine dependence, cigarettes, uncomplicated (Acute) Anemia due to blood loss, acute (Acute) Anemia due to GI blood loss (Acute) Incidental lung nodule, greater than or equal to 8mm (Acute) Anemia (Chronic) Renal calculi (Chronic) Sinus bradycardia (Acute) Episode of syncope (Chronic) CKD (chronic kidney disease) stage 3, GFR 30-59 ml/min (Chronic) Lumbosacral spondylosis without myelopathy (Acute) COPD (chronic obstructive pulmonary disease) (Chronic) Solitary lung nodule (Acute) Hydronephrosis (Acute) Hx of CABG (Chronic) Chest pain, rule out acute myocardial infarction (Acute) Mild chronic gastritis (Acute) Peripheral vascular disease (Chronic) CAD (coronary artery disease) (Chronic) GERD (gastroesophageal reflux disease) (Acute 09/05/16) Cerebrovascular accident (CVA) (Acute) Chronic anxiety (Acute) Hypothyroid (Chronic) Hyperlipidemia (Chronic) Carotid stenosis (Chronic) Tobacco dependence (Acute) Hx of Helicobacter infection (Acute) 2013 Medical History Iron deficiency anemia Anemia Diabetes mellitus Pt denies Chronic kidney disease, stage 3b Lung nodule 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 Prediabetes Asthma Pt denies Asthma Obesity Vitamin D deficiency Hypertension Brittle nails Peripheral vascular disease Depression Intermittent claudication Degenerative disc disease, lumbar Diverticulosis large intestine w/o perforation or abscess w/o bleeding Optic neuritis Impaired glucose regulation Elevated troponin Abnormal EKG Surgical History S/P CABG x 2 right carotid endarterectomy x2 Ligation of fallopian tube EGD - MAC (05/2024) path sent EGD - IV Sedation 2013 Colonoscopy - MAC 2015 Biopsy, Temporal Artery (09/15/17) right Family History Other Heart disease Social History Smoking/Tobacco Use Status: Current every day Tobacco Type: cigarettes Tobacco: How many years used: 46 Counseling given: patient declined Smoking risk assessment performed?: Yes Alcohol Intake: never Drug use: Never Substance use type: does not use Housing: house Do you feel safe at home: Yes Do you feel safe in your relationship?: Yes
[2024-10-18 22:12] LABS: Troponin I 9 ng/L (<or=51)
--- NOTE | 2024-10-18 22:20 | DI.VRAD_ITS ---
PROCEDURE INFORMATION: Exam: XR Chest Exam date and time: 10/18/2024 9:22 PM Age: 79 years old Clinical indication: Other: Chest pain TECHNIQUE: Imaging protocol: Radiologic exam of the chest. Views: 2 views. COMPARISON: CT THORAX CTA 05/09/2024 1:09 AM FINDINGS: Lungs: There are mild opacities along the right heart border which could represent atelectasis or infection. Pleural spaces: No pneumothorax. Heart/Mediastinum: The cardiomediastinal contours and hilar shadows are similar to prior examination. Bones/joints: Sternotomy wires remain seen. There are skeletal degenerative changes. Spinal hardware is partially imaged in the lumbar spine. IMPRESSION: 1. Mild opacities along the right heart border which could represent atelectasis or infection. 2. Other findings/details as above. If symptoms remain concerning, CTA could be considered. Dictated and Authenticated by: Abbi Zavaleta MD. Ordering:PRADIP Herrera MD
== END 2024-10-18 22:42 | disposition home or self-care (01) ==
PROVIDERS: Emergency Provider Physician Assistant; PCP Student in an Organized Health Care Education/Training Program
DX: R00.2 Palpitations (principal); R00.1 Bradycardia, unspecified; I25.10 Atherosclerotic heart disease of native coronary artery without angina pectoris; I25.2 Old myocardial infarction; I12.9 Hypertensive chronic kidney disease with stage 1 through stage 4 chronic kidney disease, or unspecified chronic kidney disease; N18.32 Chronic kidney disease, stage 3b; Z95.1 Presence of aortocoronary bypass graft; Z79.02 Long term (current) use of antithrombotics/antiplatelets; Z79.82 Long term (current) use of aspirin; F17.210 Nicotine dependence, cigarettes, uncomplicated
CPT/HCPCS: 36415; 80053; 83690; 93005; 99285; 71046; 83735; 83880; 84484; 85025; 85610; 85730; 93010; 99284

== ENCOUNTER 2024-10-23 03:17 | Outpatient (CLI) | payer MEDICARE, OTHER, SELFPAY ==
[2024-10-23 11:54] LABS: Abs Immature Grans 0.04 10^3/uL (0.0-0.06); Absolute Basophil Count 0.02 10^3/uL (0.0-0.2); Absolute Eosinophil Count 0.25 10^3/uL (0.0-0.7); Absolute Lymphocyte Count 1.02 10^3/uL (1.2-3.4); Absolute Monocyte Count 1.07 10^3/uL (0.1-0.8); Absolute Neutrophil Count 5.65 10^3/uL (1.2-6.7); Basophils % 0.2 %; Eosinophils % 3.1 %; HCT 28.6 % (36.0-46.0); HGB 9.2 g/dL (11.2-15.7); Immature Grans % 0.5 %; Lymphocytes % 12.7 %; MCH 28.8 pg (27.0-33.0); MCHC 32.2 % (32.0-36.0); MCV 90 fL (80-95); Monocytes % 13.3 %; Neutrophils % 70.2 %; Platelet Count 228 10^3/uL (130-400); RBC 3.19 10^6/uL (3.93-5.22); RDW 15.3 % (11.7-14.6); WBC 8.05 10^3/uL (4.4-10.8)
[2024-10-23 12:25] LABS: Ferritin 47 ng/mL (8-252)
== END 2024-10-23 03:18 | disposition home or self-care (01) ==
PROVIDERS: PCP Student in an Organized Health Care Education/Training Program; Visit Provider Nurse Practitioner Family
DX: N18.31 Chronic kidney disease, stage 3a (principal); D50.9 Iron deficiency anemia, unspecified; D63.1 Anemia in chronic kidney disease; K92.2 Gastrointestinal hemorrhage, unspecified
CPT/HCPCS: 36415; 86850; 86900; 86901; 82728; 85025

== ENCOUNTER 2024-10-28 03:25 | Outpatient (CLI) | payer MEDICARE, OTHER, SELFPAY ==
[2024-10-28 11:09] LABS: Abs Immature Grans 0.03 10^3/uL (0.0-0.06); Absolute Basophil Count 0.03 10^3/uL (0.0-0.2); Absolute Eosinophil Count 0.24 10^3/uL (0.0-0.7); Absolute Lymphocyte Count 0.93 10^3/uL (1.2-3.4); Absolute Monocyte Count 0.89 10^3/uL (0.1-0.8); Absolute Neutrophil Count 6.17 10^3/uL (1.2-6.7); Basophils % 0.4 %; Eosinophils % 2.9 %; HCT 32.3 % (36.0-46.0); HGB 10.3 g/dL (11.2-15.7); Immature Grans % 0.4 %; Lymphocytes % 11.2 %; MCHC 31.9 % (32.0-36.0); MCV 91 fL (80-95); MPV 10.8 fL (8.0-11.0); Monocytes % 10.7 %; Neutrophils % 74.4 %; Platelet Count 252 10^3/uL (130-400); RBC 3.55 10^6/uL (3.93-5.22); RDW 14.8 % (11.7-14.6); RDW-SD 49.7 fL; WBC 8.29 10^3/uL (4.4-10.8)
[2024-10-28 11:34] LABS: Ferritin 47 ng/mL (8-252)
== END 2024-10-28 03:26 | disposition home or self-care (01) ==
PROVIDERS: PCP Student in an Organized Health Care Education/Training Program; Visit Provider Nurse Practitioner Family
DX: D50.9 Iron deficiency anemia, unspecified (principal); N18.31 Chronic kidney disease, stage 3a; D63.1 Anemia in chronic kidney disease; K92.2 Gastrointestinal hemorrhage, unspecified
CPT/HCPCS: 36415; 86850; 86900; 86901; 82728; 85025

== ENCOUNTER 2024-11-11 02:20 | Outpatient (CLI) | payer MEDICARE, OTHER, SELFPAY ==
[2024-11-11 10:57] LABS: Abs Immature Grans 0.06 10^3/uL (0.0-0.06); Absolute Basophil Count 0.02 10^3/uL (0.0-0.2); Absolute Eosinophil Count 0.18 10^3/uL (0.0-0.7); Absolute Lymphocyte Count 0.72 10^3/uL (1.2-3.4); Absolute Neutrophil Count 5.57 10^3/uL (1.2-6.7); Basophils % 0.3 %; Eosinophils % 2.5 %; HCT 29.9 % (36.0-46.0); HGB 9.6 g/dL (11.2-15.7); Immature Grans % 0.8 %; Lymphocytes % 9.9 %; MCH 29.9 pg (27.0-33.0); MCHC 32.1 % (32.0-36.0); MCV 93 fL (80-95); MPV 10.5 fL (8.0-11.0); Monocytes % 9.7 %; Neutrophils % 76.8 %; Platelet Count 233 10^3/uL (130-400); RBC 3.21 10^6/uL (3.93-5.22); RDW 15.9 % (11.7-14.6); RDW-SD 53.8 fL; WBC 7.25 10^3/uL (4.4-10.8)
[2024-11-11 11:32] LABS: Ferritin 522 ng/mL (8-252)
== END 2024-11-11 02:21 | disposition home or self-care (01) ==
PROVIDERS: PCP Student in an Organized Health Care Education/Training Program; Visit Provider Nurse Practitioner Family
DX: D50.9 Iron deficiency anemia, unspecified (principal); N18.31 Chronic kidney disease, stage 3a; K92.2 Gastrointestinal hemorrhage, unspecified; D63.1 Anemia in chronic kidney disease
CPT/HCPCS: 36415; 86850; 86900; 86901; 82728; 85025

== ENCOUNTER 2024-11-25 02:04 | Outpatient (CLI) | payer MEDICARE, OTHER, SELFPAY ==
[2024-11-25 10:37] LABS: Abs Immature Grans 0.03 10^3/uL (0.0-0.06); Absolute Basophil Count 0.03 10^3/uL (0.0-0.2); Absolute Eosinophil Count 0.24 10^3/uL (0.0-0.7); Absolute Lymphocyte Count 0.81 10^3/uL (1.2-3.4); Absolute Monocyte Count 0.81 10^3/uL (0.1-0.8); Absolute Neutrophil Count 5.83 10^3/uL (1.2-6.7); Basophils % 0.4 %; Eosinophils % 3.1 %; HCT 28.7 % (36.0-46.0); HGB 9.3 g/dL (11.2-15.7); Immature Grans % 0.4 %; Lymphocytes % 10.5 %; MCH 29.7 pg (27.0-33.0); MCHC 32.4 % (32.0-36.0); MCV 92 fL (80-95); MPV 11.5 fL (8.0-11.0); Monocytes % 10.5 %; Neutrophils % 75.1 %; Platelet Count 232 10^3/uL (130-400); RBC 3.13 10^6/uL (3.93-5.22); RDW 16.3 % (11.7-14.6); RDW-SD 54.6 fL; WBC 7.75 10^3/uL (4.4-10.8)
[2024-11-25 11:10] LABS: Ferritin 208 ng/mL (8-252)
[2024-11-25 19:54] LABS: TSH 23.39 uIU/mL (0.36-3.74)
[2024-11-25 20:37] LABS: FREE T4 0.75 ng/dL (0.76-1.46)
== END 2024-11-25 02:05 | disposition home or self-care (01) ==
PROVIDERS: PCP Student in an Organized Health Care Education/Training Program; Visit Provider Nurse Practitioner Family
DX: D50.9 Iron deficiency anemia, unspecified (principal); E03.9 Hypothyroidism, unspecified; N18.31 Chronic kidney disease, stage 3a; D63.1 Anemia in chronic kidney disease; K92.2 Gastrointestinal hemorrhage, unspecified
CPT/HCPCS: 36415; 86850; 86900; 86901; 82728; 84439; 84443; 85025

== ENCOUNTER 2024-12-01 19:20 | Emergency (ER) | payer MEDICARE, OTHER, SELFPAY ==
[2024-12-01] VITALS (29 sets, daily range): BP systolic 158–196; BP diastolic 24–54; PULSE 44–59; RESP 11–23; TEMP 36.4; O2SAT 91–100
--- NOTE | 2024-12-01 19:15 | RT.EKG_ITS ---
APPROVED REPORT Exam: Resting ECG Reason for Exam: chest pain Patient Location: E HR:49 bpm ECG Measurements Heart Rate 49 AXIS MA 216 P -19 QRSd 104 QRS 83 QT 468 T 67 QTc 423 Conclusion Sinus bradycardia...rate< 60 Normal [place] There are no significant changes compared to prior EKG performed on 10/18/2024 at 20:33.
--- NOTE | 2024-12-01 19:45 | DI.RAD_ITS ---
Exam(s) XR CHEST 2V PA LATERAL EXAM: XR CHEST 2V PA LATERAL CLINICAL HISTORY: Chest pain TECHNIQUE: 2D digital imaging was performed. Two views. COMPARISON: CR,XR XR CHEST 2V PA LATERAL from 10/18/2024 FINDINGS: HEART: Mildly enlarged. Aorta: Not dilated. PULMONARY VASCULATURE: Normal. MEDIASTINUM: Unremarkable. LUNGS: Clear. PLEURAL SPACE: No pleural effusion or pneumothorax. BONE:Sternal wires. SOFT TISSUES: Unremarkable. IMPRESSION: No acute abnormality. DATA REPOSITORY: RADIATION DOSE DELIVERED:
[2024-12-01 20:07] LABS: Abs Immature Grans 0.04 10^3/uL (0.0-0.06); Absolute Basophil Count 0.02 10^3/uL (0.0-0.2); Absolute Eosinophil Count 0.27 10^3/uL (0.0-0.7); Absolute Lymphocyte Count 1.03 10^3/uL (1.2-3.4); Absolute Monocyte Count 1.04 10^3/uL (0.1-0.8); Absolute Neutrophil Count 5.17 10^3/uL (1.2-6.7); Basophils % 0.3 %; Eosinophils % 3.6 %; HCT 26.8 % (36.0-46.0); HGB 8.6 g/dL (11.2-15.7); Immature Grans % 0.5 %; Lymphocytes % 13.6 %; MCH 30.1 pg (27.0-33.0); MCHC 32.1 % (32.0-36.0); MCV 94 fL (80-95); MPV 11.6 fL (8.0-11.0); Monocytes % 13.7 %; Neutrophils % 68.3 %; Platelet Count 227 10^3/uL (130-400); RBC 2.86 10^6/uL (3.93-5.22); RDW-SD 55.1 fL; WBC 7.57 10^3/uL (4.4-10.8)
[2024-12-01 20:31] LABS: ALT 17 U/L (14-59); AST 10 U/L (15-37); Albumin 3.5 g/dL (3.4-5.0); Alkaline Phosphatase 92 U/L (46-116); Anion Gap 10.8 mmol/L (3-11); BUN 28 mg/dL (7-18); CO2 27.2 mmol/L (21.0-32.0); CREATININE 1.3 mg/dL (0.55-1.02); Calcium 9.5 mg/dL (8.5-10.1); Chloride 105 mmol/L (98-107); Estimated GFR 42.35 (mL/min/1.73m2); Glucose 128 mg/dL (74-106); Magnesium 2.4 mg/dL (1.8-2.4); NT-proBNP 2484 pg/mL (<300); Potassium 4.3 mmol/L (3.5-5.1); Sodium 143 mmol/L (136-145); TSH (W/Ref FT4) 28.31 uIU/mL (0.36-3.74); Total Protein 7.2 g/dL (6.4-8.2); Troponin I 8 ng/L (<or=51)
[2024-12-01 20:48] LABS: FREE T4 0.75 ng/dL (0.76-1.46)
[2024-12-01 21:02] LABS: Troponin I 7 ng/L (<or=51)
--- NOTE | 2024-12-01 21:42 | DI.VRAD_ITS ---
PROCEDURE INFORMATION: Exam: XR Chest Exam date and time: 12/01/2024 8:18 PM Age: 79 years old Clinical indication: Other: Chest pain TECHNIQUE: Imaging protocol: Radiologic exam of the chest. Views: 2 views. COMPARISON: CR XR CHEST 2V PA LATERAL 10/18/2024 9:22 PM FINDINGS: Lungs: No pulmonary consolidation is seen. Pleural spaces: No pleural effusion or pneumothorax is demonstrated. Heart/Mediastinum: The heart is enlarged. There has been a prior median sternotomy. Bones/joints: The visualized bony structures appear grossly intact. IMPRESSION: No active disease is seen in the chest. Dictated and Authenticated by: Gustavo Martinez MD. Orderin Mary Morgan MD
--- NOTE | 2024-12-01 23:05 | W.ED.GENAD ---
Discharge Plan Disposition Patient Disposition: Home Discharge Details Clinical Impression: Heart palpitations, Hypothyroidism, Anemia, Chronic GI bleeding, Diastolic congestive heart failure Primary Care Provider: Zafar Botello ED Provider: Cathy Hernandez Home Meds and New Rx's Prescriptions: New carvedilol 3.125 mg tablet 3.125 mg PO BID Qty: 14 0RF Rx Instructions: must administer with a meal/food levothyroxine [Synthroid] 150 mcg tablet 150 mcg PO DAILY Qty: 14 0RF olmesartan 5 mg tablet 10 mg PO DAILY Qty: 28 0RF famotidine [Acid-Pep] 20 mg tablet 20 mg PO BID Qty: 60 0RF Continued multivitamin tablet 1 tab PO DAILY Patient Comments: TAKES @ 5PM DAILY rosuvastatin 10 mg tablet 10 mg PO DAILY Patient Comments: TAKES IN THE EVENING ascorbate calcium (vitamin C) 500 mg tablet 500 mg PO .COMPLEX Rx Instructions: 500 mg orally Mon, Wed, Fri; furosemide 20 mg tablet 20 mg PO DAILY PRN (Reason: edema) Qty: 60 3RF aspirin 81 mg tablet,delayed release (DR/EC) 81 mg PO DAILY Aranesp (in polysorbate) 200 mcg/0.4 mL syringe 200 mcg subcut Q2W Patient Comments: 03/13/24 per pt she gets an injection Q2w at [facility] due to anemia. this may change. RH clopidogrel 75 mg tablet 75 mg PO DAILY Patient Comments: TAKE ONE TABLET BY MOUTH EVERY DAY ferrous gluconate 324 mg (38 mg iron) tablet 324 mg PO DAILY Patient Comments: TAKE ONE TABLET BY MOUTH EVERY DAY @ 10AM amlodipine 10 mg tablet 10 mg PO DAILY Patient Comments: TAKE ONE TABLET BY MOUTH EVERY DAY sucralfate 1 gram Tablet 1 g PO AC & HS Qty: 120 1RF cholecalciferol (vitamin D3) [Vitamin D3] 2,000 UNIT capsule 2,000 unit PO DAILY pantoprazole 40 mg tablet,delayed release (DR/EC) 40 mg PO DAILY Qty: 90 0RF Rx Instructions: Take 1 pill by mouth in the morning, 1 pill by mouth in the evening. Repeat this every day for 4 weeks. Then switch to 1 pill daily. Discontinued levothyroxine 125 mcg tablet 125 mcg PO DAILY Patient Comments: TAKE ONE TABLET BY MOUTH EVERY DAY @ 7AM; TAKE AN ADDITIONAL 1/2 TABLET ON SUNDAYS carvedilol 6.25 mg tablet 3.25 mg PO BID Qty: 0 0RF olmesartan 5 mg tablet 5 mg PO BID Discharge Instructions Instructions: Hypothyroidism (underactive thyroid), Heart Failure, Adult (DC), Gastrointestinal Bleeding (DC), Diastolic Heart Failure (DC), Heart Failure Exercise Guide, Low-sodium diet Additional Instructions: Start taking the new Synthroid tablets, 150 mcg daily Increase your olmesartan to 10 mg a day Decrease your carvedilol to 3.125 mg a day Add Pepcid to the Carafate and metoprolol regimen Call Dr. Sanchez's office in the morning if you do not receive a call from them to schedule your colonoscopy and endoscopy Follow-up with Zafar Botello to review all of the medications and I had suggested an outpatient Holter monitor Placed a referral to see Zafar Botello closely in the outpatient setting You should have a repeat CBC within the next 2 to 3 days and a repeat thyroid in 1 to 2 weeks Please return immediately should you have notable blood in your stool you start feeling more weakness dizziness or chest pain or should you have any new or worsening complaints my recommendation would be to follow-up with cardiology regarding a stress test in the outpatient setting as well, discussed your low diastolic blood pressure with them Referrals: Leanna Watt MD [ [facility] STAFF PHYSICIAN] - 1 day Marv Sanchez MD [ [facility] STAFF PHYSICIAN] - Zafar Botello [Primary Care Provider] - 1 day HPI General Date/Time Provider Initiated Documentation: 12/01/24 19:36. HPI Narrative: The patient is a 79-year-old female with a history of iron deficiency anemia, gastrointestinal bleeding, diabetes, stage 3 kidney disease, ischemic optic neuropathy, hypertension, peripheral vascular disease, and 2 coronary artery bypass grafts (CABG) and right carotid endarterectomy, who presents today for evaluation of palpitations with an episode of chest tightness earlier today. Was seated when the event occurred denies exacerbating or alleviating factors. Otherwise felt quite well at baseline until this time. Related Data Home Medications ?Medication ?Instructions ?Recorded ?Confirmed cholecalciferol (vitamin D3) 50 2,000 unit PO DAILY 06/06/17 12/01/24 mcg (2,000 unit) capsule (Vitamin D3) multivitamin 1 tab PO DAILY 03/15/19 12/01/24 clopidogrel 75 mg tablet 75 mg PO DAILY 12/01/20 12/01/24 ferrous gluconate 324 mg (38 mg 324 mg PO DAILY 12/01/20 12/01/24 iron) tablet rosuvastatin 10 mg tablet 10 mg PO DAILY 12/16/20 12/01/24 ascorbate calcium (vitamin C) 500 500 mg PO .COMPLEX 07/29/22 12/01/24 mg tablet aspirin 81 mg tablet,delayed 81 mg PO DAILY 12/20/23 12/01/24 release pantoprazole 40 mg tablet,delayed 40 mg PO DAILY #90 tabs 12/29/23 12/01/24 release furosemide 20 mg tablet 20 mg PO DAILY PRN edema #60 tabs 02/16/24 12/01/24 darbepoetin amber in polysorbat 200 200 mcg subcut Q2W 03/13/24 12/01/24 mcg/0.4 mL in polysorbate injection syringe (Aranesp) amlodipine 10 mg tablet 10 mg PO DAILY 05/09/24 12/01/24 sucralfate 1 gram tablet 1 g PO AC & HS #120 tabs 05/10/24 12/01/24 carvedilol 3.125 mg tablet 3.125 mg PO BID #14 tabs 12/01/24 famotidine 20 mg tablet (Acid-Pep) 20 mg PO BID #60 tabs 12/01/24 levothyroxine 150 mcg tablet 150 mcg PO DAILY #14 tabs 12/01/24 (Synthroid) olmesartan 5 mg tablet 10 mg (2 x 5 mg) PO DAILY #28 tabs 12/01/24 Previous Rx's ?Medication ?Instructions ?Recorded pantoprazole 40 mg tablet,delayed 40 mg PO DAILY #90 tabs 12/29/23 release furosemide 20 mg tablet 20 mg PO DAILY PRN edema #60 tabs 02/16/24 sucralfate 1 gram tablet 1 g PO AC & HS #120 tabs 05/10/24 carvedilol 3.125 mg tablet 3.125 mg PO BID #14 tabs 12/01/24 famotidine 20 mg tablet (Acid-Pep) 20 mg PO BID #60 tabs 12/01/24 levothyroxine 150 mcg tablet 150 mcg PO DAILY #14 tabs 12/01/24 (Synthroid) olmesartan 5 mg tablet 10 mg (2 x 5 mg) PO DAILY #28 tabs 12/01/24 Allergies Allergy/AdvReac Type Severity Reaction Status Date / Time cilostazol AdvReac Severe Headache Verified 12/01/24 19:33 [id number] Reductase AdvReac Intermediate Headache Verified 12/01/24 19:33 Inhibitor ([id number]-Tgj-[id number] Reductase Inhibitor) atenolol AdvReac Mild palpitation Verified 12/01/24 19:33 s losartan potassium (From AdvReac Mild palpitation Verified 12/01/24 19:33 Cozaar) s levothyroxine sodium AdvReac pt unsure Verified 12/01/24 19:33 General Stated Complaint: Chest Pain KEVIN: 3 Exam Narrative Exam Narrative: General Appearance: The patient is alert and oriented, not in any acute distress. Vital signs: Within normal limits. HEENT: Within normal limits. Respiratory: Lungs are clear to auscultation. No respiratory distress. Cardiovascular: Heart has a normal rate and rhythm without audible murmur. Gastrointestinal: No tenderness in the abdomen. Extremities: There is 2+ edema in both lower extremities without significant tenderness and neurovascularly intact to all 4 extremities. Skin: Warm and dry, no rash. Neurological: Normal. Course Vital Signs Vital signs: Vital Signs Temperature 36.4 C L 12/01/24 19:24 Pulse 54 L 12/01/24 19:24 Respiratory Rate 16 12/01/24 19:24 Blood Pressure 196/33 H 12/01/24 19:24 Pulse Oximetry 98 12/01/24 19:24 Temperature 36.4 C L 12/01/24 19:24 Temperature Source Temporal Artery Scan 12/01/24 19:24 Pulse 50 L 12/01/24 22:44 Pulse 47 L 12/01/24 22:10 Respiratory Rate 18 12/01/24 22:44 Respiratory Effort Normal, Non-Labored 12/01/24 19:35 Respiratory Depth Normal 12/01/24 19:35 Respiratory Pattern Normal 12/01/24 19:35 Blood Pressure 186/34 H 12/01/24 22:44 Blood Pressure Mean 90 12/01/24 22:03 Blood Pressure Position Supine 12/01/24 19:24 Pulse Oximetry 97 12/01/24 22:44 Oxygen Delivery Method Room Air 12/01/24 19:24 Oxygen Flow Rate 0 12/01/24 19:24 Pain Level 7 12/01/24 19:24 Lab/Test Results Lab/Test Results: Laboratory Tests Range/Units 12/01/24 12/01/24 12/01/24 19:40 20:40 22:58 WBC (4.4-10.8) 10^3/uL 7.57 RBC (3.93-5.22) 10^6/uL 2.86 L Hgb (11.2-15.7) g/dL 8.6 L Hct (36.0-46.0) % 26.8 L MCV (80-95) fL 94 MCH (27.0-33.0) pg 30.1 MCHC (32.0-36.0) % 32.1 RDW (11.7-14.6) % 16.0 H Plt Count (130-400) 10^3/uL 227 MPV (8.0-11.0) fL 11.6 H Immature Gran % % 0.5 Neutrophils % % 68.3 Lymphocytes % % 13.6 Monocytes % % 13.7 Eosinophils % % 3.6 Basophils % % 0.3 Nucleated RBC % (0.0-0.3) % 0.0 Absolute Neutrophils (1.2-6.7) 10^3/uL 5.17 Absolute Lymphocytes (1.2-3.4) 10^3/uL 1.03 L Absolute Monocytes (0.1-0.8) 10^3/uL 1.04 H Absolute Eosinophils (0.0-0.7) 10^3/uL 0.27 Absolute Basophils (0.0-0.2) 10^3/uL 0.02 Sodium (136-145) mmol/L 143 Potassium (3.5-5.1) mmol/L 4.3 Chloride (98-107) mmol/L 105 Carbon Dioxide (21.0-32.0) mmol/L 27.2 Anion Gap (3-11) mmol/L 10.8 BUN (7-18) mg/dL 28 H Creatinine (0.55-1.02) mg/dL 1.3 H Est GFR (CKD-EPI 2020) (mL/min/1.73m2) 42.35 Glucose (74-106) mg/dL 128 H Calcium (8.5-10.1) mg/dL 9.5 Magnesium (1.8-2.4) mg/dL 2.4 Total Bilirubin (0.2-1.0) mg/dL 0.20 AST (15-37) U/L 10 L ALT (14-59) U/L 17 Alkaline Phosphatase (46-116) U/L 92 Troponin I (<or=51) ng/L 8 7 Cancelled NT-Pro-B Natriuret Pep (<300) pg/mL 2484 H Total Protein (6.4-8.2) g/dL 7.2 Albumin (3.4-5.0) g/dL 3.5 TSH (0.36-3.74) uIU/mL 28.31 H Free T4 (0.76-1.46) ng/dL 0.75 L Medical Decision Making Laboratory Studies BNP is elevated at 2200. Two troponins are negative. Thyroid is notably elevated at 28 with an elevated free T4. Hemoglobin is down to 8.6. Imaging Chest x-ray does not show evidence of acute abnormality per radiology interpretation on my review. Initial Assessment: 79-year-old female with history of iron deficiency anemia, GI bleed, diabetes, stage III kidney disease, ischemic optic neuropathy, hypertension, peripheral vascular disease, CABG x2 right carotid. Alert, oriented, no acute distress, normal cardiac rate and rhythm, lungs clear, no abdominal tenderness, no respiratory distress, 2+ edema of bilateral lower extremities, neurovascularly intact to all four extremities. Differential Diagnosis: - GI Bleed: History of recurrent GI bleeding, prior ulcer, anemic with hemoglobin 8.6, down from typical 10. Pepcid added to regimen. case discussed with and Referral to Dr. Sanchez, surgery, for discussion on chronic GI bleed management. Stable for discharge with close outpatient follow-up for colonoscopy and GI medication maximization. - Thyroid Dysfunction: Elevated thyroid levels at 28 with elevated free T4. Synthroid increased from 125 to 150 mcg. Close follow-up to recheck thyroid levels in a few weeks. - Diastolic Heart Failure: Preserved ejection fraction on echocardiogram, suspicion of diastolic heart failure. Chest pain-free, 2 negative troponins. Carvedilol decreased from 6.25 to 3.125 mg daily due to bradycardia. Olmesartan increased from 5 to 10 mg daily. Cardiology follow-up needed, likely benefit from Holter monitor and stress test. - Low Diastolic Pressure: Very low diastolic pressure, baseline. Increased risk for stroke and heart attack. Reviewed lifestyle interventions including smoking cessation. Provided information on low diastolic pressure concerns. Cardiology follow-up recommended. - Anemia: Anemic with hemoglobin 8.6, down from typical 10. History of recurrent GI bleeding, prior ulcer. Pepcid added to regimen. Referral to Dr. Sanchez, surgery, for discussion on chronic GI bleed management. Stable for discharge with close outpatient follow-up for colonoscopy and GI medication maximization. CBC recheck in 1-2 days. ED Course: - Elevated BNP 2200, 2 negative troponins. - Chest x-ray: No acute abnormality (read by radiology). - Thyroid elevated at 28, elevated free T4. - Hemoglobin 8.6, down from typical 10. - Reviewed lifestyle interventions including smoking cessation. - Synthroid increased from 125 to 150 mcg. - Carvedilol decreased from 6.25 to 3.125 mg daily. - Olmesartan increased from 5 to 10 mg daily. - Referral to Dr. Sanchez, surgery. - Pepcid added to regimen. - Close follow-up for thyroid recheck in a few weeks, CBC in 1-2 days, cardiology follow-up for Holter monitor and stress test. - Reevaluation: Chest pain-free, 2 negative troponins. - Echocardiogram reviewed: Preserved ejection fraction. Final Assessment: Patient with complex medical history including GI bleed, thyroid dysfunction, diastolic heart failure, low diastolic pressure, and anemia. Stable for discharge with close outpatient follow-up and medication adjustments. Clinical Impression: - Gastrointestinal bleeding - Thyroid dysfunction - Diastolic heart failure - Low diastolic pressure - Anemia Disposition: - Discharge: Stable for discharge home. - Follow-Up: Close outpatient follow-up for colonoscopy, thyroid recheck in a few weeks, CBC in 1-2 days, cardiology follow-up for Holter monitor and stress test. Patient Education: Reviewed lifestyle interventions including smoking cessation. Provided information on low diastolic pressure concerns. MDM Components Evaluation: - Number of Differential Diagnoses or Management Options: GI Bleed, Thyroid Dysfunction, Diastolic Heart Failure, Low Diastolic Pressure, Anemia. - Amount and Complexity of Data Reviewed: Elevated BNP, 2 negative troponins, chest x-ray (read by radiology), thyroid levels, hemoglobin, echocardiogram. - Risk of Complication and Morbidity or Mortality: Increased risk for stroke and heart attack due to low diastolic pressure, complex medical history requiring close follow-up and medication adjustments. Quality:[facility] Health Related Social Needs: No Data to Display PFSH All Active Problems (Updated 12/01/24 @ 22:28 by CECY Franks) Diastolic congestive heart failure (Acute) Chronic GI bleeding (Acute) Anemia (Chronic) Hypothyroidism (Chronic) Heart palpitations (Acute) Current smoker (Acute) Nicotine dependence, cigarettes, uncomplicated (Acute) Anemia due to blood loss, acute (Acute) Anemia due to GI blood loss (Acute) Incidental lung nodule, greater than or equal to 8mm (Acute) Anemia (Chronic) Renal calculi (Chronic) Sinus bradycardia (Acute) Episode of syncope (Chronic) CKD (chronic kidney disease) stage 3, GFR 30-59 ml/min (Chronic) Lumbosacral spondylosis without myelopathy (Acute) COPD (chronic obstructive pulmonary disease) (Chronic) Solitary lung nodule (Acute) Hydronephrosis (Acute) Hx of CABG (Chronic) Chest pain, rule out acute myocardial infarction (Acute) Mild chronic gastritis (Acute) Peripheral vascular disease (Chronic) CAD (coronary artery disease) (Chronic) GERD (gastroesophageal reflux disease) (Acute 09/05/16) Cerebrovascular accident (CVA) (Acute) Chronic anxiety (Acute) Hypothyroid (Chronic) Hyperlipidemia (Chronic) Carotid stenosis (Chronic) Tobacco dependence (Acute) Hx of Helicobacter infection (Acute) 2013 Medical History Iron deficiency anemia Anemia Diabetes mellitus Pt denies Chronic kidney disease, stage 3b Lung nodule 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 Prediabetes Asthma Pt denies Asthma Obesity Vitamin D deficiency Hypertension Brittle nails Peripheral vascular disease Depression Intermittent claudication Degenerative disc disease, lumbar Diverticulosis large intestine w/o perforation or abscess w/o bleeding Optic neuritis Impaired glucose regulation Elevated troponin Abnormal EKG Surgical History S/P CABG x 2 right carotid endarterectomy x2 Ligation of fallopian tube EGD - [facility] (05/2024) path sent EGD - IV Sedation 2013 Colonoscopy - MAC 2015 Biopsy, Temporal Artery (09/15/17) right Family History Other Heart disease Social History Smoking/Tobacco Use Status: Current every day Tobacco Type: cigarettes Tobacco: How many years used: 46 Counseling given: patient declined Smoking risk assessment performed?: Yes Alcohol Intake: never Drug use: Never Substance use type: does not use Housing: house Do you feel safe at home: Yes Do you feel safe in your relationship?: Yes
--- NOTE | 2024-12-04 08:56 | NUR.NOTE ---
Accessed Pt chart to see if there is an order for Lab orders for the Lab. I did not see any orders for the lab.
== END 2024-12-01 23:01 | disposition home or self-care (01) ==
PROVIDERS: Emergency Provider Physician Assistant; PCP Student in an Organized Health Care Education/Training Program
DX: I13.0 Hypertensive heart and chronic kidney disease with heart failure and stage 1 through stage 4 chronic kidney disease, or unspecified chronic kidney disease (principal); I50.32 Chronic diastolic (congestive) heart failure; N18.32 Chronic kidney disease, stage 3b; D50.0 Iron deficiency anemia secondary to blood loss (chronic); K92.2 Gastrointestinal hemorrhage, unspecified; I25.2 Old myocardial infarction; E03.9 Hypothyroidism, unspecified; Z95.1 Presence of aortocoronary bypass graft; Z79.899 Other long term (current) drug therapy
CPT/HCPCS: 80053; 93005; 99285; 71046; 83735; 83880; 84439; 84443; 84484; 85025; 93010; 99284

== ENCOUNTER → 2024-12-03 10:15 | Outpatient (BNVA) | payer MEDICARE, OTHER, SELFPAY | PROVIDERS: PCP Student in an Organized Health Care Education/Training Program; Referring Provider Student in an Organized Health Care Education/Training Program; Visit Provider Student in an Organized Health Care Education/Training Program | DX: D50.0 Iron deficiency anemia secondary to blood loss (chronic) (principal) | CPT/HCPCS: 99215 ==

== ENCOUNTER 2024-12-04 13:32 | Outpatient (CLI) | payer MEDICARE, OTHER, SELFPAY ==
[2024-12-04 12:40] LABS: Abs Immature Grans 0.04 10^3/uL (0.0-0.06); Absolute Basophil Count 0.02 10^3/uL (0.0-0.2); Absolute Eosinophil Count 0.23 10^3/uL (0.0-0.7); Absolute Lymphocyte Count 0.91 10^3/uL (1.2-3.4); Absolute Monocyte Count 0.81 10^3/uL (0.1-0.8); Basophils % 0.3 %; HGB 8.2 g/dL (11.2-15.7); Immature Grans % 0.5 %; MCH 29.7 pg (27.0-33.0); MCHC 31.5 % (32.0-36.0); MCV 94 fL (80-95); Monocytes % 10.6 %; Neutrophils % 73.6 %; Platelet Count 227 10^3/uL (130-400); RBC 2.76 10^6/uL (3.93-5.22); RDW 16.1 % (11.7-14.6); RDW-SD 55.9 fL; WBC 7.61 10^3/uL (4.4-10.8)
[2024-12-04 13:09] LABS: Ferritin 116 ng/mL (8-252)
== END 2024-12-04 13:33 | disposition home or self-care (01) ==
LOC: LBO 13:33
PROVIDERS: PCP Student in an Organized Health Care Education/Training Program; Visit Provider Nurse Practitioner Family
DX: D50.9 Iron deficiency anemia, unspecified (principal); N18.31 Chronic kidney disease, stage 3a; K92.2 Gastrointestinal hemorrhage, unspecified
CPT/HCPCS: 36415; 86850; 86900; 86901; 82728; 85025

== ENCOUNTER 2024-12-09 02:05 | Outpatient (CLI) | payer MEDICARE, OTHER, SELFPAY | END 2024-12-09 02:06 | disposition home or self-care (01) | PROVIDERS: PCP Student in an Organized Health Care Education/Training Program; Visit Provider Nurse Practitioner Family | DX: D50.9 Iron deficiency anemia, unspecified (principal); N18.31 Chronic kidney disease, stage 3a; D63.1 Anemia in chronic kidney disease; K92.2 Gastrointestinal hemorrhage, unspecified | CPT/HCPCS: 36415; 86850; 86900; 86901; 86920; 82728; 85025 ==

== ENCOUNTER 2024-12-11 12:51 | Outpatient (REF) | payer MEDICARE, OTHER, SELFPAY ==
[2024-12-11 15:55] LABS: Abs Immature Grans 0.06 10^3/uL (0.0-0.06); Absolute Basophil Count 0.02 10^3/uL (0.0-0.2); Absolute Eosinophil Count 0.24 10^3/uL (0.0-0.7); Absolute Lymphocyte Count 0.98 10^3/uL (1.2-3.4); Absolute Monocyte Count 1.03 10^3/uL (0.1-0.8); Basophils % 0.2 %; HCT 23.4 % (36.0-46.0); HGB 7.3 g/dL (11.2-15.7); Immature Grans % 0.7 %; Lymphocytes % 12.1 %; MCH 29.4 pg (27.0-33.0); MCHC 31.2 % (32.0-36.0); MCV 94 fL (80-95); MPV 12.5 fL (8.0-11.0); Monocytes % 12.7 %; Neutrophils % 71.3 %; Platelet Count 223 10^3/uL (130-400); RBC 2.48 10^6/uL (3.93-5.22); RDW 15.7 % (11.7-14.6); RDW-SD 54.6 fL; WBC 8.13 10^3/uL (4.4-10.8)
[2024-12-11 16:31] LABS: TSH 21.23 uIU/mL (0.36-3.74)
[2024-12-11 21:53] LABS: T4, Free 0.9 ng/dL (0.8-2.2)
== END 2024-12-11 12:52 | disposition home or self-care (01) ==
LOC: NCHCN 12:51
PROVIDERS: PCP Student in an Organized Health Care Education/Training Program; Visit Provider Student in an Organized Health Care Education/Training Program
DX: E03.9 Hypothyroidism, unspecified (principal); D64.9 Anemia, unspecified
CPT/HCPCS: 84439; 84443; 85025

== ENCOUNTER 2024-12-25 02:39 | Outpatient (RCR) | payer MEDICARE, OTHER, SELFPAY ==
[2024-12-09 10:35] LABS: Abs Immature Grans 0.08 10^3/uL (0.0-0.06); Absolute Basophil Count 0.02 10^3/uL (0.0-0.2); Absolute Eosinophil Count 0.28 10^3/uL (0.0-0.7); Absolute Lymphocyte Count 1.08 10^3/uL (1.2-3.4); Absolute Monocyte Count 0.88 10^3/uL (0.1-0.8); Absolute Neutrophil Count 7.05 10^3/uL (1.2-6.7); Basophils % 0.2 %; HCT 25.7 % (36.0-46.0); Immature Grans % 0.9 %; Lymphocytes % 11.5 %; MCH 29.3 pg (27.0-33.0); MCHC 31.1 % (32.0-36.0); MCV 94 fL (80-95); MPV 10.6 fL (8.0-11.0); Monocytes % 9.4 %; Platelet Count 241 10^3/uL (130-400); RBC 2.73 10^6/uL (3.93-5.22); RDW 15.9 % (11.7-14.6); RDW-SD 54.8 fL; WBC 9.39 10^3/uL (4.4-10.8)
[2024-12-09 11:02] LABS: Ferritin 90 ng/mL (8-252)
[2024-12-12] VITALS (12 sets, daily range): BP systolic 119–175; BP diastolic 45–83; PULSE 43–59; RESP 18–20; TEMP 35.7–36.5; O2SAT 97–100
[2024-12-12] MEDS: Normal Saline Flush 10 ML SYR IVP (10:25)
[2024-12-25 11:34] LABS: Abs Immature Grans 0.06 10^3/uL (0.0-0.06); Absolute Basophil Count 0.02 10^3/uL (0.0-0.2); Absolute Eosinophil Count 0.28 10^3/uL (0.0-0.7); Absolute Lymphocyte Count 0.89 10^3/uL (1.2-3.4); Absolute Monocyte Count 0.93 10^3/uL (0.1-0.8); Absolute Neutrophil Count 6.74 10^3/uL (1.2-6.7); Basophils % 0.2 %; Eosinophils % 3.1 %; HCT 26.7 % (36.0-46.0); HGB 8.4 g/dL (11.2-15.7); Immature Grans % 0.7 %; MCH 28.4 pg (27.0-33.0); MCHC 31.5 % (32.0-36.0); MCV 90 fL (80-95); MPV 10.7 fL (8.0-11.0); Monocytes % 10.4 %; Neutrophils % 75.6 %; Platelet Count 284 10^3/uL (130-400); RBC 2.96 10^6/uL (3.93-5.22); RDW 15.9 % (11.7-14.6); RDW-SD 52.3 fL; WBC 8.92 10^3/uL (4.4-10.8)
[2024-12-25] MEDS: Darbepoetin 200 MCG SYR SC (11:41)
== END 2025-01-06 23:59 | disposition home or self-care (01) ==
LOC: INF 02:39
PROVIDERS: Nurse Practitioner Family; PCP Student in an Organized Health Care Education/Training Program; Visit Provider Internal Medicine Hematology & Oncology
DX: N18.31 Chronic kidney disease, stage 3a (principal); D63.1 Anemia in chronic kidney disease; K92.2 Gastrointestinal hemorrhage, unspecified; D50.9 Iron deficiency anemia, unspecified
CPT/HCPCS: 36415; 36430; 86850; 86900; 86901; 86920; 96372; 82728; 85025; J0881; P9016

== ENCOUNTER 2025-01-09 01:10 | Outpatient (CLI) | payer MEDICARE, OTHER, SELFPAY ==
--- NOTE | 2025-01-09 08:30 | DI.US_ITS ---
APPROVED REPORT EXAM: Comprehensive 2D, Doppler, and color-flow Echocardiogram Patient Location: Out-Patient Endodontist: Johnathon Henao RDCS ([facility]) Indications: Increasing systolic murmur Conclusion Mild concentric left ventricular hypertrophy. Ejection fraction is 65%. Wall motion is normal Normal right ventricular size and function Left atrium is mildly dilated. Right atrial size is normal There are no structural valvular abnormalities Trace aortic regurgitation Moderate mitral and tricuspid regurgitation Estimated right ventricular systolic pressure is 47 mmHg Wall motion Left Ventricle The left ventricle is normal size. The left ventricular systolic function is normal. The left ventric ular ejection fraction is within the normal range. Mild concentric left ventricular hypertrophy. Ther e is normal LV segmental wall motion. There is no ventricular septal defect visualized. LVEF is 65%. Right Ventricle The right ventricle is normal size. The right ventricular systolic function is normal. Atria Left atrium is mildly dilated. The right atrium size is normal. The interatrial septum is intact with no evidence for an atrial septal defect. Aortic Valve The aortic valve is normal in structure. Aortic valve is trileaflet. There is no aortic valvular sten osis. Trace aortic regurgitation. Mitral Valve The mitral valve is normal in structure. No evidence of mitral valve stenosis. Moderate mitral regurg itation Tricuspid Valve The tricuspid valve is normal in structure. There is no tricuspid valve stenosis. Moderate tricuspid regurgitation. The RVSP is 47.3 mmHg. Pulmonic Valve Pulmonic valve is not well visualized. There is no pulmonic valvular regurgitation. Great Vessels The aortic root is normal in size. Ascending aorta is not well visualized. Aortic arch is normal in c aliber. The IVC collapses <50% with inspiration. Pericardium There is no pericardial effusion. 2D Dimensions IVSD d PLAX 1.26 cm F: 0.6-1.0 Ao Root d 3.00 cm F: 2.7 - 3.3 LVPW d PLAX 1.17 cm F: 0.6 - 1.0 LVID d PLAX 4.89 cm F: 3.8 - 5.2 LVDs 3.19 cm F: 2.2 - 3.5 LV EF Teichholz 63.8 % FS 34.79 % LV EDV (Teich) 112.5 mL LV ESV (Teich) 40.7 mL Stroke Vol Index (Teich) 41.27 M-Mode TAPSE 2.26 cm (M/F) >1.7 Auto EF LV EDV A4C 153.6 mL LV EDV A2C 143.8 mL LV EDV BP 149.3 mL LV ESV A4C 56.7 mL LV ESV A2C 55.1 mL LV ESV BP 56.2 mL LVEF(%) A4C 63.1 % LVEF(%) A2C 61.7 % LVEF(%) BP 62.4 % LV SV A4C 96.9 ml LV SV A2C 88.7 ml LV SV BP 93.1 ml LV CO A4C 4.5 L/min LV CO A2C 4.1 L/min LV CO BP 4.3 L/min HR A4C 46.63 BPM HR A2C 46.63 BPM LV EDV Index (BP) LA Volume LA Length A4C 5.8 cm LA Length A2C 4.5 cm LA Area A4C s 16.28 cm2 LA Area A2C s 14.12 cm2 LA Vol A4C A-L 38.69 mL LA Vol A2C A-L 37.22 mL LA Vol Biplane A-L 42.9 mL LA Vol/BSA A4C A-L LA Vol/BSA A2C A-L LA Vol/BSA BP A-L 24.7 mL/m2 LA Vol A4C MOD 37.1 mL LA Vol A2C MOD 35.3 mL LA Vol BP MOD 40.5 mL RA Volume RA Area A4C 10.3 cm2 RA ESV A4C (A-L) 17.8mL RA Vol/BSA A4C A-L RA Length A4C 5.1 cm RA ESV A4C (MOD) 17.5mL LV Diastology MV E' medial 0.074 (>0.07 m/s) MV E Vmax 1.27 (0.4-1.3 m/s) MV E/E' MED 17.22 (<14) MV A Vmax 0.70 (0.4-1.3 m/s) MV E' lateral 0.114 (>0.1 m/s) E/A Ratio 1.8 MV E/E' LAT 11.15 (<14) MV E' Average 0.094 m/s MV E/E'(average) 13.54 Aortic Valve AoV Vmax 1.89 m/s LVOT Vmax 1.11 m/s AoV Peak Grad 14.4 mmHg LVOT Peak Grad 4.9 mmHg AoV Area (Vmax) 1.82 cm2 LVOT VTI 0.339 m AoV VTI 0.555 m LVOT Mean Grad 2.5 mmHg AoV Mean Ruslan. 1.42 m/s LVOT SV 105.23 mL AoV Mean Grad 8.6 mmHg LVOT Diam s 1.95 cm AoV Area (VTI) 1.90 cm2 AV Regurg Peak Gr. 14.35 mmHg Velocity Ratio 0.59 Mitral Valve MV DT 137 (160-240 msec) MR Vmax 5.68 m/s MV Vmax TIPS 1.15 m/s MR VTI 2.419 m MV Mean Grad 1.4 (<2mmHg) MR Peak Grad 129.2 mmHg MV VTI 0.472 m MR Mean Grad 106.7 mmHg MR PISA Radius 0.50 cm MR Aliasing Velocity 0.30 m/s Pulmonary Valve PV Vmax 1.17 (0.5-1.5 m/s) PV Peak Grad 5.5 mmHg PV Mean Ruslan 0.81 m/s PV Mean Grad 3.0 mmHg Tricuspid Valve RA Pressure 8.00 mmHg TR Vmax 3.14 m/s TV S' 0.09 m/s TR Peak Grad 39.3 mmHg RVSP (TR) 47.3 mmHg
== END 2025-01-09 01:30 ==
LOC: DI 01:10
PROVIDERS: PCP Student in an Organized Health Care Education/Training Program; Visit Provider Internal Medicine Cardiovascular Disease
DX: R01.1 Cardiac murmur, unspecified (principal)
CPT/HCPCS: 93306

== ENCOUNTER 2025-01-17 10:55 | Outpatient (RCR) | payer MEDICARE, OTHER, SELFPAY ==
--- NOTE | 2025-01-23 08:31 | W.HOLTRPT ---
Date of service: 01/23/25 Time of Service: 08:31 Holter Monitor Report Referring Provider:: Zafar Botello Indications:: Palpitations Holter Monitor Note: This is a 24-hour Holter monitor. Rhythm throughout was sinus with average heart rate of 47. Minimum was 32 (during sleep). Maximum was 73 There were occasional ventricular ectopic beats. There were rare atrial premature beats. There was no atrial fibrillation, no high-grade AV block, no pauses greater than 3 seconds. No symptoms were reported
== END 2025-02-05 23:59 | disposition home or self-care (01) ==
LOC: CARDOPNVT 10:55
PROVIDERS: PCP Student in an Organized Health Care Education/Training Program; Visit Provider Internal Medicine Cardiovascular Disease
DX: R00.2 Palpitations (principal)
CPT/HCPCS: 36415; 93227; 96372; 82728; 85025; 93225; 93226; J0881

== ENCOUNTER 2025-01-21 11:24 | Outpatient (RCR) | payer SELFPAY ==
[2025-01-16 11:00] VITALS: BP 184/56; PULSE 55; O2SAT 99
[2025-01-21 12:30] VITALS: BP 145/42; PULSE 62
[2025-01-23 11:45] VITALS: BP 149/41; PULSE 55
[2025-01-28 12:29] VITALS: BP 133/36; PULSE 54
[2025-01-30 11:12] VITALS: BP 149/42; PULSE 54
[2025-02-04 13:18] VITALS: BP 153/45; PULSE 51
== END 2025-02-05 23:59 | disposition home or self-care (01) ==
LOC: CR 11:24
PROVIDERS: PCP Student in an Organized Health Care Education/Training Program; Visit Provider Internal Medicine Cardiovascular Disease
DX: R69 Illness, unspecified (principal)

== ENCOUNTER 2025-02-05 01:20 | Outpatient (RCR) | payer MEDICARE, OTHER, SELFPAY ==
[2025-01-08] VITALS (11 sets, daily range): BP systolic 120–151; BP diastolic 44–68; PULSE 44–50; RESP 18–20; TEMP 36–36.6; O2SAT 95–99
[2025-01-08 12:04] LABS: Abs Immature Grans 0.04 10^3/uL (0.0-0.06); Absolute Basophil Count 0.02 10^3/uL (0.0-0.2); Absolute Eosinophil Count 0.36 10^3/uL (0.0-0.7); Absolute Lymphocyte Count 0.96 10^3/uL (1.2-3.4); Absolute Monocyte Count 0.81 10^3/uL (0.1-0.8); Absolute Neutrophil Count 5.88 10^3/uL (1.2-6.7); Basophils % 0.2 %; Eosinophils % 4.5 %; Immature Grans % 0.5 %; Lymphocytes % 11.9 %; MCH 27.7 pg (27.0-33.0); MCV 90 fL (80-95); MPV 11.1 fL (8.0-11.0); Neutrophils % 72.9 %; Platelet Count 239 10^3/uL (130-400); RDW 16.1 % (11.7-14.6); RDW-SD 52.7 fL; WBC 8.07 10^3/uL (4.4-10.8)
[2025-01-08 12:16] LABS: HCT 19.7 % (36.0-46.0); HGB 6.1 g/dL (11.2-15.7)
[2025-01-08 12:30] LABS: Ferritin 26 ng/mL (8-252)
[2025-01-08] MEDS: Darbepoetin 200 MCG SYR SC (12:39)
[2025-01-08] MEDS: Normal Saline Flush 5 ML SYR IVP (14:00)
--- NOTE | 2025-01-09 08:11 | NUR.NOTE ---
Nursing Note:The vital sign documentation in the TAR completed after 1600 were imputed by this nurse for LB who only documented the pts vital signs in the patients chart, which is the incorrect format when transfusing blood. This staff writer imputed the information for LB on 01/09/25 in order to have record of appropriate vital sign documentation. LB again did not end the blood in the TAR but wrote the end time on the M/S Unit Charge sheet. This staff writer ended the blood in the TAR for LB on 01/09/25 for proper transfusion protocol. The M/S Unit charge sheet can be found in the patients records.
[2025-01-15 09:24] LABS: Abs Immature Grans 0.04 10^3/uL (0.0-0.06); Absolute Basophil Count 0.02 10^3/uL (0.0-0.2); Absolute Eosinophil Count 0.27 10^3/uL (0.0-0.7); Absolute Lymphocyte Count 0.61 10^3/uL (1.2-3.4); Absolute Neutrophil Count 5.69 10^3/uL (1.2-6.7); Basophils % 0.3 %; Eosinophils % 3.6 %; HCT 24.4 % (36.0-46.0); HGB 7.6 g/dL (11.2-15.7); Immature Grans % 0.5 %; Lymphocytes % 8.1 %; MCH 29.6 pg (27.0-33.0); MCHC 31.1 % (32.0-36.0); MCV 95 fL (80-95); MPV 11.1 fL (8.0-11.0); Neutrophils % 75.5 %; Nucleated RBC 0.4 % (0.0-0.3); Platelet Count 212 10^3/uL (130-400); RBC 2.57 10^6/uL (3.93-5.22); RDW 19.9 % (11.7-14.6); RDW-SD 56.2 fL; WBC 7.53 10^3/uL (4.4-10.8)
[2025-01-15] MEDS: Normal Saline Flush 5 ML SYR IVP (10:22)
[2025-01-15 10:50] VITALS: BP 154/56; PULSE 47; RESP 19; TEMP 36.6; O2SAT 97
[2025-01-15 11:05] VITALS: BP 161/64; PULSE 45; RESP 18; TEMP 36.6; O2SAT 95
[2025-01-15 11:28] VITALS: BP 156/54; PULSE 47; RESP 20; TEMP 36.4; O2SAT 99
[2025-01-15 11:35] VITALS: BP 155/65; PULSE 50; RESP 20; TEMP 36; O2SAT 98
[2025-01-15 12:38] VITALS: BP 116/52; PULSE 49; RESP 19; TEMP 36.4; O2SAT 99
[2025-01-22] MEDS: Normal Saline Flush 5 ML SYR IVP (08:03)
[2025-01-22 08:11] LABS: Abs Immature Grans 0.04 10^3/uL (0.0-0.06); Absolute Basophil Count 0.03 10^3/uL (0.0-0.2); Absolute Eosinophil Count 0.34 10^3/uL (0.0-0.7); Absolute Lymphocyte Count 0.81 10^3/uL (1.2-3.4); Absolute Monocyte Count 0.96 10^3/uL (0.1-0.8); Absolute Neutrophil Count 3.87 10^3/uL (1.2-6.7); Basophils % 0.5 %; Eosinophils % 5.6 %; HCT 25.9 % (36.0-46.0); Immature Grans % 0.7 %; Lymphocytes % 13.4 %; MCH 29.2 pg (27.0-33.0); MCHC 30.9 % (32.0-36.0); MCV 95 fL (80-95); Monocytes % 15.9 %; Neutrophils % 63.9 %; Platelet Count 210 10^3/uL (130-400); RBC 2.74 10^6/uL (3.93-5.22); RDW 18.1 % (11.7-14.6); RDW-SD 62.5 fL; WBC 6.05 10^3/uL (4.4-10.8)
[2025-01-22] MEDS: Darbepoetin 200 MCG SYR SC (08:25)
[2025-01-22 09:07] LABS: Ferritin 253 ng/mL (8-252)
[2025-01-29] VITALS (10 sets, daily range): BP systolic 102–167; BP diastolic 41–64; PULSE 45–51; RESP 18–19; TEMP 36.1–36.9; O2SAT 98–99
[2025-01-29 08:27] LABS: Abs Immature Grans 0.07 10^3/uL (0.0-0.06); Absolute Basophil Count 0.02 10^3/uL (0.0-0.2); Absolute Eosinophil Count 0.37 10^3/uL (0.0-0.7); Absolute Lymphocyte Count 0.98 10^3/uL (1.2-3.4); Absolute Monocyte Count 0.96 10^3/uL (0.1-0.8); Basophils % 0.2 %; Eosinophils % 4.4 %; HCT 21.2 % (36.0-46.0); Immature Grans % 0.8 %; Lymphocytes % 11.7 %; MCH 29.4 pg (27.0-33.0); MCHC 30.7 % (32.0-36.0); MCV 96 fL (80-95); MPV 10.9 fL (8.0-11.0); Monocytes % 11.4 %; Neutrophils % 71.5 %; Platelet Count 292 10^3/uL (130-400); RBC 2.21 10^6/uL (3.93-5.22); RDW 18.3 % (11.7-14.6); RDW-SD 64.4 fL
[2025-01-29 08:46] LABS: HGB 6.5 g/dL (11.2-15.7)
[2025-01-29 08:47] LABS: Diff Comment RBC Morph Reviewed; Hypochromasia 1+; Polychromasia Present
[2025-02-05] MEDS: Normal Saline Flush 10 ML SYR IVP (08:16)
[2025-02-05 08:31] LABS: Abs Immature Grans 0.03 10^3/uL (0.0-0.06); Absolute Basophil Count 0.03 10^3/uL (0.0-0.2); Absolute Eosinophil Count 0.31 10^3/uL (0.0-0.7); Absolute Lymphocyte Count 0.62 10^3/uL (1.2-3.4); Absolute Neutrophil Count 4.86 10^3/uL (1.2-6.7); Basophils % 0.5 %; Eosinophils % 4.7 %; HCT 26.5 % (36.0-46.0); HGB 8.3 g/dL (11.2-15.7); Immature Grans % 0.5 %; Lymphocytes % 9.3 %; MCH 28.7 pg (27.0-33.0); MCHC 31.3 % (32.0-36.0); MCV 92 fL (80-95); MPV 10.8 fL (8.0-11.0); Platelet Count 233 10^3/uL (130-400); RBC 2.89 10^6/uL (3.93-5.22); RDW 17.1 % (11.7-14.6); RDW-SD 57.8 fL; WBC 6.65 10^3/uL (4.4-10.8)
[2025-02-05] MEDS: Darbepoetin 200 MCG SYR SC (08:44)
== END 2025-02-05 23:59 | disposition home or self-care (01) ==
LOC: INF 01:20
PROVIDERS: Nurse Practitioner Family; PCP Student in an Organized Health Care Education/Training Program; Visit Provider Internal Medicine Hematology & Oncology
DX: N18.31 Chronic kidney disease, stage 3a (principal); D50.9 Iron deficiency anemia, unspecified
CPT/HCPCS: 36415; 36430; 86850; 86900; 86901; 86920; 96372; 82728; 85025; J0881; P9016

== ENCOUNTER 2025-03-04 11:42 | Outpatient (RCR) | payer SELFPAY ==
[2025-02-06 00:11] VITALS: BP 153/45; PULSE 51
[2025-02-06 11:40] VITALS: BP 137/44; PULSE 52
[2025-02-11 11:36] VITALS: BP 172/51; PULSE 51
[2025-02-13 13:14] VITALS: BP 139/40; PULSE 51
[2025-02-18 13:15] VITALS: BP 144/48; PULSE 54
[2025-02-20 13:29] VITALS: BP 142/41; PULSE 54
[2025-02-25 13:09] VITALS: BP 139/38; PULSE 51
[2025-02-27 11:21] VITALS: BP 137/39; PULSE 52
[2025-03-04 12:47] VITALS: BP 139/44; PULSE 51
== END 2025-03-08 23:59 | disposition home or self-care (01) ==
LOC: CR 11:42
PROVIDERS: PCP Student in an Organized Health Care Education/Training Program; Visit Provider Internal Medicine Cardiovascular Disease
DX: R69 Illness, unspecified (principal)

== ENCOUNTER 2025-03-06 02:53 | Outpatient (RCR) | payer MEDICARE, OTHER, SELFPAY ==
[2025-02-12] MEDS: Normal Saline Flush 10 ML SYR IVP (08:18)
[2025-02-12 08:19] LABS: Abs Immature Grans 0.02 10^3/uL (0.0-0.06); Absolute Basophil Count 0.03 10^3/uL (0.0-0.2); Absolute Eosinophil Count 0.39 10^3/uL (0.0-0.7); Absolute Lymphocyte Count 0.87 10^3/uL (1.2-3.4); Absolute Monocyte Count 0.98 10^3/uL (0.1-0.8); Absolute Neutrophil Count 3.23 10^3/uL (1.2-6.7); Basophils % 0.5 %; Eosinophils % 7.1 %; HCT 25.8 % (36.0-46.0); HGB 8.3 g/dL (11.2-15.7); Immature Grans % 0.4 %; Lymphocytes % 15.8 %; MCH 28.2 pg (27.0-33.0); MCHC 32.2 % (32.0-36.0); MCV 88 fL (80-95); MPV 10.7 fL (8.0-11.0); Monocytes % 17.8 %; Neutrophils % 58.4 %; Platelet Count 253 10^3/uL (130-400); RBC 2.94 10^6/uL (3.93-5.22); RDW 17.1 % (11.7-14.6); RDW-SD 54.9 fL; WBC 5.52 10^3/uL (4.4-10.8)
[2025-02-12 08:39] LABS: Hypochromasia 1+; Microcytosis 1+; Polychromasia Present
[2025-02-19] MEDS: Normal Saline Flush 10 ML SYR IVP (08:13)
[2025-02-19 08:30] LABS: Abs Immature Grans 0.04 10^3/uL (0.0-0.06); Absolute Basophil Count 0.03 10^3/uL (0.0-0.2); Absolute Eosinophil Count 0.46 10^3/uL (0.0-0.7); Absolute Lymphocyte Count 0.77 10^3/uL (1.2-3.4); Absolute Monocyte Count 0.86 10^3/uL (0.1-0.8); Absolute Neutrophil Count 4.45 10^3/uL (1.2-6.7); Basophils % 0.5 %; HCT 26.3 % (36.0-46.0); HGB 8.4 g/dL (11.2-15.7); Immature Grans % 0.6 %; Lymphocytes % 11.6 %; MCH 27.9 pg (27.0-33.0); MCHC 31.9 % (32.0-36.0); MCV 87 fL (80-95); MPV 11.1 fL (8.0-11.0); Neutrophils % 67.3 %; Platelet Count 282 10^3/uL (130-400); RBC 3.01 10^6/uL (3.93-5.22); RDW 16.6 % (11.7-14.6); RDW-SD 53.1 fL; WBC 6.61 10^3/uL (4.4-10.8)
[2025-02-19] MEDS: Darbepoetin 200 MCG SYR SC (09:14)
[2025-03-06] MEDS: Normal Saline Flush 5 ML SYR IVP (08:31)
[2025-03-06 08:45] LABS: Abs Immature Grans 0.02 10^3/uL (0.0-0.06); Absolute Basophil Count 0.01 10^3/uL (0.0-0.2); Absolute Eosinophil Count 0.55 10^3/uL (0.0-0.7); Absolute Lymphocyte Count 0.74 10^3/uL (1.2-3.4); Absolute Monocyte Count 0.87 10^3/uL (0.1-0.8); Absolute Neutrophil Count 4.91 10^3/uL (1.2-6.7); Basophils % 0.1 %; Eosinophils % 7.7 %; HCT 26.8 % (36.0-46.0); HGB 8.2 g/dL (11.2-15.7); Immature Grans % 0.3 %; Lymphocytes % 10.4 %; MCH 25.9 pg (27.0-33.0); MCHC 30.6 % (32.0-36.0); MCV 85 fL (80-95); MPV 11.1 fL (8.0-11.0); Monocytes % 12.3 %; Neutrophils % 69.2 %; Platelet Count 291 10^3/uL (130-400); RBC 3.16 10^6/uL (3.93-5.22); RDW 16.3 % (11.7-14.6); RDW-SD 50.9 fL
[2025-03-06] MEDS: Darbepoetin 200 MCG SYR SC (09:28)
== END 2025-03-08 23:59 | disposition home or self-care (01) ==
LOC: INF 02:53
PROVIDERS: Nurse Practitioner Family; PCP Student in an Organized Health Care Education/Training Program; Visit Provider Internal Medicine Hematology & Oncology
DX: N18.31 Chronic kidney disease, stage 3a (principal); K92.2 Gastrointestinal hemorrhage, unspecified
CPT/HCPCS: 36415; 86850; 86900; 86901; 96372; 85025; J0881

== ENCOUNTER 2025-03-17 01:54 | Outpatient (CLI) | payer MEDICARE, OTHER, SELFPAY ==
--- NOTE | 2025-03-17 07:45 | DI.US_ITS ---
Exam(s) US RENAL EXAM: US RENAL CLINICAL HISTORY: monitoring renal calculi and right hydronephrosis,n20.0,n13.30 TECHNIQUE: Ultrasound of both kidneys performed using standard protocol. COMPARISON: US US ECHOCARDIOGRAM from 01/09/2025 FINDINGS: RIGHT KIDNEY: Measures 11.4 cm in length. No cysts evident. Normal cortical thickness. No solid lesions. No calcu li but there appears to be mild right-sided hydronephrosis. LEFT KIDNEY: Measures 10.8 cm in length. There is a single small cyst at the mid cortex level measuring 1.5 by 1. 3 x 1.7 cm. Normal cortical thickness and corticomedullary differentiaion. No solids masses. No int rarenal calculi nor hydonephrosis. URINARY BLADDER: Prevoid volume is 41 cc Postvoid volume is 0 cc No obvious bladder mass realizing limitations of visualizing mass with only 41 cc in the urinary blad john Ureterovesical jets: Both not identified. IMPRESSION: 1. No evidence of nephrolithiasis. 2. Mild hydronephrosis of the right kidney. 3. Small benign cyst in the lateral cortex of the mid left kidney. DATA REPOSITORY:
== END 2025-03-17 02:14 ==
LOC: DI 01:54
PROVIDERS: PCP Student in an Organized Health Care Education/Training Program; Visit Provider Nurse Practitioner Gerontology
DX: N13.30 Unspecified hydronephrosis (principal); N20.0 Calculus of kidney
CPT/HCPCS: 76770

== ENCOUNTER → 2025-03-19 09:54 | Outpatient (BNVA) | payer MEDICARE, OTHER, SELFPAY | PROVIDERS: PCP Student in an Organized Health Care Education/Training Program; Referring Provider Student in an Organized Health Care Education/Training Program; Visit Provider Nurse Practitioner Gerontology | DX: N13.30 Unspecified hydronephrosis (principal); N20.0 Calculus of kidney | CPT/HCPCS: 99213 ==

== ENCOUNTER 2025-03-25 11:00 | Outpatient (RCR) | payer SELFPAY ==
[2025-03-09 00:20] VITALS: BP 153/45; PULSE 51
[2025-03-11 11:18] VITALS: BP 146/43; PULSE 55
[2025-03-25 11:29] VITALS: BP 189/55; PULSE 50
== END 2025-04-07 23:59 | disposition home or self-care (01) ==
LOC: CR 11:00
PROVIDERS: PCP Student in an Organized Health Care Education/Training Program; Visit Provider Internal Medicine Cardiovascular Disease
DX: R69 Illness, unspecified (principal)

== ENCOUNTER 2025-04-02 00:40 | Outpatient (RCR) | payer MEDICARE, OTHER, SELFPAY ==
[2025-03-20 08:47] LABS: Abs Immature Grans 0.02 10^3/uL (0.0-0.06); Absolute Basophil Count 0.03 10^3/uL (0.0-0.2); Absolute Lymphocyte Count 0.98 10^3/uL (1.2-3.4); Absolute Monocyte Count 0.98 10^3/uL (0.1-0.8); Absolute Neutrophil Count 3.48 10^3/uL (1.2-6.7); Basophils % 0.5 %; Eosinophils % 8.3 %; HCT 27.1 % (36.0-46.0); HGB 8.5 g/dL (11.2-15.7); Immature Grans % 0.3 %; Lymphocytes % 16.4 %; MCH 25.5 pg (27.0-33.0); MCHC 31.4 % (32.0-36.0); MCV 81 fL (80-95); MPV 11.6 fL (8.0-11.0); Monocytes % 16.4 %; Neutrophils % 58.1 %; Platelet Count 289 10^3/uL (130-400); RBC 3.33 10^6/uL (3.93-5.22); RDW 16.3 % (11.7-14.6); RDW-SD 48.5 fL; WBC 5.99 10^3/uL (4.4-10.8)
[2025-03-20] MEDS: Darbepoetin 200 MCG SYR SC (09:20)
[2025-03-20 09:43] LABS: Ferritin 26 ng/mL (8-252)
[2025-04-02 08:35] LABS: Abs Immature Grans 0.04 10^3/uL (0.0-0.06); Absolute Basophil Count 0.03 10^3/uL (0.0-0.2); Absolute Eosinophil Count 0.41 10^3/uL (0.0-0.7); Absolute Lymphocyte Count 1.15 10^3/uL (1.2-3.4); Absolute Monocyte Count 1.09 10^3/uL (0.1-0.8); Absolute Neutrophil Count 4.05 10^3/uL (1.2-6.7); Basophils % 0.4 %; Eosinophils % 6.1 %; HCT 29.5 % (36.0-46.0); HGB 9.1 g/dL (11.2-15.7); Immature Grans % 0.6 %; MCH 25.5 pg (27.0-33.0); MCHC 30.8 % (32.0-36.0); MCV 83 fL (80-95); MPV 10.6 fL (8.0-11.0); Monocytes % 16.1 %; Neutrophils % 59.8 %; Platelet Count 266 10^3/uL (130-400); RBC 3.57 10^6/uL (3.93-5.22); RDW 19.3 % (11.7-14.6); RDW-SD 54.2 fL; WBC 6.77 10^3/uL (4.4-10.8)
[2025-04-02] MEDS: Darbepoetin 200 MCG SYR SC (08:55)
[2025-04-02] MEDS: Normal Saline Flush 10 ML SYR IVP (08:57)
[2025-04-02 09:34] LABS: Hemoglobin A1C 5.9 % (<5.7)
[2025-04-02 10:13] LABS: Calculated LDL 78 mg/dL (<100); Cholesterol 143 mg/dL (<200); HDL Cholesterol 43 mg/dL (>or=50); TSH 0.33 uIU/mL (0.36-3.74); Triglyceride 110 mg/dL (<150)
[2025-04-02 11:06] LABS: FREE T4 1.24 ng/dL (0.76-1.46)
[2025-04-02 13:07] LABS: COMMENT (LAB VIEW ONLY) 52.17 mg/dL
[2025-04-02 13:12] LABS: Microalb ug/mg Crea 1247.3 ug/mg Cr
[2025-04-03 11:24] LABS: Lyme Ab w Rflx to Lyme Confirm Negative (Negative)
[2025-04-04 23:39] LABS: Anaplasma phagocytophilum Negative (Negative); B. miyamotoi PCR Negative (Negative); Babesia divergens/MO-1 Negative (Negative); Babesia duncani Negative (Negative); Babesia microti Negative (Negative); Ehrlichia chaffeensis Negative (Negative); Ehrlichia ewingii/canis Negative (Negative); Ehrlichia muris eauclairensis Negative (Negative)
== END 2025-04-07 23:59 | disposition home or self-care (01) ==
LOC: INF 00:40
PROVIDERS: Nurse Practitioner Family; PCP Student in an Organized Health Care Education/Training Program; Visit Provider Internal Medicine Hematology & Oncology
DX: N18.31 Chronic kidney disease, stage 3a (principal); D63.1 Anemia in chronic kidney disease; R68.89 Other general symptoms and signs; K92.2 Gastrointestinal hemorrhage, unspecified; D50.9 Iron deficiency anemia, unspecified; E11.9 Type 2 diabetes mellitus without complications; Z13.220 Encounter for screening for lipoid disorders; E03.9 Hypothyroidism, unspecified
CPT/HCPCS: 36415; 80061; 86850; 86900; 86901; 87798; 96372; 82043; 82570; 82728; 83036; 84439; 84443; 85025; 86618; J0881

== ENCOUNTER → 2025-04-17 09:49 | Outpatient (BNVA) | payer MEDICARE, OTHER, SELFPAY | PROVIDERS: PCP Student in an Organized Health Care Education/Training Program; Referring Provider Student in an Organized Health Care Education/Training Program; Visit Provider Internal Medicine Cardiovascular Disease | DX: I25.10 Atherosclerotic heart disease of native coronary artery without angina pectoris (principal) | CPT/HCPCS: 99213 ==

== ENCOUNTER 2025-04-23 02:48 | Outpatient (CLI) | payer MEDICARE, OTHER, SELFPAY ==
[2025-04-23 12:13] LABS: Abs Immature Grans 0.02 10^3/uL (0.0-0.06); HCT 37.1 % (36.0-46.0); HGB 11.9 g/dL (11.2-15.7); Immature Grans % 0.3 %; MCH 26.9 pg (27.0-33.0); MCHC 32.1 % (32.0-36.0); MCV 84 fL (80-95); MPV 10.2 fL (8.0-11.0); Platelet Count 232 10^3/uL (130-400); RBC 4.42 10^6/uL (3.93-5.22); RDW 20.8 % (11.7-14.6); RDW-SD 63.5 fL; WBC 6.51 10^3/uL (4.4-10.8)
[2025-04-23 12:37] LABS: Anisocytosis 2+; Microcytosis 1+; Ovalocytes 2+; Schistocytes 1+
[2025-04-23 13:35] LABS: Ferritin 227 ng/mL (8-252)
== END 2025-04-23 02:49 | disposition home or self-care (01) ==
LOC: LBO 02:48
PROVIDERS: PCP Student in an Organized Health Care Education/Training Program; Visit Provider Nurse Practitioner Family
DX: N18.31 Chronic kidney disease, stage 3a (principal)
CPT/HCPCS: 36415; 86850; 86900; 86901; 82728; 85025

== ENCOUNTER 2025-04-30 02:10 | Outpatient (RCR) | payer MEDICARE, OTHER, SELFPAY ==
[2025-04-16 08:38] LABS: Abs Immature Grans 0.02 10^3/uL (0.0-0.06); HCT 32.9 % (36.0-46.0); HGB 10.4 g/dL (11.2-15.7); Immature Grans % 0.3 %; MCH 26.5 pg (27.0-33.0); MCHC 31.6 % (32.0-36.0); MCV 84 fL (80-95); MPV 10.6 fL (8.0-11.0); Platelet Count 231 10^3/uL (130-400); RBC 3.93 10^6/uL (3.93-5.22); RDW 20.3 % (11.7-14.6); RDW-SD 61.6 fL; WBC 6.53 10^3/uL (4.4-10.8)
[2025-04-16 08:54] LABS: Anisocytosis 2+; Microcytosis 1+; Ovalocytes 2+
[2025-04-16] MEDS: Darbepoetin 200 MCG SYR SC (09:08)
[2025-04-16 09:14] LABS: Ferritin 360 ng/mL (8-252)
[2025-04-16] MEDS: Normal Saline Flush 10 ML SYR IVP (11:30)
[2025-04-30 08:11] LABS: Abs Immature Grans 0.03 10^3/uL (0.0-0.06); HCT 40.1 % (36.0-46.0); HGB 12.7 g/dL (11.2-15.7); Immature Grans % 0.4 %; MCH 26.6 pg (27.0-33.0); MCHC 31.7 % (32.0-36.0); MCV 84 fL (80-95); MPV 10.6 fL (8.0-11.0); Platelet Count 247 10^3/uL (130-400); RBC 4.78 10^6/uL (3.93-5.22); RDW 20.3 % (11.7-14.6); RDW-SD 62.0 fL; WBC 6.79 10^3/uL (4.4-10.8)
== END 2025-05-08 23:59 | disposition home or self-care (01) ==
LOC: INF 02:10
PROVIDERS: Nurse Practitioner Family; PCP Student in an Organized Health Care Education/Training Program; Visit Provider Internal Medicine Hematology & Oncology
DX: N18.30 Chronic kidney disease, stage 3 unspecified (principal); D63.1 Anemia in chronic kidney disease
CPT/HCPCS: 36415; 86850; 86900; 86901; 96372; 82728; 85025; J0881

== ENCOUNTER 2025-05-08 11:00 | Outpatient (RCR) | payer SELFPAY ==
[2025-04-08 11:36] VITALS: BP 174/55; PULSE 78
[2025-04-10 11:28] VITALS: BP 170/60; PULSE 48; O2SAT 97
[2025-04-15 13:40] VITALS: BP 156/51; PULSE 84
[2025-04-17 13:09] VITALS: BP 151/51; PULSE 45
[2025-04-29 12:56] VITALS: BP 125/49; PULSE 49
[2025-05-01 11:07] VITALS: BP 176/55; PULSE 49
[2025-05-08 11:19] VITALS: BP 174/56; PULSE 49; O2SAT 98
== END 2025-05-08 23:59 | disposition home or self-care (01) ==
LOC: CR 11:00
PROVIDERS: PCP Student in an Organized Health Care Education/Training Program; Visit Provider Internal Medicine Cardiovascular Disease
DX: R69 Illness, unspecified (principal)

== ENCOUNTER 2025-05-14 01:56 | Outpatient (RCR) | payer MEDICARE, OTHER, SELFPAY ==
[2025-05-14 08:41] LABS: Abs Immature Grans 0.03 10^3/uL (0.0-0.06); HCT 36.5 % (36.0-46.0); HGB 11.8 g/dL (11.2-15.7); Immature Grans % 0.4 %; MCH 26.8 pg (27.0-33.0); MCHC 32.3 % (32.0-36.0); MCV 83 fL (80-95); MPV 11.3 fL (8.0-11.0); Platelet Count 256 10^3/uL (130-400); RBC 4.41 10^6/uL (3.93-5.22); RDW 19.8 % (11.7-14.6); RDW-SD 60.1 fL; WBC 7.74 10^3/uL (4.4-10.8)
== END 2025-06-08 23:59 | disposition home or self-care (01) ==
LOC: INF 01:56
PROVIDERS: Nurse Practitioner Family; PCP Student in an Organized Health Care Education/Training Program; Visit Provider Internal Medicine Hematology & Oncology
DX: N18.31 Chronic kidney disease, stage 3a (principal); D63.1 Anemia in chronic kidney disease; K92.2 Gastrointestinal hemorrhage, unspecified
CPT/HCPCS: 36415; 86850; 86900; 86901; 85025

== ENCOUNTER 2025-05-15 11:00 | Outpatient (RCR) | payer SELFPAY ==
[2025-05-09 00:23] VITALS: BP 174/56; PULSE 49
[2025-05-13 13:53] VITALS: BP 144/84; PULSE 47
[2025-05-15 11:27] VITALS: BP 152/57; PULSE 52; O2SAT 97
== END 2025-06-08 23:59 | disposition home or self-care (01) ==
LOC: CR 11:00
PROVIDERS: PCP Student in an Organized Health Care Education/Training Program; Visit Provider Internal Medicine Cardiovascular Disease
DX: R69 Illness, unspecified (principal)

== ENCOUNTER 2025-06-24 04:01 | Outpatient (RCR) | payer MEDICARE, OTHER, SELFPAY ==
[2025-06-10 08:51] LABS: Abs Immature Grans 0.04 10^3/uL (0.0-0.06); HCT 32.7 % (36.0-46.0); HGB 10.8 g/dL (11.2-15.7); Immature Grans % 0.5 %; MCH 27.6 pg (27.0-33.0); MCHC 33.0 % (32.0-36.0); MCV 84 fL (80-95); MPV 11.2 fL (8.0-11.0); Platelet Count 250 10^3/uL (130-400); RBC 3.91 10^6/uL (3.93-5.22); RDW 18.6 % (11.7-14.6); RDW-SD 56.5 fL; WBC 7.44 10^3/uL (4.4-10.8)
[2025-06-10] MEDS: Darbepoetin 200 MCG SYR SC (09:24)
[2025-06-24 08:28] LABS: Abs Immature Grans 0.03 10^3/uL (0.0-0.06); HCT 32.9 % (36.0-46.0); HGB 10.7 g/dL (11.2-15.7); Immature Grans % 0.5 %; MCH 27.2 pg (27.0-33.0); MCHC 32.5 % (32.0-36.0); MCV 84 fL (80-95); MPV 10.7 fL (8.0-11.0); Platelet Count 277 10^3/uL (130-400); RBC 3.93 10^6/uL (3.93-5.22); RDW 17.7 % (11.7-14.6); RDW-SD 54.8 fL; WBC 6.00 10^3/uL (4.4-10.8)
[2025-06-24] MEDS: Darbepoetin 200 MCG SYR SC (09:12)
== END 2025-07-08 23:59 | disposition home or self-care (01) ==
LOC: INF 04:01
PROVIDERS: Nurse Practitioner Family; PCP Student in an Organized Health Care Education/Training Program; Visit Provider Internal Medicine Hematology & Oncology
DX: N18.31 Chronic kidney disease, stage 3a (principal); D63.1 Anemia in chronic kidney disease
CPT/HCPCS: 36415; 86850; 86900; 86901; 96372; 85025; J0881

== ENCOUNTER → 2025-06-30 10:43 | Outpatient (BNVA) | payer MEDICARE, OTHER, SELFPAY | PROVIDERS: PCP Student in an Organized Health Care Education/Training Program; Referring Provider Student in an Organized Health Care Education/Training Program; Visit Provider Physician Assistant Surgical | DX: R91.1 Solitary pulmonary nodule (principal); Z23 Encounter for immunization; F17.210 Nicotine dependence, cigarettes, uncomplicated | CPT/HCPCS: 90471; 90653; 99214 ==

== ENCOUNTER 2025-07-30 01:51 | Outpatient (RCR) | payer MEDICARE, OTHER, SELFPAY ==
[2025-07-09 10:07] LABS: Abs Immature Grans 0.03 10^3/uL (0.0-0.06); HCT 36.1 % (36.0-46.0); HGB 11.7 g/dL (11.2-15.7); Immature Grans % 0.4 %; MCH 27.1 pg (27.0-33.0); MCHC 32.4 % (32.0-36.0); MCV 84 fL (80-95); MPV 10.6 fL (8.0-11.0); Platelet Count 263 10^3/uL (130-400); RBC 4.32 10^6/uL (3.93-5.22); RDW 16.1 % (11.7-14.6); RDW-SD 48.3 fL; WBC 6.83 10^3/uL (4.4-10.8)
[2025-07-09 10:37] LABS: Ferritin 41 ng/mL (8-252)
[2025-07-30 09:26] LABS: Abs Immature Grans 0.08 10^3/uL (0.0-0.06); HCT 32.1 % (36.0-46.0); HGB 10.5 g/dL (11.2-15.7); Immature Grans % 1.2 %; MCH 27.8 pg (27.0-33.0); MCHC 32.7 % (32.0-36.0); MCV 85 fL (80-95); MPV 11.5 fL (8.0-11.0); Platelet Count 229 10^3/uL (130-400); RBC 3.78 10^6/uL (3.93-5.22); RDW 15.9 % (11.7-14.6); RDW-SD 49.1 fL; WBC 6.42 10^3/uL (4.4-10.8)
[2025-07-30] MEDS: Darbepoetin 200 MCG SYR SC (09:54)
== END 2025-08-08 23:59 | disposition home or self-care (01) ==
LOC: INF 01:51
PROVIDERS: Nurse Practitioner Family; PCP Student in an Organized Health Care Education/Training Program; Visit Provider Internal Medicine Hematology & Oncology
DX: D50.9 Iron deficiency anemia, unspecified (principal); K92.2 Gastrointestinal hemorrhage, unspecified
CPT/HCPCS: 36415; 86850; 86900; 86901; 96372; 82728; 85025; J0881

== ENCOUNTER 2025-08-06 11:16 | Emergency (ER) | payer MEDICARE, OTHER, SELFPAY ==
[2025-08-06 11:24] VITALS: BP 208/58; PULSE 54; RESP 16; TEMP 36.8; O2SAT 95
--- NOTE | 2025-08-06 11:45 | DI.RAD_ITS ---
Exam(s) XR WRIST RT COMPLETE EXAM: XR WRIST RT COMPLETE CLINICAL HISTORY: Right hand wrist pain no trauma. TECHNIQUE: 2D digital imaging was performed. COMPARISON: No exams were available for comparison FINDINGS: 3 views There are few radiopaque foreign bodies evident in the volar soft tissues of the wrist. There is no gas in the soft tissues. There is also a 7 x 4 mm soft tissue calcification on the lateral aspect of the wrist adjacent to the lateral aspect of the 1st carpometacarpal joint. There does not appear to be an acute fracture of the distal radius and ulna and there is no significant ulnar variance. Scaphoid and scapholunate distance are normal. IMPRESSION: No obvious acute fractures but there are radiopaque foreign bodies in the soft tissues on the volar aspect of the wrist and there is also dystrophic soft tissue calcification on the lateral aspect of the wrist adjacent to the lateral aspect of the 1st carpometacarpal joint as described above. DATA REPOSITORY: RADIATION DOSE DELIVERED:
--- NOTE | 2025-08-06 11:45 | DI.RAD_ITS ---
Exam(s) XR HAND RT COMPLETE EXAM: XR HAND RT COMPLETE CLINICAL HISTORY: Right hand wrist pain no trauma. TECHNIQUE: 2D digital imaging was performed. COMPARISON: No exams were available for comparison FINDINGS: 3 views There are no acute fractures evident in the right hand. There is a bipartite soft tissue calcification measuring 6 by 4 mm adjacent to the lateral aspect of the 1st carpometacarpal ticket lesion. There are mild degenerative changes in the interphalangeal joints. There are no erosions. There are soft tissue densities on the volar aspect of the wrist, volar to the distal radius and ulna. These are probably foreign bodies. IMPRESSION: No acute fractures in the hand. Wrist level foreign bodies in the volar tissues of the wrist. DATA REPOSITORY: RADIATION DOSE DELIVERED:
--- NOTE | 2025-08-06 12:57 | W.ED.GENAD ---
Discharge Plan Disposition Patient Disposition: Home Condition: Good Discharge Details Clinical Impression: Acute wrist pain, Cellulitis Primary Care Provider: Zafar Botello ED Provider: Nanda Davies Home Meds and New Rx's Prescriptions: New cephalexin 500 mg capsule 500 mg PO QID 7 Days Qty: 28 0RF Continued multivitamin tablet 1 tab PO DAILY Patient Comments: TAKES @ 5PM DAILY rosuvastatin 10 mg tablet 10 mg PO DAILY Patient Comments: TAKES IN THE EVENING ascorbate calcium (vitamin C) 500 mg tablet 500 mg PO .COMPLEX Rx Instructions: 500 mg orally Mon, Wed, Fri; furosemide 20 mg tablet 20 mg PO DAILY PRN (Reason: edema) Qty: 60 3RF aspirin 81 mg tablet,delayed release (DR/EC) 81 mg PO DAILY Aranesp (in polysorbate) 200 mcg/0.4 mL syringe 200 mcg subcut Q2W Patient Comments: 03/13/24 per pt she gets an injection Q2w at [facility] due to anemia. this may change. RH lisinopril 10 mg tablet 10 mg PO DAILY amlodipine 10 mg tablet 10 mg PO DAILY Patient Comments: TAKE ONE TABLET BY MOUTH EVERY DAY carvedilol 3.125 mg tablet 3.125 mg PO BID Qty: 14 0RF Rx Instructions: must administer with a meal/food levothyroxine [Synthroid] 150 mcg tablet 150 mcg PO DAILY Qty: 14 0RF famotidine [Acid-Pep] 20 mg tablet 20 mg PO BID Qty: 60 0RF cholecalciferol (vitamin D3) [Vitamin D3] 2,000 UNIT capsule 2,000 unit PO DAILY pantoprazole 40 mg tablet,delayed release (DR/EC) 40 mg PO DAILY Qty: 90 0RF Rx Instructions: Take 1 pill by mouth in the morning, 1 pill by mouth in the evening. Repeat this every day for 4 weeks. Then switch to 1 pill daily. Discharge Instructions Additional Instructions: As we discussed, your labs are very reassuring here today. This makes it less likely that you have an infection in the joint itself. However, the right strength and emptying going up your arm does not raise my concern for skin infection. Will be treating this with Keflex which has been sent to your local pharmacy. Please continue to monitor the area and watch for spreading. This may spread slightly over the next 24 to 48 hours but should not go more than an inch above where it currently is. I would like for you to follow-up with your primary care at the end of the week for reevaluation. Please call later today to schedule follow-up appointment for Monday. If you develop any fever/chills, increased pain or other new/worsening symptom please seek care urgently once again. Referrals: Zafar Botello [Primary Care Provider, Medicine] [facility] Date/Time Provider Initiated Documentation: 08/06/25 11:51. Limitations to Documentation: no limitations. Information obtained by: patient and RN notes reviewed. History of Present Illness 80 year old F presents to the emergency department with the chief complaint of Right wrist pain, described as severe, and is localized to the right and upper extremity. Patient reports no radiation. Patient started experiencing this day(s) (1) and it has been constant. Immobilization improves symptom(s), Movement worsens symptoms . Patient notes no other symptoms.. Patient did receive the following treatments prior to arrival, none Related Data Home Medications Medication Instructions Recorded Confirmed cholecalciferol (vitamin D3) 50 2,000 unit PO DAILY 06/06/17 08/06/25 mcg (2,000 unit) capsule (Vitamin D3) multivitamin 1 tab PO DAILY 03/15/19 08/06/25 rosuvastatin 10 mg tablet 10 mg PO DAILY 12/16/20 08/06/25 ascorbate calcium (vitamin C) 500 500 mg PO .COMPLEX 07/29/22 08/06/25 mg tablet aspirin 81 mg tablet,delayed 81 mg PO DAILY 12/20/23 08/06/25 release pantoprazole 40 mg tablet,delayed 40 mg PO DAILY #90 tabs 12/29/23 08/06/25 release furosemide 20 mg tablet 20 mg PO DAILY PRN edema #60 tabs 02/16/24 08/06/25 darbepoetin amber in polysorbat 200 200 mcg subcut Q2W 03/13/24 08/06/25 mcg/0.4 mL in polysorbate injection syringe (Aranesp) amlodipine 10 mg tablet 10 mg PO DAILY 05/09/24 08/06/25 carvedilol 3.125 mg tablet 3.125 mg PO BID #14 tabs 12/01/24 08/06/25 famotidine 20 mg tablet (Acid-Pep) 20 mg PO BID #60 tabs 12/01/24 08/06/25 levothyroxine 150 mcg tablet 150 mcg PO DAILY #14 tabs 12/01/24 08/06/25 (Synthroid) lisinopril 10 mg tablet 10 mg PO DAILY 04/10/25 08/06/25 cephalexin 500 mg capsule 500 mg PO QID 7 days #28 caps 08/06/25 Previous Rx's Medication Instructions Recorded pantoprazole 40 mg tablet,delayed 40 mg PO DAILY #90 tabs 12/29/23 release furosemide 20 mg tablet 20 mg PO DAILY PRN edema #60 tabs 02/16/24 carvedilol 3.125 mg tablet 3.125 mg PO BID #14 tabs 12/01/24 famotidine 20 mg tablet (Acid-Pep) 20 mg PO BID #60 tabs 12/01/24 levothyroxine 150 mcg tablet 150 mcg PO DAILY #14 tabs 12/01/24 (Synthroid) cephalexin 500 mg capsule 500 mg PO QID 7 days #28 caps 08/06/25 Allergies Allergy/AdvReac Type Severity Reaction Status Date / Time cilostazol AdvReac Severe Headache Verified 08/06/25 11:23 [id number]-TuK Reductase AdvReac Intermediate Headache Verified 08/06/25 11:23 Inhibitor (Kfyfygm-Zlp-Eae Reductase Inhibitor) atenolol AdvReac Mild palpitation Verified 08/06/25 11:23 s losartan potassium (From AdvReac Mild palpitation Verified 08/06/25 11:23 Cozaar) s levothyroxine sodium AdvReac pt unsure Verified 08/06/25 11:23 General Stated Complaint: Orthopedic KEVIN: 4 Review of Systems Constitutional Constitutional: Reports as per HPI, Denies chills, Denies fever(s) and Denies headache(s) ENT Ears, Nose, Mouth, and Throat: Denies headache(s) Cardiovascular Cardiovascular: Reports as per HPI Musculoskeletal Musculoskeletal: Reports as per HPI and Denies tingling Integumentary/Breasts Skin/Breast: Reports as per HPI, Denies rash and Denies wounds Neurologic Neurologic: Reports as per HPI, Denies headache(s), Denies tingling and Denies paresthesias Exam Const General: cooperative, healthy appearing, comfortable, no acute distress, well developed and well groomed Nutritional Appearance: average body habitus and well nourished Orientation: alert and awake Resp Effort & Inspection: normal respiratory effort, able to speak in complete sentences and no respiratory distress Cardio Rate: regular rate Rhythm: regular rhythm Skin General skin exam: erythema (Streaking from the ulnar side of the right wrist to mid forearm) Neuro General: patient alert and patient awake Cognition: normal cognition Speech: speech normal Gait: normal gait Motor: muscle tone normal throughout Sensory Exam: no sensory deficits noted Extrem Elbow/forearm/wrist images:  1. Area of streaking. Patient has 2+ distal pulses. Sensation is intact. Pain is primarily in the wrist itself and she also has some swelling over the anterior aspect primarily on the radial side. She has no erythema at the wrist joint but she does have a localized streak along the ulnar side of the forearm. This does not appear to be associated with any break in the skin. She does not have any deformity of the wrist itself. No pain to palpation in the hand or fingers. She does have limited range of motion of the fingers reported that does cause increased pain in the forearm and wrist. Sensation is intact. No pain over the anatomical snuffbox no pain with axial thumb loading. Course Vital Signs Vital signs: Vital Signs Temperature 36.8 C 08/06/25 11:24 Pulse 54 L 08/06/25 11:24 Respiratory Rate 16 08/06/25 11:24 Blood Pressure 208/58 H 08/06/25 11:24 Pulse Oximetry 95 08/06/25 11:24 Temperature 36.8 C 08/06/25 11:24 Temperature Source Tympanic 08/06/25 11:24 Pulse 54 L 08/06/25 11:24 Respiratory Rate 16 08/06/25 11:24 Blood Pressure 208/58 H 08/06/25 11:24 Blood Pressure Position Sitting 08/06/25 11:24 Pulse Oximetry 95 08/06/25 11:24 Oxygen Delivery Method Room Air 08/06/25 11:24 Oxygen Flow Rate 0 08/06/25 11:24 Pain Level 8 08/06/25 11:24 Medical Decision Making Patient is a pleasant 80-year-old [id number] female presented with chief complaint of right wrist pain that began insidiously yesterday. She reports that the pain has been quite severe. She denies any known injury but does state that she may have hit it when sleeping or had been sleeping funny. She denies any fevers or chills. Denies any trauma. Has not had pain like this historically. No previous surgeries. On exam, patient appears nontoxic. She is hypertensive at 208/58. Otherwise normal vital signs. Will give Tylenol and ibuprofen to help with discomfort, she has not taken anything yet. She has 2+ distal pulses on the right upper extremity. Normal capillary refill. Limited range of motion of the digits secondary to discomfort in the wrist. However, she has no pain with palpation in the fingers and no swelling there. She does have some swelling on the anterior surface of the right wrist, primarily over the distal radius. No erythema but oddly patient does have a red line streaking up from the ulnar side of the wrist. However, this does not seem to have a base like he typically would expect to see a streak associated with cellulitis. Patient had not noticed this and I cannot find a reason for her to have this line such as an external factor like clothing or pressure-point. I am concerned therefore for potential infection and will obtain baseline labs including a CBC, ESR and CRP. Patient otherwise does not have significant risk factors for a joint infection. She is not having any skin tenderness or erythema over the joint to suggest something like gout. X-rays were reviewed by radiologist and there is no evidence to suggest an acute injury but she does have a degenerative changes and foreign body. Foreign body was discussed with the patient this may be old, no acute source was identified by the patient. WBC WNL, normal ESR and CRP. X-rays with orthopedics regarding the patient's wrist discomfort, particularly given the foreign body seen on the x-ray and the streak that was noted. They advised that given the location of history, reassuring labs, unlikely to be in the joint did not feel that foreign body needs to be removed immediately. They agreed to plan for follow-up and advised that Keflex, wrist brace to help with discomfort. Open management with primary care is appropriate. Should primary care be concerned that this does involve more of the joint space, the patient was referred to orthopedics in the future. Strict return precautions were discussed with the patient. All of her questions and concerns were addressed and she is in agreement this plan. Dictation completed using [employer] dictation software. Please excuse any errors or acidizer water well anomalies that may remain. PFSH All Active Problems (Updated 08/06/25 @ 14:46 by CECY Wilson) Cellulitis (Acute) Acute wrist pain (Acute) Mass in neck (Acute) Cerebral infarction (Acute) Irregular heart beat (Acute) Bradycardia (Acute) Sensorineural hearing loss (Acute) Visual field defect (Acute) Cauda equina syndrome (Acute) Nicotine dependence (Acute) Panic attacks (Acute) Anxiety (Chronic) Current smoker (Acute) Nicotine dependence, cigarettes, uncomplicated (Acute) Anemia due to blood loss, acute (Acute) Anemia due to GI blood loss (Acute) Incidental lung nodule, greater than or equal to 8mm (Acute) Anemia (Chronic) Renal calculi (Chronic) Sinus bradycardia (Acute) Episode of syncope (Chronic) CKD (chronic kidney disease) stage 3, GFR 30-59 ml/min (Chronic) Lumbosacral spondylosis without myelopathy (Acute) COPD (chronic obstructive pulmonary disease) (Chronic) Solitary lung nodule (Acute) Hydronephrosis (Acute) Hx of CABG (Chronic) Chest pain, rule out acute myocardial infarction (Acute) Mild chronic gastritis (Acute) Peripheral vascular disease (Chronic) CAD (coronary artery disease) (Chronic) GERD (gastroesophageal reflux disease) (Acute 09/05/16) Cerebrovascular accident (CVA) (Acute) Chronic anxiety (Acute) Hypothyroid (Chronic) Hyperlipidemia (Chronic) Carotid stenosis (Chronic) Tobacco dependence (Acute) Hx of Helicobacter infection (Acute) 2013 Medical History (Updated 08/06/25 @ 14:46 by CECY Wilson) Constipation Arteriosclerosis of coronary artery bypass graft Type 2 diabetes mellitus Iron deficiency anemia Anemia Diabetes mellitus Pt denies Chronic kidney disease, stage 3b Lung nodule 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 Prediabetes Asthma Pt denies Asthma Obesity Vitamin D deficiency Hypertension Brittle nails Peripheral vascular disease Depression Intermittent claudication Degenerative disc disease, lumbar Diverticulosis large intestine w/o perforation or abscess w/o bleeding Optic neuritis Impaired glucose regulation Elevated troponin Abnormal EKG Surgical History S/P CABG x 2 right carotid endarterectomy x2 Ligation of fallopian tube EGD - MAC (05/2024) path sent EGD - IV Sedation 2013 Colonoscopy - MAC 2015 Biopsy, Temporal Artery (09/15/17) right Family History Mother Hypocholesteremia Hypertension Hypothyroid Diabetes Father Stroke Other Heart disease Social History Smoking/Tobacco Use Status: Current every day Tobacco Type: cigarettes Tobacco: How many years used: 46 Counseling given: patient declined Smoking risk assessment performed?: Yes Alcohol Intake: never Drug use: Never Substance use type: does not use Housing: house Do you feel safe at home: Yes Do you feel safe in your relationship?: Yes
[2025-08-06 13:38] VITALS: BP 195/60; PULSE 55; RESP 19; O2SAT 95
[2025-08-06 13:45] LABS: Abs Immature Grans 0.05 10^3/uL (0.0-0.06); HCT 36.6 % (36.0-46.0); HGB 12.0 g/dL (11.2-15.7); Immature Grans % 0.5 %; MCH 28.2 pg (27.0-33.0); MCHC 32.8 % (32.0-36.0); MCV 86 fL (80-95); MPV 10.4 fL (8.0-11.0); Platelet Count 264 10^3/uL (130-400); RBC 4.26 10^6/uL (3.93-5.22); RDW 17.7 % (11.7-14.6); RDW-SD 51.6 fL; WBC 10.23 10^3/uL (4.4-10.8)
[2025-08-06 13:56] LABS: ESR 25 mm/hr (0-30)
[2025-08-06 14:18] LABS: ALT 20 U/L (14-59); AST 17 U/L (15-37); Albumin 4.0 g/dL (3.4-5.0); Alkaline Phosphatase 110 U/L (46-116); Anion Gap 8.8 mmol/L (3-11); BUN 18 mg/dL (7-18); Bilirubin, Total 0.4 mg/dL (0.2-1.0); CO2 28.2 mmol/L (21.0-32.0); Calcium 9.9 mg/dL (8.5-10.1); Chloride 101 mmol/L (98-107); Glucose 123 mg/dL (74-106); Potassium 4.4 mmol/L (3.5-5.1); Sodium 138 mmol/L (136-145); Total Protein 8.1 g/dL (6.4-8.2)
[2025-08-06 14:19] LABS: C-Reactive Protein < 0.50 mg/dL (<or=0.5)
== END 2025-08-06 15:16 | disposition home or self-care (01) ==
PROVIDERS: Emergency Provider Physician Assistant; PCP Student in an Organized Health Care Education/Training Program
DX: L03.113 Cellulitis of right upper limb (principal); M25.531 Pain in right wrist
CPT/HCPCS: 99284 ×2; 80053; 85652; 73110; 73130; 85025; 86140

== ENCOUNTER 2025-08-20 01:39 | Outpatient (RCR) | payer MEDICARE, OTHER, SELFPAY ==
[2025-08-20 09:26] LABS: Abs Immature Grans 0.03 10^3/uL (0.0-0.06); HCT 31.3 % (36.0-46.0); HGB 10.3 g/dL (11.2-15.7); Immature Grans % 0.4 %; MCH 28.5 pg (27.0-33.0); MCHC 32.9 % (32.0-36.0); MCV 87 fL (80-95); MPV 10.3 fL (8.0-11.0); Platelet Count 243 10^3/uL (130-400); RBC 3.62 10^6/uL (3.93-5.22); RDW 16.7 % (11.7-14.6); RDW-SD 52.4 fL; WBC 6.74 10^3/uL (4.4-10.8)
[2025-08-20 09:44] LABS: Ferritin 268 ng/mL (7-271)
[2025-08-20] MEDS: Darbepoetin 200 MCG SYR SC (10:00)
== END 2025-09-07 23:59 | disposition home or self-care (01) ==
LOC: INF 01:39
PROVIDERS: Nurse Practitioner Family; PCP Student in an Organized Health Care Education/Training Program; Visit Provider Family Medicine
DX: D63.1 Anemia in chronic kidney disease (principal); N18.31 Chronic kidney disease, stage 3a
CPT/HCPCS: 36415; 96372; 82728; 85025; J0881

== ENCOUNTER 2025-09-17 13:53 | Outpatient (REF) | payer MEDICARE, OTHER, SELFPAY ==
[2025-09-17 21:06] LABS: ESR 17 mm/hr (0-30)
[2025-09-17 21:07] LABS: Abs Immature Grans 0.02 10^3/uL (0.0-0.06); HCT 36.9 % (36.0-46.0); HGB 12.0 g/dL (11.2-15.7); Immature Grans % 0.3 %; MCH 28.6 pg (27.0-33.0); MCHC 32.5 % (32.0-36.0); MCV 88 fL (80-95); MPV 11.6 fL (8.0-11.0); Platelet Count 241 10^3/uL (130-400); RBC 4.19 10^6/uL (3.93-5.22); RDW 16.1 % (11.7-14.6); RDW-SD 52.5 fL; WBC 7.95 10^3/uL (4.4-10.8)
[2025-09-17 21:21] LABS: C-Reactive Protein < 0.50 mg/dL (<=0.50)
[2025-09-17 21:23] LABS: ALT 13 U/L (10-49); AST 20 U/L (<34); Albumin 4.5 g/dL (3.2-5.0); Alkaline Phosphatase 91 U/L (46-116); Anion Gap 5.1 mmol/L (3-11); BUN 25 mg/dL (9-23); Bilirubin, Total 0.2 mg/dL (0.2-1.2); CO2 28.9 mmol/L (20.0-31.0); Calcium 9.7 mg/dL (8.3-10.6); Chloride 107 mmol/L (98-107); Glucose 124 mg/dL (74-106); Potassium 4.4 mmol/L (3.5-5.1); Sodium 141 mmol/L (136-145); Total Protein 7.5 g/dL (5.7-8.2)
[2025-09-17 21:31] LABS: C & S Indicated? No; WBC 0-2 HPF (0-5)
== END 2025-09-17 13:54 | disposition home or self-care (01) ==
LOC: NCHCN 13:53
PROVIDERS: PCP Student in an Organized Health Care Education/Training Program; Visit Provider Student in an Organized Health Care Education/Training Program
DX: R47.02 Dysphasia (principal)
CPT/HCPCS: 80053; 85652; 81015; 85025; 86140

== ENCOUNTER 2025-09-23 10:03 | Emergency (ER) | payer MEDICARE, OTHER, SELFPAY ==
[2025-09-23] VITALS (20 sets, daily range): BP systolic 162–200; BP diastolic 21–68; PULSE 46–57; RESP 12–20; TEMP 36.8; O2SAT 96–100
--- NOTE | 2025-09-23 10:00 | RT.EKG_ITS ---
APPROVED REPORT Exam: Resting ECG Reason for Exam: Dizziness Patient Location: E HR:53 bpm ECG Measurements Heart Rate 53 AXIS NM 229 P -52 QRSd 95 QRS 93 QT 446 T 83 QTc 418 Conclusion Sinus or ectopic atrial bradycardia...P axis (-45,135), rate< 60 Prolonged NM interval...NM >220, V-rate 50- 90 Right axis deviation...QRS axis ( 91,269) No Occlusion [facility]
[2025-09-23 10:51] LABS: Abs Immature Grans 0.03 10^3/uL (0.0-0.06); HCT 35.1 % (36.0-46.0); HGB 11.6 g/dL (11.2-15.7); Immature Grans % 0.4 %; MCH 28.6 pg (27.0-33.0); MCHC 33.0 % (32.0-36.0); MCV 87 fL (80-95); MPV 11.0 fL (8.0-11.0); Platelet Count 253 10^3/uL (130-400); RBC 4.05 10^6/uL (3.93-5.22); RDW 15.9 % (11.7-14.6); RDW-SD 50.8 fL; WBC 7.03 10^3/uL (4.4-10.8)
[2025-09-23 11:11] LABS: Anion Gap 3.6 mmol/L (3-11); BUN 26 mg/dL (9-23); CO2 27.4 mmol/L (20.0-31.0); Calcium 9.4 mg/dL (8.3-10.6); Chloride 108 mmol/L (98-107); Glucose 104 mg/dL (74-106); Potassium 4.7 mmol/L (3.5-5.1); Sodium 139 mmol/L (136-145)
[2025-09-23 11:12] LABS: Troponin I 5 ng/L (<35)
--- NOTE | 2025-09-23 11:55 | W.ED.GENAD ---
Discharge Plan Disposition Patient Disposition: Home Discharge Details Clinical Impression: Dizziness Primary Care Provider: Zafar Botello ED Provider: Rafa Salinas Home Meds and New Rx's Prescriptions: Continued multivitamin tablet 1 tab PO DAILY Patient Comments: TAKES @ 5PM DAILY rosuvastatin 10 mg tablet 10 mg PO DAILY Patient Comments: TAKES IN THE EVENING ascorbate calcium (vitamin C) 500 mg tablet 500 mg PO .COMPLEX Rx Instructions: 500 mg orally Mon, Wed, Fri; furosemide 20 mg tablet 20 mg PO DAILY PRN (Reason: edema) Qty: 60 3RF aspirin 81 mg tablet,delayed release (DR/EC) 81 mg PO DAILY Aranesp (in polysorbate) 200 mcg/0.4 mL syringe 200 mcg subcut Q2W Patient Comments: 03/13/24 per pt she gets an injection Q2w at [facility] due to anemia. this may change. RH lisinopril 10 mg tablet 10 mg PO DAILY amlodipine 10 mg tablet 10 mg PO DAILY Patient Comments: TAKE ONE TABLET BY MOUTH EVERY DAY carvedilol 3.125 mg tablet 3.125 mg PO BID Qty: 14 0RF Rx Instructions: must administer with a meal/food levothyroxine [Synthroid] 150 mcg tablet 150 mcg PO DAILY Qty: 14 0RF famotidine [Acid-Pep] 20 mg tablet 20 mg PO BID Qty: 60 0RF cholecalciferol (vitamin D3) [Vitamin D3] 2,000 UNIT capsule 2,000 unit PO DAILY pantoprazole 40 mg tablet,delayed release (DR/EC) 40 mg PO DAILY Qty: 90 0RF Rx Instructions: Take 1 pill by mouth in the morning, 1 pill by mouth in the evening. Repeat this every day for 4 weeks. Then switch to 1 pill daily. Discharge Instructions Additional Instructions: You are seen in the emergency department for your dizziness. Your blood work shows that your kidneys are working well. You have no sign of heart attack. As we discussed, please return to the emergency department if you develop any weakness in any of your extremities if you develop any chest pain or if you pass out. Otherwise please follow-up with primary care provider. Stand Alone Forms: Portal Information Discharge Data Discharge Date/Time-TO BE ENTERED AT DEPARTURE: 09/23/25 12:49 HPI General Date/Time Provider Initiated Documentation: 09/23/25 10:46. HPI Narrative: MDM This is an overall quite well-appearing normothermic and not tachycardic 80-year-old female with transient lightheadedness and dizziness prior to arrival subsequently resolved. Patient had no nystagmus to suggest posterior circulation CVA. As result I did not apply the hints exam. No focal neurological deficits to suggest CVA so I did not feel patient would be a candidate for lytics. No tonic-clonic activity to suggest seizure so I did not feel that she required an EEG nor antiseizure medications. No fevers nor nuchal rigidity to suggest meningitis so no indication for lumbar puncture. No chest pain to suggest ACS. Doubt PE in the absence of shortness of breath. Patient is not altered to suggest encephalitis. She has been here with her home medications. Her blood pressure is markedly elevated. I considered whether or not to obtain any imaging of the patient's head and neck. She had not previously had any vessel imaging of her head. In the event that this had been a small TIA causing dizziness patient is already on secondary prevention with aspirin. She had not had an echocardiogram earlier this year that showed no valvular abnormalities and normal EF. 11:54 AM Reassuring initial troponin less than the 99th percentile. Basic metabolic panel showing CKD. No superimposed KIERAN. Mildly elevated BUN similar to prior. No anion gap. Normal bicarbonate. No hyperglycemia. CBC lacks anemia thrombocytopenia and leukocytosis. 12:21 PM Repeat troponin reassuring. Delta troponin 0. Patient her son and I discussed that she should return to the ED if she developed any nausea or vomiting did not stop any weakness in any of her extremities or any chest pain. She understood her return indications and was discharged with an empiric trial of expectant outpatient management. Patient continued to feel improved in the ED. She did not wish to remain in the emergency department. We discussed that if she developed any weakness nausea or vomiting that did not stop or if she had any other concerns that she should return to the ED. Otherwise she was discharged with an empiric trial of expectant outpatient management. Blood pressure improved in the emergency department. [Diagnostic interpretations performed by me: Per my independent interpretation EKG shows: Sinus bradycardia rate of 53. First-degree AV block. QTc within normal limits. Normal axis. No acute injury pattern. Compared to prior dated earlier this year no acute injury pattern. HPI The patient presents for evaluation of dizziness. She experienced a brief episode of dizziness and disorientation, lasting approximately 5 to 10 minutes, while she was alone at home. During this time, she was preparing coffee and a meal. She did not experience any associated chest pain, shortness of breath, or headache. Her mobility remains unaffected. She has not started any new medications recently. She also reports no abdominal pain, dysuria, or melena. She felt well upon awakening and continues to feel well at present. Exam General: Well-appearing in no acute distress speaking in complete sentences. Head: Normocephalic, atraumatic. Eye:[Pupils equal, round reactive to light.] Extraocular eye movements intact. No conjunctival injection. No scleral icterus. Ear, nose, mouth, throat: Grossly normal inspection. Normal voice, handling secretions normally. Neck: Trachea midline. Cardiovascular: Well-perfused distal extremities. Regular rate and rhythm Respiratory: Nonlabored respiration. Clear lungs bilaterally Gastrointestinal: Nondistended abdomen. Musculoskeletal: No edema. Moving all 4 extremities spontaneously. Skin: Normal for age and race, grossly normal temperature and turgor. No acute rash. Neurologic: Alert and appropriate, no apparent acute deficits. GCS 15. Cranial nerves II through XII intact grossly. No dysmetria. No dysdiadochokinesia. 5 out of 5 bilateral upper extremity and lower extremity strength. No pronator drift. Psychiatric: Mood and manner are appropriate. Grooming and personal hygiene are appropriate. Related Data Home Medications ?Medication ?Instructions ?Recorded ?Confirmed cholecalciferol (vitamin D3) 50 2,000 unit PO DAILY 06/06/17 09/23/25 mcg (2,000 unit) capsule (Vitamin D3) multivitamin 1 tab PO DAILY 03/15/19 09/23/25 rosuvastatin 10 mg tablet 10 mg PO DAILY 12/16/20 09/23/25 ascorbate calcium (vitamin C) 500 500 mg PO .COMPLEX 07/29/22 09/23/25 mg tablet aspirin 81 mg tablet,delayed 81 mg PO DAILY 12/20/23 09/23/25 release pantoprazole 40 mg tablet,delayed 40 mg PO DAILY #90 tabs 12/29/23 09/23/25 release furosemide 20 mg tablet 20 mg PO DAILY PRN edema #60 tabs 02/16/24 09/23/25 darbepoetin amber in polysorbat 200 200 mcg subcut Q2W 03/13/24 09/23/25 mcg/0.4 mL in polysorbate injection syringe (Aranesp) amlodipine 10 mg tablet 10 mg PO DAILY 05/09/24 09/23/25 carvedilol 3.125 mg tablet 3.125 mg PO BID #14 tabs 12/01/24 09/23/25 famotidine 20 mg tablet (Acid-Pep) 20 mg PO BID #60 tabs 12/01/24 09/23/25 levothyroxine 150 mcg tablet 150 mcg PO DAILY #14 tabs 12/01/24 09/23/25 (Synthroid) lisinopril 10 mg tablet 10 mg PO DAILY 04/10/25 09/23/25 Previous Rx's ?Medication ?Instructions ?Recorded pantoprazole 40 mg tablet,delayed 40 mg PO DAILY #90 tabs 12/29/23 release furosemide 20 mg tablet 20 mg PO DAILY PRN edema #60 tabs 02/16/24 carvedilol 3.125 mg tablet 3.125 mg PO BID #14 tabs 12/01/24 famotidine 20 mg tablet (Acid-Pep) 20 mg PO BID #60 tabs 12/01/24 levothyroxine 150 mcg tablet 150 mcg PO DAILY #14 tabs 12/01/24 (Synthroid) Allergies Allergy/AdvReac Type Severity Reaction Status Date / Time cilostazol AdvReac Severe Headache Verified 09/23/25 10:17 Xepbign-FNZ-AyL Reductase AdvReac Intermediate Headache Verified 09/23/25 10:17 Inhibitor (Nicuiln-Pgd-Zde Reductase Inhibitor) atenolol AdvReac Mild palpitation Verified 08/06/25 11:23 s losartan potassium (From AdvReac Mild palpitation Verified 09/23/25 10:17 Cozaar) s levothyroxine sodium AdvReac pt unsure Verified 09/23/25 10:17 General Stated Complaint: Dizzy/Sync KEVIN: 3 Course Vital Signs Vital signs: Vital Signs Temperature 36.8 C 09/23/25 10:12 Pulse 54 L 09/23/25 10:12 Respiratory Rate 20 09/23/25 10:12 Blood Pressure 200/68 H 09/23/25 10:12 Pulse Oximetry 96 09/23/25 10:12 Temperature 36.8 C 09/23/25 10:12 Pulse 54 L 09/23/25 10:12 Respiratory Rate 20 09/23/25 10:12 Blood Pressure 200/68 H 09/23/25 10:12 Blood Pressure Position Sitting 09/23/25 10:12 Pulse Oximetry 96 09/23/25 10:12 Oxygen Delivery Method Room Air 09/23/25 10:12 Oxygen Flow Rate 0 09/23/25 10:12 Lab/Test Results Lab/Test Results: Laboratory Tests Range/Units 09/23/25 10:35 WBC (4.4-10.8) 10^3/uL 7.03 RBC (3.93-5.22) 10^6/uL 4.05 Hgb (11.2-15.7) g/dL 11.6 Hct (36.0-46.0) % 35.1 L MCV (80-95) fL 87 MCH (27.0-33.0) pg 28.6 MCHC (32.0-36.0) % 33.0 RDW (11.7-14.6) % 15.9 H Plt Count (130-400) 10^3/uL 253 MPV (8.0-11.0) fL 11.0 Immature Gran % % 0.4 Neutrophils % % 64.6 Lymphocytes % % 16.9 Monocytes % % 12.1 Eosinophils % % 5.7 Basophils % % 0.3 Nucleated RBC % (0.0-0.3) % 0.0 Absolute Neutrophils (1.2-6.7) 10^3/uL 4.54 Absolute Lymphocytes (1.2-3.4) 10^3/uL 1.19 L Absolute Monocytes (0.1-0.8) 10^3/uL 0.85 H Absolute Eosinophils (0.0-0.7) 10^3/uL 0.40 Absolute Basophils (0.0-0.2) 10^3/uL 0.02 Sodium (136-145) mmol/L 139 Potassium (3.5-5.1) mmol/L 4.7 Chloride (98-107) mmol/L 108 H Carbon Dioxide (20.0-31.0) mmol/L 27.4 Anion Gap (3-11) mmol/L 3.6 BUN (9-23) mg/dL 26 H Creatinine (0.55-1.02) mg/dL 1.21 H Est GFR (CKD-EPI 2020) (mL/min/1.73m2) 42.98 Glucose (74-106) mg/dL 104 Calcium (8.3-10.6) mg/dL 9.4 Troponin I (<35) ng/L 5 PFSH All Active Problems (Updated 09/23/25 @ 12:22 by Rafa Salinas MD) Dizziness (Acute) Mass in neck (Acute) Cerebral infarction (Acute) Irregular heart beat (Acute) Bradycardia (Acute) Sensorineural hearing loss (Acute) Visual field defect (Acute) Cauda equina syndrome (Acute) Nicotine dependence (Acute) Panic attacks (Acute) Anxiety (Chronic) Current smoker (Acute) Nicotine dependence, cigarettes, uncomplicated (Acute) Anemia due to blood loss, acute (Acute) Anemia due to GI blood loss (Acute) Incidental lung nodule, greater than or equal to 8mm (Acute) Anemia (Chronic) Renal calculi (Chronic) Sinus bradycardia (Acute) Episode of syncope (Chronic) CKD (chronic kidney disease) stage 3, GFR 30-59 ml/min (Chronic) Lumbosacral spondylosis without myelopathy (Acute) COPD (chronic obstructive pulmonary disease) (Chronic) Solitary lung nodule (Acute) Hydronephrosis (Acute) Hx of CABG (Chronic) Chest pain, rule out acute myocardial infarction (Acute) Mild chronic gastritis (Acute) Peripheral vascular disease (Chronic) CAD (coronary artery disease) (Chronic) GERD (gastroesophageal reflux disease) (Acute 09/05/16) Cerebrovascular accident (CVA) (Acute) Chronic anxiety (Acute) Hypothyroid (Chronic) Hyperlipidemia (Chronic) Carotid stenosis (Chronic) Tobacco dependence (Acute) Hx of Helicobacter infection (Acute) 2013 Medical History (Updated 09/23/25 @ 12:22 by Rafa Salinas MD) Constipation Arteriosclerosis of coronary artery bypass graft Type 2 diabetes mellitus Iron deficiency anemia Anemia Diabetes mellitus Pt denies Chronic kidney disease, stage 3b Lung nodule 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 Prediabetes Asthma Pt denies Asthma Obesity Vitamin D deficiency Hypertension Brittle nails Peripheral vascular disease Depression Intermittent claudication Degenerative disc disease, lumbar Diverticulosis large intestine w/o perforation or abscess w/o bleeding Optic neuritis Impaired glucose regulation Elevated troponin Abnormal EKG Surgical History S/P CABG x 2 right carotid endarterectomy x2 Ligation of fallopian tube EGD - [facility] (05/2024) path sent EGD - IV Sedation 2013 Colonoscopy - [facility] 2014 Biopsy, Temporal Artery (09/15/17) right Family History Mother Hypocholesteremia Hypertension Hypothyroid Diabetes Father Stroke Other Heart disease Social History Smoking/Tobacco Use Status: Current every day Tobacco Type: cigarettes Tobacco: How many years used: 46 Counseling given: patient declined Smoking risk assessment performed?: Yes Alcohol Intake: never Drug use: Never Substance use type: does not use Housing: house Do you feel safe at home: Yes Do you feel safe in your relationship?: Yes
[2025-09-23 12:05] LABS: Troponin I 5 ng/L (<35)
== END 2025-09-23 12:49 | disposition home or self-care (01) ==
PROVIDERS: Emergency Provider Emergency Medicine; PCP Student in an Organized Health Care Education/Training Program
DX: R42 Dizziness and giddiness (principal); I25.10 Atherosclerotic heart disease of native coronary artery without angina pectoris; E11.22 Type 2 diabetes mellitus with diabetic chronic kidney disease; I12.9 Hypertensive chronic kidney disease with stage 1 through stage 4 chronic kidney disease, or unspecified chronic kidney disease; N18.32 Chronic kidney disease, stage 3b; F17.210 Nicotine dependence, cigarettes, uncomplicated; Z95.1 Presence of aortocoronary bypass graft; Z79.82 Long term (current) use of aspirin
CPT/HCPCS: 36415; 80048; 82962; 93005; 99284; 84484; 85025; 93010

== ENCOUNTER 2025-09-30 01:01 | Outpatient (RCR) | payer MEDICARE, OTHER, SELFPAY ==
[2025-09-10 09:22] LABS: HCT 37.4 % (36.0-46.0); HGB 12.2 g/dL (11.2-15.7); MCH 28.4 pg (27.0-33.0); MCHC 32.6 % (32.0-36.0); MCV 87 fL (80-95); MPV 11.3 fL (8.0-11.0); Platelet Count 181 10^3/uL (130-400); RBC 4.29 10^6/uL (3.93-5.22); RDW 16.6 % (11.7-14.6); RDW-SD 52.5 fL; WBC 7.03 10^3/uL (4.4-10.8)
[2025-09-10 10:42] LABS: Abs Immature Grans 0.01 10^3/uL (0.0-0.06); Immature Grans % 0.1 %
[2025-09-30 08:57] LABS: Abs Immature Grans 0.02 10^3/uL (0.0-0.06); HCT 34.6 % (36.0-46.0); HGB 11.4 g/dL (11.2-15.7); Immature Grans % 0.3 %; MCH 28.4 pg (27.0-33.0); MCHC 32.9 % (32.0-36.0); MCV 86 fL (80-95); MPV 10.9 fL (8.0-11.0); Platelet Count 248 10^3/uL (130-400); RBC 4.01 10^6/uL (3.93-5.22); RDW 15.5 % (11.7-14.6); RDW-SD 48.7 fL; WBC 6.24 10^3/uL (4.4-10.8)
[2025-09-30 09:22] LABS: Ferritin 124 ng/mL (7-271)
[2025-09-30] MEDS: Darbepoetin 200 MCG SYR SC (09:40)
== END 2025-10-08 23:59 | disposition home or self-care (01) ==
LOC: INF 01:01
PROVIDERS: Nurse Practitioner Family; PCP Student in an Organized Health Care Education/Training Program; Visit Provider Family Medicine
DX: N18.31 Chronic kidney disease, stage 3a (principal); D63.1 Anemia in chronic kidney disease
CPT/HCPCS: 36415; 85027; 96372; 82728; 85007; 85025; J0881

== ENCOUNTER 2025-09-30 16:42 | Emergency (ER) | payer MEDICARE, OTHER, SELFPAY ==
[2025-09-30 16:44] VITALS: BP 194/61; PULSE 55; RESP 20; TEMP 36.7; O2SAT 98
--- NOTE | 2025-09-30 17:18 | W.ED.GENAD ---
Discharge Plan Disposition Patient Disposition: Home Condition: Stable Discharge Details Clinical Impression: Elevated blood pressure reading, Vaginal prolapse Primary Care Provider: Zafar Botello ED Provider: Tucker Phipps Home Meds and New Rx's Prescriptions: Continued multivitamin tablet 1 tab PO DAILY Patient Comments: TAKES @ 5PM DAILY rosuvastatin 10 mg tablet 10 mg PO DAILY Patient Comments: TAKES IN THE EVENING ascorbate calcium (vitamin C) 500 mg tablet 500 mg PO .COMPLEX Rx Instructions: 500 mg orally Mon, Wed, Fri; furosemide 20 mg tablet 20 mg PO DAILY PRN (Reason: edema) Qty: 60 3RF aspirin 81 mg tablet,delayed release (DR/EC) 81 mg PO DAILY Aranesp (in polysorbate) 200 mcg/0.4 mL syringe 200 mcg subcut Q2W Patient Comments: 03/13/24 per pt she gets an injection Q2w at [facility] due to anemia. this may change. RH lisinopril 10 mg tablet 10 mg PO DAILY amlodipine 10 mg tablet 10 mg PO DAILY Patient Comments: TAKE ONE TABLET BY MOUTH EVERY DAY carvedilol 3.125 mg tablet 3.125 mg PO BID Qty: 14 0RF Rx Instructions: must administer with a meal/food levothyroxine [Synthroid] 150 mcg tablet 150 mcg PO DAILY Qty: 14 0RF famotidine [Acid-Pep] 20 mg tablet 20 mg PO BID Qty: 60 0RF cholecalciferol (vitamin D3) [Vitamin D3] 2,000 UNIT capsule 2,000 unit PO DAILY pantoprazole 40 mg tablet,delayed release (DR/EC) 40 mg PO DAILY Qty: 90 0RF Rx Instructions: Take 1 pill by mouth in the morning, 1 pill by mouth in the evening. Repeat this every day for 4 weeks. Then switch to 1 pill daily. Discharge Instructions Instructions: Vaginal Prolapse, High Blood Pressure ED Additional Instructions: Your blood pressure was elevated today in the emergency department. Please be sure to take your medication as prescribed. Please monitor blood pressure daily over the next 1 week. Keep a log. Follow-up with your primary care physician and be sure to discuss elevated blood pressure. Should blood pressure remain elevated, additional outpatient diagnostic testing and treatment may be necessary. [facility] with [facility]. Call for an appointment. Return to the emergency department immediately for any worsening or new concerning symptoms. Stand Alone Forms: Portal Information Referrals: [facility] [Provider Group] Zafar Botello [Primary Care Provider, Medicine] [facility] General Mode of arrival: ambulatory. Date/Time Provider Initiated Documentation: 09/30/25 16:50. Limitations to Documentation: no limitations. Information obtained by: patient. HPI Narrative: 80-year-old female with multiple medical problems presents with concern for cyst between her vagina and rectum. She noticed this a couple days ago. She does note history of urinary hesitancy and increased urinary frequency for some time. No fevers. No vaginal discharge. Patient notes she does use sex toys. Related Data Home Medications ?Medication ?Instructions ?Recorded ?Confirmed cholecalciferol (vitamin D3) 50 2,000 unit PO DAILY 06/06/17 09/30/25 mcg (2,000 unit) capsule (Vitamin D3) multivitamin 1 tab PO DAILY 03/15/19 09/30/25 rosuvastatin 10 mg tablet 10 mg PO DAILY 12/16/20 09/30/25 ascorbate calcium (vitamin C) 500 500 mg PO .COMPLEX 07/29/22 09/30/25 mg tablet aspirin 81 mg tablet,delayed 81 mg PO DAILY 12/20/23 09/30/25 release pantoprazole 40 mg tablet,delayed 40 mg PO DAILY #90 tabs 12/29/23 09/30/25 release furosemide 20 mg tablet 20 mg PO DAILY PRN edema #60 tabs 02/16/24 09/30/25 darbepoetin amber in polysorbat 200 200 mcg subcut Q2W 03/13/24 09/30/25 mcg/0.4 mL in polysorbate injection syringe (Aranesp) amlodipine 10 mg tablet 10 mg PO DAILY 05/09/24 09/30/25 carvedilol 3.125 mg tablet 3.125 mg PO BID #14 tabs 12/01/24 09/30/25 famotidine 20 mg tablet (Acid-Pep) 20 mg PO BID #60 tabs 12/01/24 09/30/25 levothyroxine 150 mcg tablet 150 mcg PO DAILY #14 tabs 12/01/24 09/30/25 (Synthroid) lisinopril 10 mg tablet 10 mg PO DAILY 04/10/25 09/30/25 Previous Rx's ?Medication ?Instructions ?Recorded pantoprazole 40 mg tablet,delayed 40 mg PO DAILY #90 tabs 12/29/23 release furosemide 20 mg tablet 20 mg PO DAILY PRN edema #60 tabs 02/16/24 carvedilol 3.125 mg tablet 3.125 mg PO BID #14 tabs 12/01/24 famotidine 20 mg tablet (Acid-Pep) 20 mg PO BID #60 tabs 12/01/24 levothyroxine 150 mcg tablet 150 mcg PO DAILY #14 tabs 12/01/24 (Synthroid) Allergies Allergy/AdvReac Type Severity Reaction Status Date / Time cilostazol AdvReac Severe Headache Verified 09/30/25 16:48 Fpwaxoh-MLT-VgS Reductase AdvReac Intermediate Headache Verified 09/30/25 16:48 Inhibitor (Noiejat-Adl-Ucn Reductase Inhibitor) atenolol AdvReac Mild palpitation Verified 09/30/25 16:48 s losartan potassium (From AdvReac Mild palpitation Verified 09/30/25 16:48 Cozaar) s levothyroxine sodium AdvReac pt unsure Verified 09/30/25 16:48 General Stated Complaint: RashLesion KEVIN: 3 Review of Systems All systems reviewed & are unremarkable except as noted in HPI and below Exam Const General: cooperative and no acute distress HENMT Mouth: moist mucous membranes GI Palpation: soft, not firm, no guarding, no masses, not rigid and nontender Other: External gynecologic exam performed with female nurse public works supervisor Jeanette present for entirety of exam. Patient has second to third-degree vaginal prolapse. No signs of inflammation. Neuro General: patient alert, patient awake and tone normal Course Vital Signs Vital signs: Vital Signs Temperature 36.7 C 09/30/25 16:44 Pulse 55 L 09/30/25 16:44 Respiratory Rate 20 09/30/25 16:44 Blood Pressure 194/61 H 09/30/25 16:44 Pulse Oximetry 98 09/30/25 16:44 Temperature 36.7 C 09/30/25 16:44 Pulse 55 L 09/30/25 16:44 Respiratory Rate 20 09/30/25 16:44 Blood Pressure 194/61 H 09/30/25 16:44 Blood Pressure Position Sitting 09/30/25 16:44 Pulse Oximetry 98 09/30/25 16:44 Oxygen Delivery Method Room Air 09/30/25 16:44 Oxygen Flow Rate 0 09/30/25 16:44 Medical Decision Making 80-year-old female whose had 5 vaginal deliveries, here with grade 2-3 vaginal prolapse. I spoke with Dr. Patel, discussed ED presentation and course, no urgent intervention recommended at this time and she will be happy to see the patient in follow-up. Patient was instructed that if she is having difficulty with urination that she can reduce prolapse manually. Patient noted to have elevated blood pressure. We discussed need to monitor at home and follow-up with her primary care physician regarding elevated blood pressure. She notes PCP is actively managing and recently increased dose of lisinopril. Usual and customary discharge instructions reviewed. PFSH All Active Problems Vaginal prolapse (Acute) Elevated blood pressure reading (Acute) Dizziness (Acute) Mass in neck (Acute) Cerebral infarction (Acute) Irregular heart beat (Acute) Bradycardia (Acute) Sensorineural hearing loss (Acute) Visual field defect (Acute) Cauda equina syndrome (Acute) Nicotine dependence (Acute) Panic attacks (Acute) Anxiety (Chronic) Current smoker (Acute) Nicotine dependence, cigarettes, uncomplicated (Acute) Anemia due to blood loss, acute (Acute) Anemia due to GI blood loss (Acute) Incidental lung nodule, greater than or equal to 8mm (Acute) Anemia (Chronic) Renal calculi (Chronic) Sinus bradycardia (Acute) Episode of syncope (Chronic) CKD (chronic kidney disease) stage 3, GFR 30-59 ml/min (Chronic) Lumbosacral spondylosis without myelopathy (Acute) COPD (chronic obstructive pulmonary disease) (Chronic) Solitary lung nodule (Acute) Hydronephrosis (Acute) Hx of CABG (Chronic) Chest pain, rule out acute myocardial infarction (Acute) Mild chronic gastritis (Acute) Peripheral vascular disease (Chronic) CAD (coronary artery disease) (Chronic) GERD (gastroesophageal reflux disease) (Acute 09/05/16) Cerebrovascular accident (CVA) (Acute) Chronic anxiety (Acute) Hypothyroid (Chronic) Hyperlipidemia (Chronic) Carotid stenosis (Chronic) Tobacco dependence (Acute) Hx of Helicobacter infection (Acute) 2013 Medical History Constipation Arteriosclerosis of coronary artery bypass graft Type 2 diabetes mellitus Iron deficiency anemia Anemia Diabetes mellitus Pt denies Chronic kidney disease, stage 3b Lung nodule 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 Prediabetes Asthma Pt denies Asthma Obesity Vitamin D deficiency Hypertension Brittle nails Peripheral vascular disease Depression Intermittent claudication Degenerative disc disease, lumbar Diverticulosis large intestine w/o perforation or abscess w/o bleeding Optic neuritis Impaired glucose regulation Elevated troponin Abnormal EKG Surgical History S/P CABG x 2 right carotid endarterectomy x2 Ligation of fallopian tube EGD - [facility] (05/2024) path sent EGD - IV Sedation 2013 Colonoscopy - [facility] 2015 Biopsy, Temporal Artery (09/15/17) right Family History Mother Hypocholesteremia Hypertension Hypothyroid Diabetes Father Stroke Other Heart disease Social History Smoking/Tobacco Use Status: Current every day Tobacco Type: cigarettes Tobacco: How many years used: 46 Counseling given: patient declined Smoking risk assessment performed?: Yes Alcohol Intake: never Drug use: Never Substance use type: does not use Housing: house Do you feel safe at home: Yes Do you feel safe in your relationship?: Yes
== END 2025-09-30 17:33 | disposition home or self-care (01) ==
PROVIDERS: Emergency Provider Student in an Organized Health Care Education/Training Program; PCP Student in an Organized Health Care Education/Training Program
DX: N81.10 Cystocele, unspecified (principal); R03.0 Elevated blood-pressure reading, without diagnosis of hypertension
CPT/HCPCS: 99283 ×2